=== PATIENT | male | born 1945 | race Caucasian/White ===

== ENCOUNTER → 2019-09-10 11:30 | Outpatient (BNVA) | payer MEDICARE, MEDICAID, SELFPAY | PROVIDERS: Family Provider Nurse Practitioner; PCP Nurse Practitioner; Visit Provider Nurse Practitioner | DX: I10 Essential (primary) hypertension (principal); E11.65 Type 2 diabetes mellitus with hyperglycemia; Z79.4 Long term (current) use of insulin; Z86.73 Personal history of transient ischemic attack (TIA), and cerebral infarction without residual deficits; K21.9 Gastro-esophageal reflux disease without esophagitis; J30.1 Allergic rhinitis due to pollen; Z85.038 Personal history of other malignant neoplasm of large intestine | CPT/HCPCS: 80053; 80061; 83036 ==

== ENCOUNTER 2019-09-18 12:25 | Outpatient (CLI) | payer MEDICARE, MEDICAID, SELFPAY ==
--- NOTE | 2019-09-18 12:48 | CT_ITS ---
WS: [id number] CT ABDOMEN AND PELVIS NONCONTRAST HISTORY: history colon cancer TECHNIQUE: Imaging performed through the abdomen and pelvis. Coronal and sagittal reformats are submi tted. All CT scans at [facility] use at least one of these dose optimization techniques: automated exposure control; mA and/or kV adjustment per patient size (includes targeted exams where d ose is matched to clinical indication); or iterative reconstruction. DLP: 1037.85 mGycm COMPARISON: 10/10/2016, 02/02/2016 Lower thorax: Chronic interstitial thickening at the lung bases. Stable 4 mm noncalcified nodules at the LEFT lung base. Small hiatal hernia. Liver: Normal, no mass or intrahepatic dilatation. Gallbladder: Prior cholecystectomy. Pancreas: Atrophic pancreas with no adjacent inflammation. Spleen: Normal. Adrenal glands: Normal. Right kidney: Normal size with no stones, masses or atrophy. Left kidney: Normal size with no stones, mass or atrophy. Mild atherosclerosis with no aneurysm. No free fluid, intraperitoneal air or significant lymphadenopathy. GI tract: Area of fat necrosis again noted centered in the RIGHT abdomen close to the ileocolic anast omosis has been present on prior studies and is stable. No recurrent mass or soft tissue thickening a t the ileocolic anastomosis. There are a few small sigmoid diverticula. No focal mass or obstructing process. Abdominal wall: Intact. Pelvis: Well-distended urinary bladder. No free fluid or adenopathy. Inguinal canals are patent bilat erally containing fat only. Osseous structures: No destructive bone lesions. CT/CT abdomen pelvis wo con [id number] IMPRESSION: 1. Stable ileocolic anastomosis with no recurrent mass or adenopathy. 2. Prior cholecystectomy. 3. Small hiatal hernia.
[2019-09-18] MEDS: iohexol 300 mg/mL 50 mL Btl PO (14:26)
== END 2019-09-18 12:26 | disposition home or self-care (01) ==
LOC: RADWPI 12:31
PROVIDERS: Family Provider Nurse Practitioner; PCP Nurse Practitioner; Visit Provider Nurse Practitioner
DX: Z85.038 Personal history of other malignant neoplasm of large intestine (principal); K44.9 Diaphragmatic hernia without obstruction or gangrene; Z90.49 Acquired absence of other specified parts of digestive tract
CPT/HCPCS: 74176

== ENCOUNTER 2019-11-12 21:22 | Observation (INO) | payer MEDICARE, MEDICAID, SELFPAY ==
--- NOTE | 2019-11-12 21:22 | XR_ITS ---
WS: [id number] XR chest 1V portable [id number] REASON FOR EXAM: cp FINDINGS: Cardiomegaly. The lung copeland are clear there is no pneumothorax seen. No pneumonia, pleural effusion, or mass effect. The rib cage shows no definite fractures. XR/XR chest 1V portable [id number] IMPRESSION: Cardiomegaly.
[2019-11-12 21:23] VITALS: BP 110/68; PULSE 67; RESP 18; TEMP 37; O2SAT 98; BMI 28.7
--- NOTE | 2019-11-12 21:23 | ECG_ITS ---
Measurements Intervals [place] Rate: 66 P: 68 AR: 173 QRS: 45 QRSD: 76 T: 38 QT: 368 QTc: 387 SINUS RHYTHM Compared to ECG 07/10/2018 20:24:38 Sinus bradycardia no longer present Electronically Signed On 11-13-2019 15:20:07 CDT by Isamar Pierce M.D. [id number] f
--- NOTE | 2019-11-12 21:26 | ED_ITS ---
Documented by User: Shital Pelletier MD 11/12/19 22:44 HPI - Chest Pain General: Chief Complaint: Chest Pain Stated Complaint: Chest Pain Time Seen by Provider: 11/12/19 21:24 Source: patient and EMS Mode of arrival: EMS Limitations: no limitations History of Present Illness: HPI narrative: 74-year-old male whose had chest pain throughout the day. He states been constant nature and sharp. He states it radiates down his left arm and is worse with movement of his left arm. Patient states he is point tender on that side of his chest as well reproduces his pain. Nitro did not help his pain. He states his pain is currently a 2 out of 10. Denies any shortness of breath or diaphoresis. He has had no nausea. MD complaint: chest pain Onset (ago): hour(s) Timing of current episode: constant Prior episodes: No Pain location: substernal Pain radiation: left arm Severity: mild Quality: sharp Relieving factors: nothing Exacerbating factors: nothing Associated symptoms: Deny abdominal pain, dyspnea, fever(s), nausea or vomiting Review of Systems Const: Denies: fever, chills, body aches or change in appetite Eyes: Denies: blurry vision or eye discomfort ENMT: Denies: throat pain or dental pain Card: Reports: chest pain Resp: Denies: shortness of breath GI: Denies: abdominal pain, nausea, vomiting or diarrhea : Denies: painful urination Musc: Denies: neck pain or back pain Skin/Breast: Denies: rash Neuro: Denies: headache Psych: Denies: depression Aubrey/Lymph: Denies: easy bruising All/Imm: Denies: hives PFSH ED PFSH: Medical History Acid reflux Aortic regurgitation Chronic migraine Controlled type 2 diabetes mellitus with hyperglycemia, with long-term current use of insulin DDD (degenerative disc disease) Dependent on walker for ambulation Enrolled in chronic care management History of stroke Hypertension Tricuspid regurgitation Vitamin D deficiency Surgical History History of cataract surgery History of cervical spinal surgery 3 times History of cholecystectomy History of colon cancer 2015 History of knee surgery Right Family History Other Cancer Denies family history of Bleeding disorder Social History Smoking and tobacco status: former smoker Second hand smoke exposure: No Smoking risk assessment/counseling performed?: No Alcohol intake: never Desire information about alcohol rehabilitation?: No Counseling given: No Desire information about substance/drug rehabilitation?: No Counseling given: No Caregiver/support person: No Lives independently: Yes Household members: spouse Marital status: Current occupational status: retired History of recent travel: No Current gender identity: Male Physical Exam Const: COMMON NORMALS: no apparent distress, oriented x3 and healthy appearing HENMT: COMMON NORMALS: normocephalic and head/scalp atraumatic HEAD & SCALP: normocephalic and atraumatic Eye: COMMON NORMALS: PERRL and EOMs intact bilaterally PUPIL: Yes PERRL Neck/C-Spine: COMMON NORMALS: full ROM and supple Chest: COMMONS NORMALS: inspection of chest normal OTHER: Point tender to left side of chest that reproduces pain Resp: COMMON NORMALS: normal respiratory effort, no retractions, no use of ac cessory muscles and clear to auscultation bilaterally AUSCULTATION: clear to auscultation bilaterally Cardio: COMMON NORMALS: regular rate, regular rhythm and no murmurs RATE: regular rate RHYTHM: regular rhythm GI: COMMON NORMALS: normal to inspection, nondistended, normoactive bowel sounds, soft to palpation, non-tender and no masses PALPATION: Yes soft Extremity: COMMON NORMALS: normal to inspection and full ROM Neuro: COMMON NORMALS: oriented x3, moves all extremities and no focal motor deficits Psych: COMMON NORMALS: mental status grossly normal, thought process normal and cooperative THOUGHT PROCESS: normal thought process Skin: COMMON NORMALS: no rashes or lesions noted and no wounds GENERAL SKIN EXAM: no rashes or lesions noted Course Vital Signs: Vital signs: Vital Signs Temperature 98.2 F 11/13/19 02:18 Pulse Rate 54 L 11/13/19 02:18 Respiratory Rate 17 11/13/19 02:18 Blood Pressure 112/67 11/13/19 02:18 Pulse Oximetry 97 11/13/19 02:18 MDM - Chest Pain MDM Narrative: Medical decision making narrative: Patient presents with chest pain is likely musculoskeletal in nature. Patient is point tender in the center of his chest and it reproduces his pain. Initial troponin here is negative. Patient's EKG and x-ray are normal. Will check 2-hour troponin and if negative patient is likely stable for discharge. Patient's care turned over to Dr. Chamberlain to follow 2-hour troponin. Lab Data: Labs: Lab Results 11/12/19 11/12/19 11/12/19 Range/Units 01:13 21:45 21:45 WBC 8.2 (4.0-10.0) 10^3/ uL RBC 5.02 (4.1-5.3) 10^6/u L Hgb 13.8 (11.7-16.6) g/dL Hct 43.6 (42.0-52.0) % MCV 86.9 (80-94) fL MCH 27.5 L (28.0-34.0) pg MCHC 31.7 (30.0-36.0) g/dL RDW 13.1 (12.1-15.1) % Plt Count 280 (130-400) 10^3/c mm MPV 9.8 (7.4-10.4) fL Neut % (Auto) 65.9 % Lymph % (Auto) 24.0 % [place] % (Auto) 7.8 % Eos % (Auto) 1.3 % Baso % (Auto) 0.5 % Neut # (Auto) 5.4 (1.8-7.7) 10^3/u L Lymph # (Auto) 2.0 (0.8-4.8) 10^3/u L [place] # (Auto) 0.6 (0.2-0.9) 10^3/u L Eos # (Auto) 0.1 (0.0-0.8) 10^3/u L Baso # (Auto) 0.0 (0.0-0.1) 10^3/u L Nucleated RBC % (a uto) 0 % Nucleated RBCs # 0.0 /100WBC PT 12.40 (10.5-13.3) SECO NDS INR 0.90 (0.8-1.2) D-Dimer (0-0.59) ug/mIFE U Sodium (136-145) mmol/L Potassium (3.5-5.1) mmol/L Chloride (98-107) mmol/L Carbon Dioxide (22-29) mmol/L Anion Gap (5-19) BUN (8-23) mg/dL Creatinine (0.7-1.2) mg/dL Glucose (65-115) mg/dL Calculated Osmolal ity (285-295) mOsm/k g Calcium (8.5-10.5) mg/dL Total Bilirubin (0.15-1.2) mg/dL AST (0-40) U/L ALT (0-41) U/L Alkaline Phosphata se (40-130) IU/L Troponin T Baselin e (0-15) ng/mL Troponin T 120 Min knik 9.82 (0-15) ng/mL Delta Troponin T -5.18 L (0-10) ABS# Total Protein (6.6-8.7) g/dL Albumin (3.5-5.2) g/dL Globulin (1.3-4.6) g/dL TSH (0.27-4.20) uIU/ mL 11/12/19 11/12/19 11/13/19 Range/Units 21:45 21:45 00:00 WBC (4.0-10.0) 10^3/ uL RBC (4.1-5.3) 10^6/u L Hgb (11.7-16.6) g/dL Hct (42.0-52.0) % MCV (80-94) fL MCH (28.0-34.0) pg MCHC (30.0-36.0) g/dL RDW (12.1-15.1) % Plt Count (130-400) 10^3/c mm MPV (7.4-10.4) fL Neut % (Auto) % Lymph % (Auto) % [place] % (Auto) % Eos % (Auto) % Baso % (Auto) % Neut # (Auto) (1.8-7.7) 10^3/u L Lymph # (Auto) (0.8-4.8) 10^3/u L [place] # (Auto) (0.2-0.9) 10^3/u L Eos # (Auto) (0.0-0.8) 10^3/u L Baso # (Auto) (0.0-0.1) 10^3/u L Nucleated RBC % (a uto) % Nucleated RBCs # /100WBC PT (10.5-13.3) SECO NDS INR (0.8-1.2) D-Dimer 0.62 H (0-0.59) ug/mIFE U Sodium 133 L (136-145) mmol/L Potassium 4.8 (3.5-5.1) mmol/L Chloride 97 L (98-107) mmol/L Carbon Dioxide 24 (22-29) mmol/L Anion Gap 16.8 (5-19) BUN 12 (8-23) mg/dL Creatinine 1.0 (0.7-1.2) mg/dL Glucose 298 H (65-115) mg/dL Calculated Osmolal ity 283 L (285-295) mOsm/k g Calcium 9.8 (8.5-10.5) mg/dL Total Bilirubin 0.3 (0.15-1.2) mg/dL AST 15 (0-40) U/L ALT 12 (0-41) U/L Alkaline Phosphata se 74 (40-130) IU/L Troponin T Baselin e 15 (0-15) ng/mL Troponin T 120 Min knik (0-15) ng/mL Delta Troponin T (0-10) ABS# Total Protein 7.5 (6.6-8.7) g/dL Albumin 3.9 (3.5-5.2) g/dL Globulin 3.6 (1.3-4.6) g/dL TSH (0.27-4.20) uIU/ mL 11/13/19 Range/Units 01:13 WBC (4.0-10.0) 10^3/ uL RBC (4.1-5.3) 10^6/u L Hgb (11.7-16.6) g/dL Hct (42.0-52.0) % MCV (80-94) fL MCH (28.0-34.0) pg MCHC (30.0-36.0) g/dL RDW (12.1-15.1) % Plt Count (130-400) 10^3/c mm MPV (7.4-10.4) fL Neut % (Auto) % Lymph % (Auto) % [place] % (Auto) % Eos % (Auto) % Baso % (Auto) % Neut # (Auto) (1.8-7.7) 10^3/u L Lymph # (Auto) (0.8-4.8) 10^3/u L [place] # (Auto) (0.2-0.9) 10^3/u L Eos # (Auto) (0.0-0.8) 10^3/u L Baso # (Auto) (0.0-0.1) 10^3/u L Nucleated RBC % (a uto) % Nucleated RBCs # /100WBC PT (10.5-13.3) SECO NDS INR (0.8-1.2) D-Dimer (0-0.59) ug/mIFE U Sodium (136-145) mmol/L Potassium (3.5-5.1) mmol/L Chloride (98-107) mmol/L Carbon Dioxide (22-29) mmol/L Anion Gap (5-19) BUN (8-23) mg/dL Creatinine (0.7-1.2) mg/dL Glucose (65-115) mg/dL Calculated Osmolal ity (285-295) mOsm/k g Calcium (8.5-10.5) mg/dL Total Bilirubin (0.15-1.2) mg/dL AST (0-40) U/L ALT (0-41) U/L Alkaline Phosphata se (40-130) IU/L Troponin T Baselin e (0-15) ng/mL Troponin T 120 Min knik (0-15) ng/mL Delta Troponin T (0-10) ABS# Total Protein (6.6-8.7) g/dL Albumin (3.5-5.2) g/dL Globulin (1.3-4.6) g/dL TSH 4.06 (0.27-4.20) uIU/ mL Imaging Data^: CXR: My impression: no acute abnormality EKG Data^: EKG 1: Attestation: I personally reviewed and interpreted this EKG as follows: EKG interpretation date: 11/12/19 EKG interpretation time: 21:35 Interpretation: nsr hr [address] or t wave abnormalities Discharge Plan Discharge Patient Disposition: Placed in Observation Admit Provider: Richard Benjamin Clinical Impression: Chest pain Qualifiers: Chest pain type: unspecified Qualified Code(s): R07.9 - Chest pain, unspecified Condition: Stable Referrals: Aline Pacheco FNP-C [Primary Care Provider] - 1-3 days Discharge Diet: Advance as tolerated Discharge Activity: Resume usual activity Patient Instructions: Chest Pain (ED) Discharge Date/Time: 11/13/19 02:30 Sign Out Sign Out Data: Patient Sign Out occurred on 11/12/19 at 23:08. Patient's care was discussed, and care was transferred from to Liss Fleming. Coding Level of Care Code ED Tooling Engineering Tech for Chg Fwd Exam Comprehensive Documented by User: Liss Fleming 11/13/19 03:03 HPI - Chest Pain General: Chief Complaint: Chest Pain Stated Complaint: Chest Pain Time Seen by Provider: 11/12/19 21:24 PFSH ED PFSH: Medical History Acid reflux Aortic regurgitation Chronic migraine Controlled type 2 diabetes mellitus with hyperglycemia, with long-term current use of insulin DDD (degenerative disc disease) Dependent on walker for ambulation Enrolled in chronic care management History of stroke Hypertension Tricuspid regurgitation Vitamin D deficiency Surgical History History of cataract surgery History of cervical spinal surgery 3 times History of cholecystectomy History of colon cancer 2015 History of knee surgery Right Family History Other Cancer Denies family history of Bleeding disorder Social History Smoking and tobacco status: former smoker Second hand smoke exposure: No Smoking risk assessment/counseling performed?: No Alcohol intake: never Desire information about alcohol rehabilitation?: No Counseling given: No Desire information about substance/drug rehabilitation?: No Counseling given: No Caregiver/support person: No Lives independently: Yes Household members: spouse Marital status: Current occupational status: retired History of recent travel: No Current gender identity: Male Course Vital Signs: Vital signs: Vital Signs Temperature 98.2 F 11/13/19 02:18 Pulse Rate 54 L 11/13/19 02:18 Respiratory Rate 17 11/13/19 02:18 Blood Pressure 112/67 11/13/19 02:18 Pulse Oximetry 97 11/13/19 02:18 MDM - Chest Pain MDM Narrative: Medical decision making narrative: Upon my going to talk to the patient he has seem to have changed his story. He states that he had squeezing type chest pain that radiated down his left arm with associated shortness of breath and diaphoresis. The family is insistent that he stay for cardiac stress testing. He has had 2 normal EKGs and his d-dimer is normal for age adjustment but after talking with Dr. Benjamin he would like to go ahead and order a CTA. He understands the second troponin is pending but he will come down to evaluate the patient. The patient's heart score is 5. Lab Data: Labs: Lab Results 11/12/19 11/12/19 11/12/19 Range/Units 01:13 21:45 21:45 WBC 8.2 (4.0-10.0) 10^3/ uL RBC 5.02 (4.1-5.3) 10^6/u L Hgb 13.8 (11.7-16.6) g/dL Hct 43.6 (42.0-52.0) % MCV 86.9 (80-94) fL MCH 27.5 L (28.0-34.0) pg MCHC 31.7 (30.0-36.0) g/dL RDW 13.1 (12.1-15.1) % Plt Count 280 (130-400) 10^3/c mm MPV 9.8 (7.4-10.4) fL Neut % (Auto) 65.9 % Lymph % (Auto) 24.0 % [place] % (Auto) 7.8 % Eos % (Auto) 1.3 % Baso % (Auto) 0.5 % Neut # (Auto) 5.4 (1.8-7.7) 10^3/u L Lymph # (Auto) 2.0 (0.8-4.8) 10^3/u L [place] # (Auto) 0.6 (0.2-0.9) 10^3/u L Eos # (Auto) 0.1 (0.0-0.8) 10^3/u L Baso # (Auto) 0.0 (0.0-0.1) 10^3/u L Nucleated RBC % (a uto) 0 % Nucleated RBCs # 0.0 /100WBC PT 12.40 (10.5-13.3) SECO NDS INR 0.90 (0.8-1.2) D-Dimer (0-0.59) ug/mIFE U Sodium (136-145) mmol/L Potassium (3.5-5.1) mmol/L Chloride (98-107) mmol/L Carbon Dioxide (22-29) mmol/L Anion Gap (5-19) BUN (8-23) mg/dL Creatinine (0.7-1.2) mg/dL Glucose (65-115) mg/dL Calculated Osmolal ity (285-295) mOsm/k g Calcium (8.5-10.5) mg/dL Total Bilirubin (0.15-1.2) mg/dL AST (0-40) U/L ALT (0-41) U/L Alkaline Phosphata se (40-130) IU/L Troponin T Baselin e (0-15) ng/mL Troponin T 120 Min knik 9.82 (0-15) ng/mL Delta Troponin T -5.18 L (0-10) ABS# Total Protein (6.6-8.7) g/dL Albumin (3.5-5.2) g/dL Globulin (1.3-4.6) g/dL TSH (0.27-4.20) uIU/ mL 11/12/19 11/12/19 11/13/19 Range/Units 21:45 21:45 00:00 WBC (4.0-10.0) 10^3/ uL RBC (4.1-5.3) 10^6/u L Hgb (11.7-16.6) g/dL Hct (42.0-52.0) % MCV (80-94) fL MCH (28.0-34.0) pg MCHC (30.0-36.0) g/dL RDW (12.1-15.1) % Plt Count (130-400) 10^3/c mm MPV (7.4-10.4) fL Neut % (Auto) % Lymph % (Auto) % [place] % (Auto) % Eos % (Auto) % Baso % (Auto) % Neut # (Auto) (1.8-7.7) 10^3/u L Lymph # (Auto) (0.8-4.8) 10^3/u L [place] # (Auto) (0.2-0.9) 10^3/u L Eos # (Auto) (0.0-0.8) 10^3/u L Baso # (Auto) (0.0-0.1) 10^3/u L Nucleated RBC % (a uto) % Nucleated RBCs # /100WBC PT (10.5-13.3) SECO NDS INR (0.8-1.2) D-Dimer 0.62 H (0-0.59) ug/mIFE U Sodium 133 L (136-145) mmol/L Potassium 4.8 (3.5-5.1) mmol/L Chloride 97 L (98-107) mmol/L Carbon Dioxide 24 (22-29) mmol/L Anion Gap 16.8 (5-19) BUN 12 (8-23) mg/dL Creatinine 1.0 (0.7-1.2) mg/dL Glucose 298 H (65-115) mg/dL Calculated Osmolal ity 283 L (285-295) mOsm/k g Calcium 9.8 (8.5-10.5) mg/dL Total Bilirubin 0.3 (0.15-1.2) mg/dL AST 15 (0-40) U/L ALT 12 (0-41) U/L Alkaline Phosphata se 74 (40-130) IU/L Troponin T Baselin e 15 (0-15) ng/mL Troponin T 120 Min knik (0-15) ng/mL Delta Troponin T (0-10) ABS# Total Protein 7.5 (6.6-8.7) g/dL Albumin 3.9 (3.5-5.2) g/dL Globulin 3.6 (1.3-4.6) g/dL TSH (0.27-4.20) uIU/ mL 11/13/19 Range/Units 01:13 WBC (4.0-10.0) 10^3/ uL RBC (4.1-5.3) 10^6/u L Hgb (11.7-16.6) g/dL Hct (42.0-52.0) % MCV (80-94) fL MCH (28.0-34.0) pg MCHC (30.0-36.0) g/dL RDW (12.1-15.1) % Plt Count (130-400) 10^3/c mm MPV (7.4-10.4) fL Neut % (Auto) % Lymph % (Auto) % [place] % (Auto) % Eos % (Auto) % Baso % (Auto) % Neut # (Auto) (1.8-7.7) 10^3/u L Lymph # (Auto) (0.8-4.8) 10^3/u L [place] # (Auto) (0.2-0.9) 10^3/u L Eos # (Auto) (0.0-0.8) 10^3/u L Baso # (Auto) (0.0-0.1) 10^3/u L Nucleated RBC % (a uto) % Nucleated RBCs # /100WBC PT (10.5-13.3) SECO NDS INR (0.8-1.2) D-Dimer (0-0.59) ug/mIFE U Sodium (136-145) mmol/L Potassium (3.5-5.1) mmol/L Chloride (98-107) mmol/L Carbon Dioxide (22-29) mmol/L Anion Gap (5-19) BUN (8-23) mg/dL Creatinine (0.7-1.2) mg/dL Glucose (65-115) mg/dL Calculated Osmolal ity (285-295) mOsm/k g Calcium (8.5-10.5) mg/dL Total Bilirubin (0.15-1.2) mg/dL AST (0-40) U/L ALT (0-41) U/L Alkaline Phosphata se (40-130) IU/L Troponin T Baselin e (0-15) ng/mL Troponin T 120 Min knik (0-15) ng/mL Delta Troponin T (0-10) ABS# Total Protein (6.6-8.7) g/dL Albumin (3.5-5.2) g/dL Globulin (1.3-4.6) g/dL TSH 4.06 (0.27-4.20) uIU/ mL EKG Data^: EKG 2: Attestation: I personally reviewed and interpreted this EKG as follows: EKG interpretation date: 11/13/19 EKG interpretation time: 01:11 Interpretation: Normal sinus rhythm at 58 beats a minute, no acute ST or T wave changes. Discharge Plan Discharge Patient Disposition: Placed in Observation Admit Provider: Richard Benjamin Clinical Impression: Chest pain Qualifiers: Chest pain type: unspecified Qualified Code(s): R07.9 - Chest pain, unspecified Condition: Stable Referrals: Aline Pacheco, TECHNICAL ACCOUNT MANAGER-C [Primary Care Provider] - 1-3 days Discharge Diet: Advance as tolerated Discharge Activity: Resume usual activity Patient Instructions: Chest Pain (ED) Discharge Date/Time: 11/13/19 02:30 Sign Out Sign Out Data: Patient Sign Out occurred on 11/12/19 at 23:08. Patient's care was discussed, and care was transferred from to Liss Fleming. Coding Level of Care Code ED Tooling Engineering Tech for Jose Luis Fwalejandro Exam Comprehensive
[2019-11-12 21:53] LABS: Basophils % 0.5 %; Eosinophils # 0.1 10^3/uL (0.0-0.8); Eosinophils % 1.3 %; Hematocrit 43.6 % (42.0-52.0); Hemoglobin 13.8 g/dL (11.7-16.6); Mean Corpuscular HGB Conc 31.7 g/dL (30.0-36.0); Mean Corpuscular Hemoglobin 27.5 pg (28.0-34.0); Mean Corpuscular Volume 86.9 fL (80-94); Mean Platelet Volume 9.8 fL (7.4-10.4); Monocytes # 0.6 10^3/uL (0.2-0.9); Monocytes % 7.8 %; Neutrophils # 5.4 10^3/uL (1.8-7.7); Neutrophils % 65.9 %; Nucleated Red Blood Cells % 0 %; Platelet Count 280 10^3/cmm (130-400); Red Blood Count 5.02 10^6/uL (4.1-5.3); Red Cell Distribution Width 13.1 % (12.1-15.1); White Blood Count 8.2 10^3/uL (4.0-10.0)
[2019-11-12 21:59] VITALS: BP 121/70; PULSE 62; RESP 20; O2SAT 97
[2019-11-12] MEDS: morphine 4 mg/mL SDV 1 mL IVP (22:04)
[2019-11-12 22:10] VITALS: BP 101/68; PULSE 63; RESP 20; O2SAT 97
[2019-11-12 22:14] LABS: Alanine Aminotransferase 12 U/L (0-41); Albumin Level 3.9 g/dL (3.5-5.2); Alkaline Phosphatase 74 IU/L (40-130); Anion Gap 16.8 (5-19); Blood Urea Nitrogen 12 mg/dL (8-23); Calcium 9.8 mg/dL (8.5-10.5); Carbon Dioxide 24 mmol/L (22-29); Chloride 97 mmol/L (98-107); Globulin 3.6 g/dL (1.3-4.6); Glucose 298 mg/dL (65-115); Osmolality Calculated 283 mOsm/kg (285-295); Potassium 4.8 mmol/L (3.5-5.1); Sodium 133 mmol/L (136-145); Total Bilirubin 0.3 mg/dL (0.15-1.2); Total Protein 7.5 g/dL (6.6-8.7)
[2019-11-12 22:16] LABS: Troponin(5th) Baseline 15 ng/mL (0-15)
[2019-11-12 22:32] LABS: Aspartate Amino Transferase 15 U/L (0-40)
--- NOTE | 2019-11-12 23:23 | ECG_ITS ---
Measurements Intervals [place] Rate: 61 P: 43 CT: 156 QRS: 17 QRSD: 90 T: 41 QT: 399 QTc: 405 SINUS RHYTHM Compared to ECG 07/10/2018 20:24:38 Sinus bradycardia no longer present Electronically Signed On 11-13-2019 15:26:52 CDT by Isamar Pierce M.D. [id number] f
[2019-11-13] VITALS (8 sets, daily range): BP systolic 103–116; BP diastolic 63–76; PULSE 54–74; RESP 14–18; TEMP 36.4–36.8; O2SAT 94–97
[2019-11-13 01:10] LABS: D Dimer 0.62 ug/mIFEU (0-0.59)
--- NOTE | 2019-11-13 01:24 | CTR_ITS ---
PROCEDURE INFORMATION: Exam: CT Angiography Chest With Contrast Exam date and time: 11/13/2019 1:27 AM Age: 74 years old Clinical indication: Chest pain; Patient HX: Positive d-dimer; Additional info: Cp/positive d-dimer TECHNIQUE: Imaging protocol: Computed tomographic angiography of the chest with intravenous contrast. 3D rendering: MIP and/or 3D reconstructed images were created by the technologist. Radiation optimization: All CT scans at this facility use at least one of these dose optimization techniques: automated exposure control; mA and/or kV adjustment per patient size (includes targeted exams where dose is matched to clinical indication); or iterative reconstruction. Contrast material: OMNI 350; Contrast volume: 75 ml; Contrast route: 20G; COMPARISON: CT chest w con* [id number] 2016-02-24 09:47 RADIATION DOSE METRICS: Total DLP: 646.21 mGy-cm FINDINGS: Pulmonary arteries: No filling defects in the pulmonary arteries to suggest pulmonary emboli. Aorta: Unremarkable. No aortic aneurysm. No aortic dissection. Lungs: Pleural based 5 mm right lower lobe pulmonary nodule is unchanged. Bronchiectasis and bronchial wall thickening and interstitial thickening. Pleural space: Unremarkable. No pneumothorax. No pleural effusion. Heart: Unremarkable. No cardiomegaly. No pericardial effusion. Mediastinum: Mild gastro-esophageal thickening. Question distal esophagitis. Small gastroesophageal sliding type hiatal hernia. Lymph nodes: Mild nonspecific mediastinal and hilar adenopathy. Bones/joints: Unremarkable. No acute fracture. Soft tissues: Unremarkable. CT/CT angio chest PE protcl [id number] IMPRESSION: 1. No filling defects in the pulmonary arteries to suggest pulmonary emboli. 2. Mild nonspecific mediastinal and hilar adenopathy. 3. Pleural based 5 mm right lower lobe pulmonary nodule is unchanged. 4. Bronchiectasis and bronchial wall thickening and interstitial thickening. 5. Mild gastro-esophageal thickening. Question distal esophagitis. 6. Small gastroesophageal sliding type hiatal hernia. COMMENTS: As per Fleischner Society guidelines for follow-up and management of pulmonary nodules: For patients at low risk (minimal or absent history of smoking and of other known risk factors), recommend follow-up chest CT at 12 months; if unchanged, no further follow-up. For patient at high risk (history of smoking or of other known risk factors), recommend initial follow-up chest CT at 6-12 months, then at 18-24 months if no interval change. Radiation Dose CTDIVOL = (mGy): DLP = 646.21 (mGy-cm)
--- NOTE | 2019-11-13 01:26 | PM.HP ---
Providers/Chief Complaint Primary Care Provider: OMI BondsC Chief Complaint: Chest Pain History of Present Illness Barb Joe is a 74 year old male does not carry any significant coronary disease, CHF or RI history coming in with chief complaint of chest pain. Patient is stating that around 6 PM he was sitting in front of his computer when he started experiencing diaphoresis, substernal chest pain which was diffuse, he is describing about a heaviness radiating towards his jaw and left arm. He did not experience any emesis, chest pain stayed consistent until he got 3 doses of nitroglycerin in the ambulance. After getting 1 dose of morphine in the ER chest pain completely subsided. He is stating that he lives a sedentary lifestyle, does not smoke actively, no alcohol use. Consistent with his medications. He has not noticed any leg pain, viral prodromal symptoms, fever, shortness of breath, orthopnea, PND or sick contacts or recent traveling. Diagnostic in the ER revealed normal hemodynamics, baseline troponin not significantly high, considering heart score of 5 he will be admitted, Currently he is chest pain-free with normal hemodynamics EKG did not reveal ischemic or infarctive changes, because of high d-dimer CTA was obtained Review of Systems Const: Denies: fever, chills, body aches or fatigue Eyes: Denies: change in vision or blurry vision ENMT: Denies: throat pain Card: Reports: chest pain; Denies: palpitations, irregular heart rhythm, edema, syncope, shortness of breath on exertion or shortness of breath when lying down Resp: Denies: shortness of breath GI: Denies: abdominal pain, nausea or vomiting : Denies: flank pain or difficulty urinating Musc: Denies: neck pain Skin/Breast: Denies: rash Neuro: Denies: headache Psych: Denies: anxiety Endo: Denies: excessive urination Aubrey/Lymph: Denies: easy bruising All/Imm: Denies: hives Medications/Allergies Home Medications Medication Instructions Recorded Confirmed Last Taken Type aspirin 81 mg tablet,delayed 81 mg PO DAILY 09/09/19 11/05/19 Unknown History release clopidogrel 75 mg tablet 75 mg PO DAILY #30 tab 09/10/19 11/05/19 Unknown Rx duloxetine 20 mg capsule,delayed 20 mg PO BID #60 cap 09/10/19 11/05/19 Unknown Rx release famotidine 40 mg tablet 40 mg PO .every other day #15 tab 09/10/19 11/05/19 Unknown Rx gabapentin 100 mg capsule 100 mg PO BID #60 cap 09/10/19 11/05/19 Unknown Rx levocetirizine 5 mg tablet 5 mg PO DAILY #30 tab 09/10/19 11/05/19 Unknown Rx linagliptin 5 mg tablet 5 mg PO DAILY #30 tab 09/10/19 11/05/19 Unknown Rx lisinopril 5 mg tablet 5 mg PO DAILY #30 tab 09/10/19 11/05/19 Unknown Rx metformin 500 mg tablet,extended 1,000 mg PO DAILY #30 tab 09/10/19 11/05/19 Unknown Rx release 24hr metoprolol succinate 25 mg 25 mg PO DAILY #30 tab 09/10/19 11/05/19 Unknown Rx tablet,extended release 24 hr pantoprazole 40 mg tablet,delayed 40 mg PO DAILY #30 tab 09/10/19 11/05/19 Unknown Rx release simvastatin 40 mg tablet 40 mg PO .hs #30 tab 09/10/19 11/05/19 Unknown Rx insulin detemir U-100 100 unit/mL 65 unit SUBCUT DAILY #15 ml 10/31/19 11/05/19 Unknown Rx (3 mL) subcutaneous pen Allergies Allergy/AdvReac Type Severity Reaction Status Date / Time Erythromycins Allergy Unknown Unknown Uncoded 09/09/19 16:28 Sulfa Drugs Allergy Unknown Unknown Uncoded 09/09/19 16:28 PFSH Acute PFSH: Medical History Acid reflux Aortic regurgitation Chronic migraine Controlled type 2 diabetes mellitus with hyperglycemia, with long-term current use of insulin DDD (degenerative disc disease) Dependent on walker for ambulation Enrolled in chronic care management History of stroke Hypertension Tricuspid regurgitation Vitamin D deficiency Surgical History History of cataract surgery History of cervical spinal surgery 3 times History of cholecystectomy History of colon cancer 2015 History of knee surgery Right Family History Other Cancer Denies family history of Bleeding disorder Social History Smoking and tobacco status: former smoker Second hand smoke exposure: No Smoking risk assessment/counseling performed?: No Alcohol intake: never Desire information about alcohol rehabilitation?: No Counseling given: No Desire information about substance/drug rehabilitation?: No Counseling given: No Caregiver/support person: No Lives independently: Yes Household members: spouse Marital status: Current occupational status: retired History of recent travel: No Current gender identity: Male Vitals/I&O/Wt Last Vital Signs Temp 98.6 F 11/12/19 21:23 Pulse 60 11/13/19 01:04 Resp 16 11/13/19 01:04 BP 114/74 11/13/19 01:04 Pulse Ox 94 11/13/19 01:04 Weight last 48 hrs Weight 85.729 kg Physical Exam Narrative: EXAM NARRATIVE: Head to toe examination Pleasant male sitting comfortably in his bed S1, S2, systolic murmur grade 2/6, no active heart failure signs No radial radial delay Abdomen soft, nontender, nondistended Lungs are clear to auscultation Neurologically nonfocal exam Mild cognitive impairment Appropriate mood and affect EOMI, PERRLA No signs of dehydration Pertinent negatives No sign of ischemia gangrene ulcer of lower extremities No signs of heart failure No active chest pain No active respiratory distress Data : 11/12/19 21:45 11/12/19 21:45 A&P Assessment and plan (1) Unstable angina: Status: Acute (2) History of stroke: Status: Chronic (3) History of colon cancer: Status: Chronic (4) Hypertension: Status: Acute (5) Acid reflux: Status: Chronic Additional A&P Information Unstable angina Multiple risk factors for coronary disease such as dyslipidemia, previous history of stroke, typical chest pain substernal relieved with nitro persisted more than 30 minutes, Currently chest pain-free, troponin not significant high, EKG does not show ischemic or infarctive changes Lexiscan stress test because of moderate risk factors Hold beta-adan Rule out PE with CTA, d-dimer slightly high, he also carries history of colon cancer status post resection Hemodynamically stable Previous echo reveals mild AR and TR, will repeat echo in the morning previous ejection fraction was 70% without diastolic dysfunction Previous history of stroke: He has been taking dual antiplatelet therapy for a long time, denying any bleeding, kindly reevaluate if he could be discharged only on 1 antiplatelet therapy Mild cognitive impairment Currently patient is alert oriented x3 able to give me all above-mentioned details, no active delirium Goals of care: Patient is stating that he wants to stay DNR/DNI, because of mild cognitive impairment his goals of care should be readdressed in the morning with the family as well N.p.o. DVT prophylaxis: Lovenox Attestations Medical Necessity Statement*: Anticipating discharge in less than 48 hours if Lexiscan stress test comes back negative Time Spent in Patient Care: 45 Coding Level of Care Code Acute Operations Intern for g Fwd Diagnoses Unstable angina I20.0 History of stroke Z86.73 History of colon cancer Z85.038 Hypertension I10 Acid reflux K21.9
[2019-11-13 01:33] LABS: Troponin 5 2HR 9.82 ng/mL (0-15)
[2019-11-13 01:47] LABS: Troponin 5 2HR Delta -5.18 ABS# (0-10)
[2019-11-13] MEDS: iohexol 350 mg/mL 100 mL Btl IV (02:05)
--- NOTE | 2019-11-13 02:08 | NMCV_ITS ---
NM maddison perf SPECT r/s* [id number] Barb Joe Age: 74 Gender: M : 1945 Exam Date: 11/13/2019 07:09 Ordering Phys: Richard Benjamin MD Technologist: GERARDO Crisostomo Exam Location: [facility] [place] Indications: CHEST PAIN STRESS TEST Please see separate stress test report in [facility] for full findings IMAGE PROTOCOL Rest/Stress 1 Lexiscan Day Radiopharmaceutical Dose (mCi) Administration Site Administered by Rest: Tc-99m 10.9 IV GERARDO Zuñiga Sestamibi Stress:Tc-99m 32.4 IV GERARDO Crisostomo Sestamibi Rest: 13-Nov-2019 60 Discovery 630 Stress: 13-Nov-2019 30 Discovery 630 0.4mg Lexiscan. Supine position only as patient was unable to lay prone. SPECT RESULTS Technical Quality: Excellent Raw Data Analysis: Normal Image Corrections: No attenuation or motion correction applied Summed Stress Score: 1 Summed Rest Score: 0 Summed Difference Score: 1 PERFUSION FINDINGS Very small size perfusion abnormality of mild severity of apical lateral wall on rest images with mild reversibility on supine stress images. FUNCTIONAL RESULTS (calculated via Gated SPECT) Stress Image LV EF (%): 72 Stress EDV (mL):79 TID: 0.98 Stress ESV (mL):22 FUNCTIONAL FINDINGS: The left ventricle is normal in size. Transient Ischemia Dilatation of 0.98. There is normal left ventricular systolic function. The left ventricular ejection fraction is normal with a value of 72%. There is normal left ventricular wall thickening. Normal end-diastolic and end-systolic volumes IMPRESSIONS 1. Very small size perfusion abnormality of mild severity of apical lateral wall with mild reversibility on supine stress images. 2. This may represent very small area of ischemia in left anterior descending /circumflex artery territory however in absence of prone imaging attenuation artifact cannot be completely ruled out. 3. The left ventricular ejection fraction is normal with a value of 72%. 4. There is normal left ventricular wall thickening. 5. No prior similar studies to compare. Isamar Pierce MD (Electronically Signed) Final Date: 13 Nov 2019 14:02 S
--- NOTE | 2019-11-13 02:23 | USCV_ITS ---
Barb Joe Age: 74 Gender: M : 1945 Exam Date: 11/13/2019 09:00 Ordering Phys: Richard Benjamin MD Technologist: Slime Solomon Exam Location: [facility] [place] Indication: UNSTABLE ANGINA. SYSTOLIC MURMUR. BP: 103 / 63 HR: 65 Rhythm: Sinus Technical Quality: Adequate MEASUREMENTS (Male / Female) Normal Values 2D ECHO LV Diastolic Diameter PLAX 4.3 cm 4.2 - 5.9 / 3.9 - 5.3 cm LV Systolic Diameter PLAX 3.0 cm LV Chamber Size 3.1 cm IVS Diastolic Thickness 1.3 cm 0.6 - 1.0 / 0.6 - 0.9 cm IVS Systolic Thickness 1.5 cm LVPW Diastolic Thickness 1.3 cm 0.6 - 1.0 / 0.6 - 0.9 cm LVPW Systolic Thickness 1.4 cm RV Chamber Size 2.4 cm LVOT Diameter 2.1 cm LV Ejection Fraction 2D Teich 57.7 % LV Ejection Fraction MOD 2C 60.1 % LV Ejection Fraction 2C AL 61.7 % LA Diameter 3.2 cm LA Width 3.3 cm LA Height 3.9 cm RA Width 2.8 cm RA Height 3.0 cm Aorta at Sinotubular Diameter 3.4 cm M-MODE LV Diastolic Diameter MM 5.3 cm 4.2 - 5.9 / 3.9 - 5.3 cm LV Systolic Diameter MM 3.8 cm LV Ejection Fraction MM Teich 53.4 % IVS Diastolic Thickness MM 1.3 cm 0.6 - 1.0 / 0.6 - 0.9 cm IVS Systolic Thickness MM 1.1 cm LVPW Diastolic Thickness MM 0.9 cm 0.6 - 1.0 / 0.6 - 0.9 cm LVPW Systolic Thickness MM 1.4 cm RV Diastolic Diameter MM 1.1 cm Aortic Annulus Diameter 3.8 cm LA Ao Ratio MM 0.8 MV E Point Septal Separation 0.8 cm DOPPLER AV Peak Velocity 138.0 cm/s LVOT Peak Velocity 99.0 cm/s AV Area Cont Eq vti 2.7 cm squared AV Area Cont Eq pk 2.5 cm squared MV Area PHT 2.3 cm squared Mitral E to A Ratio 0.7 MV E' Velocity 6.0 cm/s Mitral E to MV E' Ratio 9.4 Mitral E to LV E' Lateral Ratio 11.4 Mitral E to LV E' Septal Ratio 8.0 TR Peak Velocity 205.1 cm/s TR Peak Gradient 16.8 mmHg TR Mean Velocity 147.4 cm/s TR Mean Gradient 9.8 mmHg TR Velocity Time Integral 50.4 cm TV Peak E Velocity 70.0 cm/s Right Atrial Pressure 3.0 mmHg Pulmonary Artery Systolic Pressu 19.8 mmHg PV Peak Velocity 56.0 cm/s RV Acceleration Time 0.2 s RV Ejection Time 0.3 s RV AcT/ET 0.5 FINDINGS Left Ventricle Normal left ventricular size and systolic function, EF 66 %. No regional wall motion abnormalities. Grade I/IV diastolic dysfunction (abnormal relaxation filling pattern), normal to mildly elevated filling pressures. Right Ventricle The right ventricle is normal in size and function. Right Atrium The right atrium is normal in size. Left Atrium The left atrium is normal in size. Mitral Valve No gross abnormalities noted Aortic Valve Mild aortic valve regurgitation. Thickened aortic valve. Tricuspid Valve No gross abnormalities noted Trace tricuspid valve regurgitation. Pulmonic Valve Not visualized well Pericardium No pericardial effusion. Aorta Normal aortic annulus size. CONCLUSIONS Normal left ventricular size and systolic function, EF 66 %. No regional wall motion abnormalities. Grade I/IV diastolic dysfunction (abnormal relaxation filling pattern), normal to mildly elevated filling pressures. Mild aortic valve regurgitation. Thickened aortic valve. Trace tricuspid valve regurgitation. There is no pericardial effusion. There are no intracardiac masses. Compared to the study from 06/28/2017, there may not be a significant change Dr Chrissy Cruz MD FACC (Electronically Signed) Final Date: 13 Nov 2019 11:19 S
--- NOTE | 2019-11-13 02:25 | PC.NURSE ---
Patient is unsure about several of his medications that he takes a home. He states my blood thinner, my pain pill, and my blood pressure pill, but cannot tell me the name or dose of the medications. Will contact pharmacy when it opens.
--- NOTE | 2019-11-13 02:27 | PC.NURSE ---
Patient arrived to the floor after report was received via phone from ED. Patient is not complaining of any pain at this time. VSS. On room air. On tele SR. Call light within reach and oriented to his room. Last caffeine intake 11/11 at 0600. Educated about stress test and NPO diet and verbalized understanding. Will continue to monitor.
[2019-11-13] MEDS: enoxaparin 40 mg/0.4 mL Syringe SUBCUT (02:41)
[2019-11-13 03:01] LABS: Thyroid Stimulating Hormone 4.06 uIU/mL (0.27-4.20)
--- NOTE | 2019-11-13 06:00 | ECG_ITS ---
NAME OF STUDY: LEXISCAN SESTAMIBI STRESS TEST INDICATION: UNSTABLE ANGINA PROCEDURE: At the baseline, the EKG revealed normal sinus rhythm with a poor R wave progression. The baseline blood pressure was 123/72 mm Hg with a heart rate of 78 beats/min. Lexiscan was infused over a period of 20 seconds. A total of 0.4 milligrams of Lexiscan was infused. The stress phase was continued for a total of 5 minutes. Heart rate at the end of the stress phase was 80 with a blood pressure 128/80. The EKG at the peak infusion revealed no significant changes . Sestamibi was injected 20 seconds after the Lexiscan infusion. Blood pressure at the end of the recovery phase was 116/76 with a heart rate of 75 per minute. CONCLUSION: 1. No significant EKG changes with the LexiScan infusion 2. No LexiScan induced chest pain or cardiac arrhythmia 3. Normal blood pressure and heart rate response 4. Sestamibi/sestamibi perfusion scan pending; see separate report. Electronically Signed On 11-20-2019 11:11:11 CDT by Chrissy Cruz M.D. [email or web address]
[2019-11-13 06:38] LABS: Anion Gap 15.8 (5-19); Blood Urea Nitrogen 11 mg/dL (8-23); Calcium 10.5 mg/dL (8.5-10.5); Carbon Dioxide 27 mmol/L (22-29); Chloride 97 mmol/L (98-107); Glucose 149 mg/dL (65-115); Osmolality Calculated 279 mOsm/kg (285-295); Potassium 4.8 mmol/L (3.5-5.1); Sodium 135 mmol/L (136-145)
[2019-11-13 06:52] LABS: Glucose Point of Care 150 mg/dL (70-110)
[2019-11-13] MEDS: regadenoson 0.4 Mg/5 ml Syringe IVP (08:01)
[2019-11-13] MEDS: clopidogrel 75 mg Tablet PO (09:53)
[2019-11-13] MEDS: duloxetine 20 mg Capsule PO (09:53)
[2019-11-13] MEDS: lisinopril 5 mg Tablet PO (09:53)
[2019-11-13] MEDS: gabapentin 100 mg Capsule PO (09:53)
[2019-11-13] MEDS: pantoprazole DR 40 mg Tablet PO (09:53)
[2019-11-13] MEDS: aspirin 81 mg EC Tablet PO (09:54)
[2019-11-13] MEDS: famotidine 20 mg Tablet 40 MG PO (09:54)
--- NOTE | 2019-11-13 10:04 | PC.CHAP ---
Pastoral Care Encounter/Spiritual Assessment Type of Contact [] Declined workforce consultant visit [] Patient/Family/Request visit [] Outpatient visit [] Follow-up visit [] Physician referral [] Code/Alert [] Routine visit [] Staff referral [] Actively dying [] Patient sleeping [] Family support [] [x] Out of room [] Palliative care [] [] Receiving care in room [] Pre-surgical visit [] Trauma [] Long length of stay [] ICU visit [] Other: Relational/Emotional Strength [] Patient feels connected with others/family/visitors/staff [] Distress [] Loneliness/isolation [] Abandonment Spirituality of Patient [] Person of Erin [] Attends Shinto of their [place] [] Believes in Prayer [] Reads Bible or Jewish materials [] There are Spiritual issues to be addressed Quotation Clerk Interventions [] Prayer [] Active listening [] Non-anxious presence [] Spiritual/emotional support [] Crisis/trauma care [] Spiritual counseling [] Bereavement support [] Provided bereavement packet [] Provided Bible/devotional materials [] Provided toy/stuffed animal, coloring book to patient or family member [] Provided Communion [] Anointing/[place] [] Salvation [x] Completed spiritual assessment [] Other: Impact on Illness or Injury [] Angry [] Fearful [] Anxious [] Often cries [] Exhaustion [] Unable to work [] Unable to attend holiness [] Unable to walk/stand [] Unable to read [] Unable to drive [] Unable to eat/drink [] Unable to sleep [] Unable to be with family [] Patient intubated [] Other: Summary Patient out for test Time spent with patient
[2019-11-13 10:46] LABS: Glucose Point of Care 158 mg/dL (70-110)
--- NOTE | 2019-11-13 16:15 | P.DS_ITS ---
Discharge Providers Date of Admission: 11/13/19 01:46 Date of Discharge: November 13, 2019 Attending Provider at Admission: Richard Benjamin MD Attending Provider at Discharge: Maricruz Calero MD Primary Care Provider: AFSANEH Bonds Diagnoses at Discharge Discharge Diagnosis (1) Unstable angina: Status: Acute (2) History of stroke: Status: Chronic (3) History of colon cancer: Status: Chronic Problem details: 2014 (4) Hypertension: Status: Acute (5) Acid reflux: Status: Chronic Reason for Visit Reason for Visit: Reason For Visit: Chest Pain Hospital Course Discharge Summary: Barb Joe is a 74 year old male does not carry any significant coronary disease, CHF or PA history coming in with chief complaint of chest pain and diaphoresis. EKG showed no acute St-T changes, troponins were not elevated. He underwent stress test today for c/f unstable angina which showed Very small size perfusion abnormality of mild severity of apical lateral wall with mild reversibility on supine stress images. This may represent very small area of ischemia in left anterior descending/circumflex artery territory however in absence of prone imaging attenuation artifact cannot be completely ruled out. Echocardiogram showed Normal left ventricular size and systolic function, EF 66 %. No regional wall motion abnormalities. No significant supervisor policy change clerks 2017. He remained chest pain/symptom free during course of admission and is being discharged today with medical management after discussion with him and his family. Imdur was not added to his regimen as BP mostly ranged in the low 100s systolic. Recommended to return to ER in case of recurrent chest pain. Physical Exam Narrative: EXAM NARRATIVE: GEN: Awake, alert and oriented, no acute distress CVS: S1S2 N RS: CTA B/L Abd: Soft, nt/nd , bs+ STILL CLEANER: no focal neuro deficits Discharge Data Data Completed and Pending: Completed Studies During Hospitalization Category Date Time Status CT angio chest PE protcl [id number] Stat Cat Scan 11/13/19 01:24 Completed XR chest 1V hamzah ble [id number] Stat Exams 11/12/19 21:22 Completed NM maddison perf SPECT r/s* [id number] Routin e Nuc Med 11/13/19 02:08 Completed CV echo complete* [id number] Routine Ultrasound 11/13/19 02:23 Completed Pending at discharge Category Date Time Status Sestamibi Stress Test Request Routi ne Exams 11/14/19 06:00 Ordered Labs from last 24 hours 11/13/19 11/13/19 11/13/19 10:43 06:48 06:07 WBC RBC Hgb Hct MCV MCH MCHC RDW Plt Count MPV Neut % (Auto) Lymph % (Auto) Cedar % (Auto) Eos % (Auto) Baso % (Auto) Neut # (Auto) Lymph # (Auto) Cedar # (Auto) Eos # (Auto) Baso # (Auto) Nucleated RBC % (a uto) Nucleated RBCs # PT INR D-Dimer Sodium 135 L Potassium 4.8 Chloride 97 L Carbon Dioxide 27 Anion Gap 15.8 BUN 11 Creatinine 1.0 Glucose 149 H POC Glucose 158 150 Calculated Osmolal ity 279 L Calcium 10.5 Total Bilirubin AST ALT Alkaline Phosphata se Troponin T Baselin e Troponin T 120 Min [facility] Delta Troponin T Total Protein Albumin Globulin TSH 11/13/19 11/13/19 11/12/19 01:13 00:00 21:45 WBC RBC Hgb Hct MCV MCH MCHC RDW Plt Count MPV Neut % (Auto) Lymph % (Auto) Cedar % (Auto) Eos % (Auto) Baso % (Auto) Neut # (Auto) Lymph # (Auto) Cedar # (Auto) Eos # (Auto) Baso # (Auto) Nucleated RBC % (a uto) Nucleated RBCs # PT INR D-Dimer 0.62 H Sodium Potassium Chloride Carbon Dioxide Anion Gap BUN Creatinine Glucose POC Glucose Calculated Osmolal ity Calcium Total Bilirubin AST ALT Alkaline Phosphata se Troponin T Baselin e 15 Troponin T 120 Min [facility] Delta Troponin T Total Protein Albumin Globulin TSH 4.06 11/12/19 11/12/19 11/12/19 21:45 21:45 21:45 WBC 8.2 RBC 5.02 Hgb 13.8 Hct 43.6 MCV 86.9 MCH 27.5 L MCHC 31.7 RDW 13.1 Plt Count 280 MPV 9.8 Neut % (Auto) 65.9 Lymph % (Auto) 24.0 Cedar % (Auto) 7.8 Eos % (Auto) 1.3 Baso % (Auto) 0.5 Neut # (Auto) 5.4 Lymph # (Auto) 2.0 Cedar # (Auto) 0.6 Eos # (Auto) 0.1 Baso # (Auto) 0.0 Nucleated RBC % (a uto) 0 Nucleated RBCs # 0.0 PT 12.40 INR 0.90 D-Dimer Sodium 133 L Potassium 4.8 Chloride 97 L Carbon Dioxide 24 Anion Gap 16.8 BUN 12 Creatinine 1.0 Glucose 298 H POC Glucose Calculated Osmolal ity 283 L Calcium 9.8 Total Bilirubin 0.3 AST 15 ALT 12 Alkaline Phosphata se 74 Troponin T Baselin e Troponin T 120 Min [facility] Delta Troponin T Total Protein 7.5 Albumin 3.9 Globulin 3.6 TSH 11/12/19 01:13 WBC RBC Hgb Hct MCV MCH MCHC RDW Plt Count MPV Neut % (Auto) Lymph % (Auto) Cedar % (Auto) Eos % (Auto) Baso % (Auto) Neut # (Auto) Lymph # (Auto) Cedar # (Auto) Eos # (Auto) Baso # (Auto) Nucleated RBC % (a uto) Nucleated RBCs # PT INR D-Dimer Sodium Potassium Chloride Carbon Dioxide Anion Gap BUN Creatinine Glucose POC Glucose Calculated Osmolal ity Calcium Total Bilirubin AST ALT Alkaline Phosphata se Troponin T Baselin e Troponin T 120 Min [facility] 9.82 Delta Troponin T -5.18 L Total Protein Albumin Globulin TSH Vitals: Last Vital Signs Temp 98.0 F 11/13/19 15:00 Pulse 58 L 11/13/19 15:00 Resp 18 11/13/19 15:00 BP 110/66 11/13/19 15:00 Pulse Ox 96 11/13/19 15:00 Discharge Plan Discharge Patient Disposition: Home, Self-Care Condition: Stable Prescriptions: New aspirin 81 mg Tablet,Delayed Release (Dr/Ec) 81 mg PO DAILY 30 Days Qty: 30 RF: 0 Nitrostat 0.4 mg Tablet, Sublingual 0.4 mg sublingual Q5M PRN (Reason: Chest Pain) 30 Days Qty: 30 RF: 0 Continued clopidogrel [Plavix] 75 mg tablet 75 mg PO DAILY Qty: 30 RF: 2 duloxetine [Cymbalta] 20 mg capsule,delayed release(DR/EC) 20 mg PO BID Qty: 60 RF: 2 famotidine [Pepcid] 40 mg tablet 40 mg PO .every other day Qty: 15 RF: 2 gabapentin 100 mg capsule 100 mg PO BID Qty: 60 RF: 2 levocetirizine 5 mg tablet 5 mg PO DAILY Qty: 30 RF: 2 Tradjenta 5 mg tablet 5 mg PO DAILY Qty: 30 RF: 2 lisinopril 5 mg tablet 5 mg PO DAILY Qty: 30 RF: 2 metformin 500 mg tablet extended release 24hr 1,000 mg PO DAILY Qty: 30 RF: 2 metoprolol succinate 25 mg tablet extended release 24 hr 25 mg PO DAILY Qty: 30 RF: 2 pantoprazole [Protonix] 40 mg tablet,delayed release (DR/EC) 40 mg PO DAILY Qty: 30 RF: 2 simvastatin 40 mg tablet 40 mg PO .hs Qty: 30 RF: 2 Levemir FlexTouch U-100 Insuln 100 unit/mL (3 mL) insulin pen 65 unit SUBCUT DAILY Qty: 15 RF: 2 Discontinued aspirin [Aspir-Low] 81 mg tablet,delayed release (DR/EC) 81 mg PO DAILY RF: 0 Discharge Orders: Discharge Order (Routine); Ordered 11/13/19 Ordered By: Maricruz Calero Other Ambulatory Orders: DME: Walker (Order) Location: None Selected Ordered By: Maricruz Calero Referrals: [facility] [Outside] [facility] [Outside] Aline Pacheco, [employer]PART[employer] SUPERVISOR-[employer] [Primary Care Provider] - 1-3 days Isamar Pierce MD [Physician] - 1 week Discharge Diet: Cardiac, Diabetic and Low Salt Discharge Activity: Resume usual activity Patient Instructions: Chest Pain (ED) Activity Restrictions/Additional Instructions: return to ER in case of recurrent chest pain Discharge Attestations Time Spent in Discharge Care*: less than 30 min Quality Metrics Clinical Quality Measures During this hospital stay, did patient experience: None Coding Level of Care Code Acute Ceramic Designer for Jose Luis Fwd Diagnoses Unstable angina I20.0 History of stroke Z86.73 History of colon cancer Z85.038 Hypertension I10 Acid reflux K21.9
[2019-11-13 16:22] LABS: Glucose Point of Care 126 mg/dL (70-110)
--- NOTE | 2019-11-13 17:35 | PC.NURSE ---
Discharge information given per the physician's orders. Patient verbalized understanding and did not have any further questions. Patient verbalized compliance with setting up follow up appointments.
== END 2019-11-13 17:42 | disposition home or self-care (01) ==
LOC: ER 11-13 01:27 → MEDSURG 11-13 02:05
PROVIDERS: Emergency Medicine; Admitting Provider Internal Medicine; Emergency Provider Emergency Medicine; PCP Nurse Practitioner; Visit Provider Student in an Organized Health Care Education/Training Program
DX: I20.0 Unstable angina (principal); Z86.73 Personal history of transient ischemic attack (TIA), and cerebral infarction without residual deficits; Z85.038 Personal history of other malignant neoplasm of large intestine; I10 Essential (primary) hypertension; K21.9 Gastro-esophageal reflux disease without esophagitis; Z98.890 Other specified postprocedural states; Z99.89 Dependence on other enabling machines and devices; Z79.82 Long term (current) use of aspirin; E11.65 Type 2 diabetes mellitus with hyperglycemia; Z79.4 Long term (current) use of insulin
CPT/HCPCS: 12345; 36415; 36416; 71045; 71275; 78452; 80048; 80053; 82962; 84443; 84484; 85025; 85378; 85610; 93005; 93017; 93306; 96372; 96374; 99283; 99285; A9500; G0378; J1650; J1815; J2270; J2785; Q9967

== ENCOUNTER 2019-11-29 10:19 | Observation (INO) | payer MEDICARE, MEDICAID, SELFPAY ==
[2019-11-29] VITALS (11 sets, daily range): BP systolic 112–134; BP diastolic 69–82; PULSE 64–89; RESP 16–21; TEMP 36.5–36.9; O2SAT 91–98; BMI 27.3
--- NOTE | 2019-11-29 | CTR_ITS ---
PROCEDURE INFORMATION: Exam: CT Lumbar Spine Without Contrast Exam date and time: 11/29/2019 3:06 PM Age: 74 years old Clinical indication: Patient HX: C/O L sided weakness/numbness this am - underlying diabetic neuropathy - denies injury TECHNIQUE: Imaging protocol: Computed tomography images of the lumbar spine without contrast. Radiation optimization: All CT scans at this facility use at least one of these dose optimization techniques: automated exposure control; mA and/or kV adjustment per patient size (includes targeted exams where dose is matched to clinical indication); or iterative reconstruction. COMPARISON: No relevant prior studies available. RADIATION DOSE METRICS: Total DLP: 2083.71 mGy-cm FINDINGS: Vertebrae: Schmorl's nodes are seen at the T12-L1 level, with a prominent Schmorl's node at the superior L1 endplate. This is age indeterminate. A small Schmorl's node is seen at the superior L2 endplate, also age indeterminate. There are no anterior wedging deformities. No acute lucent fracture lines are visualized. There is mild anterolisthesis at L4-L5 due to facet laxity. Discs/Spinal canal/Neural foramina: Lumbar facet arthropathy is severe at L4-L5. Mild to moderate central stenosis is seen at the L3-L4 level due to a diffuse disc bulge and facet arthropathy. There is moderate central stenosis at L4-L5 due to left eccentric disc bulge, facet hypertrophy and anterolisthesis. Mild to moderate bilateral neural foraminal stenosis at L4-L5, greater on the left. At L5-S1, there is moderate right and moderate to severe left neural foraminal stenosis. CT/CT lumbar spine wo con* [id number] IMPRESSION: 1. Lower lumbar spondylosis, as above, with left eccentric neural foraminal stenosis at L4-L5 and L5-S1. 2. Central canal stenosis is moderate at L4-L5, mild to moderate at L3-L4. 3. Schmorl's nodes, as above, most prominent at the superior L1 endplate. These are age indeterminate. Radiation Dose CTDIVOL = (mGy): DLP = 2083.71 (mGy-cm)
--- NOTE | 2019-11-29 10:20 | CTR_ITS ---
PROCEDURE INFORMATION: Exam: CT Head Without Contrast Exam date and time: 11/29/2019 10:44 AM Age: 74 years old Clinical indication: Weakness, facial and other: Left; Additional info: VEGA TECHNIQUE: Imaging protocol: Computed tomography of the head without contrast. Radiation optimization: All CT scans at this facility use at least one of these dose optimization techniques: automated exposure control; mA and/or kV adjustment per patient size (includes targeted exams where dose is matched to clinical indication); or iterative reconstruction. Other technique: STROKE PROTOCOL was implemented. COMPARISON: CT head wo con* [id number] 07/10/2018 7:41 PM RADIATION DOSE METRICS: Total DLP: 860.64 mGy-cm FINDINGS: Brain: There is no acute intracranial hemorrhage or mass effect. Mild to moderate diffuse volume loss is within the range of normal for patient age. There are small vessel ischemic changes within the periventricular and subcortical white matter, but the normal mayes/white matter delineation is maintained. Chronic lacunar infarcts involve the basal ganglia, left greater than right. Ventricles: Normal. No ventriculomegaly. Bones/joints: Unremarkable. No acute fracture. Sinuses: Visualized sinuses are unremarkable. No fluid levels. Mastoid air cells: Visualized mastoid air cells are well aerated. Soft tissues: Unremarkable. CT/CT head wo con* [id number] IMPRESSION: No acute intracranial hemorrhage or edema. Chronic changes. ASSESSMENT: ASPECTS ([place] Stroke Program Early CT Score) is 10. Radiation Dose CTDIVOL = (mGy): DLP = 860.64 (mGy-cm)
--- NOTE | 2019-11-29 10:21 | XRR_ITS ---
PROCEDURE INFORMATION: Exam: XR Chest, 1 View Exam date and time: 11/29/2019 10:44 AM Age: 74 years old Clinical indication: Left-sided chest pain; Additional info: Cough TECHNIQUE: Imaging protocol: XR of the chest Views: 1 view. COMPARISON: CR XR chest 1V portable [id number] 11/12/2019 9:41 PM FINDINGS: Lungs: There is slight prominence of the interstitial markings, likely chronic changes. Pleural space: Unremarkable. No pleural effusion. No pneumothorax. Heart/Mediastinum: Unremarkable. No cardiomegaly. Bones/joints: Unremarkable. XR/XR chest 1V portable [id number] IMPRESSION: Stable chronic lung changes. No acute abnormality.
--- NOTE | 2019-11-29 10:21 | ECG_ITS ---
Measurements Intervals [place] Rate: 69 P: 64 ME: 173 QRS: 7 QRSD: 89 T: 20 QT: 377 QTc: 406 SINUS RHYTHM Compared to ECG 11/29/2019 10:40:18 No significant changes Electronically Signed On 11-30-2019 10:33:00 CDT by Rich Rooney MD [email or web address]
--- NOTE | 2019-11-29 10:27 | CTR_ITS ---
PROCEDURE INFORMATION: Exam: CT Angiography Head With Contrast Exam date and time: 11/29/2019 10:44 AM Age: 74 years old Clinical indication: Weakness and other: Left eye drooping; Additional info: CVA symptoms TECHNIQUE: Imaging protocol: Computed tomography angiography of the head with intravenous contrast. 3D rendering: MIP and/or 3D reconstructed images were created by the technologist. Radiation optimization: All CT scans at this facility use at least one of these dose optimization techniques: automated exposure control; mA and/or kV adjustment per patient size (includes targeted exams where dose is matched to clinical indication); or iterative reconstruction. Contrast material: OMNI 350; Contrast volume: 95 ml; Contrast route: LT AC; COMPARISON: CTA Head/Neck [id number] 06/27/2017 8:49 PM RADIATION DOSE METRICS: Total DLP: 2283 mGy-cm FINDINGS: Anterior cerebral arteries: No occlusion or significant stenosis. No aneurysm. Right internal carotid artery: Intracranial segment is patent with no significant stenosis or occlusion. No aneurysm. Right middle cerebral artery: No occlusion or significant stenosis. No aneurysm. Right posterior cerebral artery: No occlusion or significant stenosis. No aneurysm. Right vertebral artery: No occlusion or significant stenosis. No aneurysm. Left internal carotid artery: Intracranial segment is patent with no significant stenosis or occlusion. No aneurysm. Left middle cerebral artery: No occlusion or significant stenosis. No aneurysm. Left posterior cerebral artery: No occlusion or significant stenosis. No aneurysm. Left vertebral artery: No occlusion or significant stenosis. No aneurysm. Basilar artery: No occlusion or significant stenosis. No aneurysm. IMPRESSION: No large vessel stenosis or occlusion. PROCEDURE INFORMATION: Exam: CT Angiography Neck With Contrast Exam date and time: 11/29/2019 10:44 AM Age: 74 years old Clinical indication: Weakness and other: Left eye drooping; Additional info: CVA symptoms TECHNIQUE: Imaging protocol: Computed tomography angiography of the neck with intravenous contrast. 3D rendering: MIP and/or 3D reconstructed images were created by the technologist. Radiation optimization: All CT scans at this facility use at least one of these dose optimization techniques: automated exposure control; mA and/or kV adjustment per patient size (includes targeted exams where dose is matched to clinical indication); or iterative reconstruction. Contrast material: OMNI 350; Contrast volume: 95 ml; Contrast route: LT AC; COMPARISON: CTA Head/Neck [id number] 06/27/2017 8:49 PM RADIATION DOSE METRICS: Total DLP: 2283 mGy-cm FINDINGS: Right common carotid artery: No stenosis. No dissection or occlusion. Right internal carotid artery: No stenosis of the extracranial segment. No dissection or occlusion. Right external carotid artery: No occlusion or stenosis of the origin. Right vertebral artery: No stenosis. No dissection or occlusion. Left common carotid artery: No stenosis. No dissection or occlusion. Left internal carotid artery: No stenosis of the extracranial segment. No dissection or occlusion. Left external carotid artery: No occlusion or stenosis of the origin. Left vertebral artery: No stenosis. No dissection or occlusion. Bones/joints: No acute fracture. There is fusion of the C4, C5, C6 and C7 bodies. There is multilevel facet hypertrophy. Soft tissues: There is focal right hilar lymphadenopathy, incompletely imaged No significant soft tissue swelling. CT/CT angio headneck* [id number] IMPRESSION: No stenosis or occlusion. REFERENCES: NASCET CRITERIA. The degree of internal carotid artery stenosis is based on NASCET criteria. Normal is no stenosis. Mild is less than 50% stenosis. Moderate is 50-69% stenosis. Severe is 70% to 99% stenosis. Total occlusion is no detectable patent lumen. Radiation Dose CTDIVOL = (mGy): DLP = 2283~2283 (mGy-cm)
--- NOTE | 2019-11-29 10:30 | W.ED.NEUROSD ---
HPI - Neuro Symptoms/Deficit General: Chief Complaint: Neuro Symptoms/Deficit Stated Complaint: LEFT EYE DROOP Time Seen by Provider: 11/29/19 10:20 History of Present Illness: HPI Narrative: Mr. Joe is a nice 74-year-old male who comes in with report of difficulty opening his left eye as well as blurry vision. Patient also states he feels weak on his left side. Family reported to EMS that he is always weak on that side secondary to a previous stroke but when asked he tells me he feels weaker on that side than normal. The patient woke up with the symptoms and they have persisted since. He does complain of a mild headache. PFSH ED PFSH: Medical History Acid reflux Aortic regurgitation Chronic migraine Controlled type 2 diabetes mellitus with hyperglycemia, with long-term current use of insulin DDD (degenerative disc disease) Dependent on walker for ambulation Enrolled in chronic care management History of stroke Hypertension Tricuspid regurgitation Vitamin D deficiency Surgical History History of cataract surgery History of cervical spinal surgery 3 times History of cholecystectomy History of colon cancer 2015 History of knee surgery Right Family History Other Cancer Denies family history of Bleeding disorder Social History Smoking and tobacco status: former smoker Second hand smoke exposure: No Smoking risk assessment/counseling performed?: No Alcohol intake: never Desire information about alcohol rehabilitation?: No Counseling given: No Desire information about substance/drug rehabilitation?: No Counseling given: No Caregiver/support person: No Lives independently: Yes Household members: spouse Housing: House Marital status: Current occupational status: retired History of recent travel: No Current gender identity: Male NIH stroke score NIHSS: Level Of Consciousness - 1a: 0 Level Of Consciousness Questions - 1b: Both Correct Level Of Consciousness Commands - 1c: Both Correct Best Gaze - 2: Normal Visual Gutierrez - 3: No Visual Loss Facial Palsy - 4: Normal Motor Arm Right - 5: No Drift Motor Arm Left - 5: Drift Motor Leg Right - 6: No Drift Motor Leg Left - 6: No Drift Limb Ataxia - 7: Absent Sensory - 8: Mild To Moderate Loss Best Language - 9: No Aphasia Dysarthia - 10: Mild/Moderate Dysarthia Extinction And Inattention - 11: 0 Score: Total Score: 3 Course Vital Signs: Vital signs: Vital Signs Temperature 97.9 F 11/29/19 10:22 Pulse Rate 74 11/29/19 10:35 Respiratory Rate 18 11/29/19 10:35 Blood Pressure 128/81 11/29/19 10:35 Pulse Oximetry 98 11/29/19 10:35 MDM - Neuro Symptoms/Deficit MDM Narrative: Medical decision making narrative: The patient's CT and CTA are normal. He still complains of some blurry vision but without knowing his baseline it appears as though his symptoms today represent his old stroke. Subjectively he states his symptoms are more intense on the left side than normal. As the patient arrived outside the TPA window he is not a TPA candidate and his CTA of his head and neck do not demonstrate any type of intervene of the lesion. While here the patient had chest pain that lasted less than 5 minutes and subsided on its own. His EKG and troponin are normal. Per review of the chart though the patient has been having chest pain like this and he has been scheduled for an urgent cath. The case was reviewed with Dr. Walker and he is agreeable to admit the patient for further evaluation. Lab Data: Attestation: I reviewed the patient's lab results. Labs: Lab Results 11/29/19 11/29/19 11/29/19 Range/Units 10:25 10:40 10:40 WBC 9.2 (4.0-10.0) 10^3/ uL RBC 5.27 (4.1-5.3) 10^6/u L Hgb 14.5 (11.7-16.6) g/dL Hct 46.6 (42.0-52.0) % MCV 88.4 (80-94) fL MCH 27.5 L (28.0-34.0) pg MCHC 31.1 (30.0-36.0) g/dL RDW 12.9 (12.1-15.1) % Plt Count 314 (130-400) 10^3/c mm MPV 10.1 (7.4-10.4) fL Neut % (Auto) 58.4 % Lymph % (Auto) 28.0 % Holmes % (Auto) 9.9 % Eos % (Auto) 2.6 % Baso % (Auto) 0.7 % Neut # (Auto) 5.4 (1.8-7.7) 10^3/u L Lymph # (Auto) 2.6 (0.8-4.8) 10^3/u L Holmes # (Auto) 0.9 (0.2-0.9) 10^3/u L Eos # (Auto) 0.2 (0.0-0.8) 10^3/u L Baso # (Auto) 0.1 (0.0-0.1) 10^3/u L Nucleated RBC % (a uto) 0 % Nucleated RBCs # 0.0 /100WBC PT 12.60 (10.5-13.3) SECO NDS INR 0.92 (0.8-1.2) APTT 24.7 (23.9-36.7) SECO NDS Sodium 133 L (136-145) mmol/L Potassium 4.9 (3.5-5.1) mmol/L Chloride 96 L (98-107) mmol/L Carbon Dioxide 25 (22-29) mmol/L Anion Gap 16.9 (5-19) BUN 12 (8-23) mg/dL Creatinine 1.0 (0.7-1.2) mg/dL Glucose 114 (65-115) mg/dL Calculated Osmolal ity 273 L (285-295) mOsm/k g Calcium 9.4 (8.5-10.5) mg/dL Total Bilirubin 0.4 (0.15-1.2) mg/dL AST 18 (0-40) U/L ALT 12 (0-41) U/L Alkaline Phosphata se 69 (40-130) IU/L Troponin T Baselin e (0-15) ng/mL Total Protein 8.1 (6.6-8.7) g/dL Albumin 4.1 (3.5-5.2) g/dL Globulin 4.0 (1.3-4.6) g/dL // Range/Units 10:40 WBC (4.0-10.0) 10^3/ uL RBC (4.1-5.3) 10^6/u L Hgb (11.7-16.6) g/dL Hct (42.0-52.0) % MCV (80-94) fL MCH (28.0-34.0) pg MCHC (30.0-36.0) g/dL RDW (12.1-15.1) % Plt Count (130-400) 10^3/c mm MPV (7.4-10.4) fL Neut % (Auto) % Lymph % (Auto) % Holmes % (Auto) % Eos % (Auto) % Baso % (Auto) % Neut # (Auto) (1.8-7.7) 10^3/u L Lymph # (Auto) (0.8-4.8) 10^3/u L Holmes # (Auto) (0.2-0.9) 10^3/u L Eos # (Auto) (0.0-0.8) 10^3/u L Baso # (Auto) (0.0-0.1) 10^3/u L Nucleated RBC % (a uto) % Nucleated RBCs # /100WBC PT (10.5-13.3) SECO NDS INR (0.8-1.2) APTT (23.9-36.7) SECO NDS Sodium (136-145) mmol/L Potassium (3.5-5.1) mmol/L Chloride (98-107) mmol/L Carbon Dioxide (22-29) mmol/L Anion Gap (5-19) BUN (8-23) mg/dL Creatinine (0.7-1.2) mg/dL Glucose (65-115) mg/dL Calculated Osmolal ity (285-295) mOsm/k g Calcium (8.5-10.5) mg/dL Total Bilirubin (0.15-1.2) mg/dL AST (0-40) U/L ALT (0-41) U/L Alkaline Phosphata se (40-130) IU/L Troponin T Baselin e 8 (0-15) ng/mL Total Protein (6.6-8.7) g/dL Albumin (3.5-5.2) g/dL Globulin (1.3-4.6) g/dL Imaging Data^: CXR: My impression: No acute cardiopulmonary findings. CT Head: Radiologist's impression: [address] [address] [address] Scan Report Signed Patient: Barb Joe Unit #: [id number] : 1945 Age/Sex: 74 / M ADM Date: 11/29/19 Loc: ER Room/Bed: Attending Dr: Ordering Provider/Ordering MD: Liss Fleming DO Date of Service: 11/29/19 Procedure(s): CT head wo con* [id number] Accession Number(s): [id number] Report Number: [id number] PROCEDURE INFORMATION: Exam: CT Head Without Contrast Exam date and time: 11/29/2019 10:44 AM Age: 74 years old Clinical indication: Weakness, facial and other: Left; Additional info: VEGA TECHNIQUE: Imaging protocol: Computed tomography of the head without contrast. Radiation optimization: All CT scans at this facility use at least one of these dose optimization techniques: automated exposure control; mA and/or kV adjustment per patient size (includes targeted exams where dose is matched to clinical indication); or iterative reconstruction. Other technique: STROKE PROTOCOL was implemented. COMPARISON: CT head wo con* [id number] 07/10/2018 7:41 PM RADIATION DOSE METRICS: Total DLP: 860.64 mGy-cm FINDINGS: Brain: There is no acute intracranial hemorrhage or mass effect. Mild to moderate diffuse volume loss is within the range of normal for patient age. There are small vessel ischemic changes within the periventricular and subcortical white matter, but the normal mayes/white matter delineation is maintained. Chronic lacunar infarcts involve the basal ganglia, left greater than right. Ventricles: Normal. No ventriculomegaly. Bones/joints: Unremarkable. No acute fracture. Sinuses: Visualized sinuses are unremarkable. No fluid levels. Mastoid air cells: Visualized mastoid air cells are well aerated. Soft tissues: Unremarkable. CT/CT head wo con* [id number] IMPRESSION: No acute intracranial hemorrhage or edema. Chronic changes. ASSESSMENT: ASPECTS ([place] Stroke Program Early CT Score) is 10. Radiation Dose CTDIVOL = (mGy): DLP = 860.64 (mGy-cm) Dictated By: Debbie Elise MD Signed By: Debbie Elise MD Signed Date/Time: 11/29/19 1116 DD/ 1115 CTA Head and Neck: Radiologist's impression: [facility] [address] [place] [address] CT Scan Report Signed Patient: Barb Joe Unit #: [id number] : 1945 Age/Sex: 74 / M ADM Date: 11/29/19 Loc: ER Room/Bed: Attending Dr: Ordering Provider/Ordering MD: Liss Fleming DO Date of Service: 11/29/19 Procedure(s): CT angio headneck* [id number] Accession Number(s): [id number] Report Number: [id number] PROCEDURE INFORMATION: Exam: CT Angiography Head With Contrast Exam date and time: 11/29/2019 10:44 AM Age: 74 years old Clinical indication: Weakness and other: Left eye drooping; Additional info: CVA symptoms TECHNIQUE: Imaging protocol: Computed tomography angiography of the head with intravenous contrast. 3D rendering: MIP and/or 3D reconstructed images were created by the technologist. Radiation optimization: All CT scans at this facility use at least one of these dose optimization techniques: automated exposure control; mA and/or kV adjustment per patient size (includes targeted exams where dose is matched to clinical indication); or iterative reconstruction. Contrast material: OMNI 350; Contrast volume: 95 ml; Contrast route: LT AC; COMPARISON: CTA Head/Neck [id number] 06/27/2017 8:49 PM RADIATION DOSE METRICS: Total DLP: 2283 mGy-cm FINDINGS: Anterior cerebral arteries: No occlusion or significant stenosis. No aneurysm. Right internal carotid artery: Intracranial segment is patent with no significant stenosis or occlusion. No aneurysm. Right middle cerebral artery: No occlusion or significant stenosis. No aneurysm. Right posterior cerebral artery: No occlusion or significant stenosis. No aneurysm. Right vertebral artery: No occlusion or significant stenosis. No aneurysm. Left internal carotid artery: Intracranial segment is patent with no significant stenosis or occlusion. No aneurysm. Left middle cerebral artery: No occlusion or significant stenosis. No aneurysm. Left posterior cerebral artery: No occlusion or significant stenosis. No aneurysm. Left vertebral artery: No occlusion or significant stenosis. No aneurysm. Basilar artery: No occlusion or significant stenosis. No aneurysm. IMPRESSION: No large vessel stenosis or occlusion. PROCEDURE INFORMATION: Exam: CT Angiography Neck With Contrast Exam date and time: 11/29/2019 10:44 AM Age: 74 years old Clinical indication: Weakness and other: Left eye drooping; Additional info: CVA symptoms TECHNIQUE: Imaging protocol: Computed tomography angiography of the neck with intravenous contrast. 3D rendering: MIP and/or 3D reconstructed images were created by the technologist. Radiation optimization: All CT scans at this facility use at least one of these dose optimization techniques: automated exposure control; mA and/or kV adjustment per patient size (includes targeted exams where dose is matched to clinical indication); or iterative reconstruction. Contrast material: OMNI 350; Contrast volume: 95 ml; Contrast route: LT AC; COMPARISON: CTA Head/Neck [id number] 06/27/2017 8:49 PM RADIATION DOSE METRICS: Total DLP: 2283 mGy-cm FINDINGS: Right common carotid artery: No stenosis. No dissection or occlusion. Right internal carotid artery: No stenosis of the extracranial segment. No dissection or occlusion. Right external carotid artery: No occlusion or stenosis of the origin. Right vertebral artery: No stenosis. No dissection or occlusion. Left common carotid artery: No stenosis. No dissection or occlusion. Left internal carotid artery: No stenosis of the extracranial segment. No dissection or occlusion. Left external carotid artery: No occlusion or stenosis of the origin. Left vertebral artery: No stenosis. No dissection or occlusion. Bones/joints: No acute fracture. There is fusion of the C4, C5, C6 and C7 bodies. There is multilevel facet hypertrophy. Soft tissues: There is focal right hilar lymphadenopathy, incompletely imaged No significant soft tissue swelling. CT/CT angio headneck* [id number] IMPRESSION: No stenosis or occlusion. REFERENCES: NASCET CRITERIA. The degree of internal carotid artery stenosis is based on NASCET criteria. Normal is no stenosis. Mild is less than 50% stenosis. Moderate is 50-69% stenosis. Severe is 70% to 99% stenosis. Total occlusion is no detectable patent lumen. Radiation Dose CTDIVOL = (mGy): DLP = 2283 2283 (mGy-cm) Dictated By: Debbie Elise MD Signed By: Debbie Elise MD Signed Date/Time: 11/29/191128 DD/ 1127 EKG Data^: EKG 1: Attestation: I personally reviewed and interpreted this EKG as follows: EKG interpretation date: 11/29/19 EKG interpretation time: 10:40 Interpretation: Normal sinus rhythm at 70 beats a minute, no acute ST or T wave changes, no blocks, normal intervals, unchanged from previous. EKG 2: Attestation: I personally reviewed and interpreted this EKG as follows: EKG interpretation date: 11/29/19 EKG interpretation time: 12:22 Interpretation: Normal sinus rhythm at 69 beats a minute, no acute ST or T wave changes. Discharge Plan Discharge Patient Disposition: Placed in Observation Admit Provider: Gigi Juarez Clinical Impression: Chest pain Qualifiers: Chest pain type: unspecified Qualified Code(s): R07.9 - Chest pain, unspecified Condition: Stable Referrals: Aline Pacheco, MURAL ARTIST-C [Primary Care Provider] - Coding Level of Care Code ED Last Trimmer for Chg Paige
[2019-11-29 10:33] LABS: Basophils # 0.1 10^3/uL (0.0-0.1); Basophils % 0.7 %; Eosinophils # 0.2 10^3/uL (0.0-0.8); Eosinophils % 2.6 %; Hematocrit 46.6 % (42.0-52.0); Hemoglobin 14.5 g/dL (11.7-16.6); Lymphocytes # 2.6 10^3/uL (0.8-4.8); Mean Corpuscular HGB Conc 31.1 g/dL (30.0-36.0); Mean Corpuscular Hemoglobin 27.5 pg (28.0-34.0); Mean Corpuscular Volume 88.4 fL (80-94); Mean Platelet Volume 10.1 fL (7.4-10.4); Monocytes # 0.9 10^3/uL (0.2-0.9); Monocytes % 9.9 %; Neutrophils # 5.4 10^3/uL (1.8-7.7); Neutrophils % 58.4 %; Nucleated Red Blood Cells % 0 %; Platelet Count 314 10^3/cmm (130-400); Red Blood Count 5.27 10^6/uL (4.1-5.3); Red Cell Distribution Width 12.9 % (12.1-15.1); White Blood Count 9.2 10^3/uL (4.0-10.0)
--- NOTE | 2019-11-29 10:34 | ECG_ITS ---
Measurements Intervals [place] Rate: 70 P: 57 OR: 182 QRS: -7 QRSD: 79 T: 16 QT: 358 QTc: 386 SINUS RHYTHM Compared to ECG 11/12/2019 22:07:07 No significant changes Electronically Signed On 11-29-2019 11:04:14 CDT by Rich Rooney MD [email or web address]
[2019-11-29] MEDS: iohexol 350 mg/mL 100 mL Btl 95 ML IV (10:55)
[2019-11-29 10:57] LABS: INR 0.92 (0.8-1.2)
[2019-11-29 10:59] LABS: Partial Thromboplastin Time 24.7 SECONDS (23.9-36.7)
[2019-11-29 11:07] LABS: Alanine Aminotransferase 12 U/L (0-41); Albumin Level 4.1 g/dL (3.5-5.2); Alkaline Phosphatase 69 IU/L (40-130); Anion Gap 16.9 (5-19); Blood Urea Nitrogen 12 mg/dL (8-23); Calcium 9.4 mg/dL (8.5-10.5); Carbon Dioxide 25 mmol/L (22-29); Chloride 96 mmol/L (98-107); Glucose 114 mg/dL (65-115); Osmolality Calculated 273 mOsm/kg (285-295); Potassium 4.9 mmol/L (3.5-5.1); Sodium 133 mmol/L (136-145); Total Bilirubin 0.4 mg/dL (0.15-1.2); Total Protein 8.1 g/dL (6.6-8.7)
[2019-11-29 11:09] LABS: Troponin(5th) Baseline 8 ng/mL (0-15)
[2019-11-29 11:10] LABS: Aspartate Amino Transferase 18 U/L (0-40)
[2019-11-29 12:57] LABS: Troponin 5 2HR 7.44 ng/mL (0-15)
[2019-11-29 13:12] LABS: Troponin 5 2HR Delta -0.56 ABS# (0-10)
[2019-11-29] MEDS: ondansetron 2 mg/ML SDV 2 mL 4 MG IVP (13:48)
--- NOTE | 2019-11-29 14:23 | P.HP_ITS ---
Providers/Chief Complaint Admitting Physician: Gigi Juarez Primary Care Provider: Aline Pacheco, ANODIC TREATER-C Chief Complaint: LEFT EYE DROOP History of Present Illness Barb Joe is a 74 year old male with CAD, being evaluated for coronary angiography by cardiology due to recurrent episodes of chest pain, coronary disease, on aspirin, Plavix, statin, with history of CVA in the past, residual left-sided weakness, diabetes mellitus which appears to be well controlled with A1c of 7, however, with peripheral neuropathy, notes that upon waking up this morning noticed she was having somewhat difficult time lifting his left eyelid, and noticed also worsened weakness on the left side subjectively compared to usual. Per discussion of emergency physician with family, the left-sided weakness appears similar to usual, however, patient states that this is subjectively worse. He also states that he has somewhat diminished sensation on the left side, and also notes that he has had more issues walking recently with his legs buckling , even with a walker which he uses at home. He does report occasional vertigo, but denies otic complaints. He has quite significant pe ripheral neuropathy, and says for the most part cannot feel very much, worse on the left side, however, has had no reports of saddle anesthesia, no bowel or urine incontinence. With regards to his eye, he has not had such issues before. There is no swelling of the eyelid, no pain. His vision is mildly blurred. He denies diplopia. In ER he was assessed for possible CVA, found to have NIH score of 3, was not found a candidate for TPA. Was assessed by CTA of the head, and along with CT noncontrast on presentation both studies were unremarkable. He does have noted chronic lacunar infarcts involving basal ganglia left greater than right. Review of Systems Const: Denies: fever(s), chills, body aches or malaise Eyes: Reports: other (mild L ptosis); Denies: change in vision or eye redness ENMT: Denies: throat pain, oral sores or ear or mastoid pain Card: Denies: chest pain, edema, pre-syncope or dyspnea on exertion Resp: Denies: dyspnea, productive cough, change in phlegm color or hemoptysis GI: Denies: abdominal pain, nausea, vomiting, diarrhea, constipation, hematochezia or melena : Denies: flank pain, difficulty urinating, urinary frequency or hematuria Musc: Denies: back pain, joint swelling or joint redness Skin/Breast: Denies: rash, sores or new lesions Neuro: Reports: numbness in extremities, weakness in extremities, difficulty walking, vertigo and other (L mild ptosis); Denies: headache(s), dizziness, confusion or seizure-like activity Endo: Denies: polyuria or polydipsia Aubrey/Lymph: Denies: easy bleeding or purpura All/Imm: Denies: urticaria, throat swelling or tongue swelling Medications/Allergies Home Medications Medication Instructions Recorded Confirmed Last Taken Type clopidogrel 75 mg tablet 75 mg PO DAILY #30 tab 09/10/19 11/29/19 11/28/19 Rx duloxetine 20 mg capsule,delayed 20 mg PO BID #60 cap 09/10/19 11/29/19 11/28/19 Rx release levocetirizine 5 mg tablet 5 mg PO DAILY #30 tab 09/10/19 11/29/19 11/28/19 Rx linagliptin 5 mg tablet 5 mg PO DAILY #30 tab 09/10/19 11/29/19 11/28/19 Rx lisinopril 5 mg tablet 5 mg PO DAILY #30 tab 09/10/19 11/29/19 11/28/19 Rx metformin 500 mg tablet,extended 1,000 mg PO DAILY #30 tab 09/10/19 11/29/19 11/28/19 Rx release 24hr metoprolol succinate 25 mg 25 mg PO DAILY #30 tab 09/10/19 11/29/19 11/28/19 Rx tablet,extended release 24 hr pantoprazole 40 mg tablet,delayed 40 mg PO DAILY #30 tab 09/10/19 11/29/19 11/28/19 Rx release simvastatin 40 mg tablet 40 mg PO .hs #30 tab 09/10/19 11/29/19 11/28/19 Rx insulin detemir U-100 100 unit/mL 65 unit SUBCUT DAILY #15 ml 10/31/19 11/29/19 11/28/19 Rx (3 mL) subcutaneous pen aspirin 81 mg PO DAILY 30 Days #30 tab 11/13/19 11/29/19 11/28/19 Rx nitroglycerin [Nitrostat] 0.4 mg SUBLINGUAL Q5M PRN 30 Days 11/13/19 11/29/19 Unknown Rx #30 tab Pepcid 40 mg PO EVERY OTHER DAY 11/29/19 11/29/19 11/28/19 History gabapentin 200 mg PO BID 11/29/19 11/29/19 11/28/19 History Allergies Allergy/AdvReac Type Severity Reaction Status Date / Time Erythromycins Allergy Unknown Unknown Uncoded 11/13/19 02:27 Sulfa Drugs Allergy Unknown Unknown Uncoded 11/13/19 02:27 PFSH Acute PFSH: Medical History Acid reflux Aortic regurgitation Chronic migraine Controlled type 2 diabetes mellitus with hyperglycemia, with long-term current use of insulin DDD (degenerative disc disease) Dependent on walker for ambulation Enrolled in chronic care management History of stroke Hypertension Tricuspid regurgitation Vitamin D deficiency Surgical History History of cataract surgery History of cervical spinal surgery 3 times History of cholecystectomy History of colon cancer 2015 History of knee surgery Right Family History (Updated 11/29/19 @ 14:57 by Gigi Juarez MD) Father Cancer Denies family history of Bleeding disorder Social History Smoking and tobacco status: former smoker Second hand smoke exposure: No Smoking risk assessment/counseling performed?: No Alcohol intake: never Desire information about alcohol rehabilitation?: No Counseling given: No Desire information about substance/drug rehabilitation?: No Counseling given: No Caregiver/support person: No Lives independently: Yes Household members: spouse Housing: House Marital status: Current occupational status: retired History of recent travel: No Current gender identity: Male Vitals/I&O/Wt Last Vital Signs Temp 97.9 F 11/29/19 10:22 Pulse 72 11/29/19 13:50 Resp 18 11/29/19 13:50 BP 124/81 11/29/19 13:50 Pulse Ox 98 11/29/19 13:50 Weight last 48 hrs Weight 81.647 kg Physical Exam Const: COMMON NORMALS: no acute distress and patient oriented x3 GENERAL APPEARANCE: cooperative and disheveled ORIENTATION/CONSCIOUSNESS: Yes awake HENMT: COMMON NORMALS: oropharynx normal Neck/C-Spine: COMMON NORMALS: no JVD Resp: COMMON NORMALS: normal respiratory effort and clear to auscultation bilaterally AUSCULTATION: clear to auscultation bilaterally Cardio: COMMON NORMALS: no JVD, regular rhythm, S1 normal heart sound present, S2 normal heart sound present and No murmurs present (Cardio) RHYTHM: regular rhythm HEART SOUNDS: S1 normal heart sound present and S2 normal heart sound present GI: COMMON NORMALS: Normal to inspection, nondistended, normoactive bowel sounds present, Soft to palpation and non-tender PALPATION: Yes Soft to palpation Extremity: COMMON NORMALS: no joint enlargement and no pedal edema Neuro: COMMON NORMALS: patient oriented x3 SENSORIUM/ORIENTATION: Yes alert, Yes oriented to place and Yes oriented to time MENINGEAL SIGNS: Yes no meningeal signs SPEECH: speech normal SENSORY EXAM: Yes other (decreased sensation on the L compared to R. Severely in LE w neurpathy) MOTOR EXAM: Other motor observations present (R side upper 4/5, lower 3/5, L 4-/5, LLE 2+/5) OTHER: Mild pronator drift on the left side compared to the right Skin: COMMON NORMALS: no rashes or lesions noted GENERAL SKIN EXAM: no rashes or lesions noted Data : 11/29/19 10:25 11/29/19 10:40 A&P Assessment and plan (1) Ptosis of left eyelid: He noticed symptoms this morning after waking up. He appears to have minor ptosis of the left side, although this appears to vary during my visit, sometimes get worse, sometimes nearly resolving. His pupils appear to be symmetrical, and appear to be reactive bilaterally. It was difficult to say whether there was some mild anisocoria in that light. Etiology is not entirely clear. He has not had any trauma, and CT of the head does not show signs of trauma or mass-effect. He does have prior CVA in the basal ganglia. Given his other additional symptoms of left-sided weakness, may suspect that this may be related to ischemia possibly at the brainstem. He does report occasional vertigo, although not currently. I cannot see nystagmus. He does have left-sided weakness. 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 Possibly myelopathic in origin. Alternatively given diabetes, microvascular ischemic 3rd nerve palsy is a possibility. Given concern for CVA, he is currently already on near optimal medical regimen with aspirin, Plavix. He is currently on simvastatin, would switch to high intensity statin. At this time monitor on telemetry to rule out atrial fibrillation. This was not present on EKG. No known history. CTA of the head and neck unremarkable without vessel stenosis. His diabetes appears to be well controlled with A1c of 7. He does not smoke. After hospitalization would benefit from assessment by neurology in office. In addition due to concern for myelopathic or genitourinary syndrome will assess by CT cervical and thoracic spine. He has just gotten IV contrast with CTA, so for now this will be noncontrast study as suspicion for this is lower. Status: Acute (2) CVA (cerebral vascular accident): With noted ptosis, left side weakness, left-sided numbness. Does have mild pronator drift on the left side. Otherwise does complain of some intermittent vertigo, although not currently. Had not see any nystagmus. He tracks well. Known prior CVA with lacunar infarcts in the basal ganglia, left greater than right. At this time assess management as above. We will also assessed by PT, OT, ST. Discussed with family that he may benefit from rehabilitation at long-term after discharge prior to returning home, however, he states that he lives with a POSTDOCTORAL RESEARCH FELLOW at home, and that he would not want to go to skilled nurse facility even temporarily. Status: Acute (3) Walking difficulty due to lower leg: With left-sided weakness, which appears to be more pronounced in the lower extremity. He states that his legs have been buckling underneath him when he tries to walk even with a walker. I am not sure that this all can be explained by his possible recurrent CVA currently. Will obtain CT lumbar spine. PT, OT assessment. Status: Acute (4) Abnormal stress test: Cardiology is making outpatient arrangements for additional evaluation by coronary angiography sometime in the coming week. Continue cardiac medications. At this time is pain-free. Status: Acute Attestations Medical Necessity Statement*: Place in observation. Coding Level of Care Code Acute Tape Machine Tailer for Jose Luis Gibson Diagnoses Ptosis of left eyelid H02.402 CVA (cerebral vascular accident) I63.9 Walking difficulty due to lower leg R26.2 Abnormal stress test R94.39
--- NOTE | 2019-11-29 14:24 | MRR_ITS ---
PROCEDURE INFORMATION: Exam: MR Head Without Contrast Exam date and time: 11/29/2019 2:25 PM Age: 74 years old Clinical indication: Other: CVA, L ptosis; Additional info: Poss CVA, L ptosis TECHNIQUE: Imaging protocol: MR of the head without contrast. COMPARISON: MR head wo con* [id number] 01/16/2017 9:12 AM FINDINGS: Brain: There is no evidence of an acute ischemic event. Small old lacunar infarcts on the left. Signal changes in the periventricular white matter are nonspecific but statistically most likely reflect chronic microvascular ischemic disease. There is no evidence of intracranial hemorrhage. There is no evidence of a focal mass. No abnormal extra-axial fluid collections are identified. Ventricles: Normal. No ventriculomegaly. Sinuses: Normal as visualized. No acute sinusitis. Mastoid air cells: There is no mastoid effusion detected. Orbits: The appearance of the optic globes suggests previous bilateral cataract surgery. Sella: There is a normal empty pituitary sella configuration. Correlate with clinical information regarding pituitary function.The visualized sinuses are unremarkable. MR/MR head wo con* [id number] IMPRESSION: 1. No acute intracranial abnormality. 2. Age-related involutional changes, with findings of chronic microvascular ischemic disease. 3. Old lacunar infarcts on the left.
--- NOTE | 2019-11-29 14:52 | CTR_ITS ---
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 Radiation optimization: All CT scans at this facility use at least one of these dose optimization techniques: automated exposure control; mA and/or kV adjustment per patient size (includes targeted exams where dose is matched to clinical indication); or iterative reconstruction. COMPARISON: CT Cervical Spine wo* [id number] 03/02/2016 1:47 PM RADIATION DOSE METRICS: Total DLP: 606.38 mGy-cm FINDINGS: Vertebrae: There is no fracture. There is anterior ankylosis from C4 to T1. There is posterior ankylosis across the facets at the same levels. Extent of ankylosis has progressed compared with the previous scan. C1-C2: There are degenerative changes of the atlantoaxial joint with small cysts or erosions of the odontoid. This has moderately progressed compared with the prior scan. C2-C3: Mild disc bulge. Facet hypertrophy. No central stenosis. Moderate right and more severe left foraminal stenosis. C3-C4: Disc bulge and facet and ligament hypertrophy. There is moderate central spinal stenosis. There is moderate foraminal stenosis. C4-C5: No significant disc protrusion. No severe spinal canal stenosis. No significant neural foraminal narrowing. C5-C6: No significant disc protrusion. No severe spinal canal stenosis. No significant neural foraminal narrowing. C6-C7: Mild right foraminal stenosis. No central stenosis. C7-T1: Mild bilateral foraminal stenosis. Mild central stenosis. Soft tissues: Unremarkable. Lungs: Lung apices are normal. CT/CT cervical spin wo con* [id number] IMPRESSION: 1. No fracture. 2. 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 Ankylosis was present on the prior scan. There is been progression of ankylosis at C7-T1. 3. Degenerative findings with mild central stenosis and multilevel foraminal stenosis as detailed above. Findings are similar to prior scan. Radiation Dose CTDIVOL = (mGy): DLP = 606.38 (mGy-cm)
--- NOTE | 2019-11-29 14:54 | CTR_ITS ---
PROCEDURE INFORMATION: Exam: CT Thoracic Spine Without Contrast Exam date and time: 11/29/2019 3:08 PM Age: 74 years old Clinical indication: Patient HX: C/O L sided weakness/numbness this am - underlying diabetic neuropathy - denies injury; Additional info: L side weakness, poss aaliyah syndrome TECHNIQUE: Imaging protocol: Computed tomography images of the thoracic spine without contrast. Radiation optimization: All CT scans at this facility use at least one of these dose optimization techniques: automated exposure control; mA and/or kV adjustment per patient size (includes targeted exams where dose is matched to clinical indication); or iterative reconstruction. COMPARISON: No relevant prior studies available. RADIATION DOSE METRICS: Total DLP: 2109.2 mGy-cm FINDINGS: Vertebrae: Degenerative endplate changes are seen at the mid and lower thoracic levels. There are no anterior wedging deformities. No acute lucent fracture lines are visualized. Discs/Spinal canal/Neural foramina: No significant thoracic spinal central canal or neural foraminal stenosis is demonstrated by CT. Kidneys and ureters: Residual iodinated contrast is seen in the renal collecting systems bilaterally. CT/CT thoracic spin wo con* [id number] IMPRESSION: 1. No acute thoracic spinal injury or destructive osseous lesions identified. 2. Degenerative changes of the thoracic spine. Radiation Dose CTDIVOL = (mGy): DLP = 2109.2 (mGy-cm)
--- NOTE | 2019-11-29 16:34 | ECG_ITS ---
Measurements Intervals [place] Rate: 75 P: 71 IL: 188 QRS: 23 QRSD: 85 T: 26 QT: 358 QTc: 402 SINUS RHYTHM Compared to ECG 11/29/2019 10:40:18 No significant changes Electronically Signed On 11-30-2019 10:34:47 CDT by Rich Rooney MD [email or web address]
--- NOTE | 2019-11-29 16:39 | PC.NURSE ---
off unit to MRI with dominga carreno via stretcher.
[2019-11-29 17:03] LABS: Bilirubin Urine Neg (NEGATIVE); Blood Urine Neg (Negative); Glucose Urine UA Norm (Normal); Ketones Urine Negative (Negative); Leukocyte Esterase Urine Negative (Negative); Nitrate Urine Negative (Negative); Protein Urine Neg (Negative); Urine Appearance Clear (CLEAR); Urine Color Yellow (Yellow); Urobilinogen Urine 4 mg/dL (Negative); pH Urine 7 (5-7)
[2019-11-29 17:05] LABS: Add Urine Culture? No
[2019-11-29 17:07] LABS: Glucose Point of Care 83 mg/dL (70-110)
[2019-11-29 17:12] LABS: Troponin 5 6HR 11.26 ng/mL (0-15); Troponin 5 6HR Delta 3.26 ng/L (0-12)
[2019-11-29] MEDS: duloxetine 20 mg Capsule PO (17:29)
[2019-11-29] MEDS: heparin 5,000 unit/mL INJ 1 mL 5000 UNIT SUBCUT (17:29)
[2019-11-29] MEDS: sodium chloride 0.9% 1,000 ML 100 ML IV (17:29)
[2019-11-29] MEDS: gabapentin 100 mg Capsule 200 MG PO (17:29)
[2019-11-29] MEDS: atorvastatin 40 mg Tablet 20 MG PO (21:23)
[2019-11-29 22:37] LABS: Glucose Point of Care 94 mg/dL (70-110)
[2019-11-30] VITALS: BP 112/69; PULSE 64; RESP 21; TEMP 36.9
[2019-11-30] MEDS: heparin 5,000 unit/mL INJ 1 mL 5000 UNIT SUBCUT ×2 (00:36→09:15)
[2019-11-30] MEDS: sodium chloride 0.9% 1,000 ML 100 ML IV (03:59)
[2019-11-30 04:00] VITALS: BP 121/75; PULSE 60; RESP 16; TEMP 36.7; O2SAT 93
[2019-11-30 06:19] LABS: Basophils # 0.1 10^3/uL (0.0-0.1); Basophils % 0.7 %; Eosinophils # 0.3 10^3/uL (0.0-0.8); Eosinophils % 3.7 %; Hematocrit 43.5 % (42.0-52.0); Hemoglobin 13.6 g/dL (11.7-16.6); Lymphocytes % 26.1 %; Mean Corpuscular HGB Conc 31.3 g/dL (30.0-36.0); Mean Corpuscular Volume 89.7 fL (80-94); Mean Platelet Volume 9.9 fL (7.4-10.4); Monocytes # 0.8 10^3/uL (0.2-0.9); Monocytes % 10.8 %; Neutrophils # 4.4 10^3/uL (1.8-7.7); Neutrophils % 58.2 %; Nucleated Red Blood Cells % 0 %; Platelet Count 257 10^3/cmm (130-400); Red Blood Count 4.85 10^6/uL (4.1-5.3); Red Cell Distribution Width 13.1 % (12.1-15.1); White Blood Count 7.5 10^3/uL (4.0-10.0)
[2019-11-30 06:29] LABS: Anion Gap 15.3 (5-19); Blood Urea Nitrogen 12 mg/dL (8-23); Calcium 9.8 mg/dL (8.5-10.5); Carbon Dioxide 26 mmol/L (22-29); Chloride 99 mmol/L (98-107); Glucose 139 mg/dL (65-115); Osmolality Calculated 280 mOsm/kg (285-295); Potassium 4.3 mmol/L (3.5-5.1); Sodium 136 mmol/L (136-145)
[2019-11-30 06:55] LABS: Glucose Point of Care 132 mg/dL (70-110)
[2019-11-30 07:31] VITALS: PULSE 59; O2SAT 91
[2019-11-30 08:00] VITALS: BP 147/86; PULSE 77; RESP 21; TEMP 36; O2SAT 93
--- NOTE | 2019-11-30 09:01 | PC.CHAP ---
Pastoral Care Encounter/Spiritual Assessment Type of Contact [] Declined adviser sales visit [] Patient/Family/Request visit [] Outpatient visit [] Follow-up visit [] Physician referral [] Code/Alert [x] Routine visit [] Staff referral [] Actively dying [] Patient sleeping [] Family support [] [] Out of room [] Palliative care [] [] Receiving care in room [] Pre-surgical visit [] Trauma [] Long length of stay [] ICU visit [] Other: Relational/Emotional Strength [] Patient feels connected with others/family/visitors/staff [] Distress [] Loneliness/isolation [] Abandonment Spirituality of Patient [] Person of Erin [] Attends Mu-Ism of their [place] [] Believes in Prayer [] Reads Bible or Congregation materials [] There are Spiritual issues to be addressed Raisin Washer Interventions [] Prayer [] Active listening [] Non-anxious presence [] Spiritual/emotional support [] Crisis/trauma care [] Spiritual counseling [] Bereavement support [] Provided bereavement packet [] Provided Bible/devotional materials [] Provided toy/stuffed animal, coloring book to patient or family member [] Provided Communion [] Anointing/[place] [] Salvation [x] Completed spiritual assessment [] Other: Impact on Illness or Injury [] Angry [] Fearful [] Anxious [] Often cries [] Exhaustion [] Unable to work [] Unable to attend cheondoism [] Unable to walk/stand [] Unable to read [] Unable to drive [] Unable to eat/drink [] Unable to sleep [] Unable to be with family [] Patient intubated [] Other: Summary Time spent with patient
[2019-11-30] MEDS: pantoprazole DR 40 mg Tablet PO (09:13)
[2019-11-30] MEDS: aspirin 81 mg EC Tablet PO (09:13)
[2019-11-30] MEDS: gabapentin 100 mg Capsule 200 MG PO (09:14)
[2019-11-30] MEDS: duloxetine 20 mg Capsule PO (09:14)
[2019-11-30] MEDS: metoprolol succinate ER (24 HR) 25 mg Tablet PO (09:14)
[2019-11-30] MEDS: lisinopril 5 mg Tablet PO (09:14)
[2019-11-30] MEDS: clopidogrel 75 mg Tablet PO (09:14)
--- NOTE | 2019-11-30 10:24 | PC.NURSE ---
Refused Pt refused bath he stated he is getting to go home. I explained to him if he changed his mind to let me know.
[2019-11-30 11:38] VITALS: BP 106/71; PULSE 85; RESP 15; TEMP 36.7; O2SAT 96
[2019-11-30 11:56] LABS: Glucose Point of Care 153 mg/dL (70-110)
--- NOTE | 2019-11-30 12:23 | P.DS_ITS ---
Discharge Providers Date of Admission: 11/29/19 12:09 Date of Discharge: November 30, 2019 Attending Provider at Admission: Gigi Juarez Attending Provider at Discharge: Dominick Reeder MD Primary Care Provider: AFSANEH Bnods Diagnoses at Discharge Discharge Diagnosis (1) Ptosis of left eyelid: Status: Acute Problem details: Resolved. Etiology unclear. Concerned this may have been a CVA. Already on maximal treatment other than changing to high intensity statin. (2) CVA (cerebral vascular accident): Status: Acute Problem details: Past history of CVA. Continue statin, aspirin, Plavix (3) Walking difficulty due to lower leg: Status: Acute (4) Abnormal stress test: Status: Acute Problem details: To follow-up with cardiology for potential angiogram Reason for Visit Reason for Visit: Reason For Visit: LEFT EYE DROOP Hospital Course Hospital Course: Barb is a 74-year-old white male who presented to the hospital with left eye droopiness. He reported some blurry vision on that side as well. There was concern for CVA so head neck CTA was performed demonstrating no flow-limiting disease. Had MRI demonstrated old lacunar infarcts but nothing acute. Sinal CT's were performed of cervical, thoracic, and lumbar which demonstrated some stenosis but nothing that would definitively cause neurologic symptoms. The following day he was feeling well and wanting to go home. He had ambulated out in the hallway without difficulty. Home health will be arranged. He has been changed to a high intensity statin. Physical Exam Narrative: EXAM NARRATIVE: General exam no apparent distress Cardiovascular regular rate and rhythm without murmur Lungs clear Abdomen is soft with positive bowel sounds Extremities no cyanosis clubbing or edema Discharge Data Data Completed and Pending: Completed Studies During Hospitalization Category Date Time Status CT angio headneck * 89366/55859 Urge nt Cat Scan 11/29/19 10:[address] cervical spin wo con* 51790 Rout ine Cat Scan 11/29/19 14:[address] head wo con* 7 0450 Urgent Cat Scan 11/29/19 10:[address] lumbar spine w o con* 37374 Routi ne Cat Scan 11/29/[address] thoracic spin wo con* [id number] Rout ine Cat Scan 11/29/19 14:54 Completed XR chest 1V hamzah ble [id number] Urgent Exams 11/29/19 10:21 Completed MR head wo con* 7 0551 Routine MRI 11/29/19 14:24 Completed Labs from last 24 hours 11/30/19 11/30/19 11/30/19 11:11 06:20 05:20 WBC RBC Hgb Hct MCV MCH MCHC RDW Plt Count MPV Neut % (Auto) Lymph % (Auto) [place] % (Auto) Eos % (Auto) Baso % (Auto) Neut # (Auto) Lymph # (Auto) [place] # (Auto) Eos # (Auto) Baso # (Auto) Nucleated RBC % (a uto) Nucleated RBCs # Sodium 136 Potassium 4.3 Chloride 99 Carbon Dioxide 26 Anion Gap 15.3 BUN 12 Creatinine 1.0 Glucose 139 H POC Glucose 153 132 Calculated Osmolal ity 280 L Calcium 9.8 Troponin I 6 Hour Troponin I Hi Sens Del Troponin T 120 Min [place] Troponin T Urine Color Urine Appearance Urine pH Ur Specific Gravit y Urine Protein Urine Glucose (UA) Urine Ketones Urine Blood Urine Nitrate Urine Bilirubin Urine Urobilinogen Ur Leukocyte Joana ase Urine RBC Urine WBC Ur Squamous Epith Cells Urine Bacteria 11/30/19 11/29/19 11/29/19 05:20 21:13 17:03 WBC 7.5 RBC 4.85 Hgb 13.6 Hct 43.5 MCV 89.7 MCH 28.0 MCHC 31.3 RDW 13.1 Plt Count 257 MPV 9.9 Neut % (Auto) 58.2 Lymph % (Auto) 26.1 [place] % (Auto) 10.8 Eos % (Auto) 3.7 Baso % (Auto) 0.7 Neut # (Auto) 4.4 Lymph # (Auto) 2.0 [place] # (Auto) 0.8 Eos # (Auto) 0.3 Baso # (Auto) 0.1 Nucleated RBC % (a uto) 0 Nucleated RBCs # 0.0 Sodium Potassium Chloride Carbon Dioxide Anion Gap BUN Creatinine Glucose POC Glucose 94 83 Calculated Osmolal ity Calcium Troponin I 6 Hour Troponin I Hi Sens Del Troponin T 120 Min [place] Troponin T Urine Color Urine Appearance Urine pH Ur Specific Gravit y Urine Protein Urine Glucose (UA) Urine Ketones Urine Blood Urine Nitrate Urine Bilirubin Urine Urobilinogen Ur Leukocyte Joana ase Urine RBC Urine WBC Ur Squamous Epith Cells Urine Bacteria 11/29/19 11/29/19 11/29/19 16:49 15:02 12:38 WBC RBC Hgb Hct MCV MCH MCHC RDW Plt Count MPV Neut % (Auto) Lymph % (Auto) [place] % (Auto) Eos % (Auto) Baso % (Auto) Neut # (Auto) Lymph # (Auto) [place] # (Auto) Eos # (Auto) Baso # (Auto) Nucleated RBC % (a uto) Nucleated RBCs # Sodium Potassium Chloride Carbon Dioxide Anion Gap BUN Creatinine Glucose POC Glucose Calculated Osmolal ity Calcium Troponin I 6 Hour 11.26 Troponin I Hi Sens Del 3.26 Troponin T 120 Min [place] 7.44 Delta Troponin T -0.56 L Urine Color Yellow Urine Appearance Clear Urine pH 7 Ur Specific Gravit y 1.000 L Urine Protein Neg Urine Glucose (UA) Norm Urine Ketones Negative Urine Blood Neg Urine Nitrate Negative Urine Bilirubin Neg Urine Urobilinogen 4 H Ur Leukocyte Joana ase Negative Urine RBC None Urine WBC None Ur Squamous Epith Cells None Urine Bacteria None Vitals: Last Vital Signs Temp 98.1 F 11/30/19 11:38 Pulse 85 11/30/19 11:38 Resp 15 11/30/19 11:38 BP 106/71 11/30/19 11:38 Pulse Ox 96 11/30/19 11:38 Discharge Plan Discharge Patient Disposition: Home Health Service Condition: Stable Prescriptions: New atorvastatin 40 mg Tablet 20 mg PO BEDTIME Qty: 30 RF: 0 Continued clopidogrel [Plavix] 75 mg tablet 75 mg PO DAILY Qty: 30 RF: 2 duloxetine [Cymbalta] 20 mg capsule,delayed release(DR/EC) 20 mg PO BID Qty: 60 RF: 2 levocetirizine 5 mg tablet 5 mg PO DAILY Qty: 30 RF: 2 Tradjenta 5 mg tablet 5 mg PO DAILY Qty: 30 RF: 2 lisinopril 5 mg tablet 5 mg PO DAILY Qty: 30 RF: 2 metformin 500 mg tablet extended release 24hr 1,000 mg PO DAILY Qty: 30 RF: 2 metoprolol succinate 25 mg tablet extended release 24 hr 25 mg PO DAILY Qty: 30 RF: 2 pantoprazole [Protonix] 40 mg tablet,delayed release (DR/EC) 40 mg PO DAILY Qty: 30 RF: 2 Levemir FlexTouch U-100 Insuln 100 unit/mL (3 mL) insulin pen 65 unit SUBCUT DAILY Qty: 15 RF: 2 aspirin 81 mg Tablet,Delayed Release (Dr/Ec) 81 mg PO DAILY 30 Days Qty: 30 RF: 0 nitroglycerin [Nitrostat] 0.4 mg Tablet, Sublingual 0.4 mg sublingual Q5M PRN (Reason: Chest Pain) 30 Days Qty: 30 RF: 0 gabapentin 100 mg capsule 200 mg PO BID RF: 0 Discontinued simvastatin 40 mg tablet 40 mg PO .hs Qty: 30 RF: 2 Pepcid 40 mg tablet 40 mg PO EVERY OTHER DAY RF: 0 Discharge Orders: Discharge Order (Routine); Ordered 11/30/19 Ordered By: Dominick Reeder Referrals: Aline Pacheco, AFSANEH [Primary Care Provider] - Discharge Diet: Cardiac and Diabetic Discharge Activity: Increase activity as tolerated Activity Restrictions/Additional Instructions: Follow-up with primary care provider Return for any concerns You may restart your metformin tomorrow Discharge Attestations Time Spent in Discharge Care*: greater than 30 min Quality Metrics Clinical Quality Measures During this hospital stay, did patient experience: None Coding Level of Care Code Acute Baker Operator Automatic for Chg Fwd Diagnoses Ptosis of left eyelid H02.402 CVA (cerebral vascular accident) I63.9 Walking difficulty due to lower leg R26.2 Abnormal stress test R94.39
[2019-11-30 13:16] VITALS: BP 106/71; PULSE 85; RESP 15; TEMP 36.7; O2SAT 96
--- NOTE | 2019-11-30 14:00 | PC.NURSE ---
discharge instructions given to pt. pt verbalized an understanding and questions were answered at this time. iv removed, tip intact, pt tolerated procedure well.
== END 2019-11-30 14:45 | disposition home health service (06) ==
LOC: ER 12:12 → CSU 12:25
PROVIDERS: Emergency Medicine; Admitting Provider Internal Medicine; Emergency Provider Internal Medicine; PCP Nurse Practitioner; Visit Provider Internal Medicine
DX: H02.402 Unspecified ptosis of left eyelid (principal); I63.9 Cerebral infarction, unspecified; R26.2 Difficulty in walking, not elsewhere classified; R94.39 Abnormal result of other cardiovascular function study; Z79.82 Long term (current) use of aspirin; Z79.02 Long term (current) use of antithrombotics/antiplatelets; E11.40 Type 2 diabetes mellitus with diabetic neuropathy, unspecified; Z79.84 Long term (current) use of oral hypoglycemic drugs; I10 Essential (primary) hypertension
CPT/HCPCS: 12345; 36415; 36416; 70450; 70496; 70498; 70551; 71045; 72125; 72128; 72131; 80048; 80053; 81001; 82962; 84484; 85025; 85610; 85730; 92523; 92610; 93005; 93010; 96360; 96361; 96372; 96374; 96375; 97116; 97161; 97165; 99284; 99285; G0378; J1644; J1815; J2405; J7030; Q9967

== ENCOUNTER → 2019-12-10 11:15 | Outpatient (BNVA) | payer MEDICARE, MEDICAID, SELFPAY | PROVIDERS: PCP Nurse Practitioner; Visit Provider Nurse Practitioner | DX: E11.65 Type 2 diabetes mellitus with hyperglycemia (principal); Z79.4 Long term (current) use of insulin | CPT/HCPCS: 83036 ==

== ENCOUNTER → 2020-01-15 09:41 | Outpatient (BNVA) | payer MEDICARE, MEDICAID, SELFPAY | PROVIDERS: PCP Nurse Practitioner; Visit Provider Nurse Practitioner Family | DX: N30.00 Acute cystitis without hematuria (principal); E11.65 Type 2 diabetes mellitus with hyperglycemia; Z79.4 Long term (current) use of insulin; R11.0 Nausea; B37.49 Other urogenital candidiasis | CPT/HCPCS: 80053; 81000; 81003; 85025 ==

== ENCOUNTER 2020-02-15 16:05 | Emergency (ER) | payer MEDICARE, MEDICAID, SELFPAY ==
[2020-02-15 16:06] VITALS: BP 123/71; PULSE 78; RESP 18; TEMP 37.1; O2SAT 95; BMI 27.8
--- NOTE | 2020-02-15 16:06 | ECG_ITS ---
[facility] Test Date: 2020-02-15 Pat Name: Barb Joe Department: Room: Gender: Male Yoke Setter: : 1945 Requested By: Shital Pelletier Order Number: [id number] Rivera MD: Isamar Pierce M.D. Measurements Intervals [place] Rate: 74 P: 61 SD: 173 QRS: 18 QRSD: 85 T: 23 QT: 361 QTc: 403 Interpretive Statements SINUS RHYTHM Compared to ECG 11/29/2019 17:22:58 No significant changes Electronically Signed On 02-15-2020 16:32:49 CDT by Isamar Pierce M.D. [id number]
--- NOTE | 2020-02-15 16:06 | XRR_ITS ---
PROCEDURE INFORMATION: Exam: XR Chest, 1 View Exam date and time: 02/15/2020 4:07 PM Age: 74 years old Clinical indication: Chest pain; Type not specified; Additional info: Cp TECHNIQUE: Imaging protocol: XR of the chest Views: 1 view. COMPARISON: CR XR chest 1V portable [id number] 11/29/2019 10:55 AM FINDINGS: Lungs: Unchanged hyperinflation and probable interstitial fibrosis. No consolidation. The vascularity is within normal limits. Pleural space: Unremarkable. No pleural effusion. No pneumothorax. Heart/Mediastinum: Unchanged mild cardiomegaly. Bones/joints: No acute abnormality. XR/XR chest 1V portable [id number] IMPRESSION: No acute findings. Unchanged chronic lung findings/COPD with fibrosis.
--- NOTE | 2020-02-15 16:16 | W.ED.CHESTPA ---
HPI - Chest Pain General: Chief Complaint: Chest Pain Stated Complaint: CHEST PAIN Time Seen by Provider: 02/15/20 16:06 Source: patient and EMS Mode of arrival: EMS Limitations: no limitations History of Present Illness: HPI narrative: 74-year-old male who states he is having chest pain over the last 2 days. States pain is been episodic in nature. He states he is been having this pain for months. He had a work-up 2 months ago including a negative stress test. He states that his pain was sharp pain. Nitro did not relieve it but fentanyl did. He denies any shortness of breath. He denies any nausea or vomiting. Associated symptoms: Deny abdominal pain, dyspnea, fever(s), nausea or vomiting Review of Systems Const: Denies: fever(s), chills, body aches or change in appetite Eyes: Denies: blurry vision or eye discomfort ENMT: Denies: throat pain or dental pain Card: Reports: chest pain Resp: Denies: dyspnea GI: Denies: abdominal pain, nausea, vomiting or diarrhea : Denies: dysuria Musc: Denies: neck pain or back pain Skin/Breast: Denies: rash Neuro: Denies: headache(s) Psych: Denies: depression [place]/Lymph: Denies: easy bruising All/Imm: Denies: urticaria PFSH ED PFSH: Medical History Acid reflux Aortic regurgitation Cervical radicular pain Chronic migraine Controlled type 2 diabetes mellitus with hyperglycemia, with long-term current use of insulin DDD (degenerative disc disease) Dependent on walker for ambulation Enrolled in chronic care management History of stroke Hypertension Tricuspid regurgitation Vitamin D deficiency Surgical History History of cataract surgery History of cervical spinal surgery 3 times History of cholecystectomy History of colon cancer 2015 History of knee surgery Right Family History Father Cancer Denies family history of Bleeding disorder Social History Smoking and tobacco status: former smoker Second hand smoke exposure: No Smoking risk assessment/counseling performed?: No Alcohol intake: never Desire information about alcohol rehabilitation?: No Counseling given: No Desire information about substance/drug rehabilitation?: No Counseling given: No Caregiver/support person: No Lives independently: Yes Household members: spouse Housing: House Marital status: Current occupational status: retired History of recent travel: No Current gender identity: Male Physical Exam Const: COMMON NORMALS: no acute distress, patient oriented x3 and healthy appearing HENMT: COMMON NORMALS: normocephalic and atraumatic HEAD & SCALP: normocephalic and atraumatic Eye: COMMON NORMALS: Equal, round and reactive pupils present and EOMs intact bilaterally PUPIL: Yes Equal, round and reactive pupils present Neck/C-Spine: COMMON NORMALS: full ROM and supple Chest: COMMONS NORMALS: normal inspection of the chest and normal palpation of entire chest wall Resp: COMMON NORMALS: normal respiratory effort, No retractions, No use of accessory muscles and clear to auscultation bilaterally AUSCULTATION: clear to auscultation bilaterally Cardio: COMMON NORMALS: regular rate, regular rhythm and No murmurs present (Cardio) RATE: regular rate RHYTHM: regular rhythm GI: COMMON NORMALS: Normal to inspection, nondistended, normoactive bowel sounds present, Soft to palpation, non-tender and no masses PALPATION: Yes Soft to palpation Extremity: COMMON NORMALS: normal to inspection and full ROM Neuro: COMMON NORMALS: patient oriented x3, moves all extremities and no focal motor deficits Psych: COMMON NORMALS: mental status grossly normal, Normal thought process present and cooperative THOUGHT PROCESS: Normal thought process present Skin: COMMON NORMALS: no rashes or lesions noted and no wounds GENERAL SKIN EXAM: no rashes or lesions noted Course Vital Signs: Vital signs: Vital Signs Temperature 98.7 F 02/15/20 16:06 Pulse Rate 59 L 02/15/20 18:39 Respiratory Rate 18 02/15/20 18:39 Blood Pressure 106/67 02/15/20 18:39 Pulse Oximetry 96 02/15/20 18:39 MDM - Chest Pain MDM Narrative: Medical decision making narrative: Patient presents with chest pain is atypical. Patient had a stress test 3 months ago that was normal. Patient's initial and repeat troponins here are negative and has been chest pain-free here. Patient's x-ray is normal. He has no signs of pulmonary embolism. Patient is stable for discharge back home. Lab Data: Labs: Lab Results 02/15/20 02/15/20 02/15/20 Range/Units 16:24 16:24 16:24 WBC 9.2 (4.0-10.0) 10^3/ uL RBC 5.00 (4.1-5.3) 10^6/u L Hgb 13.6 (11.7-16.6) g/dL Hct 44.0 (42.0-52.0) % MCV 88.0 (80-94) fL MCH 27.2 L (28.0-34.0) pg MCHC 30.9 (30.0-36.0) g/dL RDW 13.2 (12.1-15.1) % Plt Count 295 (130-400) 10^3/c mm MPV 9.5 (7.4-10.4) fL Neut % (Auto) 56.5 % Lymph % (Auto) 27.3 % [place] % (Auto) 9.1 % Eos % (Auto) 6.3 % Baso % (Auto) 0.4 % Neut # (Auto) 5.16 (1.8-7.7) 10^3/u L Lymph # (Auto) 2.5 (0.8-4.8) 10^3/u L [place] # (Auto) 0.8 (0.2-0.9) 10^3/u L Eos # (Auto) 0.6 (0.0-0.8) 10^3/u L Baso # (Auto) 0.0 (0.0-0.1) 10^3/u L Nucleated RBC % (a uto) 0 % Nucleated RBCs # 0.0 /100WBC Sodium 134 L (136-145) mmol/L Potassium 4.4 (3.5-5.1) mmol/L Chloride 98 (98-107) mmol/L Carbon Dioxide 29 (22-29) mmol/L Anion Gap 11.4 (5-19) BUN 14 (8-23) mg/dL Creatinine 1.0 (0.7-1.2) mg/dL GFR Calculation Not Reportable Glucose 233 H (65-115) mg/dL Calculated Osmolal ity 282 L (285-295) mOsm/k g Calcium 9.3 (8.5-10.5) mg/dL Total Bilirubin 0.2 (0.15-1.2) mg/dL AST 17 (0-40) U/L ALT 21 (0-41) U/L Alkaline Phosphata se 80 (40-130) IU/L Troponin T Baselin e 9 (0-15) ng/L Troponin T 120 Min mcgrath (0-15) ng/L Delta Troponin T (0-10) ABS# Total Protein 7.1 (6.6-8.7) g/dL Albumin 4.2 (3.5-5.2) g/dL Globulin 2.9 (1.3-4.6) g/dL 02/15/20 Range/Units 18:08 WBC (4.0-10.0) 10^3/ uL RBC (4.1-5.3) 10^6/u L Hgb (11.7-16.6) g/dL Hct (42.0-52.0) % MCV (80-94) fL MCH (28.0-34.0) pg MCHC (30.0-36.0) g/dL RDW (12.1-15.1) % Plt Count (130-400) 10^3/c mm MPV (7.4-10.4) fL Neut % (Auto) % Lymph % (Auto) % [place] % (Auto) % Eos % (Auto) % Baso % (Auto) % Neut # (Auto) (1.8-7.7) 10^3/u L Lymph # (Auto) (0.8-4.8) 10^3/u L [place] # (Auto) (0.2-0.9) 10^3/u L Eos # (Auto) (0.0-0.8) 10^3/u L Baso # (Auto) (0.0-0.1) 10^3/u L Nucleated RBC % (a uto) % Nucleated RBCs # /100WBC Sodium (136-145) mmol/L Potassium (3.5-5.1) mmol/L Chloride (98-107) mmol/L Carbon Dioxide (22-29) mmol/L Anion Gap (5-19) BUN (8-23) mg/dL Creatinine (0.7-1.2) mg/dL GFR Calculation Glucose (65-115) mg/dL Calculated Osmolal ity (285-295) mOsm/k g Calcium (8.5-10.5) mg/dL Total Bilirubin (0.15-1.2) mg/dL AST (0-40) U/L ALT (0-41) U/L Alkaline Phosphata se (40-130) IU/L Troponin T Baselin e (0-15) ng/L Troponin T 120 Min mcgr[place] 7.42 (0-15) ng/L Delta Troponin T -1.58 L (0-10) ABS# Total Protein (6.6-8.7) g/dL Albumin (3.5-5.2) g/dL Globulin (1.3-4.6) g/dL Imaging Data^: CXR: Radiologist's impression: [address] [address] XRay Report Signed Patient: Barb Joe Unit #: [id number] : 1945 Age/Sex: 74 / M ADM Date: 02/15/20 Loc: ER Room/Bed: Attending Dr: Ordering Provider/Ordering MD: Shital Pelletier MD Date of Service: 02/15/20 Procedure(s): XR chest 1V portable [id number] Accession Number(s): [id number] Report Number: [id number] PROCEDURE INFORMATION: Exam: XR Chest, 1 View Exam date and time: 02/15/2020 4:07 PM Age: 74 years old Clinical indication: Chest pain; Type not specified; Additional info: Cp TECHNIQUE: Imaging protocol: XR of the chest Views: 1 view. COMPARISON: CR XR chest 1V portable [id number] 11/29/2019 10:55 AM FINDINGS: Lungs: Unchanged hyperinflation and probable interstitial fibrosis. No consolidation. The vascularity is within normal limits. Pleural space: Unremarkable. No pleural effusion. No pneumothorax. Heart/Mediastinum: Unchanged mild cardiomegaly. Bones/joints: No acute abnormality. XR/XR chest 1V portable [id number] IMPRESSION: No acute findings. Unchanged chronic lung findings/COPD with fibrosis. EKG Data^: EKG 1: Attestation: I personally reviewed and interpreted this EKG as follows: EKG interpretation date: 02/15/20 EKG interpretation time: 16:12 Interpretation: nsr hr [address] or twave abnormalities qrs 85 qtc 389 Discharge Plan Discharge Patient Disposition: Home Clinical Impression: Atypical chest pain Condition: Stable Prescriptions: No Action ondansetron HCl [Zofran] 8 mg tablet 8 mg PO Q8H PRN (Reason: nausea and vomiting) 3 Days Qty: 9 RF: 0 phenazopyridine [Pyridium] 200 mg tablet 200 mg PO TID Qty: 6 RF: 0 Levemir FlexTouch U-100 Insuln 100 unit/mL (3 mL) insulin pen See Rx Instructions SUBCUT DAILY Qty: 30 RF: 2 aspirin 81 mg tablet,delayed release (DR/EC) 81 mg PO DAILY 30 Days Qty: 30 RF: 2 atorvastatin 20 mg tablet 20 mg PO BEDTIME Qty: 30 RF: 2 clopidogrel [Plavix] 75 mg tablet 75 mg PO DAILY Qty: 30 RF: 2 duloxetine [Cymbalta] 20 mg capsule,delayed release(DR/EC) 20 mg PO BID Qty: 60 RF: 2 gabapentin 100 mg capsule 200 mg PO BID Qty: 120 RF: 2 levocetirizine 5 mg tablet 5 mg PO DAILY Qty: 30 RF: 2 Tradjenta 5 mg tablet 5 mg PO DAILY Qty: 30 RF: 2 lisinopril 5 mg tablet 5 mg PO DAILY Qty: 30 RF: 2 metoprolol succinate 25 mg tablet extended release 24 hr 25 mg PO DAILY Qty: 30 RF: 2 pantoprazole [Protonix] 40 mg tablet,delayed release (DR/EC) 40 mg PO DAILY Qty: 30 RF: 2 (DME) pen needle, diabetic 33 gauge x 5/32 needle See Rx Instructions .ROUTE .MEDSUPPLY Qty: 100 RF: 5 metformin 500 mg tablet extended release 24hr 1,000 mg PO BEDTIME RF: 0 Discharge Orders: Discharge Order (Routine); Ordered 02/15/20 Ordered By: Shital Pelletier Referrals: Aline Pacheco, LINE INSTALLER TROLLEY-C [Primary Care Provider] - 1-3 days Discharge Diet: Advance as tolerated Discharge Activity: Resume usual activity Patient Instructions: Chest Pain (ED) Coding Level of Care Code ED Computer Salesperson Retail for Chg Fwd Exam Comprehensive
[2020-02-15 16:31] VITALS: BP 86/54; PULSE 73; O2SAT 96
[2020-02-15 16:39] LABS: Basophils % 0.4 %; Eosinophils # 0.6 10^3/uL (0.0-0.8); Eosinophils % 6.3 %; Hemoglobin 13.6 g/dL (11.7-16.6); Lymphocytes # 2.5 10^3/uL (0.8-4.8); Lymphocytes % 27.3 %; Mean Corpuscular HGB Conc 30.9 g/dL (30.0-36.0); Mean Corpuscular Hemoglobin 27.2 pg (28.0-34.0); Mean Platelet Volume 9.5 fL (7.4-10.4); Monocytes # 0.8 10^3/uL (0.2-0.9); Monocytes % 9.1 %; Neutrophils # 5.16 10^3/uL (1.8-7.7); Neutrophils % 56.5 %; Nucleated Red Blood Cells % 0 %; Platelet Count 295 10^3/cmm (130-400); Red Cell Distribution Width 13.2 % (12.1-15.1); White Blood Count 9.2 10^3/uL (4.0-10.0)
[2020-02-15] MEDS: sodium chloride 0.9% 1,000 ML 999 ML IV (16:43)
[2020-02-15 17:02] LABS: Alanine Aminotransferase 21 U/L (0-41); Albumin Level 4.2 g/dL (3.5-5.2); Alkaline Phosphatase 80 IU/L (40-130); Anion Gap 11.4 (5-19); Aspartate Amino Transferase 17 U/L (0-40); Blood Urea Nitrogen 14 mg/dL (8-23); Calcium 9.3 mg/dL (8.5-10.5); Carbon Dioxide 29 mmol/L (22-29); Chloride 98 mmol/L (98-107); Creatinine Clr Calc Pharmacy 67.0248; Globulin 2.9 g/dL (1.3-4.6); Glucose 233 mg/dL (65-115); Osmolality Calculated 282 mOsm/kg (285-295); Potassium 4.4 mmol/L (3.5-5.1); Sodium 134 mmol/L (136-145); Total Bilirubin 0.2 mg/dL (0.15-1.2); Total Protein 7.1 g/dL (6.6-8.7)
[2020-02-15 17:04] LABS: Troponin(5th) Baseline 9 ng/L (0-15)
[2020-02-15 18:36] LABS: Troponin 5 2HR 7.42 ng/L (0-15)
[2020-02-15 18:39] VITALS: BP 106/67; PULSE 59; RESP 18; O2SAT 96
[2020-02-15 18:39] LABS: Troponin 5 2HR Delta -1.58 ABS# (0-10)
[2020-02-15 19:19] VITALS: BP 115/70; PULSE 64; RESP 18; O2SAT 97
--- NOTE | 2020-02-15 22:06 | ECG_ITS ---
[facility] Test Date: 2020-02-15 Pat Name: Barb Joe Department: Room: Gender: Male Air Hose Coupler: : 1945 Requested By: Shital Pelletier Order Number: [id number] Miguel MD: Isamar Pierce M.D. Measurements Intervals [place] Rate: 60 P: 45 [place]: 174 QRS: 9 QRSD: 74 T: 18 QT: 388 QTc: 391 Interpretive Statements SINUS RHYTHM Compared to ECG 02/15/2020 16:12:42 No significant changes Electronically Signed On 02-15-2020 21:15:11 CDT by Isamar Pierce M.D. [email or web address]
== END 2020-02-15 19:20 | disposition home or self-care (01) ==
PROVIDERS: Emergency Provider Emergency Medicine; PCP Nurse Practitioner
DX: R07.89 Other chest pain (principal); Z79.4 Long term (current) use of insulin; Z79.82 Long term (current) use of aspirin; Z79.02 Long term (current) use of antithrombotics/antiplatelets; Z87.891 Personal history of nicotine dependence; E11.9 Type 2 diabetes mellitus without complications; I10 Essential (primary) hypertension; Z85.038 Personal history of other malignant neoplasm of large intestine
CPT/HCPCS: 12345; 36415; 71045; 80053; 84484; 85025; 93005; 96360; 99283; 99284; J7030

== ENCOUNTER → 2020-02-25 10:49 | Outpatient (BNVA) | payer MEDICARE, MEDICAID, SELFPAY | PROVIDERS: PCP Nurse Practitioner; Visit Provider Nurse Practitioner Family | DX: I20.0 Unstable angina (principal); R94.39 Abnormal result of other cardiovascular function study; I10 Essential (primary) hypertension; Z87.891 Personal history of nicotine dependence | CPT/HCPCS: 80048; 85025; 87635 ==

== ENCOUNTER 2020-03-02 07:21 | Day surgery (SDC) | payer MEDICARE, MEDICAID, SELFPAY ==
[2020-03-01 13:58] VITALS: BMI 28.8
[2020-03-02] VITALS (50 sets, daily range): BP systolic 113–160; BP diastolic 71–93; PULSE 65–96; RESP 3–27; TEMP 36.9; O2SAT 90–99
[2020-03-02] MEDS: diphenhydrAMINE 50 mg Capsule PO (07:52)
--- NOTE | 2020-03-02 08:04 | XACV_ITS ---
Ht: 173 cm Wt: 86 kg BSA: 2.05 m2 Gender: Male : 1945 Any Known Allergies: Other Exam Priority: Routine Procedure(s): Procedure Description: Diagnostic procedure Procedure Description: Left Heart Catheterization Procedure Description: Miscellaneous Procedure Description: ACT Diagnostic Cath Status: Elective Diagnostic Findings LM has 0% stenosis. Mid Left Anterior Descending Coronary Artery: Severe 80% stenosis, LA: 3 flow. Mid Circumflex Coronary Artery: Severe 90% stenosis, LA: 2 flow. pRCA: Moderate 60% stenosis, LA: 3 flow. Coronary angiography shows right dominance. PCI Indication: New Onset Angina <= 2 months Interventional Findings Mid Left Anterior Descending Coronary Artery: 80% stenosis treated with MDT R CAMILLA 3.0X12 SEBASTIÁN. 0% residual stenosis, LA: 3 flow. Mid Circumflex Coronary Artery: 90% stenosis treated with MDT R CAMILLA 4.0X18 SEBASTIÁN and MDT NC EUPHORA RX [id number] BALLOON. 0% residual stenosis, LA: 3 flow. Conclusions There is severe coronary artery disease with three vessel disease. Mid Left Anterior Descending Coronary Artery was treated with Drug Eluting Stent. Mid Circumflex Coronary Artery was treated with Drug Eluting Stent and Balloon. Indication for angiogram: Chest pain shortness of breath , unstable angina, mildly abnormal stress test. Recommendations Continue current medical management and risk factor modification. Diagnostic RX Recommendation: PCI w/o planned CABG Pressures Phase:Rest AO : 108 mmHg / 65 mmHg ( 85 mmHg ) @ 4:19:00 AM 76 mmHg / 49 mmHg ( 53 mmHg ) @ 4:23:00 AM 128 mmHg / 74 mmHg ( 98 mmHg ) @ 5:00:00 AM Clinical Evaluation EBL: 5mL-10mL Procedural Details Procedure Consent Obtained. Current Diagnosis : Chest Pain. Pre-Procedure Time Out. Identified patient by full name and date of as verbalized by the patient/guarantor. Does the consent match the physician's order: Yes. Accurate & Complete Informed Consent: Yes. Inpatient/Outpatient History & Physical on Chart: Yes. If H&P is completed, is and addenduem needed: No; If yes, is the addendum complete: N/A. Visualize and Verify Site with Patient/Guarantor: N/A. Relevant Radiology Images available: Yes. Pre-op teaching completed and patient verbalized understanding. The risks, benefits, and alternatives of sedation and/or procedure were discussed by physician. The patient agrees to continue. Procedure started. [facility] Clinical Fraility Score: 3: Managing Well. 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 Chest Pain Symptom Assessment: Typical Angina Symptoms. Correct patient, site and procedure confirmed by cath team. Current diagnosis: Chest Pain. PERRLA. Strong, equal hand natural resources professor bilaterally. Lungs clear x 5 lobes. IV Site on Arrival: 20 gauge in the left anticubital. IV Fluids: 0.9% NaCl at KVO. 0 mL infused prior to manufacturing lab technician. Pre Procedural Pulses: bilateral posterior tibial was Doppled. Pre Procedural Pulses: bilateral dorsalis pedis was Doppled. Pre Procedural Pulses: right radial was 3+. Oxygen started at 2liters/min via nasal canula. right groin was prepped with chloroprep then draped in the usual sterile fashion. right radial was prepped with chloroprep then draped in the usual sterile fashion. Physician arrived. Patient's family unavailable. Baseline sample Acquired. HR: 72 BPM. Physician scrubbed in. Immediate Pre-Procedure Time Out. Correct Patient: Yes; Correct Procedure: Yes; Correct Site: Yes; Correct Patient Position: Yes; Correct Supplies: Yes; Dried Flammable Prep: Yes; Blood Products Available: N/A;. Lidocaine 1% infiltrated to the right radial. Arterial access obtained. A 5 algerian TIG catheter in over wire. wire out. glidewire inserted throught the catheter. Multiple views taken of left coronary artery. Catheter removed over the glide wire. Starting intervention. Lidocaine 1% infiltrated to the left groin. Maliha Sheridan, RT(R) was relieved by Matthieu Toussaint RN, POWDER BLENDER AND POURER as monitoring person. Arterial access obtained with micropuncture set. A TR Band was successful obtaining hemostatsis at the Right Radial artery insertion site. A 6 algerian JR4 catheter in over wire. Multiple views taken of right coronary artery. Patient's family updated. Catheter removed over the exchange wire. 6 algerian XB 3 guide catheter was inserted over the wire. Inventory is CRD 6FR XB 3 GUIDE. Guide seated in the LCS. FFR guidewire was advanced through the guide catheter to lesion in the mid LAD. Guidewire advanced across the lesion. An FFR value of 0.79 was obtained for a lesion located at Mid LAD. Adenosine d/c. Intervening on LAD over FFR wire. Inflation Number : 1 A LYNN Antunez CAMILLA 3.0X12 SEBASTIÁN -Lot Number# [id number] expiration 09-19-2021 was prepped and advanced across the Mid LAD. The stent was deployed at 12 RICK for 0:13 seconds. Angiography performed. Stent balloon out over wire. Wire out. Inventory is: [place] XT. [place] guidewire was advanced through the guide catheter to lesion in the mid Circ. Guidewire advanced across the lesion. Wire seated in the 1st OM distal. Guidewire #2 inserted and seated in the groove circumflex distal. Inflation Number : 1 A LYNN Antunez CAMILLA 4.0X18 SEBASTIÁN -Lot Number# [id number] expiration 08-31-2021 was prepped and advanced across the Mid CX. The stent was deployed at 12 RICK for 0:21 seconds. [place] guidewire #2 removed. Inflation number : 2 A MDT NC EUPHORA RX [id number] BALLOON was prepped and advanced across the Mid CX , then inflated to 8 RICK for 0:24 seconds. Inflation number: 3 The MDT NC EUPHORA RX [id number] BALLOON was reinflated across the Mid CX, to 10 RICK for 0:30 seconds. Guide catheter removed over the wire. Physician review of films. Physician scrubbed out. A Suture was successful obtaining hemostatsis at the Right Femoral artery insertion site. Sheath(s) sutured into position with 2-0 silk and sterile 4x4's and Op-site applied over the site. No oozing or signs and symptoms of hematoma noted. Arterial sheath flushed and connected to tranducer and pressure bag with heparinized saline. Post Procedure: Pulses reassessed and unchanged. PERRLA. Strong, equal hand natural resources professor bilaterally. Medication's Wasted: Adenosine = 65 mg. Medication's Wasted: Nitro = 49.8 mg. Medication's Wasted: Versed = 1 mg. Medication's Wasted: Fentanyl = 50 mcg. Total IV fluids: 115 mL. Fluoro: 20:03. Contrast type used: Omnipaque 300 mgI/mL, 500 mL bottle. [id number]. ACT drawn. Results 227 seconds. Therapeutic limits - pre-heparin administration 90-150 seconds and monitoring heparin during a vascular procedure >250 seconds. Medication's Wasted: Heparin = [address] Dodge updated patients family about procedure findings. PCI Indication: Angina. Post-op diagnosis: Multivessel coronary artery disease. Complications: none. Estimated blood loss: 5mL-10mL. Procedure completed. Patient transferred by bed to 1st floor. Vital chart was stopped. Site: Right Radial artery Sheath Size: 6 Fr Hemostasis Method: TR Band Hemostasis Success: Successful Site: Right Femoral artery Sheath Size: 6 Fr Hemostasis Method: Suture Hemostasis Success: Successful Procedure Medications Start: 9:10 AM Stop: 9:10 AM Medication: Versed Amount: 1 mg Route: I.V. Start: 9:10 AM Stop: 9:10 AM Medication: Fentanyl Amount: 50 mcg Route: I.V. Start: 9:10 AM Stop: 9:10 AM Medication: Nitrogylcerin Amount: 200 mcg Route: I.A. Start: 9:48 AM Stop: 9:48 AM Medication: Heparin Amount: 7000 units Route: I.V. Start: 9:56 AM Stop: 9:56 AM Medication: Adenosine (Adenocard) Amount: 722 Start: 10:01 AM Stop: 10:01 AM Medication: Heparin Amount: 1000 units Route: I.V. I, the attending physician, have reviewed and verified all procedure medications. Yes, all medications given per verbal order History/Risk Factors Hypertension: Yes Dyslipidemia: Yes Diabetic Therapy: Insulin Peripheral Arterial Disease (PAD): No Myocardial Infarction (PR): No Obesity: No Renal Disease: No Tobacco Use: Former Prior Interventions PCI: No CABG: No Valve Surgery: No Report Signatures Finalized by:Richard Dodge MD on 03/17/2020 2:09:17 PM
--- NOTE | 2020-03-02 08:50 | W.PM.OPSUD ---
Surgery/Procedure H&P Update DATE OF PROCEDURE: March 02, 2020 DATE H&P PERFORMED: 02/25/20 H&P UPDATE INFORMATION: I have reviewed H&P completed within last 30 days, I have examined patient prior to procedure and No changes to prior documentation PREOP DIAGNOSIS: Worsening of chest pain despite of optimal medical management, mildly abnormal stress test PLANNED PROCEDURE: Operation Date: 03/02/20 08:30 Proposed Procedures p Cardiac Catheterization(Left) - Richard Dodge MD PATIENT REASSESSED PRIOR TO SEDATION, WITH NO CHANGE NOTED: Yes PHYSICAL EXAM: alert, oriented x 3 and clear to auscultation bilaterally AIRWAY EVAL/ANESTHESIA PLAN: ASA II, Risks, benefits & alternatives of sedation and/or procedure discussed and Patient agrees to continue as planned
[2020-03-02] MEDS: clopidogrel 300 mg Tablet PO (11:48)
[2020-03-02] MEDS: aspirin 81 mg EC Tablet PO (11:48)
[2020-03-02 14:07] LABS: Partial Thromboplastin Time 59.6 SECONDS (23.9-36.7)
[2020-03-02] MEDS: duloxetine 20 mg Capsule PO (17:32)
--- NOTE | 2020-03-02 19:33 | PC.NURSE ---
PT IS RESTING IN BED AT THIS TIME. DENIES PAIN. RIGHT WRIST DRESSING IS C/D/I WITH A PALPABLE PULSE DISTAL OF PUNCTURE. DRESSING TO RIGHT GROIN IS C/D/I WITH A PALPABLE PEDAL PULSE. PT EDUCATED TO KEEP LEG STRAIGHT. WILL CONTINUE TO MONITOR.
[2020-03-02] MEDS: sodium chloride 0.9% 1,000 ML 100 ML IV (20:00)
[2020-03-02] MEDS: atorvastatin 40 mg Tablet 20 MG PO (20:01)
[2020-03-03] VITALS: BP 131/77; PULSE 76; RESP 12; O2SAT 94
[2020-03-03 00:04] VITALS: BP 141/82; PULSE 78; RESP 12; O2SAT 95
[2020-03-03 00:18] VITALS: BP 131/74; PULSE 83; RESP 13
--- NOTE | 2020-03-03 00:42 | PC.NURSE ---
Patient ambulated in [place] with nurse and walker. Patient's site to right groin and right wrist WNL before and after. VSS before and after. Will monitor.
[2020-03-03 02:49] VITALS: BP 122/75; PULSE 72; RESP 12; TEMP 36.9; O2SAT 94
--- NOTE | 2020-03-03 02:52 | PC.NURSE ---
Right groin and right wrist post-cath sites still WNL. VSS. Will monitor.
--- NOTE | 2020-03-03 04:56 | PC.NURSE ---
Patient has no complaints at this time. Will monitor.
[2020-03-03] MEDS: sodium chloride 0.9% 1,000 ML 100 ML IV (05:01)
[2020-03-03 06:55] VITALS: BP 133/76; PULSE 70; RESP 12; TEMP 37; O2SAT 92
--- NOTE | 2020-03-03 08:54 | W.PM.OPSFHP ---
Same Day Surgery H&P Indication for Procedure/HPI DATE OF PROCEDURE: March 02, 2020 CHIEF COMPLAINT/INDICATIONFOR SURGICAL PROCEDURE: Worsening of chest pain suspicious for unstable angina despite of optimal medical manage PREOP DIAGNOSIS: Worsening of chest pain despite of optimal medical management, mildly abnormal stress test PLANNED PROCEDRUE: Operation Date: 03/02/20 08:30 Proposed Procedures p Cardiac Catheterization(Left) - Richard Dodge MD Medications/Allergies* Home Medications Medication Instructions Recorded Confirmed Type metformin 1,000 mg PO BEDTIME 02/15/20 03/02/20 History gabapentin 200 mg PO BID 03/02/20 03/02/20 History Allergies/Adverse Reactions Allergy/AdvReac Type Severity Reaction Status Date / Time Erythromycins Allergy Unknown Unknown Uncoded 03/02/20 07:34 Sulfa Drugs Allergy Unknown Unknown Uncoded 03/02/20 07:34 Current Medications: Generic Name Dose Route Start Last Admin Trade Name Freq PRN Reason Stop Dose Admin Aspirin 81 mg 03/02/20 12:00 03/02/20 11:48 Aspirin Ec PO 81 mg DAILY JARETH Administration Atorvastatin Calcium 20 mg 03/02/20 21:00 03/02/20 20:01 Lipitor PO 20 mg BEDTIME JARETH Administration Duloxetine HCl 20 mg 03/02/20 18:00 03/02/20 17:32 Cymbalta PO 20 mg BID JARETH Administration Sodium Chloride 1,000 mls @ 100 mls/hr 03/02/20 11:00 03/03/20 05:01 Sodium Chloride 0.9% IV 100 mls/hr .Q10H JARETH Administration Non-Formulary Medication 5 mg 03/02/20 11:00 03/02/20 11:07 Levocetirizine PO Not Given DAILY JARETH Pertinent History/Comorbid Conditions* Medical History (Updated 02/23/20 @ 00:00 by ) Acid reflux Aortic regurgitation Cervical radicular pain Chronic migraine Controlled type 2 diabetes mellitus with hyperglycemia, with long-term current use of insulin DDD (degenerative disc disease) Dependent on walker for ambulation Enrolled in chronic care management History of stroke Hypertension Tricuspid regurgitation Vitamin D deficiency Surgical History (Updated 12/15/19 @ 19:40 by AFSANEH Bonds) History of cataract surgery History of cervical spinal surgery 3 times History of cholecystectomy History of colon cancer 2015 History of knee surgery Right Family History (Updated 12/15/19 @ 19:41 by AFSANEH Bonds) Cancer Father Denies family history of Bleeding disorder Social History Smoking and tobacco status: former smoker Second hand smoke exposure: No Smoking risk assessment/counseling performed?: No Alcohol intake: never Desire information about alcohol rehabilitation?: No Counseling given: No Desire information about substance/drug rehabilitation?: No Counseling given: No Caregiver/support person: No Lives independently: Yes Household members: spouse Housing: House Marital status: Current occupational status: retired History of recent travel: No Current gender identity: Male Pertinent Exam Findings alert, oriented x 3, clear to auscultation bilaterally and regular rate & rhythm Related Problem List Diagnoses (1) Unstable angina: (2) Controlled type 2 diabetes mellitus with hyperglycemia, with long-term current use of insulin: Recommendations Surgery/Procedure today Coding Level of Care Code Acute Glass Scullion for Jose Luis Fwd Diagnoses Unstable angina I20.0 Controlled type 2 diabetes mellitus with hyperglycemia, with long-term current use of insulin E11.65; Z79.4
--- NOTE | 2020-03-03 08:56 | P.DS_ITS ---
Discharge Providers Date of Discharge: March 03, 2020 Attending Provider at Discharge: Richard Dodge MD Primary Care Provider: AFSANEH Bonds Diagnoses at Discharge Discharge Diagnosis (1) Unstable angina: Status: Acute (2) Controlled type 2 diabetes mellitus with hyperglycemia, with long-term current use of insulin: Status: Chronic Reason for Visit Reason for Visit: cadiac cath Hospital Course Discharge Summary: 74-year-old male patient with Dr. Pierce underwent left heart cath for worsening of chest pain and shortness of breath despite of optimal medical management. Patient has mildly abnormal stress test which was initially managed with medicine optimization. Since he was not improving therefore Dr. Pierce recommended to proceed with left heart cath. He was found to have mid 70% hazy looking LAD lesion and 80 to 90% mid circumflex lesion involving obtuse marginal with bifurcation. LAD lesion was further evaluated through FFR. It turned out to be significant at 0.77. Both lesion mid LAD and mid left circumflex dominant artery were treated with 2 drug-eluting stents. Patient tolerated procedure well and recovered. He does not have any complication. Right groin looks good. He is being discharged. I have detailed discussion with the patient regarding continuing aspirin statin Plavix beta- adan. He will be following up with Dr. Garibay. Physical Exam Narrative: EXAM NARRATIVE: GENERAL: Patient is alert, awake and oriented x3. NECK: No jugular vein distension. HEENT: No cyanosis. No icterus. No pallor. HEART: Regular S1 and S2. No murmur, rub or gallop. LUNGS: Clear to auscultate bilaterally. ABDOMEN: Soft, nontender and nondistended. Positive bowel sounds. No guarding, rebound or tenderness. CENTRAL NERVOUS SYSTEM: Grossly nonfocal. EXTREMITIES: Lower extremities without edema bilaterally. Right groin no bruising no hematoma. 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 HAND request for service Routin e Exams 03/02/20 08:04 Taken Labs from last 24 hours 03/02/20 13:18 APTT 59.6 H Vitals: Last Vital Signs Temp 98.6 F 03/03/20 06:55 Pulse 70 03/03/20 06:55 Resp 12 03/03/20 06:55 BP 133/76 03/03/20 06:55 Pulse Ox 92 03/03/20 06:55 Discharge Plan Discharge Patient Disposition: Home Condition: Stable Prescriptions: Continued ondansetron HCl [Zofran] 8 mg tablet 8 mg PO Q8H PRN (Reason: nausea and vomiting) 3 Days Qty: 9 RF: 0 Levemir FlexTouch U-100 Insuln 100 unit/mL (3 mL) insulin pen See Rx Instructions SUBCUT DAILY Qty: 30 RF: 2 aspirin 81 mg tablet,delayed release (DR/EC) 81 mg PO DAILY 30 Days Qty: 30 RF: 2 atorvastatin 20 mg tablet 20 mg PO BEDTIME Qty: 30 RF: 2 duloxetine [Cymbalta] 20 mg capsule,delayed release(DR/EC) 20 mg PO BID Qty: 60 RF: 2 levocetirizine 5 mg tablet 5 mg PO DAILY Qty: 30 RF: 2 Tradjenta 5 mg tablet 5 mg PO DAILY Qty: 30 RF: 2 lisinopril 5 mg tablet 5 mg PO DAILY Qty: 30 RF: 2 metoprolol succinate 25 mg tablet extended release 24 hr 25 mg PO DAILY Qty: 30 RF: 2 pantoprazole [Protonix] 40 mg tablet,delayed release (DR/EC) 40 mg PO DAILY Qty: 30 RF: 2 (DME) pen needle, diabetic 33 gauge x 5/32 needle See Rx Instructions .ROUTE .MEDSUPPLY Qty: 100 RF: 5 gabapentin 100 mg capsule 200 mg PO BID RF: 0 Plavix 75 mg tablet 75 mg PO DAILY Qty: 90 RF: 4 metformin 500 mg tablet extended release 24hr 1,000 mg PO BEDTIME RF: 0 Discharge Orders: Discharge Order (Routine); Ordered 03/03/20 Ordered By: Richard Dodge Referrals: Aline Pacheco, [facility] [Primary Care Provider] - Discharge Diet: Diabetic Discharge Activity: Increase activity as tolerated Patient Instructions: Left Heart Catheterization (DC), Coronary Angioplasty (DC), Post Angiogram Home Care Instructions Activity Restrictions/Additional Instructions: Follow-up with Anamaria Storm in 7 days cardiology nurse practitioner. Follow-up with Dr. Pierce in 4 to 6 weeks. 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
[2020-03-03] MEDS: clopidogrel 75 mg Tablet PO (09:04)
[2020-03-03] MEDS: pantoprazole DR 40 mg Tablet PO (09:04)
[2020-03-03] MEDS: metoprolol succinate ER (24 HR) 25 mg Tablet PO (09:04)
[2020-03-03] MEDS: duloxetine 20 mg Capsule PO (09:04)
[2020-03-03] MEDS: aspirin 81 mg EC Tablet PO (09:04)
[2020-03-03] MEDS: lisinopril 5 mg Tablet PO (09:04)
[2020-03-03 09:59] VITALS: BP 133/76; PULSE 70; RESP 12; TEMP 37; O2SAT 92
[2020-03-03 10:45] LABS: Glucose Point of Care 205 mg/dL (70-110)
--- NOTE | 2020-03-03 11:26 | PC.CHAP ---
Pastoral Care Encounter/Spiritual Assessment Type of Contact [] Declined office manager visit [] Patient/Family/Request visit [] Outpatient visit [] Follow-up visit [] Physician referral [] Code/Alert [x] Routine visit [] Staff referral [] Actively dying [] Patient sleeping [] Family support [] [] Out of room [] Palliative care [] [] Receiving care in room [] Pre-surgical visit [] Trauma [] Long length of stay [] ICU visit [] Other: Relational/Emotional Strength [x] Patient feels connected with others/family/visitors/staff [] Distress [] Loneliness/isolation [] Abandonment Spirituality of Patient [x] Person of Erin [] Attends Muslim of their Erin [] Believes in Prayer [] Reads Bible or Lutheran materials [x] There are Spiritual issues to be addressed Estimator And Drafter Supervisor Interventions [x] Prayer [x] Active listening [x] Non-anxious presence []x Spiritual/emotional support [] Crisis/trauma care [] Spiritual counseling [] Bereavement support [] Provided bereavement packet [] Provided Bible/devotional materials [] Provided toy/stuffed animal, coloring book to patient or family member [] Provided Communion [] Anointing/[place] [] Salvation [] Completed spiritual assessment [] Other: Impact on Illness or Injury [] Angry [] Fearful [] Anxious [] Often cries [] Exhaustion [] Unable to work [] Unable to attend spiritism [] Unable to walk/stand [] Unable to read [] Unable to drive [] Unable to eat/drink [] Unable to sleep [] Unable to be with family [] Patient intubated [x] Other: Summary Patient lacked the ability (willfully or unwittingly) to communicate clearly. Prayer provided. Time spent with patient 5 minutes
--- NOTE | 2020-03-03 13:05 | PC.NURSE ---
PATIENT'S DAUGHTER IS HIS RIDE HOME. SHE HAS FALLEN AND BROKEN HER ARM AND IS REPORTEDLY IN [facility]. ONCE PATIENT'S DAUGHTER IS ABLE TO BE DISCHARGED FROM THE ER, PATIENT WILL GO HOME.
== END 2020-03-03 14:07 | disposition home or self-care (01) ==
LOC: CCL 09:44 → CSU 11:08
PROVIDERS: PCP Nurse Practitioner; Visit Provider Internal Medicine Cardiovascular Disease
DX: I25.110 Atherosclerotic heart disease of native coronary artery with unstable angina pectoris (principal); E11.65 Type 2 diabetes mellitus with hyperglycemia; I10 Essential (primary) hypertension; E55.9 Vitamin D deficiency, unspecified; I36.1 Nonrheumatic tricuspid (valve) insufficiency; K21.9 Gastro-esophageal reflux disease without esophagitis; Z79.4 Long term (current) use of insulin; Z86.73 Personal history of transient ischemic attack (TIA), and cerebral infarction without residual deficits; Z79.899 Other long term (current) drug therapy; Z87.891 Personal history of nicotine dependence
CPT/HCPCS: 12345; 36415; 36416; 82962; 85347; 85730; 93454; 93571; C1725; C1769; C1874; C1887; C1894; C9600; C9601; J0153; J1644; J2250; J3010; J3490; J7030; Q0163; Q9967

== ENCOUNTER → 2020-03-17 13:37 | Outpatient (BNVA) | payer MEDICARE, MEDICAID, SELFPAY | PROVIDERS: PCP Nurse Practitioner; Visit Provider Nurse Practitioner Family | DX: E11.9 Type 2 diabetes mellitus without complications (principal); I10 Essential (primary) hypertension; Z79.4 Long term (current) use of insulin | CPT/HCPCS: 80048 ==

== ENCOUNTER → 2020-03-22 10:26 | Outpatient (BNVA) | payer MEDICARE, MEDICAID, SELFPAY | PROVIDERS: PCP Nurse Practitioner; Visit Provider Nurse Practitioner | DX: E11.65 Type 2 diabetes mellitus with hyperglycemia (principal); I10 Essential (primary) hypertension; Z79.4 Long term (current) use of insulin | CPT/HCPCS: 80061; 81000; 83036 ==

== ENCOUNTER → 2020-06-21 10:33 | Outpatient (BNVA) | payer MEDICARE, MEDICAID, SELFPAY | PROVIDERS: PCP Nurse Practitioner; Visit Provider Nurse Practitioner | DX: E11.65 Type 2 diabetes mellitus with hyperglycemia (principal); I63.9 Cerebral infarction, unspecified; M54.12 Radiculopathy, cervical region; K21.9 Gastro-esophageal reflux disease without esophagitis; J30.1 Allergic rhinitis due to pollen; R32 Unspecified urinary incontinence; I10 Essential (primary) hypertension; R00.2 Palpitations; Z79.4 Long term (current) use of insulin | CPT/HCPCS: 80053; 80061; 81000; 82043; 83036 ==

== ENCOUNTER → 2020-07-19 10:19 | Outpatient (BNVA) | payer MEDICARE, MEDICAID, SELFPAY | PROVIDERS: PCP Nurse Practitioner; Visit Provider Nurse Practitioner Family | DX: K44.9 Diaphragmatic hernia without obstruction or gangrene (principal); R10.32 Left lower quadrant pain; R10.814 Left lower quadrant abdominal tenderness; R31.9 Hematuria, unspecified | CPT/HCPCS: 74018 ==

== ENCOUNTER 2020-07-19 13:31 | Outpatient (CLI) | payer MEDICARE, MEDICAID, SELFPAY ==
--- NOTE | 2020-07-19 13:30 | CT_ITS ---
WS: [id number] CT ABDOMEN AND PELVIS WITH CONTRAST HISTORY: R10.814 - Left lower quadrant abdominal tenderness TECHNIQUE: Imaging performed of the abdomen and pelvis with IV contrast. Single phase imaging of the abdomen. Coronal and sagittal reformats are submitted. All CT scans at [facility] use at least one of these dose optimization techniques: automated exposure control; mA and/or kV adjustment per patient size (includes targeted exams where dose is matched to clinical indication); or iterativ e reconstruction. IV CONTRAST: Omnipaque 300; 95 mL IV. Oral contrast: Yes. DLP: 1113.07 mGycm COMPARISON: 09/18/2019 Lower thorax: Stable peripheral nodules at the lung bases and chronic emphysema. Heart is normal size . Hiatal hernia is small. Liver/biliary system: Normal size with no intrahepatic dilatation. Gallbladder: Status post cholecystectomy. Pancreas: Normal. Spleen: Normal. Adrenal glands: Normal. Right kidney: Normal. Left kidney: Mild variable enhancement of the LEFT kidney. This is asymmetric to the RIGHT kidney and may represent a mild early pyelonephritis. Scattered hypodensities throughout the renal cortex. No o bstruction. The LEFT ureter is mildly prominent with mild periureteral stranding and enhancement. Aorta: Mild atherosclerosis with no aneurysm. Lymphadenopathy: None. Free fluid: None. GI tract: Ileocolic anastomosis in the RIGHT abdomen. Adjacent to the anastomosis is an area of fat n ecrosis which has been present on multiple prior studies. There is no obstruction or recurrent mass. Abdominal wall: Mild soft tissue thickening along the anterior abdominal wall may be from injection s ites. Pelvis: Well-distended urinary bladder. There is mild wall thickening of the bladder which may be rel ated to cystitis. No free fluid or adenopathy in the pelvis. Bones: Increase in the lumbar lordosis. CT/CT abdomen pelvis w con* [id number] IMPRESSION: 1. Heterogeneous enhancement throughout the LEFT kidney with mild LEFT periure teral stranding and enhancement. Correlate for possible urinary tract infection and pyelonephritis. These changes are new since 09/18/2019. 2. Ileocolic anastomosis is stable. 3. No ascites or metastatic disease identified. 4. Small hiatal hernia. 5. Mild bladder wall thickening. Correlate for possible cystitis.
[2020-07-19] MEDS: iohexol 300 mg/mL 50 mL Btl PO (14:48)
[2020-07-19] MEDS: iohexol 300 mg/mL 100 mL Btl IV (15:31)
== END 2020-07-19 13:32 | disposition home or self-care (01) ==
LOC: RADWPI 13:37
PROVIDERS: PCP Nurse Practitioner; Visit Provider Nurse Practitioner Family
DX: R10.814 Left lower quadrant abdominal tenderness (principal); K44.9 Diaphragmatic hernia without obstruction or gangrene; R10.32 Left lower quadrant pain; R31.9 Hematuria, unspecified
CPT/HCPCS: 74018; 74177; 80053; 81000; 85025; Q9967

== ENCOUNTER → 2020-09-19 11:52 | Outpatient (BNVA) | payer MEDICARE, MEDICAID, SELFPAY | PROVIDERS: PCP Nurse Practitioner; Visit Provider Nurse Practitioner | DX: E11.65 Type 2 diabetes mellitus with hyperglycemia (principal); I63.9 Cerebral infarction, unspecified; M54.12 Radiculopathy, cervical region; J30.1 Allergic rhinitis due to pollen; K21.9 Gastro-esophageal reflux disease without esophagitis; R32 Unspecified urinary incontinence; I10 Essential (primary) hypertension; R00.2 Palpitations; Z79.4 Long term (current) use of insulin | CPT/HCPCS: 80053; 81003; 83036; 85025 ==

== ENCOUNTER → 2020-11-23 09:35 | Outpatient (BNVA) | payer MEDICARE, MEDICAID, SELFPAY | PROVIDERS: PCP Nurse Practitioner; Visit Provider Nurse Practitioner | DX: M19.041 Primary osteoarthritis, right hand (principal); M79.641 Pain in right hand | CPT/HCPCS: 73130 ==

== ENCOUNTER → 2021-01-26 09:13 | Outpatient (BNVA) | payer MEDICARE, MEDICAID, SELFPAY | PROVIDERS: PCP Nurse Practitioner; Visit Provider Nurse Practitioner | DX: I63.9 Cerebral infarction, unspecified (principal); E11.65 Type 2 diabetes mellitus with hyperglycemia; M54.12 Radiculopathy, cervical region; J30.1 Allergic rhinitis due to pollen; R00.2 Palpitations; K21.9 Gastro-esophageal reflux disease without esophagitis; R32 Unspecified urinary incontinence; E78.2 Mixed hyperlipidemia; I10 Essential (primary) hypertension; Z79.4 Long term (current) use of insulin | CPT/HCPCS: 80048; 80053; 80061; 82043; 83036 ==

== ENCOUNTER → 2021-04-28 11:45 | Outpatient (BNVA) | payer MEDICARE, MEDICAID, SELFPAY | PROVIDERS: PCP Nurse Practitioner; Visit Provider Nurse Practitioner | DX: E11.65 Type 2 diabetes mellitus with hyperglycemia (principal); Z79.4 Long term (current) use of insulin | CPT/HCPCS: 80053; 80061; 83036; 85025 ==

== ENCOUNTER 2021-06-01 18:07 | Inpatient (IN) | payer MEDICARE, MEDICAID, SELFPAY ==
[2021-06-01] VITALS (10 sets, daily range): BP systolic 118–152; BP diastolic 53–79; PULSE 55–73; RESP 11–25; TEMP 36.7–36.8; O2SAT 92–99; BMI 29.7
--- NOTE | 2021-06-01 18:09 | XRR_ITS ---
PROCEDURE INFORMATION: Exam: XR Chest Exam date and time: 06/01/2021 6:09 PM Age: 75 years old Clinical indication: Pain; Chest pressure; Additional info: Cp TECHNIQUE: Imaging protocol: XR of the chest. Views: 1 view. Total images: 1 COMPARISON: CR XR chest 1V portable [id number] 02/15/2020 4:10 PM FINDINGS: Lungs: No visible active interstitial or alveolar airspace disease. Pleural spaces: Unremarkable. No pleural effusion. No pneumothorax. Heart/Mediastinum: Cardiac structures and configuration with cardiac size upper limits of normal. Bones/joints: Unremarkable. XR/XR chest 1V portable [id number] IMPRESSION: Nonacute. Radiation Dose CTDIVOL = (mGy): DLP = (mGy-cm)
--- NOTE | 2021-06-01 18:09 | ECG_ITS ---
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
--- NOTE | 2021-06-01 19:08 | PC.NURSE ---
Pt arrived via EMS from home, EMS reports pt began having chest pain about 1700, pt took 1 Nitro sublingual without relief of sx, pt continued to have intermittent chest pain for approximately an hour before calling EMS. EMS gave 1 Nitro sublingual and 324mg Aspirin while on scene without improvement. Pt reports a hx of DM, Stent placedment x2 in 2018, pt takes blood thinners, pt states he has been out of all medications except for his insulin for the past 4 days. EMS reports pts blood glucose 530 on scene. Pt A/O x4, vss, pt polaced on monitor.
--- NOTE | 2021-06-01 19:22 | CTR_ITS ---
PROCEDURE INFORMATION: Exam: CTA Chest With Contrast Exam date and time: 06/01/2021 7:22 PM Age: 75 years old Clinical indication: Chest wall pain; Additional info: Sharp chest pain TECHNIQUE: Imaging protocol: Computed tomographic angiography of the chest with contrast. 3D rendering (Not supervised by radiologist): MIP and/or 3D reconstructed images were created by the technologist. Total images: 889 Radiation optimization: All CT scans at this facility use at least one of these dose optimization techniques: automated exposure control; mA and/or kV adjustment per patient size (includes targeted exams where dose is matched to clinical indication); or iterative reconstruction. Contrast material: OMNI 350; Contrast volume: 30 ml; Contrast route: INTRAVENOUS (IV); COMPARISON: CT angio chest PE protcl [id number] 11/13/2019 1:50 AM RADIATION DOSE METRICS: Total DLP (mGy-cm): 591.07 FINDINGS: Pulmonary arteries: No visible evidence of pulmonary embolism/pulmonary arterial thrombus. Aorta: The thoracic aorta is nonaneurysmal. Lungs: No visible active interstitial or alveolar airspace disease. Right lower lobe tubular bronchiectasis again noted and stable. COPD/chronic bronchitis. Granulomas of antecedent disease. Mild peripheral acinar emphysema. Mild senile fibrosis. Pleural spaces: No pneumothorax. No pleural effusion. Heart: Mild cardiomegaly. No visible pericardial effusion. Coronary artery disease with coronary artery stents of the LAD and circumflex. Lymph nodes: No visible active mediastinal or hilar lymphadenopathy. No significant interval change since 11/13/2019. Diaphragm: Small hiatal hernia. Gallbladder and bile ducts: Status post cholecystectomy. Intraperitoneal space: Stable right upper quadrant mesenteric infarction with peripheral dystrophic calcifications. Bones/joints: No visible active or acute osseous pathology. Mild scoliotic curvature. Soft tissues: Unremarkable for age. Other findings: Granulomas of antecedent disease. Mild peripheral acinar emphysema. Mild senile fibrosis. CT/CT angio chest PE protcl [id number] IMPRESSION: 1. No visible evidence of pulmonary embolism/pulmonary arterial thrombus. 2. Chronic lung disease. 3. Coronary artery disease. Radiation Dose CTDIVOL = (mGy): DLP = 591.07 (mGy-cm)
--- NOTE | 2021-06-01 19:24 | ED_ITS ---
HPI - General Adult General: Chief complaint: Chest Pain Stated complaint: CHEST PAIN Time Seen by Provider: 06/01/21 18:09 History of Present Illness: HPI narrative: CC: Chest Pain HPI: This is a [75] yo patient hx of DM, HTN, CAD s/p stent x 5 presenting to the ED complaining of acute sudden onset R sided chest pain. Describes it as sharp but also dull and pressure like. Patient reports chest pain feels like when he had a heart attack last time No associated with shortness of breath, chest pain or dyspnea on exertion. Pain is not tearing in nature and does not radiate to the back. Pain not associated with vomiting or PO intake. Denies any recent sympathomimetic drug use. Patient denies any cough. Denies palpitations, dysphagia, diaphoresis, radiation of pain to bilateral arms, jaw. Denies F/N/V/D. Patient denies any recent immobility, surgery, unilateral leg swelling, or prior PE. Patient denies any orthopnea. Of note, patient was unable to take his medicine 5 days ago. Patient does not follow up with Cardiology here. Has a nuclear study test from 11/2019 showing EF of 72%. Onset: 5 pm Duration: ongoing for the last 2 hrs Location: home Severity: mild/moderate Review of Systems Narrative: Constitutional: No fever, no chills. HEENT: No vision changes, no sore throat. CV: +chest pain, no palpitations. PULM: No cough, No dyspnea. GI: No abdominal pain, no N/V/D. : No dysuria, no frequency, no hematuria. MSKEL: No arthralgias, no edema. SKIN: No new rashes, no lesions. NEURO: No headache, no focal weakness. HEME: No easy bleeding or bruising. PSYCH: No change in mood or affect. PFS ED PFSH: Medical History Acid reflux Allergic rhinitis due to pollen Aortic regurgitation Cervical radicular pain Chronic migraine Coronary artery disease CVA (cerebral vascular accident) Past history of CVA. Continue statin, aspirin, Plavix DDD (degenerative disc disease) Dependent on walker for ambulation Diabetes mellitus with hyperglycemia, with long-term current use of insulin Enrolled in chronic care management History of stroke Hypertension Tricuspid regurgitation Vitamin D deficiency Surgical History History of cataract surgery History of cervical spinal surgery 3 times History of cholecystectomy History of colon cancer 2015 History of knee surgery Right Family History Father Cancer Denies family history of Bleeding disorder Social History Second hand smoke exposure: No Smoking risk assessment/counseling performed?: No Alcohol intake: never Desire information about alcohol rehabilitation?: No Counseling given: No Desire information about substance/drug rehabilitation?: No Counseling given: No Adopted: No Caregiver/support person: No Lives independently: Yes Household members: spouse Housing: House Marital status: Current occupational status: retired History of recent travel: No Current gender identity: Male Physical Exam Narrative: EXAM NARRATIVE: Head: Atraumatic, normocephalic Eyes: PERRL, EOMI, conjunctiva without injection ENT: Throat without erythema, lesions or exudate, MMM NECK: Supple, trachea midline, no JVD LUNGS: LCTA CV: RRR, S1,S2, no murmurs, rubs, gallops. 2+ peripheral pulses in UEs ABDOMEN: Soft, nontender, nondistended, BS x4, no rigidity, no guarding, no rebound EXTREMITY: Normal ROM, no pitting edema, no calf tenderness to palpation SKIN: No rash or erythema NEURO: Awake and alert. No focal motor deficits. PSYCH: Normal mood and affect. Course Vital Signs: Vital signs: Vital Signs Temperature 98.2 F 06/01/21 19:19 Pulse Rate 72 06/01/21 19:22 Respiratory Rate 25 H 06/01/21 19:13 Blood Pressure 118/79 06/01/21 19:13 Pulse Oximetry 92 06/01/21 19:13 MDM - General Adult MDM Narrative: Medical decision making narrative: [75]yo patient w/ hx of CAD s/p stent x 2, HTN, HLD, DM presenting to the ED with evaluation of new onset sharp chest pain lasting for 2 hrs. HDS, pulse 2+ radially bilaterally, no signs of fluid overload, AAOx3, neuro exam intact. Given History and Exam today I have no suspicion for ACS, Pneumothorax, Pneumonia, Pulmonary Embolus, Tamponade, Aortic Dissection or other emergent problems as a cause for this presentation. Workup: ECG, CXR, CBC, BMP, Troponin x 2 Interventions: ASA, and reassessments, IVF Findings: ECG: No overt evidence of STEMI, hyperacute T waves, localizable STD or T wave inversions. No evidence of Brugada?s sign, delta wave, epsilon wave, significantly prolonged QTc, or malignant arrhythmia. No Q waves. Other Labs unremarkable for emergent problems. CXR: Without PTX, PNA, or widened mediastinum HEART Score: 5 [8:30pm] Given Heart score score of 4, patient will be admitted for high risk chest pain workup. S/p ASA, currently chest pain free. In addition, patient was found to have a glucose of 503. It is likely that patient has not been taking his insulin over the last 3 days. S/p IVF in the ED found to have improvement to _ Disposition: Admission for chest pain workup and management of hyperglycemia Discharge Plan Discharge Patient Disposition: Admitted As Inpatient Clinical Impression: Chest pain, Angina pectoris, unstable, Hyperglycemia Condition: Stable Coding Level of Care Code ED [employer] Functional Analyst for Jose Luis Gibson
[2021-06-01] MEDS: sodium chloride 0.9% 1,000 ML 999 ML IV (19:45)
[2021-06-01 19:48] LABS: Troponin(5th) Baseline 10 ng/L (0-15)
[2021-06-01 20:15] LABS: Basophils # 0.1 10^3/uL (0.0-0.1); Basophils % 0.7 %; Eosinophils # 0.3 10^3/uL (0.0-0.8); Eosinophils % 3.6 %; Hemoglobin 13.6 g/dL (11.7-16.6); Lymphocytes # 2.3 10^3/uL (0.8-4.8); Lymphocytes % 32.8 %; Mean Corpuscular HGB Conc 31.6 g/dL (30.0-36.0); Mean Corpuscular Hemoglobin 27.6 pg (28.0-34.0); Mean Corpuscular Volume 87.4 fl (80-94); Mean Platelet Volume 10.4 fL (7.4-10.4); Monocytes # 0.7 10^3/uL (0.2-0.9); Monocytes % 10.1 %; Neutrophils # 3.73 10^3/uL (1.8-7.7); Neutrophils % 52.4 %; Nucleated Red Blood Cells % 0 %; Platelet Count 259 10^3/cmm (130-400); Red Blood Count 4.92 10^6/uL (4.1-5.3); Red Cell Distribution Width 13.5 % (12.1-15.1); White Blood Count 7.1 10^3/uL (4.0-10.0)
[2021-06-01 20:26] LABS: Blood Urea Nitrogen 15 mg/dL (8-23); Carbon Dioxide 22 mmol/L (22-29); Chloride 98 mmol/L (98-107); Glucose 486 mg/dL (65-115); Osmolality Calculated 298 mOsm/kg (285-295); Sodium 133 mmol/L (136-145)
[2021-06-01 20:33] LABS: Anion Gap 17.3 (5-19); Potassium 4.3 mmol/L (3.5-5.1)
[2021-06-01 20:35] LABS: Troponin 5 2HR 8.84 ng/L (0-15)
[2021-06-01 20:37] LABS: Troponin 5 2HR Delta -1.16 ABS# (0-10)
[2021-06-01] MEDS: iohexol 350 mg/mL 100 mL Btl IV (20:40)
--- NOTE | 2021-06-01 21:57 | PC.NURSE ---
Call from Tootie Kimble, granddaughter, requesting information on pt. Pt gave this RN verbal consent to speak with Tootie.
--- NOTE | 2021-06-01 23:10 | PM.HP ---
Providers/Chief Complaint Admitting Physician: Vibha Uriarte Primary Care Provider: AFSANEH Bonds Chief Complaint: CHEST PAIN History of Present Illness 75-year-old male with past medical history significant for BPH, hypertension, dyslipidemia, diabetes mellitus, and coronary artery disease who presented to the ER with chest pain. Patient stated he ran out of his medication 4 days prior and due to his remote location was not able to get refills. Since then has been having this chest pain, non radiating, intermittent with mild associated dyspnea. Due to this he presented to ER for work up. Lab work up on arrival showed a WBC of 8.0, hemoglobin of 13.1, hct of 41.4 and a platelet count of 239. Sodium of 136, potassium of 3.9, chloride of 103, bicarb of 22, BUN of 12 and a creatinine of 0.8. Glucose of 245. Troponin trend negative. Review of Systems General: Reports: 10 or more systems reviewed and unremarkable except in HPI and below Medications/Allergies Home Medications Medication Instructions Recorded Confirmed Last Taken Type ondansetron HCl 8 mg tablet 8 mg PO Q8H PRN 3 Days #9 tab 01/15/20 04/28/21 Unknown Rx clopidogrel 75 mg tablet 75 mg PO DAILY #90 tab 06/21/20 04/28/21 Unknown Rx pen needle, diabetic 33 gauge x #100 each 06/21/20 04/28/21 Unknown Rx blood-glucose meter #1 ea 08/04/20 04/28/21 Unknown Rx linagliptin 5 mg tablet 5 mg PO DAILY #30 tab 09/19/20 04/28/21 Unknown Rx guaifenesin 600 mg tablet, 600 mg PO Q12H #60 tab 01/26/21 04/28/21 Unknown Rx extended release 12 hr lactobacillus combination no.8 3 See Rx Instructions PO DAILY 30 01/26/21 04/28/21 Unknown Rx billion cell capsule Days #30 cap atorvastatin 20 mg tablet 20 mg PO BEDTIME #30 tab 04/28/21 04/28/21 Unknown Rx blood sugar diagnostic #100 ea 04/28/21 04/28/21 Unknown Rx duloxetine 20 mg capsule,delayed 20 mg PO BID #60 cap 04/28/21 04/28/21 Unknown Rx release gabapentin 300 mg capsule 300 mg PO BID #60 cap 04/28/21 04/28/21 Unknown Rx insulin detemir U-100 100 unit/mL See Rx Instructions SUBCUT DAILY 04/28/21 04/28/21 Unknown Rx (3 mL) subcutaneous pen #30 ml levocetirizine 5 mg tablet 5 mg PO DAILY #30 tab 04/28/21 04/28/21 Unknown Rx lisinopril 2.5 mg tablet 2.5 mg PO DAILY #30 tab 04/28/21 04/28/21 Unknown Rx metformin 500 mg tablet,extended 1,000 mg PO DAILY #60 tab 04/28/21 04/28/21 Unknown Rx release 24hr metoprolol succinate 50 mg 50 mg PO DAILY #30 tab 04/28/21 04/28/21 Unknown Rx tablet,extended release 24 hr pantoprazole 40 mg tablet,delayed 40 mg PO DAILY #30 tab 04/28/21 04/28/21 Unknown Rx release tamsulosin 0.4 mg capsule 0.4 mg PO .at supper #30 cap 04/28/21 04/28/21 Unknown Rx aspirin 81 mg tablet,delayed 81 mg PO DAILY 30 Days #30 tab 05/31/21 Unknown Rx release semaglutide 0.5 mg SUBCUT .weekly #1.5 ml 06/02/21 Unknown Rx Allergies Allergy/AdvReac Type Severity Reaction Status Date / Time Erythromycins Allergy Unknown Unknown Uncoded 06/02/21 00:23 Sulfa Drugs Allergy Unknown Unknown Uncoded 06/02/21 00:23 PFSH Acute PFSH: Medical History Acid reflux Allergic rhinitis due to pollen Aortic regurgitation Cervical radicular pain Chronic migraine Coronary artery disease CVA (cerebral vascular accident) Past history of CVA. Continue statin, aspirin, Plavix DDD (degenerative disc disease) Dependent on walker for ambulation Diabetes mellitus with hyperglycemia, with long-term current use of insulin Enrolled in chronic care management History of stroke Hypertension Tricuspid regurgitation Vitamin D deficiency Surgical History History of cataract surgery History of cervical spinal surgery 3 times History of cholecystectomy History of colon cancer 2014 History of knee surgery Right Family History Father Cancer Denies family history of Bleeding disorder Social History Second hand smoke exposure: No Smoking risk assessment/counseling performed?: No Alcohol intake: never Desire information about alcohol rehabilitation?: No Counseling given: No Desire information about substance/drug rehabilitation?: No Counseling given: No Adopted: No Caregiver/support person: No Lives independently: Yes Household members: spouse Housing: House Marital status: Current occupational status: retired History of recent travel: No Current gender identity: Male Vitals/I&O/Wt Last Vital Signs Temp 97.9 F 06/02/21 04:57 Pulse 61 06/02/21 04:57 Resp 17 06/02/21 04:57 BP 124/71 06/02/21 04:57 Pulse Ox 98 06/02/21 04:57 06/01/21 06/01/21 06/02/21 14:59 22:59 06:59 Intake Total 1000 / 1000 Output Total 375 / 375 Balance 1000 / 1000 -375 / 625 Weight last 48 hrs Weight 88.813 kg Physical Exam Narrative: EXAM NARRATIVE: General: Alert, awake, no distress HEENT: Grossly unremarkable CVS; RRR Chest; Non-labored respiration Abd; Soft, NT,ND Ext; No edema Data : 06/02/21 01:18 06/02/21 01:18 A&P Assessment and plan (1) Chest pain: Status: Acute (2) Diabetes mellitus with hyperglycemia, with long-term current use of insulin: Status: Chronic Qualifiers: Diabetes mellitus type: type 2 Qualified Code(s): E11.65 - Type 2 diabetes mellitus with hyperglycemia; Z79.4 - retirement (current) use of insulin (3) Coronary artery disease: Status: Acute Qualifiers: Coronary Disease-Associated Artery/Lesion type: [place] artery [place] vs. transplanted heart: [place] heart Associated angina: with unspecified angina Qualified Code(s): I25.119 - Atherosclerotic heart disease of [place] coronary artery with unspecified angina pectoris (4) Hyperlipidemia: Status: Chronic Qualifiers: Hyperlipidemia type: mixed hyperlipidemia Qualified Code(s): E78.2 - Mixed hyperlipidemia (5) Hypertension: Status: Chronic Qualifiers: Hypertension type: essential hypertension Qualified Code(s): I10 - Essential (primary) hypertension Additional A&P Information Chest pain hx of CAD Troponin trend negative Lexiscan in 11/2019 - no reversible ischemia Aspirin 81 mg PO daily Plavix 75 mg PO daily NPO Nuclear stress test in am Consider cardiology consult PRN NGT Diabetes Mellitus with hyperglycemia Sliding scale insulin Check a1c NPO for stress test Additional Medical Problems Hypertension Hyperlipidemia Neuropathy BPH DVT ppx SCDs Heparin 5000 units q8hr Attestations Medical Necessity Statement*: Less than 2 midnight stay in hospital for eval and treatment Time Spent in Patient Care: Greater than 35 minutes (>than 50% of time spent in counselling and/or direct pt care on unit). Coding Level of Care Code Acute Turf Manager for g Fwd Diagnoses Chest pain R07.9 Diabetes mellitus with hyperglycemia, with long-term current use of insulin E11.65; Z79.4 Diabetes mellitus type: type 2 Coronary artery disease I25.119 Coronary Disease-Associated Artery/Lesion type: [place] artery [place] vs. transplanted heart: [place] heart Associated angina: with unspecified angina Hyperlipidemia E78.2 Hyperlipidemia type: mixed hyperlipidemia Hypertension I10 Hypertension type: essential hypertension
[2021-06-02] VITALS (8 sets, daily range): BP systolic 120–144; BP diastolic 69–81; PULSE 60–85; RESP 16–18; TEMP 36.6–36.9; O2SAT 94–98
--- NOTE | 2021-06-02 00:09 | ECG_ITS ---
[facility] Test Date: 2021-06-02 Pat Name: Barb Joe Department: Room: 272 Gender: Male Material Processor: : 1945 Requested By: Yvan Cardoza Order Number: [id number] Reading MD: SIL GARCIA Measurements Intervals [place] Rate: 71 P: 55 OR: 173 QRS: 26 QRSD: 83 T: 51 QT: 396 QTc: 431 Interpretive Statements SINUS RHYTHM Compared to ECG 06/01/2021 22:07:25 Sinus bradycardia no longer present Electronically Signed On 06-02-2021 14:31:32 CIVIL LITIGATION ATTORNEY by SIL GARCIA [id number]
[2021-06-02 00:16] LABS: Glucose Point of Care 320 mg/dL (70-110)
[2021-06-02 01:31] LABS: Basophils # 0.1 10^3/uL (0.0-0.1); Basophils % 0.8 %; Eosinophils # 0.4 10^3/uL (0.0-0.8); Eosinophils % 4.8 %; Hematocrit 41.4 % (42.0-52.0); Hemoglobin 13.1 g/dL (11.7-16.6); Lymphocytes # 2.3 10^3/uL (0.8-4.8); Lymphocytes % 29.1 %; Mean Corpuscular HGB Conc 31.6 g/dL (30.0-36.0); Mean Corpuscular Hemoglobin 27.6 pg (28.0-34.0); Mean Corpuscular Volume 87.2 fl (80-94); Mean Platelet Volume 10.1 fL (7.4-10.4); Monocytes # 0.8 10^3/uL (0.2-0.9); Monocytes % 9.9 %; Neutrophils # 4.38 10^3/uL (1.8-7.7); Neutrophils % 54.9 %; Nucleated Red Blood Cells % 0 %; Platelet Count 239 10^3/cmm (130-400); Red Blood Count 4.75 10^6/uL (4.1-5.3); Red Cell Distribution Width 13.4 % (12.1-15.1)
[2021-06-02 01:49] LABS: Troponin 5 6HR 9.85 ng/L (0-15)
[2021-06-02 01:50] LABS: Alanine Aminotransferase 11 U/L (0-41); Albumin Level 3.7 g/dL (3.5-5.2); Alkaline Phosphatase 74 IU/L (40-130); Anion Gap 14.9 (5-19); Aspartate Amino Transferase 9 U/L (0-40); Blood Urea Nitrogen 12 mg/dL (8-23); Calcium 8.4 mg/dL (8.5-10.5); Carbon Dioxide 22 mmol/L (22-29); Chloride 103 mmol/L (98-107); Glucose 245 mg/dL (65-115); Osmolality Calculated 290 mOsm/kg (285-295); Potassium 3.9 mmol/L (3.5-5.1); Sodium 136 mmol/L (136-145); Total Bilirubin 0.4 mg/dL (0.15-1.2); Total Protein 6.7 g/dL (6.6-8.7)
[2021-06-02 02:01] LABS: Troponin 5 6HR Delta -0.15 ng/L (0-12)
[2021-06-02] MEDS: sodium chloride 0.9% 1,000 ML 75 ML IV ×2 (05:11→17:56)
[2021-06-02] MEDS: heparin 5,000 unit/mL INJ 1 mL 5000 UNIT SUBCUT ×3 (05:12→20:06)
[2021-06-02 06:44] LABS: Glucose Point of Care 497 mg/dL (70-110)
[2021-06-02 06:51] LABS: Estmated Average Glucose 226; Hemoglobin A1C 9.5 % (4.0-6.0)
[2021-06-02 06:57] LABS: Chol HDL Ratio 3.32 mg/dL (1.0-5.00); Cholesterol 113 mg/dL (0-200); HDL Cholesterol 34 mg/dL (60-100); LDL Cholesterol Calculated 51 mg/dL (50-129); Triglycerides 139 mg/dL (0-150)
[2021-06-02] MEDS: pantoprazole DR 40 mg Tablet PO (07:49)
[2021-06-02] MEDS: insulin lispro 100 unit/1 mL SUBCUT ×4 (07:49→20:42)
[2021-06-02] MEDS: aspirin 81 mg Chew Tablet PO (07:50)
[2021-06-02] MEDS: clopidogrel 75 mg Tablet PO (07:50)
--- NOTE | 2021-06-02 09:31 | PC.PHAR ---
pts granddaughter verified pts medications
[2021-06-02 11:57] LABS: Glucose Point of Care 237 mg/dL (70-110)
--- NOTE | 2021-06-02 12:44 | PC.CHAP ---
Pastoral Care Encounter/Spiritual Assessment Type of Contact [] Declined life agent visit [] Patient/Family/Request visit [] Outpatient visit [] Follow-up visit [] Physician referral [] Code/Alert [] Routine visit [] Staff referral [] Actively dying [] Patient sleeping [] Family support [] [] Out of room [] Palliative care [] [] Receiving care in room [] Pre-surgical visit [] Trauma [] Long length of stay [] ICU visit [xx] Other: ISOLATION Relational/Emotional Strength [] Patient feels connected with others/family/visitors/staff [] Distress [] Loneliness/isolation [] Abandonment Spirituality of Patient [] Person of [place] [] Attends Anabaptist of their [place] [] Believes in Prayer [] Reads Bible or Caodaism materials [] There are Spiritual issues to be addressed Lime Supervisor Interventions [] Prayer [] Active listening [] Non-anxious presence [] Spiritual/emotional support [] Crisis/trauma care [] Spiritual counseling [] Bereavement support [] Provided bereavement packet [] Provided Bible/devotional materials [] Provided toy/stuffed animal, coloring book to patient or family member [] Provided Communion [] Anointing/[place] [] Salvation [] Completed spiritual assessment [] Other: Impact on Illness or Injury [] Angry [] Fearful [] Anxious [] Often cries [] Exhaustion [] Unable to work [] Unable to attend mosque [] Unable to walk/stand [] Unable to read [] Unable to drive [] Unable to eat/drink [] Unable to sleep [] Unable to be with family [] Patient intubated [] Other: Summary Time spent with patient
--- NOTE | 2021-06-02 12:47 | ECG_ITS ---
[facility] Test Date: 2021-06-02 Pat Name: Barb Joe Department: Room: 272 Gender: Male Support Representative: : 1945 Requested By: Selene Tolbert Order Number: [id number] Reading MD: SIL GARCIA Measurements Intervals [place] Rate: 75 P: 65 HI: 176 QRS: 12 QRSD: 81 T: 35 QT: 361 QTc: 405 Interpretive Statements SINUS RHYTHM Compared to ECG 06/02/2021 04:18:30 No significant changes Electronically Signed On 06-02-2021 14:28:50 LOGISTICS MANAGEMENT SPECIALIST by SIL GARCIA [id number]
--- NOTE | 2021-06-02 12:49 | USCV_ITS ---
Barb Joe Age: 75 Gender: M : 1945 Exam Date: 06/02/2021 15:14 Ordering Phys: Selene Tolbert MD Technologist: Shilpi Winchester Exam Location: [facility] [place] Indication: Chest pain BP: 131 / 81 HR: 92 Rhythm: Sinus Technical Quality: Suboptimal MEASUREMENTS (Male / Female) Normal Values 2D ECHO LV Diastolic Diameter PLAX 3.9 cm 4.2 - 5.9 / 3.9 - 5.3 cm LV Systolic Diameter PLAX 2.1 cm LV Chamber Size 4.1 cm IVS Diastolic Thickness 1.1 cm 0.6 - 1.0 / 0.6 - 0.9 cm IVS Systolic Thickness 1.7 cm LVPW Diastolic Thickness 1.0 cm 0.6 - 1.0 / 0.6 - 0.9 cm LVPW Systolic Thickness 1.6 cm RV Chamber Size 3.1 cm LVOT Diameter 2.0 cm LV Ejection Fraction 2D Teich 77.8 % LV Ejection Fraction MOD 2C 65.7 % LV Ejection Fraction 2C AL 67.5 % LA Diameter 2.7 cm LA Width 3.2 cm LA Height 4.1 cm RA Width 2.8 cm RA Height 3.4 cm Aorta at Sinotubular Diameter 2.8 cm M-MODE LV Diastolic Diameter MM 5.8 cm 4.2 - 5.9 / 3.9 - 5.3 cm LV Systolic Diameter MM 4.1 cm LV Ejection Fraction MM Teich 55.7 % IVS Diastolic Thickness MM 1.0 cm 0.6 - 1.0 / 0.6 - 0.9 cm IVS Systolic Thickness MM 1.3 cm LVPW Diastolic Thickness MM 1.1 cm 0.6 - 1.0 / 0.6 - 0.9 cm LVPW Systolic Thickness MM 1.3 cm RV Diastolic Diameter MM 1.7 cm Aortic Annulus Diameter 3.5 cm LA Ao Ratio MM 0.9 MV E Point Septal Separation 0.9 cm DOPPLER AV Peak Velocity 99.0 cm/s LVOT Peak Velocity 64.0 cm/s AV Area Cont Eq vti 2.6 cm squared AV Area Cont Eq pk 2.1 cm squared MV Area PHT 2.9 cm squared Mitral E to A Ratio 0.8 MV E' Velocity 32.5 cm/s Mitral E to MV E' Ratio 9.9 Mitral E to LV E' Lateral Ratio 12.6 Mitral E to LV E' Septal Ratio 8.3 TV Peak E Velocity 54.0 cm/s Right Atrial Pressure 3.0 mmHg PV Peak Velocity 67.0 cm/s RV Acceleration Time 0.1 s RV Ejection Time 0.3 s RV AcT/ET 0.3 FINDINGS Left Ventricle Normal left ventricular cavity size. Normal left ventricular systolic function. No regional wall motion abnormalities. Left ventricular ejection fraction is estimated at 60 %. Grade I/IV diastolic dysfunction (abnormal relaxation filling pattern), normal to mildly elevated filling pressures. Right Ventricle The right ventricle is normal in size and function. RVSP could not be calculated due to incomplete tricuspid regurgitation velocity profile. Right Atrium The right atrium is normal in size. Left Atrium The left atrium is normal in size. Mitral Valve Mildly thickened mitral valve. No mitral valve stenosis. Trace mitral valve regurgitation. Aortic Valve Moderate aortic valve calcification. No aortic valve stenosis. Trace aortic valve regurgitation. Tricuspid Valve Trace tricuspid valve regurgitation. Pulmonic Valve Structurally normal pulmonic valve without significant stenosis. There is no pulmonic regurgitation. Pericardium Normal pericardium without effusion. Aorta Normal ascending aorta dimension. CONCLUSIONS 1-Normal left ventricular cavity size. Normal left ventricular systolic function. No regional wall motion abnormalities. Left ventricular ejection fraction is estimated at 60 %. Grade I/IV diastolic dysfunction (abnormal relaxation filling pattern), normal to mildly elevated filling pressures. 2-Mildly thickened mitral valve. No mitral valve stenosis. Trace mitral valve regurgitation. 3-Moderate aortic valve calcification. No aortic valve stenosis. Trace aortic valve regurgitation. 4-There is no pericardial effusion. 5-The right ventricle is normal in size and function. RVSP could not be calculated due to incomplete tricuspid regurgitation velocity profile. 6-No significant change since the prior echocardiogram study of 11/13/2019. Richard Dodge MD (Electronically Signed) Final Date: 04 June 2021 13:01 S
[2021-06-02] MEDS: lidocaine 2% viscous 15 ML, aluminum-mag hydrox-simethicon 30 ML, sucralfate oral liq 1 GM PO (13:19)
[2021-06-02 14:07] LABS: Troponin T (5th) Once 11 ng/L (0-15)
--- NOTE | 2021-06-02 16:32 | PM.PN ---
Subjective Subjective: Interval history: Seen this morning. Patient states his chest pain is persistent and is associated when he moves his arm or takes a deep breath. Pain is also reproducible to palpation. Describes the pain as sharp and not pressure-like. There is a tender spot on the right side of his chest. The pain does not radiate anywhere. Every time he moves his right arm or tries to do a circular motion it hurts in his chest. He denies any strenuous or physical activity recently. He states it suddenly started. He also took a nitroglycerin but that did not take care of the pain. He states it is not like the pain he had when he had his heart attacks. Also he states for the last 5 days he has not had any of his home medications because he ran out of his refills. He does state he is a little anxious. Troponins negative at admission. Delta troponin negative as well. EKG did not show any ischemia. Repeat EKG and troponin today also do not show any evidence of ischemia. Patient has been admitted to do a stress test here. Vitals/I&O/Wt Last Vital Signs Temp 98.2 F 06/02/21 15:34 Pulse 70 06/02/21 15:34 Resp 16 06/02/21 15:34 BP 143/79 06/02/21 15:34 Pulse Ox 94 06/02/21 15:34 06/02/21 06/02/21 06/02/21 06:59 14:59 22:59 Output Total 375 / 375 400 / 400 Balance -375 / 625 -400 / -400 Weight last 48 hrs Weight 88.813 kg Physical Exam Narrative: EXAM NARRATIVE: General: Alert oriented x3, patient seen sitting up in bed, complaining of chest pain reproducible to palpation. HEENT: Normocephalic, atraumatic, EOMI, breathing room air. Cardio: Regular rate rhythm, normal S1-S2, no murmurs rubs gallops, JVD not elevated. Right side of chest does have a tender area which has been as you palpate. Respiratory: Clear to auscultation bilaterally, normal respiratory effort. 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 transplanted heart: [place] heart Associated angina: with unspecified angina Qualified Code(s): I25.119 - Atherosclerotic heart disease of [place] coronary artery with unspecified angina pectoris (6) Hypertension: Status: Chronic Qualifiers: Hypertension type: essential hypertension Qualified Code(s): I10 - Essential (primary) hypertension Additional A&P Information #Atypical Chest Pain History of coronary artery disease status post stents 2 years ago Stress test 11/2019?no reversible ischemia Continue aspirin, continue Plavix Plan to stress test Give GI cocktail to see response Place lidocaine patch on right side of chest Repeat EKG and troponin negative. I strongly believe patient's chest pain is not cardiac related but due to his CAD history would do a stress test prior to discharge. Pain is related to movement and reproducible to palpation. CT did not show any evidence of fracture. Patient denies falls. If pain occurs again would repeat EKG and troponin. #Diabetes mellitus with hyperglycemia ?Sliding scale insulin Check A1c #Hypertension #Hyperlipidemia #Peripheral neuropathy #BPH ?Continue home medications. At discharge patient will require refills on all his medications with meds to beds. We will fill them at [facility] and give patient his meds before he leaves. He states he had trouble getting to the pharmacy. #Full code #Cardiac diet consistent carbohydrate Attestations Medical Necessity Statement*: Greater than 24-hour stay. 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 transplanted heart: [place] heart Associated angina: with unspecified angina Hypertension I10 Hypertension type: essential hypertension
[2021-06-02 16:53] LABS: Glucose Point of Care 156 mg/dL (70-110)
[2021-06-02] MEDS: atorvastatin 40 mg Tablet PO (20:07)
[2021-06-02 20:35] LABS: Glucose Point of Care 267 mg/dL (70-110)
[2021-06-03] VITALS (8 sets, daily range): BP systolic 119–144; BP diastolic 71–76; PULSE 60–75; RESP 16–20; TEMP 36.6–37.1; O2SAT 92–96
[2021-06-03] MEDS: heparin 5,000 unit/mL INJ 1 mL 5000 UNIT SUBCUT ×3 (04:26→20:52)
[2021-06-03 06:47] LABS: Glucose Point of Care 188 mg/dL (70-110)
[2021-06-03] MEDS: insulin lispro 100 unit/1 mL SUBCUT ×4 (10:40→20:52)
[2021-06-03] MEDS: sodium chloride 0.9% 1,000 ML 75 ML IV (10:41)
[2021-06-03] MEDS: aspirin 81 mg Chew Tablet PO (10:41)
[2021-06-03] MEDS: clopidogrel 75 mg Tablet PO (10:41)
[2021-06-03] MEDS: pantoprazole DR 40 mg Tablet PO (10:41)
[2021-06-03 11:42] LABS: Glucose Point of Care 227 mg/dL (70-110)
--- NOTE | 2021-06-03 13:39 | P.PN_ITS ---
Subjective Subjective: Interval history: Feeling better today. Pain is a lot better as well. It does come back from time to time. He is able to move his arm however and no more pain happening. Area still slightly tender to palpation. He does state that the pain randomly comes on. I did discuss with him the possibility of going home and getting a stress as an outpatient but he states that that will be a challenge for him and especially the fact that he cannot get his medications if he leaves. He appeared very anxious today. He had a bowel movement last night. Offers no other complaints at this time. Vitals/I&O/Wt Last Vital Signs Temp 97.9 F 06/03/21 11:16 Pulse 64 06/03/21 11:16 Resp 16 06/03/21 11:16 BP 137/72 06/03/21 11:16 Pulse Ox 94 06/03/21 11:16 06/02/21 06/03/21 06/03/21 22:59 06:59 14:59 Intake Total 1076.25 / 1076.25 60 / 1136.25 1360 / 1360 Output Total 300 / 700 Balance 1076.25 / 676.25 -240 / 436.25 1360 / 1360 Weight last 48 hrs Weight 91.399 kg Weight 88.813 kg Physical Exam Narrative: EXAM NARRATIVE: General: Alert oriented x3, patient seen sitting up in bed, HEENT: Normocephalic, atraumatic, EOMI, breathing room air. Cardio: Regular rate rhythm, normal S1-S2, no murmurs rubs gallops, JVD not elevated. Right side of chest does have a tender area on palpation Respiratory: Clear to auscultation bilaterally, normal respiratory effort. 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 transplanted heart: [place] heart Associated angina: with unspecified angina Qualified Code(s): I25.119 - Atherosclerotic heart disease of [place] coronary artery with unspecified angina pectoris (6) Hypertension: Status: Chronic Qualifiers: Hypertension type: essential hypertension Qualified Code(s): I10 - Essential (primary) hypertension Additional A&P Information #Atypical Chest Pain History of coronary artery disease status post stents 2 years ago Stress test 11/2019?no reversible ischemia Continue aspirin, continue Plavix Plan to stress test Give GI cocktail to see response Place lidocaine patch on right side of chest Repeat EKG and troponin negative. I strongly believe patient's chest pain is not cardiac related but due to his CAD history would do a stress test prior to discharge. Pain is related to movement and reproducible to palpation. CT did not show any evidence of fracture. Patient denies falls. If pain occurs again would repeat EKG and troponin. I do believe his pain is noncardiac in origin but sometimes he does have mild pain which occurs without any exertion and is not related to movement. He has also given me some conflicting history stating that sometimes the pain comes which is not reproducible to palpation around the area. Patient was unable to do the stress test as an outpatient since he says he does not have transportation and would rather do it inpatient at this time. #Diabetes mellitus with hyperglycemia ?Sliding scale insulin Check A1c #Hypertension #Hyperlipidemia #Peripheral neuropathy #BPH ?Continue home medications. At discharge patient will require refills on all his medications with meds to beds. We will fill them at [facility] [place] [place] pharmacy and give patient his meds before he leaves. He states he had trouble getting to the pharmacy. #Full code #Cardiac diet consistent carbohydrate Attestations Medical Necessity Statement*: Greater than 24 hours. Will need stress test prior to discharge. 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 transplanted heart: [place] heart Associated angina: with unspecified angina Hypertension I10 Hypertension type: essential hypertension
[2021-06-03 16:59] LABS: Glucose Point of Care 203 mg/dL (70-110)
[2021-06-03 20:19] LABS: Glucose Point of Care 146 mg/dL (70-110)
[2021-06-03] MEDS: atorvastatin 40 mg Tablet PO (20:52)
[2021-06-04] VITALS (7 sets, daily range): BP systolic 124–137; BP diastolic 63–78; PULSE 54–64; RESP 16–20; TEMP 36.7–37.2; O2SAT 90–98
[2021-06-04] MEDS: sodium chloride 0.9% 1,000 ML 75 ML IV ×2 (00:04→14:45)
[2021-06-04] MEDS: heparin 5,000 unit/mL INJ 1 mL 5000 UNIT SUBCUT ×3 (04:56→20:00)
[2021-06-04 05:24] LABS: Basophils % 0.6 %; Eosinophils # 0.3 10^3/uL (0.0-0.8); Hematocrit 37.9 % (42.0-52.0); Hemoglobin 11.9 g/dL (11.7-16.6); Lymphocytes # 1.9 10^3/uL (0.8-4.8); Lymphocytes % 28.7 %; Mean Corpuscular HGB Conc 31.4 g/dL (30.0-36.0); Mean Corpuscular Hemoglobin 27.6 pg (28.0-34.0); Mean Corpuscular Volume 87.9 fl (80-94); Mean Platelet Volume 10.3 fL (7.4-10.4); Monocytes # 0.6 10^3/uL (0.2-0.9); Monocytes % 9.6 %; Neutrophils # 3.73 10^3/uL (1.8-7.7); Neutrophils % 55.9 %; Nucleated Red Blood Cells % 0 %; Platelet Count 230 10^3/cmm (130-400); Red Blood Count 4.31 10^6/uL (4.1-5.3); Red Cell Distribution Width 13.7 % (12.1-15.1); White Blood Count 6.7 10^3/uL (4.0-10.0)
[2021-06-04 05:46] LABS: Anion Gap 15.8 (5-19); Blood Urea Nitrogen 11 mg/dL (8-23); Calcium 7.8 mg/dL (8.5-10.5); Carbon Dioxide 20 mmol/L (22-29); Chloride 106 mmol/L (98-107); Glucose 139 mg/dL (65-115); Magnesium 1.8 mg/dL (1.7-2.3); Osmolality Calculated 288 mOsm/kg (285-295); Potassium 3.8 mmol/L (3.5-5.1); Sodium 138 mmol/L (136-145)
[2021-06-04 07:15] LABS: Glucose Point of Care 166 mg/dL (70-110)
[2021-06-04] MEDS: insulin lispro 100 unit/1 mL SUBCUT ×3 (09:58→18:42)
[2021-06-04] MEDS: clopidogrel 75 mg Tablet PO (09:59)
[2021-06-04] MEDS: pantoprazole DR 40 mg Tablet PO (09:59)
[2021-06-04] MEDS: aspirin 81 mg Chew Tablet PO (10:00)
[2021-06-04 11:00] LABS: Glucose Point of Care 165 mg/dL (70-110)
[2021-06-04 11:50] LABS: Glucose Point of Care 157 mg/dL (70-110)
--- NOTE | 2021-06-04 15:11 | P.PN_ITS ---
Subjective Subjective: Interval history: Patient does complain of shortness of breath on exertion but has not had any more chest pain. He feels better overall. He will be going for stress test in a.m. Vitals/I&O/Wt Last Vital Signs Temp 98.9 F 06/04/21 15:05 Pulse 54 L 06/04/21 15:05 Resp 17 06/04/21 15:05 BP 135/72 06/04/21 15:05 Pulse Ox 95 06/04/21 15:05 06/04/21 06/04/21 06/04/21 06:59 14:59 22:59 Intake Total 1100 / 3020 1220 / 1220 Output Total 200 / 1100 200 / 200 Balance 900 / 1920 1020 / 1020 Weight last 48 hrs Weight 91.399 kg Physical Exam Narrative: EXAM NARRATIVE: General: Alert oriented x3, patient seen laying in bed appearing comfortable, RN at bedside today. HEENT: Normocephalic, atraumatic, EOMI, breathing room air. Cardio: Regular rate rhythm, normal S1-S2, no murmurs JVD not elevated. No longer having chest pain on right side of chest. Respiratory: Clear to auscultation bilaterally, normal respiratory effort. 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 transplanted heart: [place] heart Associated angina: with unspecified angina Qualified Code(s): I25.119 - Atherosclerotic heart disease of [place] coronary artery with unspecified angina pectoris (6) Hypertension: Status: Chronic Qualifiers: Hypertension type: essential hypertension Qualified Code(s): I10 - Essential (primary) hypertension Additional A&P Information #Atypical Chest Pain History of coronary artery disease status post stents 2 years ago Stress test 11/2019?no reversible ischemia Continue aspirin, continue Plavix Plan to stress test Give GI cocktail to see response Place lidocaine patch on right side of chest Repeat EKG and troponin negative. I strongly believe patient's chest pain is not cardiac related but due to his CAD history would do a stress test prior to discharge. Pain is related to movement and reproducible to palpation. CT did not show any evidence of fracture. Patient denies falls. If pain occurs again would repeat EKG and troponin. I do believe his pain is noncardiac in origin but sometimes he does have mild pain which occurs without any exertion and is not related to movement. He has also given me some conflicting history stating that sometimes the pain comes which is not reproducible to palpation around the area. Patient was unable to do the stress test as an outpatient since he says he does not have transportation and would rather do it inpatient at this time. #Diabetes mellitus with hyperglycemia ?Sliding scale insulin Check A1c #Hypertension #Hyperlipidemia #Peripheral neuropathy #BPH ?Continue home medications. At discharge patient will require refills on all his medications with meds to beds. We will fill them at [facility] and give patient his meds before he leaves. He states he had trouble getting to the pharmacy. #Full code #Cardiac diet consistent carbohydrate Attestations Medical Necessity Statement*: Discharge after stress test tomorrow depending on results. Coding Level of Care Code Acute Director Of Capital Giving for [facility] Diagnoses Chest pain R07.9 Diabetes mellitus with hyperglycemia, with long-term current use of insulin E11.65; Z79.4 Diabetes mellitus type: type 2 Cervical radicular pain M54.12 Hyperlipidemia E78.2 Hyperlipidemia type: mixed hyperlipidemia Coronary artery disease I25.119 Coronary Disease-Associated Artery/Lesion type: [place] artery [place] vs. transplanted heart: [place] heart Associated angina: with unspecified angina Hypertension I10 Hypertension type: essential hypertension
[2021-06-04 16:44] LABS: Glucose Point of Care 144 mg/dL (70-110)
[2021-06-04] MEDS: atorvastatin 40 mg Tablet PO (20:00)
[2021-06-04 21:06] LABS: Glucose Point of Care 150 mg/dL (70-110)
[2021-06-05] VITALS (7 sets, daily range): BP systolic 127–162; BP diastolic 64–76; PULSE 60–97; RESP 16–17; TEMP 36.4–36.7; O2SAT 95–96
[2021-06-05] MEDS: sodium chloride 0.9% 1,000 ML 75 ML IV (04:02)
[2021-06-05] MEDS: heparin 5,000 unit/mL INJ 1 mL 5000 UNIT SUBCUT ×2 (04:02→12:41)
[2021-06-05 05:41] LABS: Basophils % 0.3 %; Eosinophils # 0.4 10^3/uL (0.0-0.8); Eosinophils % 4.9 %; Hematocrit 36.8 % (42.0-52.0); Hemoglobin 11.6 g/dL (11.7-16.6); Lymphocytes # 1.9 10^3/uL (0.8-4.8); Lymphocytes % 26.5 %; Mean Corpuscular HGB Conc 31.5 g/dL (30.0-36.0); Mean Corpuscular Hemoglobin 27.4 pg (28.0-34.0); Mean Platelet Volume 10.4 fL (7.4-10.4); Monocytes # 0.8 10^3/uL (0.2-0.9); Monocytes % 10.5 %; Neutrophils % 57.5 %; Nucleated Red Blood Cells % 0 %; Platelet Count 216 10^3/cmm (130-400); Red Blood Count 4.23 10^6/uL (4.1-5.3); Red Cell Distribution Width 13.6 % (12.1-15.1); White Blood Count 7.1 10^3/uL (4.0-10.0)
[2021-06-05 06:11] LABS: Anion Gap 13.8 (5-19); Blood Urea Nitrogen 8 mg/dL (8-23); Calcium 8.3 mg/dL (8.5-10.5); Carbon Dioxide 22 mmol/L (22-29); Chloride 107 mmol/L (98-107); Glucose 125 mg/dL (65-115); Magnesium 1.9 mg/dL (1.7-2.3); Osmolality Calculated 288 mOsm/kg (285-295); Potassium 3.8 mmol/L (3.5-5.1); Sodium 139 mmol/L (136-145)
--- NOTE | 2021-06-05 06:20 | NMCV_ITS ---
NM maddison perf SPECT r/s* [id number] Barb Joe Age: 75 Gender: M : 1945 Exam Date: 06/05/2021 07:34 Ordering Phys: Vibha Uriarte MD Technologist: GERARDO Crisostomo Exam Location: [facility] [address] Indications: CHEST PAIN STRESS TEST Please see separate stress test report in [facility] for full findings IMAGE PROTOCOL Rest/Stress 1 Lexiscan Day Radiopharmaceutical Dose (mCi) Administration Site Administered by Rest: Tc-99m 10.9 IV GERARDO Zuñiga Sestamibi Stress:Tc-99m 32.8 IV GERARDO Zuñiga Sestamibi Rest: 05-Jun-2021 60 Discovery 630 Stress: 05-Jun-2021 30 Discovery 630 0.4mg Lexiscan. Supine position only as patient was unable to lay prone. SPECT RESULTS Technical Quality: Excellent Raw Data Analysis: Normal Image Corrections: No attenuation or motion correction applied Summed Stress Score: 0 Summed Rest Score: 1 Summed Difference Score: 0 PERFUSION FINDINGS Small size perfusion abnormality of mild severity of mid infero-lateral wall on rest images with improved tracer uptake on stress images. FUNCTIONAL RESULTS (calculated via Gated SPECT) Stress Image LV EF (%): 75 Stress EDV (mL):73 TID: 0.82 Stress ESV (mL):18 FUNCTIONAL FINDINGS: The left ventricle is normal in size. Transient Ischemia Dilatation of 0.82. There is normal left ventricular systolic function. The left ventricular ejection fraction is normal with a value of 75%. There is normal left ventricular wall thickening with no regional wall motion abnormality. Normal end-diastolic and end-systolic volumes. IMPRESSIONS 1. Myocardial perfusion imaging is normal. Attenuation artifact noted in mid inferolateral wall. 2. Overall left ventricular systolic function is normal without regional wall motion abnormalities, LVEF=75%. 3. No EKG changes with Lexiscan infusion. Refer to separate report for details. 4. No coronary ischemia based on the study. Isamar Pierce MD (Electronically Signed) Final Date: 05 June 2021 13:35 S
--- NOTE | 2021-06-05 06:37 | ECG_ITS ---
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 Interpretive Statements NAME OF STUDY: LEXISCAN SESTAMIBI STRESS TEST INDICATION: Chest Pain PROCEDURE: At the baseline, the blood pressure was 130/78 mmHg with a heart rate of 65 bpm. The electrocardiogram showed normal sinus rhythm, normal axis. Poor anterior R wave progression. Nonspecific T wave changes. The Lexiscan was infused over a period of 20 seconds. A total of 0.4 milligrams of Lexiscan was infused. The stress phase was continued for a total of 5 minutes. Heart rate at the end of the stress phase was 100 bpm with a blood pressure of 142/72 mmHg. The EKG at the peak infusion revealed sinus rhythm with no significant ST-T wave changes. Artifact at peak infusion. Sestamibi was injected 20 seconds after the Lexiscan infusion. The study was terminated due to protocol completion. Blood pressure at the end of the recovery phase was 128/74 mmHg with a heart rate of 93 beats per minute. CONCLUSION: 1. No significant EKG changes with the LexiScan infusion. 2. No LexiScan induced chest pain or cardiac arrhythmia. 3. Normal blood pressure and heart rate response. 4. Sestamibi/sestamibi perfusion scan pending; see separate report. Electronically Signed On 06-05-2021 13:37:50 DIRECTOR OF PHOTOGRAPHY by Isamar Pierce M.D. [id number]
[2021-06-05 06:44] LABS: Glucose Point of Care 156 mg/dL (70-110)
[2021-06-05] MEDS: regadenoson 0.4 Mg/5 ml Syringe IVP (08:14)
[2021-06-05] MEDS: insulin lispro 100 unit/1 mL SUBCUT ×2 (08:39→11:41)
[2021-06-05] MEDS: pantoprazole DR 40 mg Tablet PO (10:39)
[2021-06-05] MEDS: aspirin 81 mg Chew Tablet PO (10:39)
[2021-06-05] MEDS: clopidogrel 75 mg Tablet PO (10:40)
[2021-06-05 11:59] LABS: Glucose Point of Care 205 mg/dL (70-110)
--- NOTE | 2021-06-05 14:34 | PM.DCS ---
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 transplanted heart: [place] heart Qualified Code(s): I25.119 - Atherosclerotic heart disease of [place] coronary artery with unspecified angina pectoris (6) Hypertension: Qualifiers: Hypertension type: essential hypertension Qualified Code(s): I10 - Essential (primary) hypertension Reason for Visit Reason for Visit: CHEST PAIN Hospital Course Hospital Course Patient was admitted for evaluation of chest pain. He ran out of his medications for to 5 days prior to his admission. During hospitalization he did not experience recurrence of chest pain, nausea, vomiting. His echo showed grade 1 diastolic dysfunction with EF 60% please see echo report for further details. He underwent Lexiscan stress test which was unremarkable for acute ischemia. He was discharged with appropriate refills of his home medication. Discharge planners did arrange meds to beds via [facility] pharmacy. Physical Exam Narrative: EXAM NARRATIVE: General: Alert oriented x3, patient seen laying in bed appearing comfortable, RN at bedside today. HEENT: Normocephalic, atraumatic, EOMI, breathing room air. Cardio: Regular rate rhythm, normal S1-S2, no murmurs JVD not elevated. No longer having chest pain on right side of chest. Respiratory: Clear to auscultation bilaterally, normal respiratory effort. GI: Abdomen soft, nontender, bowel sounds + Extremities:no edema, no cyano Discharge Data Data Completed and Pending: Completed Studies During Hospitalization Category Date Time Status CT angio chest PE protcl [id number] Urge nt Cat Scan 06/01/21 19:[address] MIBI [Sestamibi Stress Test Reque st Exams 06/05/21 06:37 Completed ] Routine XR chest 1V hamzah ble [id number] Stat Exams 06/01/21 18:09 Completed NM maddison perf SPECT r/s* [id number] Routin e Nuc Med 06/05/21 06:20 Completed CV. echo complete * [id number] Urgent Ultrasound 06/02/21 12:49 Completed Pending at discharge Category Date Time Status Sestamibi Stress Test Request Routi ne Exams 06/02/21 06:00 Ordered Labs from last 24 hours 06/05/21 06/05/21 06/05/21 11:33 06:33 04:32 WBC RBC Hgb Hct MCV MCH MCHC RDW Plt Count MPV Neut % (Auto) Lymph % (Auto) [place] % (Auto) Eos % (Auto) Baso % (Auto) Neut # (Auto) Lymph # (Auto) [place] # (Auto) Eos # (Auto) Baso # (Auto) Nucleated RBC % (a uto) Nucleated RBCs # Sodium 139 Potassium 3.8 Chloride 107 Carbon Dioxide 22 Anion Gap 13.8 BUN 8 Creatinine 0.7 GFR Calculation Not Reportable Glucose 125 H POC Glucose 205 H 156 H Calculated Osmolal ity 288 Calcium 8.3 L Magnesium 1.9 06/05/21 06/04/21 06/04/21 04:32 20:35 16:35 WBC 7.1 RBC 4.23 Hgb 11.6 L Hct 36.8 L MCV 87.0 MCH 27.4 L MCHC 31.5 RDW 13.6 Plt Count 216 MPV 10.4 Neut % (Auto) 57.5 Lymph % (Auto) 26.5 [place] % (Auto) 10.5 Eos % (Auto) 4.9 Baso % (Auto) 0.3 Neut # (Auto) 4.10 Lymph # (Auto) 1.9 [place] # (Auto) 0.8 Eos # (Auto) 0.4 Baso # (Auto) 0.0 Nucleated RBC % (a uto) 0 Nucleated RBCs # 0.0 Sodium Potassium Chloride Carbon Dioxide Anion Gap BUN Creatinine GFR Calculation Glucose POC Glucose 150 H 144 H Calculated Osmolal ity Calcium Magnesium Vitals: Last Vital Signs Temp 98.1 F 06/05/21 11:34 Pulse 71 06/05/21 11:34 Resp 16 06/05/21 11:34 BP 127/64 06/05/21 11:34 Pulse Ox 95 06/05/21 11:34 Discharge Plan Discharge Patient Disposition: Home Condition: Stable Prescriptions: Continued (DME) pen needle, diabetic 33 gauge x 5/32 needle See Rx Instructions .ROUTE .MEDSUPPLY Qty: 100 RF: 5 (DME) True Metrix Glucose Test Strip Strip See Rx Instructions .ROUTE .MEDSUPPLY Qty: 100 RF: 5 atorvastatin 20 mg tablet 20 mg PO BEDTIME Qty: 30 RF: 2 duloxetine [Cymbalta] 20 mg capsule,delayed release(DR/EC) 20 mg PO BID Qty: 60 RF: 2 gabapentin 300 mg capsule 300 mg PO BID Qty: 60 RF: 2 lisinopril 2.5 mg tablet 2.5 mg PO DAILY Qty: 30 RF: 2 (DME) blood-glucose meter [True Metrix Glucose Meter] Misc See Rx Instructions .ROUTE .MEDSUPPLY Qty: 1 RF: 0 Protonix 40 mg tablet,delayed release (DR/EC) 40 mg PO QAM RF: 0 levocetirizine 5 mg tablet 5 mg PO QAM RF: 0 Mucinex 600 mg tablet extended release 12hr 600 mg PO Q12H PRN (Reason: Congestion) RF: 0 Changed metoprolol succinate 50 mg tablet extended release 24 hr 50 mg PO QAM Qty: 60 RF: 2 clopidogrel [Plavix] 75 mg tablet 75 mg PO QAM Qty: 60 RF: 2 aspirin 81 mg tablet,delayed release (DR/EC) 81 mg PO QAM Qty: 60 RF: 2 tamsulosin [Flomax] 0.4 mg capsule 0.4 mg PO QPM Qty: 30 RF: 2 metformin 500 mg tablet extended release 24hr 1,000 mg PO QAM Qty: 60 RF: 2 Levemir FlexTouch U-100 Insuln 100 unit/mL (3 mL) insulin pen 65 - 75 unit SUBCUT QAM Qty: 3 RF: 2 Discharge Orders: Discharge Order (Routine); Ordered 06/05/21 Ordered By: Richard Benjamin Referrals: Aline Pacheco, [facility] [employer] [Primary Care Provider] - 4-7 days (Please call to make an appointment to be seen in 4-7 days.) Discharge Diet: Cardiac Discharge Activity: Increase activity as tolerated Patient Instructions: Chest Pain Stoplight, Opioid Safety Discharge Attestations Time Spent in Discharge Care*: less than 30 min Quality Metrics Clinical Quality Measures During this hospital stay, did patient experience: None Coding Level of Care Code Acute Chg FW DC note Diagnoses Chest pain R07.9 Diabetes mellitus with hyperglycemia, with long-term current use of insulin E11.65; Z79.4 Diabetes mellitus type: type 2 Cervical radicular pain M54.12 Hyperlipidemia E78.2 Hyperlipidemia type: mixed hyperlipidemia Coronary artery disease I25.119 Associated angina: with unspecified angina Coronary Disease-Associated Artery/Lesion type: [place] artery [place] vs. transplanted heart: [place] heart Hypertension I10 Hypertension type: essential hypertension
--- NOTE | 2021-06-05 16:53 | PC.SOCIAL ---
IMM update IMM update done over phone pt getting ready to DC. IMM dated and initialed and copy taken to patient before DC
[2021-06-05 17:29] LABS: Glucose Point of Care 156 mg/dL (70-110)
== END 2021-06-05 17:30 | disposition home or self-care (01) | DRG 313 ==
LOC: ER 19:23 → MEDSURG 21:11
PROVIDERS: Internal Medicine; Admitting Provider Hospitalist; Emergency Provider Emergency Medicine; PCP Nurse Practitioner; Visit Provider Internal Medicine
DX: R07.89 Other chest pain (principal); I10 Essential (primary) hypertension; E11.65 Type 2 diabetes mellitus with hyperglycemia; E11.40 Type 2 diabetes mellitus with diabetic neuropathy, unspecified; I25.10 Atherosclerotic heart disease of native coronary artery without angina pectoris; Z95.5 Presence of coronary angioplasty implant and graft; K21.9 Gastro-esophageal reflux disease without esophagitis; I08.2 Rheumatic disorders of both aortic and tricuspid valves; M54.12 Radiculopathy, cervical region; G43.709 Chronic migraine without aura, not intractable, without status migrainosus; Z86.73 Personal history of transient ischemic attack (TIA), and cerebral infarction without residual deficits; E55.9 Vitamin D deficiency, unspecified; Z85.038 Personal history of other malignant neoplasm of large intestine; E78.5 Hyperlipidemia, unspecified; N40.0 Benign prostatic hyperplasia without lower urinary tract symptoms; Z91.128 Patient's intentional underdosing of medication regimen for other reason; Z79.82 Long term (current) use of aspirin; Z79.4 Long term (current) use of insulin
CPT/HCPCS: 36415; 36416; 71045; 71275; 78452; 80048; 80053; 80061; 82962; 83036; 83735; 84443; 84484; 85025; 93005; 93017; 93306; 96372; 97116; 97161; 99285; A9500; G0378; J1644; J1815; J2785; J7030; Q9967

== ENCOUNTER → 2021-06-16 11:18 | Outpatient (BNVA) | payer MEDICARE, MEDICAID, SELFPAY | PROVIDERS: PCP Nurse Practitioner; Visit Provider Nurse Practitioner | DX: E11.65 Type 2 diabetes mellitus with hyperglycemia (principal); Z79.4 Long term (current) use of insulin | CPT/HCPCS: 80053; 83036 ==

== ENCOUNTER 2021-07-30 07:56 | Emergency (ER) | payer MEDICARE, MEDICAID, SELFPAY ==
--- NOTE | 2021-07-30 07:58 | W.ED.MALEGU ---
HPI - Male Genitourinary General: Chief complaint: Urogenital-Male Stated complaint: HEMATURIA Time Seen by Provider: 07/30/21 07:57 History of Present Illness: HPI Narrative: Mr. Joe is a 75-year-old gentleman with history of hypertension, hyperlipidemia, diabetes, prior stroke who is on aspirin and Plavix who presents emergency department due to hematuria. He reports being at his baseline health and no history of abdominal trauma. Around midnight he started noticing blood in urine. He has had multiple episodes of bloody urine since that time which is mostly just pink-tinged though has been getting worse. Denies associated abdominal pain. He does have mild discomfort with a full sensation in his penis while pain. No skin lesions or swelling. Denies lightheadedness, chest pain, shortness of breath. Overall the course of symptoms has persisted. Intensity is moderate. No similar episodes in the past. No other specific exacerbating relieving factors identified. MD Complaint: other Onset (ago): hour(s) Duration: constant and progressively worsening Severity: moderate Relieving factors: none Exacerbating factors: none Review of Systems General: Reports: 10 or more systems reviewed and unremarkable except in HPI and below PFSH ED PFSH: Medical History Acid reflux Allergic rhinitis due to pollen Aortic regurgitation Cervical radicular pain Chronic migraine Coronary artery disease CVA (cerebral vascular accident) Past history of CVA. Continue statin, aspirin, Plavix DDD (degenerative disc disease) Dependent on walker for ambulation Diabetes mellitus with hyperglycemia, with long-term current use of insulin Enrolled in chronic care management History of stroke Hyperglycemia Hyperlipidemia Hypertension Tricuspid regurgitation Vitamin D deficiency Surgical History History of cataract surgery History of cervical spinal surgery 3 times History of cholecystectomy History of colon cancer 2015 History of knee surgery Right Family History Father Cancer Denies family history of Bleeding disorder Social History Second hand smoke exposure: No Smoking risk assessment/counseling performed?: No Alcohol intake: never Desire information about alcohol rehabilitation?: No Counseling given: No Desire information about substance/drug rehabilitation?: No Counseling given: No Adopted: No Caregiver/support person: No Lives independently: Yes Household members: spouse Housing: House Marital status: Current occupational status: retired History of recent travel: No Current gender identity: Male Physical Exam Const: COMMON NORMALS: alert GENERAL APPEARANCE: cooperative and well developed HENMT: COMMON NORMALS: normocephalic and atraumatic HEAD & SCALP: normocephalic and atraumatic THROAT: posterior oropharynx normal Eye: COMMON NORMALS: conjunctivae normal CONJUNCTIVA: Yes conjunctivae normal SCLERA: sclerae normal Neck/C-Spine: COMMON NORMALS: supple GENERAL: Yes trachea midline Resp: COMMON NORMALS: normal respiratory effort EFFORT & INSPECTION: Yes able to speak in complete sentences Cardio: COMMON NORMALS: regular rate and regular rhythm RATE: regular rate RHYTHM: regular rhythm GI: COMMON NORMALS: Soft to palpation PALPATION: Yes Soft to palpation and No Tenderness to palpation present (GI) PERCUSSION: normal to percussion : COMMON NORMALS: Yes no CVA tenderness, Yes normal external exam, Yes Testes normal and Yes scrotum normal BLADDER/KIDNEY EXAM: Yes no CVA tenderness PENIS: not edematous, foreskin retracts, no paraphimosis, no phimosis and no swelling Back/Pelvis: COMMON NORMALS: no CVA tenderness Extremity: GENERAL: Yes normal exam except as noted and No edema Neuro: COMMON NORMALS: moves all extremities SENSORIUM/ORIENTATION: Yes alert and No Orientation impaired Psych: COMMON NORMALS: mental status grossly normal and Normal thought process present THOUGHT PROCESS: Normal thought process present Course ED course: - Patient was seen and evaluated by me at bedside - Patient placed on cardiac monitors, IV access obtained - Initial evaluation notable for exam as above. Unremarkable exam of the external genitalia. -Fluids ordered - Labs notable for leukocytosis. Metabolic panel with mild evidence of intravascular dehydration. Glucose is elevated without evidence of DKA. Urinalysis somewhat mixed. Blood is noted however only minimal white blood cells without squamous epithelial contamination. -Given urinalysis findings I will evaluate for nephrolithiasis. Imaging notable for no evidence of kidney stone. Marked edematous circumferential wall thickening of bladder suggestive of cystitis. - Upon serial reexamination after treatment the patient was improved - Based on patient history, evaluation, labs, and imaging as interpreted the most likely cause of the patient's condition is unclear. This is a somewhat mixed picture, CT findings suggestive of bladder infection though urinalysis less concerning for such. I discussed the case with Dr. Bright of the urology service. In discussion we will proceed with treatment for urinary tract infection and that the patient will be instructed to call Dr. Bright's office in the morning for follow-up and possible cystoscopy. - The results of ED evaluation were discussed with the patient including prescriptions and/or symptomatic cares (if applicable) including appropriate and responsible use, followup plan, and return precautions. The patient verbalized understanding and felt safe for discharge. - Patient discharged in satisfactory condition. Note: Click bubbles or prepopulated [place] in note writing are used for assistance with data collection and billing and are inherently more limited than narrative and other text portions of this note. Please use narrative for additional clinical history and defer to narrative/free test for any case of contradictory information. If information appears in only free text or click bubble it should be considered present or absent as reported. Please contact note information writer for clarifications of clinical information or contradictory information. MDM is a brief summary, contradictory or erroneous seeming information should be clarified and full note should be reviewed. Vital Signs: Vital signs: Vital Signs Temperature 98.2 F 07/30/21 13:19 Pulse Rate 97 07/30/21 13:19 Respiratory Rate 18 07/30/21 13:19 Blood Pressure 124/84 07/30/21 08:00 Pulse Oximetry 94 07/30/21 13:19 MDM - Male MDM Narrative Medical decision making narrative: 75-year-old gentleman on aspirin and Plavix presenting with hematuria. Initially mildly tachycardic which improved with fluids. Somewhat mixed picture regarding urinalysis and CT scan findings. Discussed with Dr. Bright. We will treat the patient for urinary tract infection and have close urology follow-up with strict return precautions. Medical Records Attestation: I reviewed the patient's medical records. Lab Data Attestation: I reviewed the patient's lab results. Result diagrams: 07/30/21 08:15 07/30/21 08:51 Labs: Lab Results 07/30/21 07/30/21 07/30/21 08:15 08:15 08:20 WBC 17.4 10^3/uL H 10^3/uL (4.0-10.0) RBC 5.30 10^6/uL 10^6/uL (4.1-5.3) Hgb 14.4 g/dL g/dL (11.7-16.6) Hct 44.9 % % (42.0-52.0) MCV 84.7 fl fl (80-94) MCH 27.2 pg L pg (28.0-34.0) MCHC 32.1 g/dL g/dL (30.0-36.0) RDW 13.8 % % (12.1-15.1) Plt Count 399 10^3/cmm 10^3/cmm (130-400) MPV 10.5 fL H fL (7.4-10.4) Neut % (Auto) 80.1 % % Lymph % (Auto) 9.7 % % [place] % (Auto) 7.9 % % Eos % (Auto) 1.3 % % Baso % (Auto) 0.5 % % Neut # (Auto) 13.92 10^3/uL H 10^3/uL (1.8-7.7) Lymph # (Auto) 1.7 10^3/uL 10^3/uL (0.8-4.8) [place] # (Auto) 1.4 10^3/uL H 10^3/uL (0.2-0.9) Eos # (Auto) 0.2 10^3/uL 10^3/uL (0.0-0.8) Baso # (Auto) 0.1 10^3/uL 10^3/uL (0.0-0.1) Nucleated RBC % (auto) 0 % % Nucleated RBCs # 0.0 /100WBC /100WBC Sodium Cancelled Potassium Cancelled Chloride Cancelled Carbon Dioxide Cancelled Anion Gap Cancelled BUN Cancelled Creatinine Cancelled GFR Calculation Cancelled Glucose Cancelled Calculated Osmolality Cancelled Calcium Cancelled Total Bilirubin Cancelled AST Cancelled ALT Cancelled Alkaline Phosphatase Cancelled Total Protein Cancelled Albumin Cancelled Globulin Cancelled Urine Color Red (Yellow) Urine Appearance Bloody A (CLEAR) Urine pH 7 (5-7) Ur Specific [place] 1.010 (1.005-1.030) Urine Protein 3+ H (Negative) Urine Glucose (UA) 4+ H (Normal) Urine Ketones Negative (Negative) Urine Blood 3+ H (Negative) Urine Nitrate Negative (Negative) Urine Bilirubin Neg (Negative) Urine Urobilinogen Norm mg/dL mg/dL (Negative) Ur Leukocyte Esterase Negative (Negative) Urine RBC Too numerous to cnt /hpf H /hpf (0-2) Urine WBC 5-10 /hpf H /hpf (0-5) Ur Squamous Epith Cells None /hpf /hpf (0-5) Amorphous Sediment Not Reportable Urine Bacteria Trace /hpf /hpf (NONE) 07/30/21 08:51 WBC RBC Hgb Hct MCV MCH MCHC RDW Plt Count MPV Neut % (Auto) Lymph % (Auto) [place] % (Auto) Eos % (Auto) Baso % (Auto) Neut # (Auto) Lymph # (Auto) [place] # (Auto) Eos # (Auto) Baso # (Auto) Nucleated RBC % (auto) Nucleated RBCs # Sodium 134 mmol/L L mmol/L (136-145) Potassium 4.6 mmol/L mmol/L (3.5-5.1) Chloride 96 mmol/L L mmol/L (98-107) Carbon Dioxide 24 mmol/L mmol/L (22-29) Anion Gap 18.6 (5-19) BUN 14 mg/dL mg/dL (8-23) Creatinine 1.0 mg/dL mg/dL (0.7-1.2) GFR Calculation Not Reportable Glucose 352 mg/dL H mg/dL (65-115) Calculated Osmolality 293 mOsm/kg mOsm/kg (285-295) Calcium 8.5 mg/dL mg/dL (8.5-10.5) Total Bilirubin 0.5 mg/dL mg/dL (0.15-1.2) AST 10 U/L U/L (0-40) ALT 11 U/L U/L (0-41) Alkaline Phosphatase 102 IU/L IU/L (40-130) Total Protein 6.9 g/dL g/dL (6.6-8.7) Albumin 3.7 g/dL g/dL (3.5-5.2) Globulin 3.2 g/dL g/dL (1.3-4.6) Urine Color Urine Appearance Urine pH Ur Specific [place] Urine Protein Urine Glucose (UA) Urine Ketones Urine Blood Urine Nitrate Urine Bilirubin Urine Urobilinogen Ur Leukocyte Esterase Urine RBC Urine WBC Ur Squamous Epith Cells Amorphous Sediment Urine Bacteria EKG Data EKG 1: Interpretation: Twelve-lead EKG shows a regular rate and rhythm at a rate of 109. FL interval 158, QRS duration 73, QTc 388. Normal axis. Interpretation: Sinus rhythm. Tachycardia. Nonspecific ST segment abnormalities. Discharge Plan Discharge Patient Disposition: Home Clinical Impression: Hematuria, Urinary tract infection, Leukocytosis Condition: Stable Prescriptions: New cephalexin 500 mg capsule 500 mg PO Q6H 10 Days Qty: 40 0RF No Action (DME) True Metrix Glucose Test Strip Strip See Rx Instructions .ROUTE .MEDSUPPLY Qty: 100 5RF Rx Instructions: 3 times day atorvastatin 20 mg tablet 20 mg PO BEDTIME Qty: 30 2RF aspirin 81 mg tablet,delayed release (DR/EC) 81 mg PO QAM Qty: 60 2RF Plavix 75 mg tablet 75 mg PO QAM Qty: 60 2RF duloxetine [Cymbalta] 20 mg capsule,delayed release(DR/EC) 20 mg PO BID Qty: 60 2RF gabapentin 300 mg capsule 300 mg PO BID Qty: 60 2RF Rx Instructions: dose change due to insurance coverage will not provide more than 90 capsule monthly lisinopril 2.5 mg tablet 2.5 mg PO DAILY Qty: 30 2RF metformin 500 mg tablet extended release 24hr 1,000 mg PO QAM Qty: 60 2RF metoprolol succinate 50 mg tablet extended release 24 hr 50 mg PO QAM Qty: 60 2RF Protonix 40 mg tablet,delayed release (DR/EC) 40 mg PO QAM Qty: 30 2RF Flomax 0.4 mg capsule 0.4 mg PO QPM Qty: 30 2RF Ozempic 0.25 mg or 0.5 mg(2 mg/1.5 mL) pen injector 0.25 mg SUBCUT .weekly Qty: 1.5 2RF Hold Instructions: Doctor's Order levocetirizine 5 mg tablet 5 mg PO QAM Qty: 30 2RF Levemir FlexTouch U-100 Insuln 100 unit/mL (3 mL) insulin pen 65 - 75 unit SUBCUT QAM Qty: 30 2RF (DME) blood-glucose meter [True Metrix Glucose Meter] [facility] [place] See Rx Instructions .ROUTE .MEDSUPPLY Qty: 1 0RF Rx Instructions: daily (DME) pen needle, diabetic 33 gauge x 5/32 needle See Rx Instructions .ROUTE .MEDSUPPLY Qty: 100 5RF Rx Instructions: 4 times day as needed Discharge Orders: Discharge ED (Routine); Ordered 07/30/21 Ordered By: Sathish Arellano Referrals: Aline Pacheco, PIN DRAFTING MACHINE TENDER[facility] [Primary Care Provider] - Discharge Diet: Usual diet Discharge Activity: Resume usual activity Patient Instructions: Urinary Tract Infection in Men (ED), Hematuria (ED) Activity Restrictions/Additional Instructions: Thank you for visiting the emergency department. You were seen and evaluated for hematuria. The exact cause of your symptoms is somewhat unclear as laboratory and imaging revealed a little bit of conflicting information. Your bladder does appear enlarged and inflamed on CT imaging. Your urinalysis does show a few white blood cells consistent with infection however overall is not as many as we normally see for traditional urinary tract infections. I discussed this case with Dr. Bright who is a urologist. We will treat you with antibiotics for urinary tract infection. Please call Dr. Bright's office in the morning. His phone number is [employer]: [phone]. Return to the emergency department for lightheadedness, dizziness, chest pain, shortness of breath, worsening symptoms, inability to urinate despite urge, fevers, chills, or anything else that you are concerned about a feel needs emergency department evaluation. Coding Level of Care Code ED Retail Pharmacy Manager for [facility] Gibson
[2021-07-30 08:00] VITALS: BP 124/84; PULSE 128; RESP 16; TEMP 36.9; O2SAT 96; BMI 28.8
[2021-07-30] MEDS: sodium chloride 0.9% 500 ML 999 ML IV (08:15)
[2021-07-30 08:32] LABS: Basophils # 0.1 10^3/uL (0.0-0.1); Basophils % 0.5 %; Eosinophils # 0.2 10^3/uL (0.0-0.8); Eosinophils % 1.3 %; Hematocrit 44.9 % (42.0-52.0); Hemoglobin 14.4 g/dL (11.7-16.6); Lymphocytes # 1.7 10^3/uL (0.8-4.8); Lymphocytes % 9.7 %; Mean Corpuscular HGB Conc 32.1 g/dL (30.0-36.0); Mean Corpuscular Hemoglobin 27.2 pg (28.0-34.0); Mean Corpuscular Volume 84.7 fl (80-94); Mean Platelet Volume 10.5 fL (7.4-10.4); Monocytes # 1.4 10^3/uL (0.2-0.9); Monocytes % 7.9 %; Neutrophils # 13.92 10^3/uL (1.8-7.7); Neutrophils % 80.1 %; Nucleated Red Blood Cells % 0 %; Platelet Count 399 10^3/cmm (130-400); Red Cell Distribution Width 13.8 % (12.1-15.1); White Blood Count 17.4 10^3/uL (4.0-10.0)
[2021-07-30 08:44] LABS: Blood Urine 3+ (Negative); Glucose Urine UA 4+ (Normal); Ketones Urine Negative (Negative); Protein Urine 3+ (Negative); Urine Appearance Bloody (CLEAR); Urine Color Red (Yellow); pH Urine 7 (5-7)
[2021-07-30 08:45] LABS: Add Urine Microscopic? YES; Bilirubin Urine Neg (Negative); Leukocyte Esterase Urine Negative (Negative); Nitrate Urine Negative (Negative); Urobilinogen Urine Norm (Negative)
[2021-07-30 08:46] LABS: Add Urine Culture? Yes; Bacteria Urine TRACE /hpf; RBC Urine TOO NUMEROUS TO CNT /hpf (0-2)
--- NOTE | 2021-07-30 09:00 | CTR_ITS ---
PROCEDURE INFORMATION: Exam: CT Abdomen And Pelvis Without Contrast Exam date and time: 07/30/2021 9:00 AM Age: 75 years old Clinical indication: Other: Hematuria TECHNIQUE: Imaging protocol: Computed tomography of the abdomen and pelvis without contrast. Radiation optimization: All CT scans at this facility use at least one of these dose optimization techniques: automated exposure control; mA and/or kV adjustment per patient size (includes targeted exams where dose is matched to clinical indication); or iterative reconstruction. COMPARISON: CT abdomen pelvis w con* [id number] 07/19/2020 3:28 PM RADIATION DOSE METRICS: Total DLP (mGy-cm): 1687.83 FINDINGS: Lungs: Multiple nodules noted in both lung bases measuring up to 5 mm in both lung bases. This has been noted on prior exams dating back to 2014 and are considered benign. Mild bronchiectasis at the posterior lung bases again noted. Punctate pulmonary micro nodules noted in the posterior left lung base. Liver: Normal. No evident mass. Gallbladder and bile ducts: Cholecystectomy clips noted. No ductal dilation. Pancreas: Normal. No ductal dilation. Spleen: Normal. No splenomegaly. Adrenal glands: Normal. No mass. Kidneys and ureters: No renal stones. No hydronephrosis. Stomach and bowel: Ileocolonic anastomosis again noted. Sigmoid diverticulosis noted. No obstruction. No mucosal thickening. Appendix: No evidence of appendicitis. Intraperitoneal space: Unremarkable. No free air. No significant fluid collection. Area of fat necrosis in the right upper abdomen is unchanged. Vasculature: Unremarkable. No abdominal aortic aneurysm. Lymph nodes: Unremarkable. No enlarged lymph nodes. Urinary bladder: Marked edematous circumferential wall thickening of the bladder. Reproductive: Unremarkable as visualized. Bones/joints: No acute fracture. Soft tissues: Moderate size fat containing left inguinal hernia noted. Focal subcutaneous fat stranding in the mid abdominal wall, likely a contusion. CT/CT kidney stone [id number] IMPRESSION: 1. Marked edematous circumferential wall thickening the bladder suggestive of cystitis. No nephrolithiasis. 2. Punctate pulmonary micro nodules in the posterior left lung base noted, suggestive of small airway infectious or inflammatory process.
[2021-07-30 09:15] LABS: Alanine Aminotransferase 11 U/L (0-41); Albumin Level 3.7 g/dL (3.5-5.2); Alkaline Phosphatase 102 IU/L (40-130); Anion Gap 18.6 (5-19); Aspartate Amino Transferase 10 U/L (0-40); Blood Urea Nitrogen 14 mg/dL (8-23); Calcium 8.5 mg/dL (8.5-10.5); Carbon Dioxide 24 mmol/L (22-29); Chloride 96 mmol/L (98-107); Globulin 3.2 g/dL (1.3-4.6); Glucose 352 mg/dL (65-115); Osmolality Calculated 293 mOsm/kg (285-295); Potassium 4.6 mmol/L (3.5-5.1); Sodium 134 mmol/L (136-145); Total Bilirubin 0.5 mg/dL (0.15-1.2); Total Protein 6.9 g/dL (6.6-8.7)
[2021-07-30 09:59] VITALS: PULSE 113; RESP 18; O2SAT 94
--- NOTE | 2021-07-30 10:13 | ECG_ITS ---
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 Measurements Intervals [place] Rate: 109 P: 36 VT: 158 QRS: 69 QRSD: 73 T: 44 QT: 324 QTc: 437 Interpretive Statements SINUS TACHYCARDIA ABNORMAL RHYTHM ECG Compared to ECG 06/02/2021 13:30:35 Sinus rhythm no longer present Electronically Signed On 07-30-2021 20:14:17 HEART DOCTOR by Chrissy Cruz M.D. [email or web address] Technologiessouth central regional medical centerGlobal Registry of Biorepositoriesohiohealth hardin memorial hospitalPro Breath MD/store/NU/[id number] f
[2021-07-30] MEDS: sodium chloride 0.9% 1,000 ML 999 ML IV (10:17)
[2021-07-30] MEDS: cefTRIAXone 1,000 MG in sodium chloride 0.9% (plus) 50 ML 100 MG IV (10:39)
[2021-07-30 11:10] VITALS: PULSE 103; RESP 18; O2SAT 93
[2021-07-30 13:19] VITALS: PULSE 97; RESP 18; TEMP 36.8; O2SAT 94
--- NOTE | 2021-07-31 08:36 | DCPLANNER ---
Patient is to follow up with Dr. Bright. human capital manager emailed patients information to Jimmie Marcelino and Anamaria in the office of Dr. Bright. Patients information will be printed and reviewed. Clinic will call patient with appointment information.
== END 2021-07-30 13:20 | disposition home or self-care (01) ==
PROVIDERS: Emergency Provider Emergency Medicine; PCP Nurse Practitioner
DX: N39.0 Urinary tract infection, site not specified (principal); R31.9 Hematuria, unspecified; D72.829 Elevated white blood cell count, unspecified; Z79.82 Long term (current) use of aspirin; Z79.4 Long term (current) use of insulin; I25.10 Atherosclerotic heart disease of native coronary artery without angina pectoris; Z86.73 Personal history of transient ischemic attack (TIA), and cerebral infarction without residual deficits; E11.9 Type 2 diabetes mellitus without complications; E78.5 Hyperlipidemia, unspecified; I10 Essential (primary) hypertension; Z85.038 Personal history of other malignant neoplasm of large intestine
CPT/HCPCS: 36415; 74176; 80053; 81001; 85025; 87086; 93005; 96361; 96365; 99284; J0696; J7030; J7040

== ENCOUNTER → 2021-10-24 09:20 | Outpatient (BNVA) | payer MEDICARE, MEDICAID, SELFPAY | PROVIDERS: PCP Nurse Practitioner; Visit Provider Nurse Practitioner | DX: I63.9 Cerebral infarction, unspecified (principal); E11.65 Type 2 diabetes mellitus with hyperglycemia; Z79.4 Long term (current) use of insulin; M54.12 Radiculopathy, cervical region; J30.1 Allergic rhinitis due to pollen; I10 Essential (primary) hypertension; K21.9 Gastro-esophageal reflux disease without esophagitis; R32 Unspecified urinary incontinence; E55.9 Vitamin D deficiency, unspecified | CPT/HCPCS: 80053; 80061; 82306; 83036; 84443; 85025 ==

== ENCOUNTER 2021-11-08 13:31 | Emergency (ER) | payer MEDICARE, MEDICAID, SELFPAY ==
[2021-11-08 13:33] VITALS: BP 102/67; PULSE 92; RESP 14; O2SAT 96; BMI 25.9
--- NOTE | 2021-11-08 13:37 | XRR_ITS ---
PROCEDURE INFORMATION: Exam: XR Chest Exam date and time: 11/08/2021 1:56 PM Age: 76 years old Clinical indication: Chest pain. Angina pectoris. TECHNIQUE: Imaging protocol: XR of the chest. Views: 1 view. COMPARISON: CR XR chest 1V portable [id number] 06/01/2021 6:26 PM FINDINGS: Lungs: There is diffuse interstitial prominence that likely reflects interstitial lung disease. Recommend CT chest to better compare to prior and assess for progression. No pulmonary consolidation. Pleural spaces: No pleural effusion. No pneumothorax. Heart/Mediastinum: The cardiac silhouette is unchanged. No gross evidence of pneumomediastinum. Bones/joints: No gross fracture. XR/XR chest 1V portable [id number] IMPRESSION: Diffuse interstitial prominence that likely reflects interstitial lung disease. Recommend CT chest to better compare to prior and assess for progression.
--- NOTE | 2021-11-08 13:37 | ECG_ITS ---
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 Measurements Intervals [place] Rate: 90 P: 35 HI: 147 QRS: 45 QRSD: 89 T: 35 QT: 341 QTc: 419 Interpretive Statements SINUS RHYTHM Compared to ECG 07/30/2021 10:21:02 Sinus tachycardia no longer present Electronically Signed On 11-08-2021 19:51:38 CDT by Isamar Pierce M.D. [email or web address]Empathy Marketingsutter [email or web address] medical [id number]
--- NOTE | 2021-11-08 13:38 | CTR_ITS ---
PROCEDURE INFORMATION: Exam: CT Abdomen And Pelvis With Contrast Exam date and time: 11/08/2021 3:53 PM Age: 76 years old Clinical indication: Abdominal pain; Generalized; Prior surgery; Patient HX: HX of colon cancer; Additional info: Abd pain TECHNIQUE: Imaging protocol: Computed tomography of the abdomen and pelvis with contrast. Radiation optimization: All CT scans at this facility use at least one of these dose optimization techniques: automated exposure control; mA and/or kV adjustment per patient size (includes targeted exams where dose is matched to clinical indication); or iterative reconstruction. Contrast material: OMNI 350; Contrast volume: 95 ml; Contrast route: INTRAVENOUS (IV); COMPARISON: CT abdomen pelvis w con* [id number] 07/19/2020 3:28 PM RADIATION DOSE METRICS: Total DLP (mGy-cm): 1574.89 FINDINGS: Lungs: Minimal central bronchial thickening and bronchiectasis with subpleural reticular opacities in both lung bases suggesting early fibrosis, slightly worsened since prior exam. Several tiny nodular densities are also noted in the lung bases, measuring up to 5 mm in the posterolateral right lung base which may have also slightly increased in size. Findings are nonspecific but may represent metastatic disease. Liver: Normal. No mass. Gallbladder and bile ducts: Cholecystectomy clips. No abnormal bile duct dilatation. Evidence of prior proximal colonic resection with ileocolic anastomosis in the right mid abdomen. A somewhat discrete area is noted with fat density and partial rim calcification appears stable anterior to the inferior right hepatic lobe margin and is unchanged which may represent postop changes/area of fat necrosis. No omental/peritoneal solid nodular thickening or haziness is identified to suggest imaging signs of peritoneal carcinomatosis. Pancreas: Normal. No ductal dilation. Spleen: Normal. No splenomegaly. Adrenal glands: Normal. No mass. Kidneys and ureters: See Urinary bladder finding. Stomach and bowel: Moderate colorectal stool burden with no bowel obstruction, pneumatosis or suspicious bowel wall thickening. Appendix: No evidence of appendicitis. Intraperitoneal space: See Gallbladder and bile ducts finding. Vasculature: No abdominal aortic aneurysm. Lymph nodes: No enlarged lymph nodes. Urinary bladder: Urinary bladder is somewhat distended with diffuse wall thickening and increased enhancement and minimal perivesical stranding. There is mild diffuse left hydroureter and mild left hydronephrosis with increased urothelial enhancement. Findings suggest UTI/severe cystitis with probable reflux. No obvious obstructing mass or calculus is noted in the UVJ/distal left ureteral region however areas of stricture/small obstructive lesions would be difficult to exclude. A possible focal area of mid left ureteral narrowing is present. There is delayed left nephrogram suggesting an element of obstructive uropathy. No discrete renal masses are identified. Continued imaging follow-up should be obtained to exclude small mass lesion. Reproductive: Unremarkable as visualized. Bones/joints: Multilevel vertebral disc degeneration and endplate osteophytes. No acute osseous findings otherwise. Soft tissues: Small bilateral fat-containing inguinal hernias. CT/CT abdomen pelvis w con* [id number] IMPRESSION: 1. Comparison CT 07/19/2020. 2. Several tiny pulmonary nodules in the lung bases which may have increased in size, nonspecific but may represent metastatic disease. Infectious/inflammatory bronchiolitis may also be considered. There are also interval progression of central bronchiectasis/peribronchial thickening and fibrotic changes. 3. Postsurgical changes in with ileocolic anastomosis with no acute bowel findings. Moderate stool burden. 4. Abnormal urinary bladder with slight interval worsening of left hydroureter and hydronephrosis and delayed nephrogram and urothelial enhancement. See discussion above. Follow up assessment should be considered. 5. Otherwise no evidence of abdominopelvic visceral metastasis.0
--- NOTE | 2021-11-08 13:38 | W.ED.CHESTPA ---
Documented by User: Fabian Dao DO 11/09/21 07:55 HPI - Chest Pain General: Chief Complaint: Chest Pain Stated Complaint: CHEST PAIN Time Seen by Provider: 11/08/21 13:34 Source: patient Mode of arrival: ambulatory Limitations: no limitations History of Present Illness: 76-year-old male who presents emergency room complaining left-sided chest pain that began around 9:00 this morning (4-1/2 hours ago.). He has a known history of coronary disease previously to have stenting done. He was at rest when this began. He has not noticed anything that makes this better or worse. He also has a little bit of left lower quadrant abdominal pain. MD complaint: chest pain Pertinent past history: coronary artery disease Onset (ago): minute(s) Timing of current episode: episodic Prior episodes: Yes Onset: during rest Pain location: substernal Pain radiation: none Severity: mild Quality: tightness, aching and heaviness Relieving factors: nothing Exacerbating factors: nothing Associated symptoms: Deny abdominal pain, diaphoresis, dyspnea, fever(s), leg edema, nausea, palpitations, sense of impending doom, syncope or vomiting Treatment prior to arrival: none Review of Systems Const: Denies: fever(s) or diaphoresis ENMT: Denies: throat pain, ear or mastoid pain, nasal discharge or nasal congestion Card: Denies: palpitations or syncope Resp: Denies: dyspnea GI: Denies: abdominal pain, nausea or vomiting : Denies: flank pain, dysuria, urinary frequency or urinary urgency Skin/Breast: Denies: rash or pruritus PFSH ED PFSH: Medical History Acid reflux Allergic rhinitis due to pollen Aortic regurgitation Cervical radicular pain Chronic migraine Coronary artery disease CVA (cerebral vascular accident) Past history of CVA. Continue statin, aspirin, Plavix DDD (degenerative disc disease) Dependent on walker for ambulation Diabetes mellitus with hyperglycemia, with long-term current use of insulin Enrolled in chronic care management History of stroke Hyperglycemia Hyperlipidemia Hypertension Tricuspid regurgitation Vitamin D deficiency Surgical History History of cataract surgery History of cervical spinal surgery 3 times History of cholecystectomy History of colon cancer 2015 History of knee surgery Right Family History Father Cancer Denies family history of Bleeding disorder Social History Smoking and tobacco status: former smoker Second hand smoke exposure: No Smoking risk assessment/counseling performed?: No Alcohol intake: never Desire information about alcohol rehabilitation?: No Counseling given: No Desire information about substance/drug rehabilitation?: No Counseling given: No Adopted: No Caregiver/support person: No Lives independently: Yes Household members: spouse Housing: House Marital status: Current occupational status: retired History of recent travel: No Current gender identity: Male Physical Exam Const: GENERAL APPEARANCE: cooperative and comfortable ORIENTATION/CONSCIOUSNESS: Yes awake, Yes oriented to person, Yes oriented to place and Yes oriented to time HENMT: COMMON NORMALS: normocephalic, atraumatic and hearing grossly normal bilaterally HEAD & SCALP: normocephalic and atraumatic Neck/C-Spine: COMMON NORMALS: no JVD Resp: COMMON NORMALS: normal respiratory effort, No retractions, No use of accessory muscles and clear to auscultation bilaterally AUSCULTATION: clear to auscultation bilaterally Cardio: COMMON NORMALS: no JVD, regular rate, regular rhythm and No murmurs present (Cardio) RATE: regular rate RHYTHM: regular rhythm GI: COMMON NORMALS: Soft to palpation and No hepatosplenomegaly present AUSCULTATION: Yes normoactive bowel sounds PALPATION: Yes Soft to palpation, No Tenderness to palpation present (GI), No Guarding due to palpation present (GI) and Yes No hepatosplenomegaly present Extremity: COMMON NORMALS: normal to inspection, capillary refill normal, no clubbing, cyanosis or edema, no calf tenderness and no pedal edema Neuro: SENSORIUM/ORIENTATION: Yes oriented to person, Yes oriented to place and Yes oriented to time Skin: COMMON NORMALS: no rashes or lesions noted GENERAL SKIN EXAM: no rashes or lesions noted Course Vital Signs: Vital signs: Vital Signs Pulse Rate 103 H 11/08/21 19:00 Respiratory Rate 16 11/08/21 14:56 Blood Pressure 120/85 11/08/21 19:00 Pulse Oximetry 98 11/08/21 19:00 MDM - Chest Pain Medical Decision Making Care signed out to Dr. Pelletier at change of shift. See final notes for diagnosis and disposition. Patient presents for chest pain that is since resolved he is well-appearing here initial and repeat troponins here are negative he is stable for discharge is to follow-up with PCP and return if worsening he understands agrees to plan. Lab Data : 11/08/21 15:01 11/08/21 16:00 Radiology Impressions Chest X-Ray 11/08/21 13:37 IMPRESSION: Diffuse interstitial prominence that likely reflects interstitial lung disease. Recommend CT chest to better compare to prior and assess for progression. Abdomen/Pelvis CT 11/08/21 13:38 IMPRESSION: 1. Comparison CT 07/19/2020. 2. Several tiny pulmonary nodules in the lung bases which may have increased in size, nonspecific but may represent metastatic disease. Infectious/inflammatory bronchiolitis may also be considered. There are also interval progression of central bronchiectasis/peribronchial thickening and fibrotic changes. 3. Postsurgical changes in with ileocolic anastomosis with no acute bowel findings. Moderate stool burden. 4. Abnormal urinary bladder with slight interval worsening of left hydroureter and hydronephrosis and delayed nephrogram and urothelial enhancement. See discussion above. Follow up assessment should be considered. 5. Otherwise no evidence of abdominopelvic visceral metastasis.0 Laboratory Results WBC 10.7 10^3/uL (4.0-10.0) H 11/08/21 15:01 RBC 4.24 10^6/uL (4.1-5.3) 11/08/21 15:01 Hgb 10.9 g/dL (11.7-16.6) L 11/08/21 15:01 Hct 35.2 % (42.0-52.0) L 11/08/21 15:01 MCV 83.0 fl (80-94) 11/08/21 15:01 MCH 25.7 pg (28.0-34.0) L 11/08/21 15:01 MCHC 31.0 g/dL (30.0-36.0) 11/08/21 15:01 RDW 14.8 % (12.1-15.1) 11/08/21 15:01 Plt Count 439 10^3/cmm (130-400) H 11/08/21 15:01 MPV 8.5 fL (7.4-10.4) 11/08/21 15:01 Neut % (Auto) 66.3 % 11/08/21 15:01 Lymph % (Auto) 19.7 % 11/08/21 15:01 Lucas % (Auto) 9.0 % 11/08/21 15:01 Eos % (Auto) 3.5 % 11/08/21 15:01 Baso % (Auto) 0.5 % 11/08/21 15:01 Neut # (Auto) 7.06 10^3/uL (1.8-7.7) 11/08/21 15:01 Lymph # (Auto) 2.1 10^3/uL (0.8-4.8) 11/08/21 15:01 Lucas # (Auto) 1.0 10^3/uL (0.2-0.9) H 11/08/21 15:01 Eos # (Auto) 0.4 10^3/uL (0.0-0.8) 11/08/21 15:01 Baso # (Auto) 0.1 10^3/uL (0.0-0.1) 11/08/21 15:01 Nucleated RBC % (auto) 0 % 11/08/21 15:01 Nucleated RBCs # 0.0 /100WBC 11/08/21 15:01 Sodium 128 mmol/L (136-145) L 11/08/21 16:00 Potassium 3.9 mmol/L (3.5-5.1) 11/08/21 16:00 Chloride 92 mmol/L (98-107) L 11/08/21 16:00 Carbon Dioxide 25 mmol/L (22-29) 11/08/21 16:00 Anion Gap 14.9 (5-19) 11/08/21 16:00 BUN 15 mg/dL (8-23) 11/08/21 16:00 Creatinine 1.1 mg/dL (0.7-1.2) 11/08/21 16:00 GFR Calculation Not Reportable 11/08/21 16:00 Glucose 130 mg/dL (65-115) H 11/08/21 16:00 Calculated Osmolality 269 mOsm/kg (285-295) L 11/08/21 16:00 Calcium 8.9 mg/dL (8.5-10.5) 11/08/21 16:00 Total Bilirubin 0.2 mg/dL (0.15-1.2) 11/08/21 15:01 AST 9 U/L (0-40) 11/08/21 15:01 ALT 9 U/L (0-41) 11/08/21 15:01 Alkaline Phosphatase 80 IU/L (40-130) 11/08/21 15:01 Troponin T Baseline 10 ng/L (0-15) 11/08/21 15:01 Troponin T 120 Minute 13.73 ng/L (0-15) 11/08/21 16:56 Delta Troponin T 3.73 ABS# (0-10) 11/08/21 16:56 Total Protein 4.2 g/dL (6.6-8.7) L 11/08/21 15:01 Albumin 1.7 g/dL (3.5-5.2) L 11/08/21 15:01 Globulin 2.5 g/dL (1.3-4.6) 11/08/21 15:01 Urine Color Yellow (Yellow) 11/08/21 15:14 Urine Appearance Turbid (CLEAR) 11/08/21 15:14 Urine pH 5 (5-7) 11/08/21 15:14 Ur Specific [place] 1.010 (1.005-1.030) 11/08/21 15:14 Urine Protein 1+ (Negative) H 11/08/21 15:14 Urine Glucose (UA) 1+ (Normal) H 11/08/21 15:14 Urine Ketones Negative (Negative) 11/08/21 15:14 Urine Blood 2+ (Negative) H 11/08/21 15:14 Urine Nitrate Negative (Negative) 11/08/21 15:14 Urine Bilirubin Neg (Negative) 11/08/21 15:14 Urine Urobilinogen Norm mg/dL (Negative) 11/08/21 15:14 Ur Leukocyte Esterase 2+ (Negative) H 11/08/21 15:14 Urine RBC 5-10 /hpf (0-2) H 11/08/21 15:14 Urine WBC Too numerous to cnt /hpf (0-5) H 11/08/21 15:14 Ur Squamous Epith Cells 0-4 /hpf (0-5) H 11/08/21 15:14 Amorphous Sediment Not Reportable 11/08/21 15:14 Urine Bacteria 1+ /hpf (NONE) H 11/08/21 15:14 Discharge Plan Discharge Patient Disposition: Home Clinical Impression: Chest pain Qualifiers: Chest pain type: unspecified Qualified Code(s): R07.9 - Chest pain, unspecified Condition: Stable Prescriptions: No Action Ozempic 0.25 mg or 0.5 mg(2 mg/1.5 mL) pen injector 0.25 mg SUBCUT .weekly Qty: 1.5 2RF Hold Instructions: NO desire to eat aspirin 81 mg tablet,delayed release (DR/EC) 81 mg PO QAM Qty: 60 2RF atorvastatin 20 mg tablet 20 mg PO BEDTIME Qty: 30 2RF (DME) True Metrix Glucose Test Strip Strip See Rx Instructions .ROUTE .MEDSUPPLY Qty: 100 5RF Rx Instructions: 3 times day Plavix 75 mg tablet 75 mg PO QAM Qty: 60 2RF duloxetine [Cymbalta] 20 mg capsule,delayed release(DR/EC) 20 mg PO BID Qty: 60 2RF gabapentin 300 mg capsule 300 mg PO BID Qty: 60 2RF Rx Instructions: dose change due to insurance coverage will not provide more than 90 capsule monthly Levemir FlexTouch U-100 Insuln 100 unit/mL (3 mL) insulin pen 65 - 75 unit SUBCUT QAM Qty: 30 2RF levocetirizine 5 mg tablet 5 mg PO QAM Qty: 30 2RF metformin 500 mg tablet extended release 24hr 1,000 mg PO QAM Qty: 60 2RF metoprolol succinate 50 mg tablet extended release 24 hr 50 mg PO QAM Qty: 60 2RF Protonix 40 mg tablet,delayed release (DR/EC) 40 mg PO QAM Qty: 30 2RF (DME) pen needle, diabetic 33 gauge x 5/32 needle See Rx Instructions .ROUTE .MEDSUPPLY Qty: 100 5RF Rx Instructions: 4 times day as needed Flomax 0.4 mg capsule 0.4 mg PO QPM Qty: 30 2RF (DME) blood-glucose meter [place]True Metrix Gl[place] Meter[place] [facility] [place] Instructions .ROUTE .MEDSUPPLY Qty: 1 0RF Rx Instructions: daily cholecalciferol (vitamin D3) 125 mcg (5,000 unit) capsule 125 mcg PO DAILY Qty: 30 2RF lisinopril 2.5 mg tablet 2.5 mg PO QAM 0RF Discharge Orders: Discharge ED (Routine); Ordered 11/08/21 Ordered By: Shital Pelletier Referrals: Aline Pacheco FNP-C [Primary Care Provider] - Discharge Diet: Advance as tolerated Discharge Activity: Resume usual activity Patient Instructions: Chest Pain (ED) Coding Level of Care Code ED Electric Motor Rebuilder for Chg Fwd Exam Comprehensive Documented by User: Shital Pelletier MD 11/08/21 18:53 HPI - Chest Pain General: Chief Complaint: Chest Pain Stated Complaint: CHEST PAIN Time Seen by Provider: 11/08/21 13:34 PFSH ED PFSH: Medical History Acid reflux Allergic rhinitis due to pollen Aortic regurgitation Cervical radicular pain Chronic migraine Coronary artery disease CVA (cerebral vascular accident) Past history of CVA. Continue statin, aspirin, Plavix DDD (degenerative disc disease) Dependent on walker for ambulation Diabetes mellitus with hyperglycemia, with long-term current use of insulin Enrolled in chronic care management History of stroke Hyperglycemia Hyperlipidemia Hypertension Tricuspid regurgitation Vitamin D deficiency Surgical History History of cataract surgery History of cervical spinal surgery 3 times History of cholecystectomy History of colon cancer 2015 History of knee surgery Right Family History Father Cancer Denies family history of Bleeding disorder Social History Smoking and tobacco status: former smoker Second hand smoke exposure: No Smoking risk assessment/counseling performed?: No Alcohol intake: never Desire information about alcohol rehabilitation?: No Counseling given: No Desire information about substance/drug rehabilitation?: No Counseling given: No Adopted: No Caregiver/support person: No Lives independently: Yes Household members: spouse Housing: House Marital status: Current occupational status: retired History of recent travel: No Current gender identity: Male Course Vital Signs: Vital signs: Vital Signs Pulse Rate 103 H 11/08/21 19:00 Respiratory Rate 16 11/08/21 14:56 Blood Pressure 120/85 11/08/21 19:00 Pulse Oximetry 98 11/08/21 19:00 MDM - Chest Pain Medical Decision Making Patient presents for chest pain that is since resolved he is well-appearing here initial and repeat troponins here are negative he is stable for discharge is to follow-up with PCP and return if worsening he understands agrees to plan. Lab Data : 11/08/21 15:01 11/08/21 16:00 Radiology Impressions Chest X-Ray 11/08/21 13:37 IMPRESSION: Diffuse interstitial prominence that likely reflects interstitial lung disease. Recommend CT chest to better compare to prior and assess for progression. Abdomen/Pelvis CT 11/08/21 13:38 IMPRESSION: 1. Comparison CT 07/19/2020. 2. Several tiny pulmonary nodules in the lung bases which may have increased in size, nonspecific but may represent metastatic disease. Infectious/inflammatory bronchiolitis may also be considered. There are also interval progression of central bronchiectasis/peribronchial thickening and fibrotic changes. 3. Postsurgical changes in with ileocolic anastomosis with no acute bowel findings. Moderate stool burden. 4. Abnormal urinary bladder with slight interval worsening of left hydroureter and hydronephrosis and delayed nephrogram and urothelial enhancement. See discussion above. Follow up assessment should be considered. 5. Otherwise no evidence of abdominopelvic visceral metastasis.0 Laboratory Results WBC 10.7 10^3/uL (4.0-10.0) H 11/08/21 15:01 RBC 4.24 10^6/uL (4.1-5.3) 11/08/21 15:01 Hgb 10.9 g/dL (11.7-16.6) L 11/08/21 15:01 Hct 35.2 % (42.0-52.0) L 11/08/21 15:01 MCV 83.0 fl (80-94) 11/08/21 15:01 MCH 25.7 pg (28.0-34.0) L 11/08/21 15:01 MCHC 31.0 g/dL (30.0-36.0) 11/08/21 15:01 RDW 14.8 % (12.1-15.1) 11/08/21 15:01 Plt Count 439 10^3/cmm (130-400) H 11/08/21 15:01 MPV 8.5 fL (7.4-10.4) 11/08/21 15:01 Neut % (Auto) 66.3 % 11/08/21 15:01 Lymph % (Auto) 19.7 % 11/08/21 15:01 Lucas % (Auto) 9.0 % 11/08/21 15:01 Eos % (Auto) 3.5 % 11/08/21 15:01 Baso % (Auto) 0.5 % 11/08/21 15:01 Neut # (Auto) 7.06 10^3/uL (1.8-7.7) 11/08/21 15:01 Lymph # (Auto) 2.1 10^3/uL (0.8-4.8) 11/08/21 15:01 Lucas # (Auto) 1.0 10^3/uL (0.2-0.9) H 11/08/21 15:01 Eos # (Auto) 0.4 10^3/uL (0.0-0.8) 11/08/21 15:01 Baso # (Auto) 0.1 10^3/uL (0.0-0.1) 11/08/21 15:01 Nucleated RBC % (auto) 0 % 11/08/21 15:01 Nucleated RBCs # 0.0 /100WBC 11/08/21 15:01 Sodium 128 mmol/L (136-145) L 11/08/21 16:00 Potassium 3.9 mmol/L (3.5-5.1) 11/08/21 16:00 Chloride 92 mmol/L (98-107) L 11/08/21 16:00 Carbon Dioxide 25 mmol/L (22-29) 11/08/21 16:00 Anion Gap 14.9 (5-19) 11/08/21 16:00 BUN 15 mg/dL (8-23) 11/08/21 16:00 Creatinine 1.1 mg/dL (0.7-1.2) 11/08/21 16:00 GFR Calculation Not Reportable 11/08/21 16:00 Glucose 130 mg/dL (65-115) H 11/08/21 16:00 Calculated Osmolality 269 mOsm/kg (285-295) L 11/08/21 16:00 Calcium 8.9 mg/dL (8.5-10.5) 11/08/21 16:00 Total Bilirubin 0.2 mg/dL (0.15-1.2) 11/08/21 15:01 AST 9 U/L (0-40) 11/08/21 15:01 ALT 9 U/L (0-41) 11/08/21 15:01 Alkaline Phosphatase 80 IU/L (40-130) 11/08/21 15:01 Troponin T Baseline 10 ng/L (0-15) 11/08/21 15:01 Troponin T 120 Minute 13.73 ng/L (0-15) 11/08/21 16:56 Delta Troponin T 3.73 ABS# (0-10) 11/08/21 16:56 Total Protein 4.2 g/dL (6.6-8.7) L 11/08/21 15:01 Albumin 1.7 g/dL (3.5-5.2) L 11/08/21 15:01 Globulin 2.5 g/dL (1.3-4.6) 11/08/21 15:01 Urine Color Yellow (Yellow) 11/08/21 15:14 Urine Appearance Turbid (CLEAR) 11/08/21 15:14 Urine pH 5 (5-7) 11/08/21 15:14 Ur Specific [place] 1.010 (1.005-1.030) 11/08/21 15:14 Urine Protein 1+ (Negative) H 11/08/21 15:14 Urine Glucose (UA) 1+ (Normal) H 11/08/21 15:14 Urine Ketones Negative (Negative) 11/08/21 15:14 Urine Blood 2+ (Negative) H 11/08/21 15:14 Urine Nitrate Negative (Negative) 11/08/21 15:14 Urine Bilirubin Neg (Negative) 11/08/21 15:14 Urine Urobilinogen Norm mg/dL (Negative) 11/08/21 15:14 Ur Leukocyte Esterase 2+ (Negative) H 11/08/21 15:14 Urine RBC 5-10 /hpf (0-2) H 11/08/21 15:14 Urine WBC Too numerous to cnt /hpf (0-5) H 11/08/21 15:14 Ur Squamous Epith Cells 0-4 /hpf (0-5) H 11/08/21 15:14 Amorphous Sediment Not Reportable 11/08/21 15:14 Urine Bacteria 1+ /hpf (NONE) H 11/08/21 15:14 Discharge Plan Discharge Patient Disposition: Home Clinical Impression: Chest pain Qualifiers: Chest pain type: unspecified Qualified Code(s): R07.9 - Chest pain, unspecified Condition: Stable Prescriptions: No Action Ozempic 0.25 mg or 0.5 mg(2 mg/1.5 mL) pen injector 0.25 mg SUBCUT .weekly Qty: 1.5 2RF Hold Instructions: NO desire to eat aspirin 81 mg tablet,delayed release (DR/EC) 81 mg PO QAM Qty: 60 2RF atorvastatin 20 mg tablet 20 mg PO BEDTIME Qty: 30 2RF (DME) True Metrix Glucose Test Strip Strip See Rx Instructions .ROUTE .MEDSUPPLY Qty: 100 5RF Rx Instructions: 3 times day Plavix 75 mg tablet 75 mg PO QAM Qty: 60 2RF duloxetine [Cymbalta] 20 mg capsule,delayed release(DR/EC) 20 mg PO BID Qty: 60 2RF gabapentin 300 mg capsule 300 mg PO BID Qty: 60 2RF Rx Instructions: dose change due to insurance coverage will not provide more than 90 capsule monthly Levemir FlexTouch U-100 Insuln 100 unit/mL (3 mL) insulin pen 65 - 75 unit SUBCUT QAM Qty: 30 2RF levocetirizine 5 mg tablet 5 mg PO QAM Qty: 30 2RF metformin 500 mg tablet extended release 24hr 1,000 mg PO QAM Qty: 60 2RF metoprolol succinate 50 mg tablet extended release 24 hr 50 mg PO QAM Qty: 60 2RF Protonix 40 mg tablet,delayed release (DR/EC) 40 mg PO QAM Qty: 30 2RF (DME) pen needle, diabetic 33 gauge x 5/32 needle See Rx Instructions .ROUTE .MEDSUPPLY Qty: 100 5RF Rx Instructions: 4 times day as needed Flomax 0.4 mg capsule 0.4 mg PO QPM Qty: 30 2RF (DME) blood-glucose meter [True Metrix Glucose Meter] Misc See Rx Instructions .ROUTE .MEDSUPPLY Qty: 1 0RF Rx Instructions: daily cholecalciferol (vitamin D3) 125 mcg (5,000 unit) capsule 125 mcg PO DAILY Qty: 30 2RF lisinopril 2.5 mg tablet 2.5 mg PO QAM 0RF Discharge Orders: Discharge ED (Routine); Ordered 11/08/21 Ordered By: Shital Pelletier Referrals: Aline Pacheco, FILTER TENDER JELLY-C [Primary Care Provider] - Discharge Diet: Advance as tolerated Discharge Activity: Resume usual activity Patient Instructions: Chest Pain (ED) Coding Level of Care Code ED Electric Motor Rebuilder for Jose Luis Fwalejandro Exam Comprehensive
[2021-11-08 14:56] VITALS: BP 111/82; PULSE 83; RESP 16; O2SAT 99
--- NOTE | 2021-11-08 14:59 | PC.PHAR ---
PT STATES HE TAKES CARE OF HIS OWN MEDICATIONS-PT STATES [facility] PUTS HIS PILL IN A PACK AND HE TAKES THEM-PT STATES HIS OZEMPIC WAS PUT ON HOLD-[facility] STATES THE VIT D 125MCG DAILY HASNT BEEN FILLED YET STATES THEY HAVE ON HOLD-PT STATES HE HAS BEEN OUT OF HIS MEDICATION SINCE Sat11/01/21 [facility] STATES THE PT LAST PICKED UP MEDS ON 10/17/21 30D/S
[2021-11-08 15:09] LABS: Basophils # 0.1 10^3/uL (0.0-0.1); Basophils % 0.5 %; Eosinophils # 0.4 10^3/uL (0.0-0.8); Eosinophils % 3.5 %; Hematocrit 35.2 % (42.0-52.0); Hemoglobin 10.9 g/dL (11.7-16.6); Lymphocytes # 2.1 10^3/uL (0.8-4.8); Lymphocytes % 19.7 %; Mean Corpuscular Hemoglobin 25.7 pg (28.0-34.0); Mean Platelet Volume 8.5 fL (7.4-10.4); Neutrophils # 7.06 10^3/uL (1.8-7.7); Neutrophils % 66.3 %; Nucleated Red Blood Cells % 0 %; Platelet Count 439 10^3/cmm (130-400); Red Blood Count 4.24 10^6/uL (4.1-5.3); Red Cell Distribution Width 14.8 % (12.1-15.1); White Blood Count 10.7 10^3/uL (4.0-10.0)
[2021-11-08 15:30] LABS: Troponin(5th) Baseline 10 ng/L (0-15)
[2021-11-08 15:32] LABS: Alanine Aminotransferase 9 U/L (0-41); Albumin Level 1.7 g/dL (3.5-5.2); Alkaline Phosphatase 80 IU/L (40-130); Anion Gap 10.1 (5-19); Aspartate Amino Transferase 9 U/L (0-40); Blood Urea Nitrogen 9 mg/dL (8-23); Carbon Dioxide 17 mmol/L (22-29); Chloride 117 mmol/L (98-107); Globulin 2.5 g/dL (1.3-4.6); Glucose 98 mg/dL (65-115); Osmolality Calculated 293 mOsm/kg (285-295); Sodium 142 mmol/L (136-145); Total Bilirubin 0.2 mg/dL (0.15-1.2); Total Protein 4.2 g/dL (6.6-8.7)
[2021-11-08 15:34] LABS: Calcium 4.9 mg/dL (8.5-10.5); Potassium 2.1 mmol/L (3.5-5.1)
--- NOTE | 2021-11-08 15:37 | ECG_ITS ---
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 Measurements Intervals [place] Rate: 80 P: 60 [place]: 172 QRS: 19 QRSD: 85 T: 41 QT: 364 QTc: 421 Interpretive Statements SINUS RHYTHM Compared to ECG 11/08/2021 13:46:05 No significant changes Electronically Signed On 11-08-2021 20:10:19 CDT by Isamar Pierce M.D. [id number]
[2021-11-08 15:45] LABS: Urine Appearance Turbid (CLEAR); Urine Color Yellow (Yellow); pH Urine 5 (5-7)
[2021-11-08 15:46] LABS: Add Urine Microscopic? YES; Bilirubin Urine Neg (Negative); Blood Urine 2+ (Negative); Glucose Urine UA 1+ (Normal); Ketones Urine Negative (Negative); Leukocyte Esterase Urine 2+ (Negative); Nitrate Urine Negative (Negative); Protein Urine 1+ (Negative); Squamous Epithelial Cell Urine 0-4 /hpf (0-5); Urobilinogen Urine Norm (Negative); WBC Urine TOO NUMEROUS TO CNT /hpf (0-5)
[2021-11-08 15:47] LABS: Add Urine Culture? Yes; Bacteria Urine 1+ /hpf
[2021-11-08] MEDS: iohexol 350 mg/mL 100 mL Btl IV (15:55)
[2021-11-08 16:24] LABS: Anion Gap 14.9 (5-19); Blood Urea Nitrogen 15 mg/dL (8-23); Calcium 8.9 mg/dL (8.5-10.5); Carbon Dioxide 25 mmol/L (22-29); Chloride 92 mmol/L (98-107); Glucose 130 mg/dL (65-115); Osmolality Calculated 269 mOsm/kg (285-295); Potassium 3.9 mmol/L (3.5-5.1); Sodium 128 mmol/L (136-145)
[2021-11-08] MEDS: cefTRIAXone 1,000 MG in sodium chloride 0.9% (plus) 50 ML 100 MG IV (17:05)
[2021-11-08] MEDS: aspirin 81 mg Chew Tablet 324 MG PO (17:47)
[2021-11-08 18:34] LABS: Troponin 5 2HR 13.73 ng/L (0-15)
[2021-11-08 19:00] VITALS: BP 120/85; PULSE 103; O2SAT 98
[2021-11-08 19:18] LABS: Troponin 5 2HR Delta 3.73 ABS# (0-10)
== END 2021-11-08 19:02 | disposition home or self-care (01) ==
PROVIDERS: Family Medicine; Emergency Provider Emergency Medicine; PCP Nurse Practitioner
DX: R07.9 Chest pain, unspecified (principal); I10 Essential (primary) hypertension; E11.9 Type 2 diabetes mellitus without complications; E78.5 Hyperlipidemia, unspecified; E55.9 Vitamin D deficiency, unspecified; Z86.73 Personal history of transient ischemic attack (TIA), and cerebral infarction without residual deficits
CPT/HCPCS: 36415; 71045; 74177; 80048; 80053; 81001; 84484; 85025; 87040; 87086; 93005; 96365; 99285; J0696; Q9967

== ENCOUNTER 2021-12-20 09:52 | Emergency (ER) | payer MEDICARE, MEDICAID, SELFPAY ==
--- NOTE | 2021-12-20 09:54 | XRR_ITS ---
PROCEDURE INFORMATION: Exam: XR Chest Exam date and time: 12/20/2021 10:10 AM Age: 76 years old Clinical indication: Pain; Angina pectoris; Additional info: Chest pain TECHNIQUE: Imaging protocol: Radiologic exam of the chest. Views: 1 view. COMPARISON: CR XR chest 1V portable [id number] 11/08/2021 1:56 PM FINDINGS: Lungs: No focal airspace disease. Pleural spaces: Unremarkable. No pleural effusion. No pneumothorax. Heart/Mediastinum: Cardiomediastinal silhouette is within normal limits. Bones/joints: Unremarkable. XR/XR chest 1V portable [id number] IMPRESSION: No acute cardiopulmonary abnormality.
--- NOTE | 2021-12-20 09:54 | ECG_ITS ---
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 Measurements Intervals [place] Rate: 58 P: 57 [place]: 175 QRS: 14 QRSD: 80 T: 24 QT: 407 QTc: 400 Interpretive Statements SINUS BRADYCARDIA Compared to ECG 11/08/2021 16:05:30 Sinus rhythm no longer present Electronically Signed On 12-20-2021 22:16:46 CDT by Isamar Pierce M.D. [id number]
[2021-12-20 10:01] VITALS: BP 107/58; PULSE 62; RESP 19; TEMP 36.6; O2SAT 96; BMI 25.9
--- NOTE | 2021-12-20 10:20 | W.ED.CHESTPA ---
HPI - Chest Pain General: Chief Complaint: Chest Pain Stated Complaint: CP Time Seen by Provider: 12/20/21 10:10 Source: patient Mode of arrival: ambulatory Limitations: no limitations History of Present Illness: 76-year-old male presents emergency room with complaints of chest pain began last night at 1 AM he took a nitroglycerin not much effect from the he was given fentanyl which did seem to help also nitro. He was also given aspirin called by EMS. Rates pain at its worst at 5 of 10 now its at a 2 of 10 the pain is reproducible palpation across anterior chest wall no recent heavy lifting pain is not reproducible with deep inspiration. He has not had any pain prior to last night. Pain did radiate into the left arm he is not had any vomiting or diarrhea. He has a history of coronary disease and had stents placed about 5 to 6 years ago. MD complaint: chest pain Pertinent past history: coronary artery disease Onset (ago): hour(s) Timing of current episode: episodic Prior episodes: No Onset: during rest Pain location: left chest Pain radiation: left arm Severity: mild Quality: tightness Relieving factors: nothing Exacerbating factors: nothing Associated symptoms: Deny abdominal pain, dyspnea, fever(s), nausea, palpitations or vomiting Review of Systems Const: Denies: fever(s), chills, body aches, change in appetite, fatigue or malaise ENMT: Denies: throat pain, ear or mastoid pain, nasal discharge or nasal congestion Card: Reports: chest pain; Denies: palpitations, irregular heart rhythm, edema, dyspnea on exertion or orthopnea Resp: Denies: dyspnea, productive cough or non-productive cough GI: Denies: abdominal pain, nausea, vomiting, hematemesis, coffee ground emesis, diarrhea, constipation, bloating, hematochezia or melena : Denies: flank pain, difficulty urinating, dysuria, urinary frequency or urinary urgency Skin/Breast: Denies: rash or pruritus PFSH ED PFSH: Medical History Acid reflux Allergic rhinitis due to pollen Aortic regurgitation Cervical radicular pain Chronic migraine Coronary artery disease CVA (cerebral vascular accident) Past history of CVA. Continue statin, aspirin, Plavix DDD (degenerative disc disease) Dependent on walker for ambulation Diabetes mellitus with hyperglycemia, with long-term current use of insulin Enrolled in chronic care management History of stroke Hyperglycemia Hyperlipidemia Hypertension Tricuspid regurgitation Vitamin D deficiency Surgical History History of cataract surgery History of cervical spinal surgery 3 times History of cholecystectomy History of colon cancer 2015 History of knee surgery Right Family History Father Cancer Denies family history of Bleeding disorder Social History Smoking and tobacco status: former smoker Second hand smoke exposure: No Smoking risk assessment/counseling performed?: No Alcohol intake: never Desire information about alcohol rehabilitation?: No Counseling given: No Desire information about substance/drug rehabilitation?: No Counseling given: No Adopted: No Caregiver/support person: No Lives independently: Yes Household members: spouse Housing: House Marital status: Current occupational status: retired History of recent travel: No Current gender identity: Male Physical Exam Const: COMMON NORMALS: no acute distress GENERAL APPEARANCE: cooperative and comfortable ORIENTATION/CONSCIOUSNESS: Yes awake, Yes oriented to person, Yes oriented to place and Yes oriented to time HENMT: COMMON NORMALS: normocephalic, atraumatic and hearing grossly normal bilaterally HEAD & SCALP: normocephalic and atraumatic Neck/C-Spine: COMMON NORMALS: no JVD Chest: CHEST: Yes tenderness Resp: COMMON NORMALS: normal respiratory effort, No retractions, No use of accessory muscles and clear to auscultation bilaterally AUSCULTATION: clear to auscultation bilaterally Cardio: COMMON NORMALS: no JVD, regular rate, regular rhythm and No murmurs present (Cardio) RATE: regular rate RHYTHM: regular rhythm GI: COMMON NORMALS: Soft to palpation and No hepatosplenomegaly present AUSCULTATION: Yes normoactive bowel sounds PALPATION: Yes Soft to palpation, No Tenderness to palpation present (GI), No Guarding due to palpation present (GI) and Yes No hepatosplenomegaly present Extremity: COMMON NORMALS: normal to inspection, capillary refill normal, no clubbing, cyanosis or edema, no calf tenderness and no pedal edema Neuro: SENSORIUM/ORIENTATION: Yes oriented to person, Yes oriented to place and Yes oriented to time Skin: COMMON NORMALS: no rashes or lesions noted GENERAL SKIN EXAM: no rashes or lesions noted Course Vital Signs: Vital signs: Vital Signs Temperature 97.9 F 12/20/21 10:27 Pulse Rate 96 12/20/21 13:46 Respiratory Rate 16 12/20/21 13:46 Blood Pressure 112/49 12/20/21 13:46 Pulse Oximetry 95 12/20/21 13:46 MDM - Chest Pain Medical Decision Making Chest pain reproducible palpation troponins negative. Patient had a Lexiscan sestamibi stress test in May of last year which was negative. Since pain is reproducible we will go and discharge him home follow-up with his primary care doctor or manager field services in the next week no change in medications and return if has further problems. Medical Records I reviewed the patient's medical records. Lab Data I reviewed the patient's lab results. : 12/20/21 10:17 12/20/21 10:17 Radiology Impressions Chest X-Ray 12/20/21 09:54 IMPRESSION: No acute cardiopulmonary abnormality. Laboratory Results WBC 10.6 10^3/uL (4.0-10.0) H 12/20/21 10:17 RBC 4.60 10^6/uL (4.1-5.3) 12/20/21 10:17 Hgb 12.1 g/dL (11.7-16.6) 12/20/21 10:17 Hct 38.1 % (42.0-52.0) L 12/20/21 10:17 MCV 82.8 fl (80-94) 12/20/21 10:17 MCH 26.3 pg (28.0-34.0) L 12/20/21 10:17 MCHC 31.8 g/dL (30.0-36.0) 12/20/21 10:17 RDW 16.4 % (12.1-15.1) H 12/20/21 10:17 Plt Count 303 10^3/cmm (130-400) 12/20/21 10:17 MPV 10.0 fL (7.4-10.4) 12/20/21 10:17 Neut % (Auto) 48.8 % 12/20/21 10:17 Lymph % (Auto) 37.3 % 12/20/21 10:17 [place] % (Auto) 7.5 % 12/20/21 10:17 Eos % (Auto) 5.2 % 12/20/21 10:17 Baso % (Auto) 0.6 % 12/20/21 10:17 Neut # (Auto) 5.20 10^3/uL (1.8-7.7) 12/20/21 10:17 Lymph # (Auto) 4.0 10^3/uL (0.8-4.8) 12/20/21 10:17 [place] # (Auto) 0.8 10^3/uL (0.2-0.9) 12/20/21 10:17 Eos # (Auto) 0.6 10^3/uL (0.0-0.8) 12/20/21 10:17 Baso # (Auto) 0.1 10^3/uL (0.0-0.1) 12/20/21 10:17 Nucleated RBC % (auto) 0 % 12/20/21 10:17 Nucleated RBCs # 0.0 /100WBC 12/20/21 10:17 Sodium 139 mmol/L (136-145) 12/20/21 10:17 Potassium 4.3 mmol/L (3.5-5.1) 12/20/21 10:17 Chloride 102 mmol/L (98-107) 12/20/21 10:17 Carbon Dioxide 27 mmol/L (22-29) 12/20/21 10:17 Anion Gap 14.3 (5-19) 12/20/21 10:17 BUN 16 mg/dL (8-23) 12/20/21 10:17 Creatinine 1.0 mg/dL (0.7-1.2) 12/20/21 10:17 GFR Calculation Not Reportable 12/20/21 10:17 Glucose 87 mg/dL (65-115) 12/20/21 10:17 Calculated Osmolality 289 mOsm/kg (285-295) 12/20/21 10:17 Calcium 9.4 mg/dL (8.5-10.5) 12/20/21 10:17 Total Bilirubin 0.3 mg/dL (0.15-1.2) 12/20/21 10:17 AST 14 U/L (0-40) 12/20/21 10:17 ALT 10 U/L (0-41) 12/20/21 10:17 Alkaline Phosphatase 89 IU/L (40-130) 12/20/21 10:17 Troponin T Baseline 12 ng/L (0-15) 12/20/21 10:17 Troponin T 120 Minute 10.63 ng/L (0-15) 12/20/21 12:31 Delta Troponin T 1.37 ABS# (0-10) 12/20/21 12:31 Total Protein 7.9 g/dL (6.6-8.7) 12/20/21 10:17 Albumin 3.8 g/dL (3.5-5.2) 12/20/21 10:17 Globulin 4.1 g/dL (1.3-4.6) 12/20/21 10:17 Discharge Plan Discharge Patient Disposition: Home Clinical Impression: Acute chest wall pain Condition: Stable Prescriptions: No Action Ozempic 0.25 mg or 0.5 mg(2 mg/1.5 mL) pen injector 0.25 mg SUBCUT .weekly Qty: 1.5 2RF Hold Instructions: NO desire to eat aspirin 81 mg tablet,delayed release (DR/EC) 81 mg PO QAM Qty: 60 2RF atorvastatin 20 mg tablet 20 mg PO BEDTIME Qty: 30 2RF (DME) True Metrix Glucose Test Strip Strip See Rx Instructions .ROUTE .MEDSUPPLY Qty: 100 5RF Rx Instructions: 3 times day Plavix 75 mg tablet 75 mg PO QAM Qty: 60 2RF duloxetine [Cymbalta] 20 mg capsule,delayed release(DR/EC) 20 mg PO BID Qty: 60 2RF gabapentin 300 mg capsule 300 mg PO BID Qty: 60 2RF Levemir FlexTouch U-100 Insuln 100 unit/mL (3 mL) insulin pen 65 - 75 unit SUBCUT QAM Qty: 30 2RF levocetirizine 5 mg tablet 5 mg PO QAM Qty: 30 2RF metformin 500 mg tablet extended release 24hr 1,000 mg PO QAM Qty: 60 2RF metoprolol succinate 50 mg tablet extended release 24 hr 50 mg PO QAM Qty: 60 2RF Protonix 40 mg tablet,delayed release (DR/EC) 40 mg PO QAM Qty: 30 2RF (DME) pen needle, diabetic 33 gauge x 5/32 needle See Rx Instructions .ROUTE .MEDSUPPLY Qty: 100 5RF Rx Instructions: 4 times day as needed Flomax 0.4 mg capsule 0.4 mg PO QPM Qty: 30 2RF (DME) blood-glucose meter [True Metrix Glucose Meter] Misc See Rx Instructions .ROUTE .MEDSUPPLY Qty: 1 0RF Rx Instructions: daily lisinopril 2.5 mg tablet 2.5 mg PO QAM 0RF cholecalciferol (vitamin D3) 125 mcg (5,000 unit) capsule 125 mcg PO QAM 0RF Discharge Orders: Discharge ED (Routine); Ordered 12/20/21 Ordered By: Fabian Dao Referrals: Aline Pacheco, BUILDING ATTENDANT-C [Primary Care Provider] - Discharge Diet: Usual diet Discharge Activity: Limit activity as instructed Patient Instructions: Opioid Safety Activity Restrictions/Additional Instructions: Follow-up with your primary care doctor or your manager field services in the next 1 to 2 weeks return to emergency room for further problems. Coding Level of Care Code ED [employer] Director for Jose Luis Gibson
[2021-12-20 10:27] VITALS: BP 107/58; PULSE 62; RESP 19; TEMP 36.6; O2SAT 96
[2021-12-20 10:42] LABS: Basophils # 0.1 10^3/uL (0.0-0.1); Basophils % 0.6 %; Eosinophils # 0.6 10^3/uL (0.0-0.8); Eosinophils % 5.2 %; Hematocrit 38.1 % (42.0-52.0); Hemoglobin 12.1 g/dL (11.7-16.6); Lymphocytes % 37.3 %; Mean Corpuscular HGB Conc 31.8 g/dL (30.0-36.0); Mean Corpuscular Hemoglobin 26.3 pg (28.0-34.0); Mean Corpuscular Volume 82.8 fl (80-94); Monocytes # 0.8 10^3/uL (0.2-0.9); Monocytes % 7.5 %; Neutrophils % 48.8 %; Nucleated Red Blood Cells % 0 %; Platelet Count 303 10^3/cmm (130-400); Red Cell Distribution Width 16.4 % (12.1-15.1); White Blood Count 10.6 10^3/uL (4.0-10.0)
[2021-12-20 11:22] LABS: Troponin(5th) Baseline 12 ng/L (0-15)
[2021-12-20 11:26] LABS: Alanine Aminotransferase 10 U/L (0-41); Albumin Level 3.8 g/dL (3.5-5.2); Alkaline Phosphatase 89 IU/L (40-130); Blood Urea Nitrogen 16 mg/dL (8-23); Calcium 9.4 mg/dL (8.5-10.5); Carbon Dioxide 27 mmol/L (22-29); Chloride 102 mmol/L (98-107); Globulin 4.1 g/dL (1.3-4.6); Glucose 87 mg/dL (65-115); Osmolality Calculated 289 mOsm/kg (285-295); Sodium 139 mmol/L (136-145); Total Bilirubin 0.3 mg/dL (0.15-1.2); Total Protein 7.9 g/dL (6.6-8.7)
--- NOTE | 2021-12-20 11:54 | ECG_ITS ---
[facility] Test Date: 2021-12-20 Pat Name: Barb Joe Department: Room: Gender: Male Manager Graphic: : 1945 Requested By: Vandana Marquez Order Number: [id number] Miguel MD: Isamar Pierce M.D. Measurements Intervals [place] Rate: 51 P: 62 MT: 190 QRS: 2 QRSD: 66 T: 16 QT: 416 QTc: 387 Interpretive Statements SINUS BRADYCARDIA MINIMAL ST DEPRESSION [0.025+ mV ST DEPRESSION] Compared to ECG 12/20/2021 10:04:40 ST (T wave) deviation now present Electronically Signed On 12-20-2021 22:23:44 CDT by Isamar Pierce M.D. [id number]
[2021-12-20 12:43] LABS: Anion Gap 14.3 (5-19); Aspartate Amino Transferase 14 U/L (0-40); Potassium 4.3 mmol/L (3.5-5.1)
[2021-12-20 12:47] VITALS: BP 112/49; PULSE 96; RESP 16; O2SAT 95
[2021-12-20 13:22] LABS: Troponin 5 2HR 10.63 ng/L (0-15)
[2021-12-20 13:46] VITALS: BP 112/49; PULSE 96; RESP 16; O2SAT 95
[2021-12-20 14:57] LABS: Troponin 5 2HR Delta 1.37 ABS# (0-10)
== END 2021-12-20 13:48 | disposition home or self-care (01) ==
PROVIDERS: Physician Assistant; Emergency Provider Family Medicine; PCP Nurse Practitioner
DX: R07.89 Other chest pain (principal); I25.10 Atherosclerotic heart disease of native coronary artery without angina pectoris; I10 Essential (primary) hypertension; Z95.5 Presence of coronary angioplasty implant and graft; Z87.891 Personal history of nicotine dependence; Z79.82 Long term (current) use of aspirin; Z79.02 Long term (current) use of antithrombotics/antiplatelets
CPT/HCPCS: 71045; 80053; 84484; 85025; 93005; 99284

== ENCOUNTER → 2022-02-02 12:04 | Outpatient (BNVA) | payer MEDICARE, MEDICAID, SELFPAY | PROVIDERS: PCP Nurse Practitioner; Visit Provider Nurse Practitioner | DX: E11.65 Type 2 diabetes mellitus with hyperglycemia (principal); Z79.4 Long term (current) use of insulin; E55.9 Vitamin D deficiency, unspecified; I63.9 Cerebral infarction, unspecified; M54.12 Radiculopathy, cervical region; J30.1 Allergic rhinitis due to pollen; I10 Essential (primary) hypertension; K21.9 Gastro-esophageal reflux disease without esophagitis; R32 Unspecified urinary incontinence | CPT/HCPCS: 80061; 82306; 83036; 84443; 85025 ==

== ENCOUNTER 2022-02-19 13:27 | Emergency (ER) | payer MEDICARE, MEDICAID, SELFPAY ==
--- NOTE | 2022-02-19 13:34 | XRR_ITS ---
PROCEDURE INFORMATION: Exam: XR Chest Exam date and time: 02/19/2022 1:56 PM Age: 76 years old Clinical indication: Pain; Angina pectoris; Additional info: Chest pain TECHNIQUE: Imaging protocol: Radiologic exam of the chest. Views: 1 view. COMPARISON: CR XR chest 1V portable [id number] 12/20/2021 10:10 AM FINDINGS: Lungs: Unremarkable. No consolidation. Pleural spaces: Unremarkable. No pleural effusion. No pneumothorax. Heart/Mediastinum: Unremarkable. No cardiomegaly. Bones/joints: Unremarkable. XR/XR chest 1V portable [id number] IMPRESSION: No acute findings.
--- NOTE | 2022-02-19 13:41 | ECG_ITS ---
[facility] Test Date: 2022-02-19 Pat Name: Barb Joe Department: Room: Gender: Male Senior Project Accountant: : 1945 Requested By: Yvan Cardoza Order Number: [id number] Miguel MD: Jerzy Castro M.D. Measurements Intervals [place] Rate: 68 P: 59 [place]: 165 QRS: -3 QRSD: 83 T: 17 QT: 381 QTc: 407 Interpretive Statements SINUS RHYTHM Compared to ECG 12/20/2021 11:55:35 Sinus bradycardia no longer present ST (T wave) deviation no longer present Electronically Signed On 02-19-2022 17:36:08 CDT by Jerzy Castro M.D. [email or web address] [email or web address] EARTH SYSTEMSselect medical [facility].Body & Soul/store/OM/[id number]
--- NOTE | 2022-02-19 13:44 | ED_ITS ---
HPI - General Adult General: Chief complaint: Chest Pain Stated complaint: CHEST PAIN Time Seen by Provider: 02/19/22 13:34 History of Present Illness: CC: Chest Pain HPI: This is a 76yo patient hx of CAD with stents x 2 presenting to the ED complaining of acute sudden onset intermittent sharp chest pain worse with inspiration WITHOUT radiation to the back or shoulders . No associated with shortness of breath, chest pain or dyspnea on exertion. Pain is not tearing in nature and does not radiate to the back. Pain not associated with vomiting or PO intake. Denies any recent sympathomimetic drug use. Patient denies any cough. Denies palpitations, dysphagia, diaphoresis, radiation of pain to bilateral arms, jaw. Denies F/N/V/D. Patient denies any recent immobility, surgery, uni lateral leg swelling, or prior PE. Patient denies any orthopnea. Onset:11am Duration: ongoing since today Location: home Severity: mild/moderate Associated symptoms: Reports chest pain; Deny dyspnea, nausea, rash, palpitations or vomiting Review of Systems Const: Denies: fever(s) or chills Eyes: Denies: change in vision ENMT: Denies: mouth pain Card: Reports: chest pain; Denies: palpitations Resp: Denies: dyspnea or non-productive cough GI: Denies: abdominal pain, nausea, vomiting or diarrhea : Denies: dysuria Musc: Denies: extremity pain Skin/Breast: Denies: rash or new lesions Neuro: Denies: weakness in extremities Psych: Reports: other (Normal mood) Aubrey/Lymph: Denies: easy bruising PFSH ED 2 PFSH: Medical History Acid reflux Allergic rhinitis due to pollen Aortic regurgitation Cervical radicular pain Chronic migraine Coronary artery disease CVA (cerebral vascular accident) Past history of CVA. Continue statin, aspirin, Plavix DDD (degenerative disc disease) Dependent on walker for ambulation Diabetes mellitus with hyperglycemia, with long-term current use of insulin Enrolled in chronic care management History of stroke Hyperglycemia Hyperlipidemia Hypertension Tricuspid regurgitation Vitamin D deficiency Surgical History History of cataract surgery History of cervical spinal surgery 3 times History of cholecystectomy History of colon cancer 2015 History of knee surgery Right Family History Father Cancer Denies family history of Bleeding disorder Social History Smoking and tobacco status: former smoker Second hand smoke exposure: No Smoking risk assessment/counseling performed?: No Alcohol intake: never Desire information about alcohol rehabilitation?: No Counseling given: No Desire information about substance/drug rehabilitation?: No Counseling given: No Adopted: No Caregiver/support person: No Lives independently: Yes Household members: spouse Housing: House Marital status: Current occupational status: retired History of recent travel: No Current gender identity: Male Physical Exam Const: COMMON NORMALS: alert HENMT: COMMON NORMALS: atraumatic HEAD & SCALP: atraumatic MOUTH: moist mucous membranes not abnormal Eye: COMMON NORMALS: EOMs intact bilaterally and conjunctivae normal CONJUNCTIVA: Yes conjunctivae normal Neck/C-Spine: COMMON NORMALS: full ROM and supple Resp: COMMON NORMALS: normal respiratory effort and clear to auscultation bilaterally AUSCULTATION: clear to auscultation bilaterally Cardio: COMMON NORMALS: regular rate RATE: regular rate OTHER: 2+ radial pulses b/l GI: COMMON NORMALS: Soft to palpation and non-tender PALPATION: Yes Soft to palpation OTHER: No focal TTP. NO guarding rebound, guarding, rigidity. No CVA tenderness to percussion. Neg Leung/Neg McBurney's point tenderness, no suprabupic tenderness to palpation. Extremity: COMMON NORMALS: full ROM Neuro: SENSORIUM/ORIENTATION: Yes alert MOTOR EXAM: No Abnormal motor strength present and Other motor observations present (no focal motor deficits) Psych: COMMON NORMALS: speech normal SPEECH: Yes normal speech MOOD & AFFECT: Yes euthymic mood Course Vital Signs: Vital signs: Vital Signs Temperature 97.8 F 02/19/22 13:56 Pulse Rate 68 02/19/22 17:41 Respiratory Rate 14 02/19/22 17:41 Blood Pressure 114/68 02/19/22 17:41 Pulse Oximetry 98 02/19/22 17:41 Oxygen Delivery Me thod 02/19/22 15:03 MDM - General Adult Medical Decision Making [76]yo patient w/ hx of CAD w/ stents x 2 presenting to the ED with evaluation of new onset sharp chest pain since 11am. HDS, pulse 2+ radially bilaterally, no signs of fluid overload, AAOx3, neuro exam intact. Workup: ECG x 2, CXR, CBC, BMP, Troponin x 2 Interventions: Tylenol 500mg PRN pain Findings: ECG: No overt evidence of STEMI, hyperacute T waves, localizable STD or T wave inversions. No evidence of Brugada?s sign, delta wave, epsilon wave, significantly prolonged QTc, or malignant arrhythmia. No Q waves. Other Labs unremarkable for emergent problems. CXR: Without PTX, PNA, or widened mediastinum DIMER: wnl On reassessment, the patient is HDS, no complaints of persistent chest pain in the ED after evaluation. ECG is non-ischemic. Workup today is unremarkable. Doub t ACS/PE or other emergent causes of chest pain. Troponins x2 with delta less than 5. EKG is nonischemic. Given patient's history of stents and no recent cardiac workup, I recommended admisison. However, at 5:20pm, patient electing to leave AMA. Patient counseled regarding risks of leaving including severe morbidity, brain , hypoxia, arrythmia, , chest pain, or any other unwanted consequences of leaving against medical advice today. Patient verbalizes understanding of the risks and still wishes to leave AMA. Signed AMA paperwork. Patient advised that patient is welcome to return at any time. Was instructed that patient may come back if symptoms continue to persist and that emergent adverse conditions have not fully been ruled out. Patient is A&Ox3 and has capacity and is of sound mind to make decisions. I have given patient follow up with our case checker to be seen by our outpatient Cardiology for evaluation of chest pain. Patient aware of a call from our case checker to schedule for appointment(s) and verbalizes understanding of the importance of following up. Disposition: AMA Lab Data : 02/19/22 13:50 02/19/22 13:50 Radiology Impressions Chest X-Ray 02/19/22 13:34 IMPRESSION: No acute findings. Laboratory Results WBC 9.1 10^3/uL (4.0-10.0) 02/19/22 13:50 RBC 4.75 10^6/uL (4.1-5.3) 02/19/22 13:50 Hgb 12.9 g/dL (11.7-16.6) 02/19/22 13:50 Hct 41.0 % (42.0-52.0) L 02/19/22 13:50 MCV 86.3 fl (80-94) 02/19/22 13:50 MCH 27.2 pg (28.0-34.0) L 02/19/22 13:50 MCHC 31.5 g/dL (30.0-36.0) 02/19/22 13:50 RDW 14.4 % (12.1-15.1) 02/19/22 13:50 Plt Count 323 10^3/cmm (130-400) 02/19/22 13:50 MPV 9.8 fL (7.4-10.4) 02/19/22 13:50 Neut % (Auto) 51.1 % 02/19/22 13:50 Lymph % (Auto) 35.1 % 02/19/22 13:50 [place] % (Auto) 7.8 % 02/19/22 13:50 Eos % (Auto) 5.5 % 02/19/22 13:50 Baso % (Auto) 0.3 % 02/19/22 13:50 Neut # (Auto) 4.63 10^3/uL (1.8-7.7) 02/19/22 13:50 Lymph # (Auto) 3.2 10^3/uL (0.8-4.8) 02/19/22 13:50 [place] # (Auto) 0.7 10^3/uL (0.2-0.9) 02/19/22 13:50 Eos # (Auto) 0.5 10^3/uL (0.0-0.8) 02/19/22 13:50 Baso # (Auto) 0.0 10^3/uL (0.0-0.1) 02/19/22 13:50 Nucleated RBC % (auto) 0 % 02/19/22 13:50 Nucleated RBCs # 0.0 /100WBC 02/19/22 13:50 D-Dimer 0.47 ug/mIFEU (0-0.59) 02/19/22 13:50 Sodium 138 mmol/L (136-145) 02/19/22 13:50 Potassium 4.1 mmol/L (3.5-5.1) 02/19/22 13:50 Chloride 98 mmol/L (98-107) 02/19/22 13:50 Carbon Dioxide 29 mmol/L (22-29) 02/19/22 13:50 Anion Gap 15.1 (5-19) 02/19/22 13:50 BUN 12 mg/dL (8-23) 02/19/22 13:50 Creatinine 1.3 mg/dL (0.7-1.2) H 02/19/22 13:50 GFR Calculation Not Reportable 02/19/22 13:50 Glucose 146 mg/dL (65-115) H 02/19/22 13:50 Calculated Osmolality 288 mOsm/kg (285-295) 02/19/22 13:50 Calcium 9.1 mg/dL (8.5-10.5) 02/19/22 13:50 Troponin T Baseline 11 ng/L (0-15) 02/19/22 13:50 Troponin T 120 Minute 12.62 ng/L (0-15) 02/19/22 15:55 Delta Troponin T 1.62 ABS# (0-10) 02/19/22 15:55 Imaging Data Other Imaging: Radiologist's impression: [employer] [place] [address] XRay Report Signed Patient: Hari Trejo Unit #: [id number] : 01/21/1997 Age/Sex: 25 / F ADM Date: 02/19/22 Loc: ER Room/Bed: Attending Dr: Ordering Provider/Ordering MD: Yvan Cardoza MD Date of Service: 02/19/22 Procedure(s): XR chest 1V portable [id number] Accession Number(s): [id number] Report Number: [id number] PROCEDURE INFORMATION: Exam: XR Chest Exam date and time: 02/19/2022 11:50 AM Age: 25 years old Clinical indication: Cough; Prior surgery; Surgery type: Port; Additional info: Cough, infected port TECHNIQUE: Imaging protocol: Radiologic exam of the chest. Views: 1 view. COMPARISON: No relevant prior studies available. FINDINGS: Tubes, catheters and devices: Left IJ approach MediPort is in satisfactory position, with distal tip at the level of the SVC/RA junction. Lungs: Unremarkable. No consolidation. Pleural spaces: Unremarkable. No pleural effusion. No pneumothorax. Heart/Mediastinum: Unremarkable. No cardiomegaly. Bones/joints: Unremarkable. XR/XR chest 1V portable [id number] IMPRESSION: No evidence of active cardiopulmonary disease. ? Dictated By: Roderick Rangel Signed By: Roderick Rangel Signed Date/Time: 02/19/22 1159 DD/ 1150 Discharge Plan Discharge Patient Disposition: Left Against Medical Advice Clinical Impression: Chest pain Condition: Stable Prescriptions: No Action Ozempic 0.25 mg or 0.5 mg(2 mg/1.5 mL) pen injector 0.25 mg SUBCUT .weekly Qty: 1.5 2RF Hold Instructions: NO desire to eat (DME) True Metrix Glucose Test Strip Strip See Rx Instructions .ROUTE .MEDSUPPLY Qty: 100 5RF Rx Instructions: 3 times day aspirin 81 mg tablet,delayed release (DR/EC) 81 mg PO QAM Qty: 60 2RF atorvastatin 20 mg tablet 20 mg PO BEDTIME Qty: 30 2RF Plavix 75 mg tablet 75 mg PO QAM Qty: 60 2RF duloxetine [Cymbalta] 20 mg capsule,delayed release(DR/EC) 20 mg PO BID Qty: 60 2RF gabapentin 300 mg capsule 300 mg PO BID Qty: 60 2RF Levemir FlexTouch U-100 Insuln 100 unit/mL (3 mL) insulin pen 65 - 75 unit SUBCUT QAM Qty: 30 2RF levocetirizine 5 mg tablet 5 mg PO QAM Qty: 30 2RF lisinopril 2.5 mg tablet 2.5 mg PO QAM Qty: 30 2RF metformin 500 mg tablet extended release 24hr 1,000 mg PO QAM Qty: 60 2RF metoprolol succinate 50 mg tablet extended release 24 hr 50 mg PO QAM Qty: 60 2RF Protonix 40 mg tablet,delayed release (DR/EC) 40 mg PO QAM Qty: 30 2RF (DME) pen needle, diabetic 33 gauge x 5/32 needle See Rx Instructions .ROUTE .MEDSUPPLY Qty: 100 5RF Rx Instructions: 4 times day as needed Flomax 0.4 mg capsule 0.4 mg PO QPM Qty: 30 2RF (DME) blood-glucose meter [True Metrix Glucose Meter] Misc See Rx Instructions .ROUTE .MEDSUPPLY Qty: 1 0RF Rx Instructions: daily Farxiga 5 mg tablet 5 mg PO QAM Qty: 30 2RF Rx Instructions: for blood sugar cholecalciferol (vitamin D3) 125 mcg (5,000 unit) capsule 125 mcg PO QAM Qty: 30 2RF Referrals: Aline Pacheco, RAILROAD POLICE OFFICER-C [Primary Care Provider] - Discharge Diet: Advance as tolerated Discharge Activity: Increase activity as tolerated Coding Level of Care Code ED Skiver Hand for Chg Fwd Exam Comprehensive
[2022-02-19 13:50] VITALS: RESP 14
[2022-02-19] MEDS: morphine 4 mg/mL SDV 1 mL 2 MG IVP (13:50)
[2022-02-19 13:56] VITALS: BP 103/70; PULSE 77; RESP 29; TEMP 36.6; O2SAT 97
[2022-02-19 14:02] LABS: Basophils % 0.3 %; Eosinophils # 0.5 10^3/uL (0.0-0.8); Eosinophils % 5.5 %; Hemoglobin 12.9 g/dL (11.7-16.6); Lymphocytes # 3.2 10^3/uL (0.8-4.8); Lymphocytes % 35.1 %; Mean Corpuscular HGB Conc 31.5 g/dL (30.0-36.0); Mean Corpuscular Hemoglobin 27.2 pg (28.0-34.0); Mean Corpuscular Volume 86.3 fl (80-94); Mean Platelet Volume 9.8 fL (7.4-10.4); Monocytes # 0.7 10^3/uL (0.2-0.9); Monocytes % 7.8 %; Neutrophils # 4.63 10^3/uL (1.8-7.7); Neutrophils % 51.1 %; Nucleated Red Blood Cells % 0 %; Platelet Count 323 10^3/cmm (130-400); Red Blood Count 4.75 10^6/uL (4.1-5.3); Red Cell Distribution Width 14.4 % (12.1-15.1); White Blood Count 9.1 10^3/uL (4.0-10.0)
[2022-02-19 14:32] LABS: D Dimer 0.47 ug/mIFEU (0-0.59)
[2022-02-19 14:38] LABS: Blood Urea Nitrogen 12 mg/dL (8-23); Calcium 9.1 mg/dL (8.5-10.5); Carbon Dioxide 29 mmol/L (22-29); Chloride 98 mmol/L (98-107); Glucose 146 mg/dL (65-115); Osmolality Calculated 288 mOsm/kg (285-295); Sodium 138 mmol/L (136-145)
[2022-02-19 14:39] LABS: Troponin(5th) Baseline 11 ng/L (0-15)
[2022-02-19 14:40] LABS: Anion Gap 15.1 (5-19); Potassium 4.1 mmol/L (3.5-5.1)
[2022-02-19 15:03] VITALS: BP 103/72; PULSE 66; RESP 21; O2SAT 96
--- NOTE | 2022-02-19 15:34 | ECG_ITS ---
[facility] Test Date: 2022-02-19 Pat Name: Barb Joe Department: Room: Gender: Male Api Developer: : 1945 Requested By: Yvan Cardoza Order Number: [id number] Miguel MD: Jerzy Castro M.D. Measurements Intervals [place] Rate: 65 P: 50 [place]: 171 QRS: 2 QRSD: 84 T: 29 QT: 398 QTc: 414 Interpretive Statements SINUS RHYTHM Compared to ECG 12/20/2021 11:55:35 Sinus bradycardia no longer present ST (T wave) deviation no longer present Electronically Signed On 02-19-2022 17:42:54 CDT by Jerzy Castro M.D. [email or web address] Energy Finance Fund IImer[facility].Vault Dragon/store/OM/[id number]
[2022-02-19 16:35] LABS: Troponin 5 2HR 12.62 ng/L (0-15)
[2022-02-19 16:50] VITALS: BP 111/65; PULSE 68; RESP 21; O2SAT 96
[2022-02-19 17:02] LABS: Troponin 5 2HR Delta 1.62 ABS# (0-10)
[2022-02-19 17:41] VITALS: BP 114/68; PULSE 68; RESP 14; O2SAT 98
--- NOTE | 2022-02-20 13:41 | DCPLANNER ---
Addendum entered by Megan Westfall 03/30/22 08:54: Patient had a follow up appointment at [facility] - patient did not attend appointment Addendum entered by Megan Westfall 03/09/22 08:18: Patient has a follow up appointment scheduled for , March 22, 2022 at 2:[address] Pierce at [facility]. Clinic will call patient with appointment information. Original Note: pension fund manager had message to schedule a follow up appointment for patient with cardiology. pension fund manager sent patients information to the front office staff at [facility]. Patients information will be printed and reviewed. Clinic will call patient with appointment information.
== END 2022-02-19 17:44 | disposition left against medical advice (07) ==
PROVIDERS: Emergency Provider Emergency Medicine; PCP Nurse Practitioner
DX: R07.9 Chest pain, unspecified (principal); Z53.21 Procedure and treatment not carried out due to patient leaving prior to being seen by health care provider; Z79.84 Long term (current) use of oral hypoglycemic drugs; Z79.02 Long term (current) use of antithrombotics/antiplatelets; Z79.82 Long term (current) use of aspirin; Z79.4 Long term (current) use of insulin; Z87.891 Personal history of nicotine dependence; I25.10 Atherosclerotic heart disease of native coronary artery without angina pectoris; Z86.73 Personal history of transient ischemic attack (TIA), and cerebral infarction without residual deficits; E11.9 Type 2 diabetes mellitus without complications; E78.5 Hyperlipidemia, unspecified; I10 Essential (primary) hypertension; Z85.038 Personal history of other malignant neoplasm of large intestine
CPT/HCPCS: 71045; 80048; 84484; 85025; 85378; 93005; 96374; 99285; J2270

== ENCOUNTER 2022-03-10 17:25 | Emergency (ER) | payer MEDICARE, MEDICAID, SELFPAY ==
[2022-03-10 17:32] VITALS: BP 100/61; PULSE 72; RESP 16; TEMP 36.6; O2SAT 94
--- NOTE | 2022-03-10 17:35 | ED_ITS ---
HPI - General Adult General: Chief complaint: General Medical Stated complaint: HEADACHE; LEFT EYE PAIN; CHEST PAIN Time Seen by Provider: 03/10/22 17:35 History of Present Illness: Mr. Joe is a 76-year-old gentleman with complex past medical history presenting with headache and chest pain. Onset of symptoms was a number of hours ago and subacute. Chest pain is middle the chest without significant radiation. He also has headache which is frontal and throbbing 4 out of 10. Denies other focal neurologic symptoms. No history of similar headaches. Has been severe. No other specific changes in health, exacerbating, or alleviating factors identified. Location: head Severity: moderate Quality: stabbing and aching Review of Systems General: Reports: 10 or more systems reviewed and unremarkable except in HPI and below PFSH ED PFSH: Medical History Acid reflux Allergic rhinitis due to pollen Aortic regurgitation Cervical radicular pain Chronic migraine Coronary artery disease CVA (cerebral vascular accident) Past history of CVA. Continue statin, aspirin, Plavix DDD (degenerative disc disease) Dependent on walker for ambulation Diabetes mellitus with hyperglycemia, with long-term current use of insulin Enrolled in chronic care management History of stroke Hyperglycemia Hyperlipidemia Hypertension Tricuspid regurgitation Vitamin D deficiency Surgical History History of cataract surgery History of cervical spinal surgery 3 times History of cholecystectomy History of colon cancer 2015 History of knee surgery Right Family History Father Cancer Denies family history of Bleeding disorder Social History Smoking and tobacco status: former smoker Second hand smoke exposure: No Smoking risk assessment/counseling performed?: No Alcohol intake: never Desire information about alcohol rehabilitation?: No Counseling given: No Desire information about substance/drug rehabilitation?: No Counseling given: No Adopted: No Caregiver/support person: No Lives independently: Yes Household members: spouse Housing: House Marital status: Current occupational status: retired History of recent travel: No Current gender identity: Male Physical Exam Const: COMMON NORMALS: patient oriented x3 and alert GENERAL APPEARANCE: cooperative and well developed HENMT: COMMON NORMALS: normocephalic and atraumatic HEAD & SCALP: normocephalic and atraumatic Eye: COMMON NORMALS: conjunctivae normal CONJUNCTIVA: Yes conjunctivae normal SCLERA: sclerae normal Neck/C-Spine: COMMON NORMALS: supple GENERAL: Yes trachea midline Resp: COMMON NORMALS: clear to auscultation bilaterally EFFORT & INSPECTION: Yes able to speak in complete sentences AUSCULTATION: clear to auscultation bilaterally Cardio: COMMON NORMALS: regular rate and regular rhythm RATE: regular rate RHYTHM: regular rhythm GI: COMMON NORMALS: Soft to palpation PALPATION: Yes Soft to palpation and No Tenderness to palpation present (GI) Extremity: GENERAL: Yes normal exam except as noted and No edema Neuro: COMMON NORMALS: patient oriented x3, CN's II-XII intact bilaterally, moves all extremities, no focal motor deficits and no sensory deficits noted SENSORIUM/ORIENTATION: Yes alert and No Orientation impaired Psych: COMMON NORMALS: mental status grossly normal and Normal thought process present THOUGHT PROCESS: Normal thought process present Course ED course: - Patient was seen and evaluated by me at bedside - Patient placed on cardiac monitors, IV access obtained - Initial evaluation notable for exam as above. - Labs and xrays personally interpreted by me. EKG notable for sinus rhythm with nonspecific ST abnormalities. No STEMI. -Headache treatment ordered - Labs notable for no leukocytosis, normal hemoglobin. Metabolic panel without acute electrolyte derangement requiring intervention. Procalcitonin negative. Delta troponin negative. - Imaging notable for no lobar consolidation or pneumothorax. No evidence of stroke on head CT. - Upon serial reexamination after treatment the patient was improved - Based on patient history, evaluation, and testing as interpreted the most likely cause of the patient's condition is chest pain and generalized headache. Based on ED findings and previous evaluation patient does not require hospitalization at this time. - The results of ED evaluation were discussed with the patient including prescriptions and/or symptomatic cares (if applicable) including appropriate and responsible use, followup plan, and return precautions. The patient verbalized understanding and felt safe for discharge. - Patient discharged in satisfactory condition. Note: Click bubbles or prepopulated [place] in note writing are used for assistance with data collection and billing and are inherently more limited than narrative and other text portions of this note. Please use narrative for additional clinical history and defer to narrative/free test for any case of contradictory information. If information appears in only free text or click bubble it should be considered present or absent as reported. Please contact note typewriter operator automatic for clarifications of clinical information or contradictory information. MDM is a brief summary, contradictory or erroneous seeming information should be clarified and full note should be reviewed. Vital Signs: Vital signs: Vital Signs Temperature 97.9 F 03/10/22 17:32 Pulse Rate 72 03/10/22 18:27 Respiratory Rate 17 03/10/22 18:27 Blood Pressure 100/61 03/10/22 17:32 Pulse Oximetry 96 03/10/22 18:27 Oxygen Delivery Me thod 03/10/22 18:27 MDM - General Adult Medical Decision Making 76-year-old gentleman presenting with headache and chest pain. No focal neurologic findings EKG nonischemic and delta troponin. Improved with medardo tment. Satisfactory for outpatient management. Medical Records I reviewed the patient's medical records. Lab Data I reviewed the patient's lab results. : 03/10/22 17:55 03/10/22 17:55 Radiology Impressions Chest X-Ray 03/10/22 17:39 IMPRESSION: No acute findings. Head CT 03/10/22 17:39 IMPRESSION: No acute findings. Laboratory Results WBC 9.2 10^3/uL (4.0-10.0) 03/10/22 17:55 RBC 4.75 10^6/uL (4.1-5.3) 03/10/22 17:55 Hgb 12.8 g/dL (11.7-16.6) 03/10/22 17:55 Hct 41.5 % (42.0-52.0) L 03/10/22 17:55 MCV 87.4 fl (80-94) 03/10/22 17:55 MCH 26.9 pg (28.0-34.0) L 03/10/22 17:55 MCHC 30.8 g/dL (30.0-36.0) 03/10/22 17:55 RDW 13.4 % (12.1-15.1) 03/10/22 17:55 Plt Count 274 10^3/cmm (130-400) 03/10/22 17:55 MPV 9.4 fL (7.4-10.4) 03/10/22 17:55 Neut % (Auto) 59.5 % 03/10/22 17:55 Lymph % (Auto) 24.4 % 03/10/22 17:55 [place] % (Auto) 12.5 % 03/10/22 17:55 Eos % (Auto) 2.6 % 03/10/22 17:55 Baso % (Auto) 0.5 % 03/10/22 17:55 Neut # (Auto) 5.45 10^3/uL (1.8-7.7) 03/10/22 17:55 Lymph # (Auto) 2.2 10^3/uL (0.8-4.8) 03/10/22 17:55 [place] # (Auto) 1.2 10^3/uL (0.2-0.9) H 03/10/22 17:55 Eos # (Auto) 0.2 10^3/uL (0.0-0.8) 03/10/22 17:55 Baso # (Auto) 0.1 10^3/uL (0.0-0.1) 03/10/22 17:55 Nucleated RBC % (auto) 0 % 03/10/22 17:55 Nucleated RBCs # 0.0 /100WBC 03/10/22 17:55 Sodium 134 mmol/L (136-145) L 03/10/22 17:55 Potassium 4.3 mmol/L (3.5-5.1) 03/10/22 17:55 Chloride 99 mmol/L (98-107) 03/10/22 17:55 Carbon Dioxide 25 mmol/L (22-29) 03/10/22 17:55 Anion Gap 14.3 (5-19) 03/10/22 17:55 BUN 20 mg/dL (8-23) 03/10/22 17:55 Creatinine 1.1 mg/dL (0.7-1.2) 03/10/22 17:55 GFR Calculation Not Reportable 03/10/22 17:55 Glucose 77 mg/dL (65-115) 03/10/22 17:55 POC Glucose 74 mg/dL (70-110) 03/10/22 18:01 Calculated Osmolality 279 mOsm/kg (285-295) L 03/10/22 17:55 Calcium 9.1 mg/dL (8.5-10.5) 03/10/22 17:55 Total Bilirubin 0.2 mg/dL (0.15-1.2) 03/10/22 17:55 AST 10 U/L (0-40) 03/10/22 17:55 ALT 7 U/L (0-41) 03/10/22 17:55 Alkaline Phosphatase 86 U/L (40-130) 03/10/22 17:55 Troponin T Baseline 11 ng/L (0-15) 03/10/22 17:55 Troponin T 120 Minute 11.34 ng/L (0-15) 03/10/22 19:46 Delta Troponin T 0.34 ABS# (0-10) 03/10/22 19:46 NT-Pro-B Natriuret Pep 62 pg/mL (0-450) 03/10/22 17:55 Total Protein 7.5 g/dL (6.6-8.7) 03/10/22 17:55 Albumin 3.9 g/dL (3.5-5.2) 03/10/22 17:55 Globulin 3.6 g/dL (1.3-4.6) 03/10/22 17:55 Procalcitonin 0.08 ng/mL (0-0.5) 03/10/22 17:55 TSH 1.69 uIU/mL (0.27-4.20) 03/10/22 17:55 Discharge Plan Discharge Patient Disposition: Home Clinical Impression: Chest pain, Headache Condition: Stable Prescriptions: No Action Ozempic 0.25 mg or 0.5 mg(2 mg/1.5 mL) pen injector 0.25 mg SUBCUT .weekly Qty: 1.5 2RF Hold Instructions: NO desire to eat (DME) True Metrix Glucose Test Strip Strip See Rx Instructions .ROUTE .MEDSUPPLY Qty: 100 5RF Rx Instructions: 3 times day aspirin 81 mg tablet,delayed release (DR/EC) 81 mg PO QAM Qty: 60 2RF atorvastatin 20 mg tablet 20 mg PO BEDTIME Qty: 30 2RF Plavix 75 mg tablet 75 mg PO QAM Qty: 60 2RF duloxetine [Cymbalta] 20 mg capsule,delayed release(DR/EC) 20 mg PO BID Qty: 60 2RF gabapentin 300 mg capsule 300 mg PO BID Qty: 60 2RF Levemir FlexTouch U-100 Insuln 100 unit/mL (3 mL) insulin pen 65 - 75 unit SUBCUT QAM Qty: 30 2RF levocetirizine 5 mg tablet 5 mg PO QAM Qty: 30 2RF lisinopril 2.5 mg tablet 2.5 mg PO QAM Qty: 30 2RF metformin 500 mg tablet extended release 24hr 1,000 mg PO QAM Qty: 60 2RF metoprolol succinate 50 mg tablet extended release 24 hr 50 mg PO QAM Qty: 60 2RF Protonix 40 mg tablet,delayed release (DR/EC) 40 mg PO QAM Qty: 30 2RF (DME) pen needle, diabetic 33 gauge x 5/32 needle See Rx Instructions .ROUTE .MEDSUPPLY Qty: 100 5RF Rx Instructions: 4 times day as needed Flomax 0.4 mg capsule 0.4 mg PO QPM Qty: 30 2RF (DME) blood-glucose meter [True Metrix Glucose Meter] Misc See Rx Instructions .ROUTE .MEDSUPPLY Qty: 1 0RF Rx Instructions: daily Farxiga 5 mg tablet 5 mg PO QAM Qty: 30 2RF Rx Instructions: for blood sugar cholecalciferol (vitamin D3) 125 mcg (5,000 unit) capsule 125 mcg PO QAM Qty: 30 2RF Discharge Orders: Discharge ED (Routine); Ordered 03/10/22 Ordered By: Sathish Arellano Referrals: Aline Pacheco, CAREER TECHNOLOGY TEACHER-C [Primary Care Provider] - Discharge Diet: Usual diet Discharge Activity: Increase activity as tolerated Patient Instructions: Chest Pain (ED), Acute Headache (ED) Activity Restrictions/Additional Instructions: Thank you for visiting the emergency department. You were seen and evaluated for chest pain. The exact cause of your symptoms is unclear though given previous evaluation and ED evaluation does not appear to need hospitalization at this time. Similarly headache is most likely just a general headache as I do not see evidence of stroke. I will message case management for follow-up with cardiology. Please also follow-up with your primary care provider. Please return to the emergency department for worsening symptoms or anything else that you are concerned about and feel needs emergency department evaluation. Coding Level of Care Code ED Helper Coordinator for Jose Luis Gibson
--- NOTE | 2022-03-10 17:39 | ECG_ITS ---
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 Measurements Intervals [place] Rate: 72 P: 60 AL: 180 QRS: -2 QRSD: 76 T: 20 QT: 353 QTc: 388 Interpretive Statements SINUS RHYTHM Compared to ECG 02/19/2022 15:41:54 No significant changes Electronically Signed On 03-11-2022 13:05:42 CDT by Isamar Pierce M.D. [id number]
--- NOTE | 2022-03-10 17:39 | XRR_ITS ---
PROCEDURE INFORMATION: Exam: XR Chest Exam date and time: 03/10/2022 5:58 PM Age: 76 years old Clinical indication: Pain; Other: Cough; Additional info: Cough, cp TECHNIQUE: Imaging protocol: Radiologic exam of the chest. Views: 1 view. COMPARISON: CR XR chest 1V portable [id number] 02/19/2022 1:56 PM FINDINGS: Lungs: Unremarkable. No consolidation. Pleural spaces: Unremarkable. No pleural effusion. No pneumothorax. Heart/Mediastinum: Unremarkable. No cardiomegaly. Bones/joints: Unremarkable. XR/XR chest 1V portable [id number] IMPRESSION: No acute findings.
--- NOTE | 2022-03-10 17:39 | CTR_ITS ---
PROCEDURE INFORMATION: Exam: CT Head Without Contrast Exam date and time: 03/10/2022 6:02 PM Age: 76 years old Clinical indication: Pain; Headache not specified; Additional info: L eye vision changes, headache TECHNIQUE: Imaging protocol: Computed tomography of the head without contrast. Radiation optimization: All CT scans at this facility use at least one of these dose optimization techniques: automated exposure control; mA and/or kV adjustment per patient size (includes targeted exams where dose is matched to clinical indication); or iterative reconstruction. COMPARISON: MR head wo con* [id number] 11/29/2019 4:14 PM RADIATION DOSE METRICS: Total DLP (mGy-cm): 1099.54 FINDINGS: Brain: Stable one or more chronic left lacunar basal ganglia infarcts. Mild to moderate cerebral atrophy and ischemic leukoencephalopathy. Cerebral ventricles: No ventriculomegaly. Paranasal sinuses: Visualized sinuses are unremarkable. No fluid levels. Mastoid air cells: Visualized mastoid air cells are well aerated. Dental: The patient is edentulous. Bones/joints: Unremarkable. No acute fracture. Soft tissues: Unremarkable. CT/CT head wo con* [id number] IMPRESSION: No acute findings.
[2022-03-10 18:06] LABS: Basophils # 0.1 10^3/uL (0.0-0.1); Basophils % 0.5 %; Eosinophils # 0.2 10^3/uL (0.0-0.8); Eosinophils % 2.6 %; Hematocrit 41.5 % (42.0-52.0); Hemoglobin 12.8 g/dL (11.7-16.6); Lymphocytes # 2.2 10^3/uL (0.8-4.8); Lymphocytes % 24.4 %; Mean Corpuscular HGB Conc 30.8 g/dL (30.0-36.0); Mean Corpuscular Hemoglobin 26.9 pg (28.0-34.0); Mean Corpuscular Volume 87.4 fl (80-94); Mean Platelet Volume 9.4 fL (7.4-10.4); Monocytes # 1.2 10^3/uL (0.2-0.9); Monocytes % 12.5 %; Neutrophils # 5.45 10^3/uL (1.8-7.7); Neutrophils % 59.5 %; Nucleated Red Blood Cells % 0 %; Platelet Count 274 10^3/cmm (130-400); Red Blood Count 4.75 10^6/uL (4.1-5.3); Red Cell Distribution Width 13.4 % (12.1-15.1); White Blood Count 9.2 10^3/uL (4.0-10.0)
[2022-03-10 18:14] LABS: Glucose Point of Care 74 mg/dL (70-110)
[2022-03-10] MEDS: diphenhydrAMINE 50 mg/mL SDV 1mL 12.5 MG IVP (18:21)
[2022-03-10] MEDS: metoclopramide 5 mg/mL SDV 2 mL 10 MG IVP (18:21)
[2022-03-10 18:27] VITALS: PULSE 72; RESP 17; O2SAT 96
[2022-03-10 18:32] LABS: Troponin(5th) Baseline 11 ng/L (0-15)
[2022-03-10 18:39] LABS: NT Pro B Type Natriuretic Pept 62 pg/mL (0-450); Procalcitonin 0.08 ng/mL (0-0.5); Thyroid Stimulating Hormone 1.69 uIU/mL (0.27-4.20)
[2022-03-10 18:50] LABS: Alanine Aminotransferase 7 U/L (0-41); Albumin Level 3.9 g/dL (3.5-5.2); Alkaline Phosphatase 86 U/L (40-130); Anion Gap 14.3 (5-19); Aspartate Amino Transferase 10 U/L (0-40); Blood Urea Nitrogen 20 mg/dL (8-23); Calcium 9.1 mg/dL (8.5-10.5); Carbon Dioxide 25 mmol/L (22-29); Chloride 99 mmol/L (98-107); Creatinine Clr Calc Pharmacy 64.3968; Globulin 3.6 g/dL (1.3-4.6); Glucose 77 mg/dL (65-115); Osmolality Calculated 279 mOsm/kg (285-295); Potassium 4.3 mmol/L (3.5-5.1); Sodium 134 mmol/L (136-145); Total Bilirubin 0.2 mg/dL (0.15-1.2); Total Protein 7.5 g/dL (6.6-8.7)
--- NOTE | 2022-03-10 19:10 | PC.NURSE ---
Report to GARY Sorto
[2022-03-10 20:12] LABS: Troponin 5 2HR 11.34 ng/L (0-15)
[2022-03-10 20:21] LABS: Troponin 5 2HR Delta 0.34 ABS# (0-10)
--- NOTE | 2022-03-13 14:37 | DCPLANNER ---
Addendum entered by Megan Westfall 03/30/22 08:47: Patient had a follow up appointment scheduled with heart care - patient did not attend appointment. Addendum entered by Megan Westfall 03/15/22 08:59: Patient has a follow up appointment scheduled for March at 2:[address] Pierce at [facility]. Clinic will call patient with appointment information. Original Note: manager banking had message to schedule a follow up appointment for patient with cardiology. manager banking sent patients information to the front office staff at [facility]. Patients information will be printed and reviewed. Clinic will call patient with appointment information.
== END 2022-03-10 21:02 | disposition home or self-care (01) ==
PROVIDERS: Emergency Provider Emergency Medicine; PCP Nurse Practitioner
DX: R51.9 Headache, unspecified (principal); R07.9 Chest pain, unspecified; Z79.84 Long term (current) use of oral hypoglycemic drugs; Z79.02 Long term (current) use of antithrombotics/antiplatelets; Z79.82 Long term (current) use of aspirin; Z79.4 Long term (current) use of insulin; Z87.891 Personal history of nicotine dependence; I25.10 Atherosclerotic heart disease of native coronary artery without angina pectoris; Z86.73 Personal history of transient ischemic attack (TIA), and cerebral infarction without residual deficits; E11.9 Type 2 diabetes mellitus without complications; E78.5 Hyperlipidemia, unspecified; I10 Essential (primary) hypertension; Z85.038 Personal history of other malignant neoplasm of large intestine
CPT/HCPCS: 36416; 70450; 71045; 80053; 82962; 83880; 84145; 84443; 84484; 85025; 93005; 96374; 96375; 99285; J1200; J2765

== ENCOUNTER → 2022-05-08 11:22 | Outpatient (BNVA) | payer MEDICARE, MEDICAID, SELFPAY | PROVIDERS: PCP Nurse Practitioner; Visit Provider Nurse Practitioner | DX: E11.65 Type 2 diabetes mellitus with hyperglycemia (principal); E55.9 Vitamin D deficiency, unspecified; Z79.4 Long term (current) use of insulin; E78.2 Mixed hyperlipidemia; I63.9 Cerebral infarction, unspecified; Z23 Encounter for immunization; M54.12 Radiculopathy, cervical region; J30.1 Allergic rhinitis due to pollen; I10 Essential (primary) hypertension; K21.9 Gastro-esophageal reflux disease without esophagitis; R32 Unspecified urinary incontinence | CPT/HCPCS: 80053; 80061; 82306; 83036; 84443; 85025 ==

== ENCOUNTER → 2022-07-31 10:02 | Outpatient (BNVA) | payer MEDICARE, MEDICAID, SELFPAY | PROVIDERS: PCP Nurse Practitioner; Visit Provider Nurse Practitioner | DX: E11.65 Type 2 diabetes mellitus with hyperglycemia (principal); Z79.4 Long term (current) use of insulin; E55.9 Vitamin D deficiency, unspecified; I63.9 Cerebral infarction, unspecified; M54.12 Radiculopathy, cervical region; J30.1 Allergic rhinitis due to pollen; I10 Essential (primary) hypertension; K21.9 Gastro-esophageal reflux disease without esophagitis; R32 Unspecified urinary incontinence; R23.8 Other skin changes | CPT/HCPCS: 80053; 83036 ==

== ENCOUNTER 2022-09-15 02:49 | Emergency (ER) | payer MEDICARE, MEDICAID, SELFPAY ==
[2022-09-15 02:52] VITALS: BP 104/58; PULSE 49; RESP 18; TEMP 36.6; O2SAT 95; BMI 27.3
--- NOTE | 2022-09-15 02:54 | ECG_ITS ---
[facility] Test Date: 2022-09-15 Pat Name: Barb Joe Department: Room: Gender: Male Sales Porter: : 1945 Requested By: Shital Pelletier Order Number: [id number] Miguel MD: Chrissy Cruz M.D. Measurements Intervals [place] Rate: 49 P: 57 NV: 165 QRS: -5 QRSD: 90 T: 29 QT: 419 QTc: 379 Interpretive Statements SINUS BRADYCARDIA Compared to ECG 03/10/2022 17:46:26 Sinus rhythm no longer present Electronically Signed On 09-16-2022 19:36:20 CDT by Chrissy Cruz M.D. [id number]
--- NOTE | 2022-09-15 02:54 | XRR_ITS ---
PROCEDURE INFORMATION: Exam: XR Chest Exam date and time: 09/15/2022 3:02 AM Age: 77 years old Clinical indication: Pain; Chest pressure; Prior surgery; Surgery date: 6+ months; Surgery type: 2 stents; Additional info: Cp TECHNIQUE: Imaging protocol: Radiologic exam of the chest. Views: 1 view. COMPARISON: CR XR chest 1V portable [id number] 03/10/2022 5:58 PM FINDINGS: Lungs: Mildly decreased lung volumes with mild accentuation of the perihilar pulmonary vascularity. Age-related interstitial prominence is seen in the lungs. No airspace opacities in the lungs. Pleural spaces: No pleural effusion. No pneumothorax. Heart/Mediastinum: Unchanged mild cardiomegaly. There is a mildly tortuous thoracic aorta. The trachea is midline. Bones/joints: No acute osseous abnormalities seen. Soft tissues: Multiple external densities are seen overlying the chest, limiting assessment. XR/XR chest 1V portable [id number] IMPRESSION: 1. Mildly decreased lung volumes with mild accentuation of the perihilar pulmonary vascularity. No airspace opacities in the lungs. 2. Unchanged mild cardiomegaly.
--- NOTE | 2022-09-15 03:01 | W.ED.CHESTPA ---
HPI - Chest Pain General: Chief Complaint: Chest Pain Stated Complaint: ABD PAIN Time Seen by Provider: 09/15/22 02:49 Source: EMS Mode of arrival: EMS Limitations: no limitations History of Present Illness: 77-year-old male states has been having right-sided chest pain throughout the day states that sharp pain worse with movement palpation states pain is currently 7 out of 10 he is given nitro and aspirin in route with no improvement denies any dyspnea denies any fever denies any vomiting or diaphoresis Associated symptoms: Deny abdominal pain, dyspnea, fever(s), nausea or vomiting Review of Systems Const: Denies: fever(s), chills, body aches or change in appetite Eyes: Denies: blurry vision or eye discomfort ENMT: Denies: throat pain or dental pain Card: Reports: chest pain Resp: Denies: dyspnea GI: Denies: abdominal pain, nausea, vomiting or diarrhea : Denies: dysuria Musc: Denies: neck pain or back pain Skin/Breast: Denies: rash Neuro: Denies: headache(s) Psych: Denies: depression Aubrey/Lymph: Denies: easy bruising All/Imm: Denies: urticaria PFSH ED PFSH: Medical History Acid reflux Allergic rhinitis due to pollen Aortic regurgitation Cervical radicular pain Chronic migraine Coronary artery disease CVA (cerebral vascular accident) Past history of CVA. Continue statin, aspirin, Plavix DDD (degenerative disc disease) Dependent on walker for ambulation Diabetes mellitus with hyperglycemia, with long-term current use of insulin Enrolled in chronic care management History of stroke Hyperglycemia Hyperlipidemia Hypertension Tricuspid regurgitation Vitamin D deficiency Surgical History History of cataract surgery History of cervical spinal surgery 3 times History of cholecystectomy History of colon cancer 2015 History of knee surgery Right Family History Father Cancer Denies family history of Bleeding disorder Social History Smoking and tobacco status: former smoker Second hand smoke exposure: No Smoking risk assessment/counseling performed?: No Alcohol intake: never Desire information about alcohol rehabilitation?: No Counseling given: No Desire information about substance/drug rehabilitation?: No Counseling given: No Adopted: No Caregiver/support person: No Lives independently: Yes Household members: spouse Housing: House Marital status: Current occupational status: retired Current gender identity: Male Physical Exam Const: COMMON NORMALS: no acute distress, patient oriented x3 and healthy appearing HENMT: COMMON NORMALS: normocephalic and atraumatic HEAD & SCALP: normocephalic and atraumatic Eye: COMMON NORMALS: Equal, round and reactive pupils present and EOMs intact bilaterally PUPIL: Yes Equal, round and reactive pupils present Neck/C-Spine: COMMON NORMALS: full ROM and supple Chest: COMMONS NORMALS: normal inspection of the chest OTHER: point tender over right chest reproduces pain Resp: COMMON NORMALS: normal respiratory effort, No retractions, No use of accessory muscles and clear to auscultation bilaterally AUSCULTATION: clear to auscultation bilaterally Cardio: COMMON NORMALS: regular rhythm and No murmurs present (Cardio) RATE: bradycardic RHYTHM: regular rhythm GI: COMMON NORMALS: Normal to inspection, nondistended, normoactive bowel sounds present, Soft to palpation, non-tender and no masses PALPATION: Yes Soft to palpation Extremity: COMMON NORMALS: normal to inspection and full ROM Neuro: COMMON NORMALS: patient oriented x3, moves all extremities and no focal motor deficits Psych: COMMON NORMALS: mental status grossly normal, Normal thought process present and cooperative THOUGHT PROCESS: Normal thought process present Skin: COMMON NORMALS: no rashes or lesions noted and no wounds GENERAL SKIN EXAM: no rashes or lesions noted Course Vital Signs: Vital signs: Vital Signs Temperature 97.8 F 09/15/22 02:52 Pulse Rate 55 L 09/15/22 04:50 Respiratory Rate 17 09/15/22 04:50 Blood Pressure 104/56 09/15/22 04:50 Pulse Oximetry 97 09/15/22 04:50 MDM - Chest Pain Medical Decision Making Patient presents for chest pain is likely chest wall pain he is point tender over his right chest and with movement his right arm and reproduces his pain his troponin and EKG here are normal no signs of acute coronary syndrome patient is stable for discharge she is to follow-up PCP and return if worsening. Lab Data 09/15/22 03:33 09/15/22 03:33 Laboratory Results WBC 9.2 10^3/uL (4.0-10.0) 09/15/22 03:33 RBC 4.27 10^6/uL (4.1-5.3) 09/15/22 03:33 Hgb 11.0 g/dL (11.7-16.6) L 09/15/22 03:33 Hct 37.8 % (42.0-52.0) L 09/15/22 03:33 MCV 88.5 fl (80-94) 09/15/22 03:33 MCH 25.8 pg (28.0-34.0) L 09/15/22 03:33 MCHC 29.1 g/dL (30.0-36.0) L 09/15/22 03:33 RDW 15.8 % (12.1-15.1) H 09/15/22 03:33 Plt Count 293 10^3/cmm (130-400) 09/15/22 03:33 MPV 9.6 fL (7.4-10.4) 09/15/22 03:33 Neut % (Auto) 49.2 % 09/15/22 03:33 Lymph % (Auto) 35.8 % 09/15/22 03:33 [place] % (Auto) 9.5 % 09/15/22 03:33 Eos % (Auto) 4.6 % 09/15/22 03:33 Baso % (Auto) 0.4 % 09/15/22 03:33 Neut # (Auto) 4.51 10^3/uL (1.8-7.7) 09/15/22 03:33 Lymph # (Auto) 3.3 10^3/uL (0.8-4.8) 09/15/22 03:33 [place] # (Auto) 0.9 10^3/uL (0.2-0.9) 09/15/22 03:33 Eos # (Auto) 0.4 10^3/uL (0.0-0.8) 09/15/22 03:33 Baso # (Auto) 0.0 10^3/uL (0.0-0.1) 09/15/22 03:33 Nucleated RBC % (auto) 0 % 09/15/22 03:33 Nucleated RBCs # 0.0 /100WBC 09/15/22 03:33 PT 12.70 SECONDS (12.1-14.9) 09/15/22 03:33 INR 0.93 (0.8-1.2) 09/15/22 03:33 Sodium 137 mmol/L (136-145) 09/15/22 03:33 Potassium 4.4 mmol/L (3.5-5.1) 09/15/22 03:33 Chloride 102 mmol/L (98-107) 09/15/22 03:33 Carbon Dioxide 23 mmol/L (22-29) 09/15/22 03:33 Anion Gap 16.4 (5-19) 09/15/22 03:33 BUN 20 mg/dL (8-23) 09/15/22 03:33 Creatinine 1.4 mg/dL (0.7-1.2) H 09/15/22 03:33 GFR Calculation Not Reportable 09/15/22 03:33 Glucose 111 mg/dL (65-115) 09/15/22 03:33 POC Glucose 111 mg/dL (70-110) H 09/15/22 03:48 Calculated Osmolality 287 mOsm/kg (285-295) 09/15/22 03:33 Calcium 8.5 mg/dL (8.5-10.5) 09/15/22 03:33 Total Bilirubin 0.3 mg/dL (0.15-1.2) 09/15/22 03:33 AST 12 U/L (0-40) 09/15/22 03:33 ALT 10 U/L (0-41) 09/15/22 03:33 Alkaline Phosphatase 93 U/L (40-130) 09/15/22 03:33 Troponin T Baseline 11 ng/L (0-15) 09/15/22 03:33 Total Protein 6.8 g/dL (6.6-8.7) 09/15/22 03:33 Albumin 3.4 g/dL (3.5-5.2) L 09/15/22 03:33 Globulin 3.4 g/dL (1.3-4.6) 09/15/22 03:33 Lipase 42 U/L (13-60) 09/15/22 03:33 EKG Data EKG 1: I personally reviewed and interpreted this EKG as follows: EKG interpretation date: 09/15/22 EKG interpretation time: 02:58 Interpretation: sinus heber hr [address] or t wa e abnormalities qrs 90 qtc 388 Discharge Plan Discharge Patient Disposition: Home Clinical Impression: Chest pain Condition: Stable Prescriptions: New Naprosyn 500 mg tablet 500 mg PO BID PRN (Reason: pain) Qty: 20 0RF No Action (DME) pen needle, diabetic 33 gauge x 5/32 needle See Rx Instructions .ROUTE .MEDSUPPLY Qty: 100 5RF Rx Instructions: 4 times day as needed (DME) True Metrix Glucose Test Strip Strip See Rx Instructions .ROUTE .MEDSUPPLY Qty: 100 5RF Rx Instructions: 3 times day aspirin 81 mg tablet,delayed release (DR/EC) 81 mg PO QAM Qty: 60 2RF atorvastatin 20 mg tablet 20 mg PO BEDTIME Qty: 30 2RF cholecalciferol (vitamin D3) 125 mcg (5,000 unit) capsule 125 mcg PO QAM Qty: 30 2RF Plavix 75 mg tablet 75 mg PO QAM Qty: 60 2RF Farxiga 10 mg tablet 10 mg PO QAM Qty: 30 2RF duloxetine [Cymbalta] 20 mg capsule,delayed release(DR/EC) 20 mg PO BID Qty: 60 2RF gabapentin 300 mg capsule 300 mg PO BID Qty: 60 2RF Levemir FlexTouch U-100 Insuln 100 unit/mL (3 mL) insulin pen 65 - 75 unit SUBCUT QAM Qty: 30 0RF levocetirizine 5 mg tablet 5 mg PO QAM Qty: 30 2RF lisinopril 2.5 mg tablet 2.5 mg PO QAM Qty: 30 2RF metformin 500 mg tablet extended release 24hr 1,000 mg PO QAM Qty: 60 2RF metoprolol succinate 50 mg tablet extended release 24 hr 50 mg PO QAM Qty: 60 2RF Protonix 40 mg tablet,delayed release (DR/EC) 40 mg PO QAM Qty: 30 2RF Flomax 0.4 mg capsule 0.4 mg PO QPM Qty: 30 2RF mupirocin 2 % ointment 1 applic topical BID Qty: 22 0RF (DME) blood-glucose meter [True Metrix Glucose Meter] Misc See Rx Instructions .ROUTE .MEDSUPPLY Qty: 1 0RF Rx Instructions: daily glipizide 10 mg tablet extended release 24hr 10 mg PO DAILY Qty: 30 2RF Rx Instructions: dose increase Discharge Orders: Discharge ED (Routine); Ordered 09/15/22 Ordered By: Shital Pelletier Referrals: Aline Pacheco, MECHANICAL INTEGRITY ENGINEER-C [Primary Care Provider] - 1-3 days Discharge Diet: Advance as tolerated Discharge Activity: Resume usual activity Patient Instructions: Chest Wall Pain (ED) Coding Level of Care Code ED Hand Frame Surgical Elastic Knitter for Jose Luis Gibson
[2022-09-15] MEDS: ondansetron 2 mg/ML SDV 2 mL 4 MG IVP (03:12)
[2022-09-15 03:18] VITALS: BP 99/55; PULSE 47; RESP 13; O2SAT 98
[2022-09-15 03:24] VITALS: RESP 15
[2022-09-15] MEDS: morphine 4 mg/mL SDV 1 mL 2 MG IVP (03:24)
[2022-09-15 03:51] LABS: Glucose Point of Care 111 mg/dL (70-110)
[2022-09-15 04:00] LABS: Basophils % 0.4 %; Eosinophils # 0.4 10^3/uL (0.0-0.8); Eosinophils % 4.6 %; Hematocrit 37.8 % (42.0-52.0); Lymphocytes # 3.3 10^3/uL (0.8-4.8); Lymphocytes % 35.8 %; Mean Corpuscular HGB Conc 29.1 g/dL (30.0-36.0); Mean Corpuscular Hemoglobin 25.8 pg (28.0-34.0); Mean Corpuscular Volume 88.5 fl (80-94); Mean Platelet Volume 9.6 fL (7.4-10.4); Monocytes # 0.9 10^3/uL (0.2-0.9); Monocytes % 9.5 %; Neutrophils # 4.51 10^3/uL (1.8-7.7); Neutrophils % 49.2 %; Nucleated Red Blood Cells % 0 %; Platelet Count 293 10^3/cmm (130-400); Red Blood Count 4.27 10^6/uL (4.1-5.3); Red Cell Distribution Width 15.8 % (12.1-15.1); White Blood Count 9.2 10^3/uL (4.0-10.0)
[2022-09-15 04:14] LABS: INR 0.93 (0.8-1.2)
[2022-09-15 04:19] LABS: Troponin(5th) Baseline 11 ng/L (0-15)
[2022-09-15 04:20] LABS: Albumin Level 3.4 g/dL (3.5-5.2); Alkaline Phosphatase 93 U/L (40-130); Chloride 102 mmol/L (98-107); Potassium 4.4 mmol/L (3.5-5.1); Sodium 137 mmol/L (136-145)
[2022-09-15 04:33] LABS: Alanine Aminotransferase 10 U/L (0-41); Anion Gap 16.4 (5-19); Aspartate Amino Transferase 12 U/L (0-40); Blood Urea Nitrogen 20 mg/dL (8-23); Calcium 8.5 mg/dL (8.5-10.5); Carbon Dioxide 23 mmol/L (22-29); Globulin 3.4 g/dL (1.3-4.6); Glucose 111 mg/dL (65-115); Lipase 42 U/L (13-60); Osmolality Calculated 287 mOsm/kg (285-295); Total Bilirubin 0.3 mg/dL (0.15-1.2); Total Protein 6.8 g/dL (6.6-8.7)
[2022-09-15 04:50] VITALS: BP 104/56; PULSE 55; RESP 17; O2SAT 97
== END 2022-09-15 05:06 | disposition home or self-care (01) ==
PROVIDERS: Emergency Provider Emergency Medicine; PCP Nurse Practitioner
DX: R07.9 Chest pain, unspecified (principal); E11.9 Type 2 diabetes mellitus without complications; I10 Essential (primary) hypertension; E78.5 Hyperlipidemia, unspecified; I25.10 Atherosclerotic heart disease of native coronary artery without angina pectoris; Z79.84 Long term (current) use of oral hypoglycemic drugs; Z79.82 Long term (current) use of aspirin; Z87.891 Personal history of nicotine dependence; Z86.73 Personal history of transient ischemic attack (TIA), and cerebral infarction without residual deficits
CPT/HCPCS: 36416; 71045; 80053; 82962; 83690; 84484; 85025; 85610; 93005; 96374; 96375; 99285; J2270; J2405

== ENCOUNTER → 2022-10-23 09:47 | Outpatient (BNVA) | payer MEDICARE, MEDICAID, SELFPAY | PROVIDERS: PCP Nurse Practitioner; Visit Provider Nurse Practitioner | DX: E11.65 Type 2 diabetes mellitus with hyperglycemia (principal); Z79.4 Long term (current) use of insulin; E55.9 Vitamin D deficiency, unspecified; I63.9 Cerebral infarction, unspecified; M54.12 Radiculopathy, cervical region; J30.1 Allergic rhinitis due to pollen; I10 Essential (primary) hypertension; K21.9 Gastro-esophageal reflux disease without esophagitis; R32 Unspecified urinary incontinence; Z12.5 Encounter for screening for malignant neoplasm of prostate | CPT/HCPCS: 80061; 81003; 83036; 87077; 87086; 87184; G0103 ==

== ENCOUNTER → 2023-02-27 09:56 | Outpatient (BNVA) | payer MEDICARE, MEDICAID, SELFPAY | PROVIDERS: PCP Nurse Practitioner; Visit Provider Nurse Practitioner | DX: E11.65 Type 2 diabetes mellitus with hyperglycemia (principal); Z79.4 Long term (current) use of insulin; E55.9 Vitamin D deficiency, unspecified; I63.9 Cerebral infarction, unspecified; M54.12 Radiculopathy, cervical region; J30.1 Allergic rhinitis due to pollen; I10 Essential (primary) hypertension; K21.9 Gastro-esophageal reflux disease without esophagitis; R32 Unspecified urinary incontinence | CPT/HCPCS: 80053; 80061; 81000; 83036 ==

== ENCOUNTER → 2023-05-22 09:58 | Outpatient (BNVA) | payer MEDICARE, MEDICAID, SELFPAY | PROVIDERS: PCP Nurse Practitioner; Visit Provider Nurse Practitioner | DX: E55.9 Vitamin D deficiency, unspecified (principal); I63.9 Cerebral infarction, unspecified; E11.65 Type 2 diabetes mellitus with hyperglycemia; Z79.4 Long term (current) use of insulin; M54.12 Radiculopathy, cervical region; J30.1 Allergic rhinitis due to pollen; I10 Essential (primary) hypertension; K21.9 Gastro-esophageal reflux disease without esophagitis; R32 Unspecified urinary incontinence; Z23 Encounter for immunization | CPT/HCPCS: 80053; 80061; 81000; 83036 ==

== ENCOUNTER → 2023-08-14 09:23 | Outpatient (BNVA) | payer MEDICARE, MEDICAID, SELFPAY | PROVIDERS: PCP Nurse Practitioner; Visit Provider Nurse Practitioner | DX: K21.9 Gastro-esophageal reflux disease without esophagitis (principal); E55.9 Vitamin D deficiency, unspecified; I63.9 Cerebral infarction, unspecified; E11.65 Type 2 diabetes mellitus with hyperglycemia; Z79.4 Long term (current) use of insulin; M54.12 Radiculopathy, cervical region; E11.29 Type 2 diabetes mellitus with other diabetic kidney complication; J30.1 Allergic rhinitis due to pollen; I10 Essential (primary) hypertension; R32 Unspecified urinary incontinence | CPT/HCPCS: 80053; 80061; 82607; 83036 ==

== ENCOUNTER 2023-10-21 14:03 | Emergency (ER) | payer MEDICARE, MEDICAID, SELFPAY ==
[2023-10-21 14:06] VITALS: BP 113/73; PULSE 67; RESP 18; TEMP 36.8; O2SAT 91
--- NOTE | 2023-10-21 14:12 | XR_ITS ---
WS: [id number] Exam: XR chest 1V portable [id number] Date/Time of Exam: 10/21/2023 2:38 PM Reason For Exam: LUQ pain Comparison 09/15/2022. The lungs are fully expanded and clear. Chronic interstitial changes. No acute infiltrates. No pleura l effusion. Heart size top limits normal. The mediastinum is normal in contour. Bony structures are i ntact. IMPRESSION: 1. Chronic interstitial changes. No acute process.
--- NOTE | 2023-10-21 14:12 | CTR_ITS ---
PROCEDURE INFORMATION: Exam: CT Abdomen And Pelvis With Contrast Exam date and time: 10/21/2023 3:20 PM Age: 78 years old Clinical indication: Abdominal pain; Localized; Left upper quadrant (luq); Prior surgery; Surgery date: 6+ months; Surgery type: Colon, aidan; Additional info: Luq pain TECHNIQUE: Imaging protocol: Computed tomography of the abdomen and pelvis with contrast. Radiation optimization: All CT scans at this facility use at least one of these dose optimization techniques: automated exposure control; mA and/or kV adjustment per patient size (includes targeted exams where dose is matched to clinical indication); or iterative reconstruction. Contrast material: OMNI 350; Contrast volume: 100 ml; Contrast route: INTRAVENOUS (IV); COMPARISON: CT abdomen pelvis w con* [id number] 11/08/2021 3:53 PM RADIATION DOSE METRICS: Total DLP (mGy-cm): 818.53 FINDINGS: Lungs: Subsegmental bibasilar atelectasis. The visualized lung bases are otherwise grossly clear. Diaphragm: No evidence of diaphragmatic defect. Liver: No focal hepatic lesion. There is an 7.5 x 4 cm focus of fat with peripheral calcification and soft tissue density in the right upper quadrant, unchanged since November 2021, possibly sequela of fat necrosis/omental infarct. Gallbladder and bile ducts: Status post cholecystectomy. No evidence of intrahepatic or extrahepatic biliary dilatation. Pancreas: Mildly atrophic. Otherwise grossly unremarkable. Spleen: Unremarkable. Adrenal glands: Unremarkable. Kidneys and ureters: Left renal parenchymal scarring. There is mild left-sided hydronephrosis without evidence of ureteral stone, possibly secondary to soft tissue thickening of the bladder in the region of the UVJ. There has been improvement in the degree of hydronephrosis in comparison to prior. No right-sided hydronephrosis. Stomach and bowel: Postsurgical changes of the right hemicolon. No evidence of bowel obstruction or perienteric inflammatory changes. Appendix: Surgically absent. Intraperitoneal space: No evidence of free air or fluid collection. Vasculature: Mild aortobiiliac atherosclerosis without aneurysmal dilatation or dissection. The celiac trunk, SMA and ARCADIO are grossly patent. No evidence of IVC thrombus. The portal vein, SMV and splenic veins are grossly patent. Lymph nodes: No adenopathy. Urinary bladder: Moderate diffuse bladder wall thickening. Reproductive: Grossly unremarkable. Bones/joints: No evidence of acute fracture or aggressive osseous lesion. Soft tissues: No evidence of fluid collection or hematoma in the superficial soft tissues. Small fat containing left-sided inguinal hernia. CT/CT abdomen pelvis w con* [id number] IMPRESSION: 1. Mild left-sided hydronephrosis without evidence of ureteral stone, partially improved in comparison to prior study from November 2021. 2. Diffuse bladder wall thickening, possibly sequela of chronic obstruction and/or cystitis, similar to prior exam from November 2021. Consider follow-up urologic evaluation.
--- NOTE | 2023-10-21 14:13 | ED_ITS ---
HPI - Abdominal Pain 2 General: Chief Complaint: Abdominal Pain Stated Complaint: LUQ Pain Time Seen by Provider: 10/21/23 14:05 Source: patient Mode of arrival: EMS Limitations: no limitations History of Present Illness: Patient is a 78-year-old male who presents to the ED today via EMS for evaluation of left upper quadrant pain. Patient tells me pain started yesterday and has been fairly constant since onset. He denies nausea or vomiting or changes in bowel movements. He states he is urinating normally. No fevers. He states he has had this pain previously before but cannot elaborate on this any further. Looking at previous documentation he does have a history of GERD. He has not had any recent injury or trauma. Reports history of a colon cancer requiring some type of bowel resection (old CT on file states he has an ileocolic anastomosis). States he does not believe he has had much follow-up in regards to this stating I think they got it all out last time . Associated Symptoms: Denies change in bowel habits, chills, diarrhea, dysuria, fever(s), hematochezia, hematemesis, melena, nausea, syncope and vomiting Review of Systems 2 Const: Denies: fever(s), chills, body aches, fatigue or malaise Card: Denies: chest pain, palpitations, irregular heart rhythm, edema, swelling of feet/ankles, lightheadedness, syncope or pre-syncope Resp: Denies: dyspnea, productive cough, non-productive cough, wheezing, pain on inspiration, hemoptysis or chest congestion GI: Reports: abdominal pain; Denies: nausea, vomiting, hematemesis, diarrhea, change in bowel habits, hematochezia or melena : Denies: flank pain, difficulty urinating, dysuria, urinary frequency, urinary urgency or urinary hesitancy Musc: Denies: neck pain, back pain, extremity pain or joint pain Skin/Breast: Denies: rash Neuro: Denies: headache(s) or dizziness PFS ED 2 PFSH: Medical History Hyperglycemia Diabetes mellitus with hyperglycemia, with long-term current use of insulin Allergic rhinitis due to pollen Hyperlipidemia Coronary artery disease Cervical radicular pain CVA (cerebral vascular accident) Past history of CVA. Continue statin, aspirin, Plavix Tricuspid regurgitation Aortic regurgitation Acid reflux Enrolled in chronic care management Vitamin D deficiency History of stroke Chronic migraine DDD (degenerative disc disease) Hypertension Dependent on walker for ambulation Surgical History History of cervical spinal surgery 3 times History of colon cancer 2014 History of cholecystectomy History of knee surgery Right History of cataract surgery Family History Father Cancer Denies family history of Bleeding disorder Social History Smoking and tobacco/nicotine status: former use of tobacco/nicotine Second hand smoke exposure: No Alcohol intake: never Substance/Drug Use: never Adopted: No Caregiver/support person: No Lives independently: Yes Household members: spouse Housing: House Marital status: Current occupational status: retired Do you think of yourself as: Straight/Heterosexual Current gender identity: Male Physical Exam 2 Const: COMMON NORMALS: no acute distress, average body habitus, patient oriented x3, no limitations, alert and well nourished GENERAL APPEARANCE: c ooperative ORIENTATION/CONSCIOUSNESS: Yes awake, Yes oriented to person, Yes oriented to place and Yes oriented to time HENMT: COMMON NORMALS: normocephalic and atraumatic HEAD & SCALP: normal to inspection, normocephalic and atraumatic Eye: COMMON NORMALS: no scleral icterus GENERAL EYE: appearance normal, both eyes and all related structures Neck/C-Spine: COMMON NORMALS: full ROM, no lymphadenopathy, supple and no meningeal signs Chest: COMMONS NORMALS: normal inspection of the chest and normal palpation of entire chest wall Resp: COMMON NORMALS: normal respiratory effort and clear to auscultation bilaterally AUSCULTATION: clear to auscultation bilaterally Cardio: COMMON NORMALS: regular rate and regular rhythm RATE: regular rate RHYTHM: regular rhythm GI: COMMON NORMALS: Normal to inspection, nondistended, normoactive bowel sounds present, Soft to palpation, No hepatosplenomegaly present and no masses INSPECTION: Yes normal to inspection AUSCULTATION: Yes normoactive bowel sounds PALPATION: Yes Soft to palpation, Yes Tenderness to palpation present (GI) Details: LUQ, No Guarding due to palpation present (GI), No Rigid due to palpation and Yes No hepatosplenomegaly present : COMMON NORMALS: Yes no CVA tenderness BLADDER/KIDNEY EXAM: Yes no CVA tenderness Back/Pelvis: COMMON NORMALS: no CVA tenderness and thoracic and lumbar spine normal to inspection Extremity: COMMON NORMALS: normal to inspection GENERAL: Yes normal exam except as noted Neuro: KATINA COMA SCALE: document GCS findings Katina coma scale eye opening: Spontaneous Katina coma scale verbal response: Orientated [place] coma scale motor response: Obey commands Katina coma scale total score: 15 COMMON NORMALS: patient oriented x3, moves all extremities, no focal motor deficits and no sensory deficits noted SENSORIUM/ORIENTATION: Yes alert, Yes oriented to person, Yes oriented to place and Yes oriented to time MENINGEAL SIGNS: Yes no meningeal signs Skin: COMMON NORMALS: no rashes or lesions noted GENERAL SKIN EXAM: no rashes or lesions noted Course 2 Vital Signs: Vital signs: Vital Signs Temperature 98.3 F 10/21/23 14:06 Pulse Rate 67 10/21/23 14:06 Respiratory Rate 18 10/21/23 16:02 Blood Pressure 106/62 10/21/23 16:02 Pulse Oximetry 96 10/21/23 16:02 Oxygen Delivery Me thod Room Air 10/21/23 16:02 MDM - Abdominal Pain Medical Decision Making Patient here for left upper quadrant abdominal pain starting yesterday. He appears in no acute distress. He reportedly has had this pain before. Vital signs are stable. His blood work overall is unremarkable. Cardiac workup initiated due to age and upper abdominal pain. Baseline troponin and EKG are unremarkable. His CXR is showing no acute changes. CT scan showing mild left- sided hydronephrosis improved since November 2021. He has chronic diffuse bladder wall thickening possibly a sequela of chronic obstruction and/or cystitis- recommend urologic evaluation. On patient's UA he does have 2+ leukocyte esterase with 80-100 WBCs. Previous urine micro results reviewed and he will be placed on Levaquin. Recommend follow-up with his primary care later this week. Return to ED precautions given. Medical Records I reviewed the patient's medical records. Lab Data I reviewed the patient's lab results. 10/21/23 14:35 10/21/23 14:35 Labs/Radiology: Radiology Impressions Abdomen/Pelvis CT 10/21/23 14:12 IMPRESSION: 1. Mild left-sided hydronephrosis without evidence of ureteral stone, partially improved in comparison to prior study from November 2021. 2. Diffuse bladder wall thickening, possibly sequela of chronic obstruction and/or cystitis, similar to prior exam from November 2021. Consider follow-up urologic evaluation. Laboratory Results WBC 9.17 10^3/uL (3.29-11.43) 10/21/23 14:35 RBC 4.86 10^6/uL (3.85-5.65) 10/21/23 14:35 Hgb 12.30 g/dL (11.27-16.99) 10/21/23 14:35 Hct 41.0 % (37-53) 10/21/23 14:35 MCV 84.4 fl (82-101) 10/21/23 14:35 MCH 25.3 pg (27-33) L 10/21/23 14:35 MCHC 30.0 g/dL (30-55) 10/21/23 14:35 RDW 16.4 % (12.1-15.1) H 10/21/23 14:35 Plt Count 328 10^3/cmm (157-399) 10/21/23 14:35 MPV 9.2 fL (7.4-10.4) 10/21/23 14:35 Neut % (Auto) 51.9 % 10/21/23 14:35 Lymph % (Auto) 33.5 % 10/21/23 14:35 [place] % (Auto) 8.2 % 10/21/23 14:35 Eos % (Auto) 5.2 % 10/21/23 14:35 Baso % (Auto) 0.7 % 10/21/23 14:35 Neut # (Auto) 4.76 10^3/uL (1.8-7.7) 10/21/23 14:35 Lymph # (Auto) 3.1 10^3/uL (0.8-4.8) 10/21/23 14:35 [place] # (Auto) 0.8 10^3/uL (0.2-0.9) 10/21/23 14:35 Eos # (Auto) 0.5 10^3/uL (0.0-0.8) 10/21/23 14:35 Baso # (Auto) 0.1 10^3/uL (0.0-0.1) 10/21/23 14:35 Nucleated RBC % (auto) 0 % 10/21/23 14:35 Nucleated RBCs # 0.0 /100WBC 10/21/23 14:35 Sodium 134 mmol/L (136-145) L 10/21/23 14:35 Potassium 4.5 mmol/L (3.5-5.1) 10/21/23 14:35 Chloride 101 mmol/L (98-107) 10/21/23 14:35 Carbon Dioxide 22 mmol/L (22-29) 10/21/23 14:35 Anion Gap 15.5 (5-19) 10/21/23 14:35 BUN 13 mg/dL (8-23) 10/21/23 14:35 Creatinine 1.2 mg/dL (0.7-1.2) 10/21/23 14:35 GFR Calculation Not Reportable 10/21/23 14:35 Glucose 151 mg/dL (65-115) H 10/21/23 14:35 Calculated Osmolality 281 mOsm/kg (285-295) L 10/21/23 14:35 Calcium 8.5 mg/dL (8.5-10.5) 10/21/23 14:35 Total Bilirubin 0.3 mg/dL (0.15-1.2) 10/21/23 14:35 AST 14 U/L (0-40) 10/21/23 14:35 ALT 10 U/L (0-41) 10/21/23 14:35 Alkaline Phosphatase 106 U/L (40-130) 10/21/23 14:35 Troponin T Baseline 8 ng/L (0-15) 10/21/23 14:35 Total Protein 7.5 g/dL (6.6-8.7) 10/21/23 14:35 Albumin 3.7 g/dL (3.5-5.2) 10/21/23 14:35 Globulin 3.8 g/dL (1.3-4.6) 10/21/23 14:35 Lipase 27 U/L (13-60) 10/21/23 14:35 Urine Color Yellow (Yellow) 10/21/23 15:35 Urine Appearance Hazy (CLEAR) A 10/21/23 15:35 Urine pH 6 (5-7) 10/21/23 15:35 Ur Specific [place] 1.010 (1.005-1.030) 10/21/23 15:35 Urine Protein Neg (Negative) 10/21/23 15:35 Urine Glucose (UA) 4+ (Normal) H 10/21/23 15:35 Urine Ketones Negative (Negative) 10/21/23 15:35 Urine Blood Neg (Negative) 10/21/23 15:35 Urine Nitrate Negative (Negative) 10/21/23 15:35 Urine Bilirubin Neg (Negative) 10/21/23 15:35 Urine Urobilinogen Neg mg/dL (Negative) 10/21/23 15:35 Ur Leukocyte Esterase 2+ (Negative) H 10/21/23 15:35 Urine RBC None /hpf (0-2) 10/21/23 15:35 Urine WBC 80-100 /hpf (0-5) H 10/21/23 15:35 Ur Squamous Epith Cells 0-4 /hpf (0-5) H 10/21/23 15:35 Amorphous Sediment Not Reportable 10/21/23 15:35 Urine Bacteria Trace /hpf (NONE) 10/21/23 15:35 All radiology interpretation(s) finalized by discharge Discharge Plan Discharge Patient Disposition: Home Clinical Impression: Acute LUQ pain Acute cystitis Qualifiers: Hematuria presence: without hematuria Qualified Code(s): N30.00 - Acute cystitis without hematuria Condition: Stable Prescriptions: New levofloxacin 500 mg tablet 500 mg PO DAILY 7 Days Qty: 7 0RF No Action sucralfate [Carafate] 100 mg/mL suspension 10 ml PO BID Qty: 600 2RF aspirin 81 mg tablet,delayed release (DR/EC) 81 mg PO QAM Qty: 60 2RF atorvastatin 20 mg tablet 20 mg PO BEDTIME Qty: 30 2RF (DME) True Metrix Glucose Test Strip Strip See Rx Instructions .ROUTE .MEDSUPPLY Qty: 100 5RF Rx Instructions: 3 times day Plavix 75 mg tablet 75 mg PO QAM Qty: 60 2RF Farxiga 10 mg tablet 10 mg PO QAM Qty: 30 2RF Trulicity 0.75 mg/0.5 mL pen injector 0.75 mg SUBCUT .weekly Qty: 2 2RF duloxetine [Cymbalta] 20 mg capsule,delayed release(DR/EC) 20 mg PO BID Qty: 60 2RF gabapentin 300 mg capsule 300 mg PO BID Qty: 60 2RF glipizide 10 mg tablet extended release 24hr 10 mg PO DAILY Qty: 30 2RF insulin degludec [Tresiba FlexTouch U-200] 200 unit/mL (3 mL) insulin pen See Rx Instructions SUBCUT DAILY Qty: 18 2RF Rx Instructions: 65-75U subcutaneously daily; levocetirizine 5 mg tablet 5 mg PO QAM Qty: 30 2RF lisinopril 2.5 mg tablet 2.5 mg PO QAM Qty: 30 2RF metoprolol succinate 50 mg tablet extended release 24 hr 50 mg PO QAM Qty: 60 2RF pantoprazole [Protonix] 40 mg tablet,delayed release (DR/EC) 40 mg PO QAM Qty: 30 2RF Flomax 0.4 mg capsule 0.4 mg PO QPM Qty: 30 2RF (DME) pen needle, diabetic 33 gauge x 5/32 needle See Rx Instructions .ROUTE .MEDSUPPLY Qty: 100 5RF Rx Instructions: 1 time day as needed Discharge Orders: Discharge ED (Routine); Ordered 10/21/23 Ordered By: Vandana Marquez Referrals: Aline Pacheco, CERTIFIED NURSING ASSISTANT INSTRUCTOR-C [Primary Care Provider] - Patient Instructions: Abdominal Pain (ED) Activity Restrictions/Additional Instructions: As we discussed fill your antibiotics and take them as directed. You may follow-up with your primary care provider later this week for reevaluation. I will place a case management referral to get you set up with a urologist as suggested from the findings on your CT report. Coding Level of Care Code ED Slumber Room Attendant for Jose Luis Gibson
--- NOTE | 2023-10-21 14:13 | ECG_ITS ---
[facility] Test Date: 2023-10-21 Pat Name: Barb Joe Department: Room: Gender: Male [employer] Representative: : 1945 Requested By: Vandana Marquez Order Number: [id number] Miguel MD: Chrissy Cruz M.D. Measurements Intervals [place] Rate: 66 P: 53 MN: 171 QRS: 34 QRSD: 89 T: 31 QT: 385 QTc: 405 Interpretive Statements SINUS RHYTHM Compared to ECG 09/15/2022 02:58:32 Sinus bradycardia no longer present Electronically Signed On 10-21-2023 19:28:18 CDT by Chrissy Cruz M.D. [id number]
[2023-10-21 14:48] LABS: Basophils # 0.1 10^3/uL (0.0-0.1); Basophils % 0.7 %; Eosinophils # 0.5 10^3/uL (0.0-0.8); Eosinophils % 5.2 %; Lymphocytes # 3.1 10^3/uL (0.8-4.8); Lymphocytes % 33.5 %; Mean Corpuscular Hemoglobin 25.3 pg (27-33); Mean Corpuscular Volume 84.4 fl (82-101); Mean Platelet Volume 9.2 fL (7.4-10.4); Monocytes # 0.8 10^3/uL (0.2-0.9); Monocytes % 8.2 %; Neutrophils # 4.76 10^3/uL (1.8-7.7); Neutrophils % 51.9 %; Nucleated Red Blood Cells % 0 %; Platelet Count 328 10^3/cmm (157-399); Red Blood Count 4.86 10^6/uL (3.85-5.65); Red Cell Distribution Width 16.4 % (12.1-15.1); White Blood Count 9.17 10^3/uL (3.29-11.43)
[2023-10-21 15:06] LABS: Alanine Aminotransferase 10 U/L (0-41); Albumin Level 3.7 g/dL (3.5-5.2); Alkaline Phosphatase 106 U/L (40-130); Blood Urea Nitrogen 13 mg/dL (8-23); Calcium 8.5 mg/dL (8.5-10.5); Carbon Dioxide 22 mmol/L (22-29); Chloride 101 mmol/L (98-107); Globulin 3.8 g/dL (1.3-4.6); Glucose 151 mg/dL (65-115); Lipase 27 U/L (13-60); Osmolality Calculated 281 mOsm/kg (285-295); Sodium 134 mmol/L (136-145); Total Bilirubin 0.3 mg/dL (0.15-1.2); Total Protein 7.5 g/dL (6.6-8.7)
[2023-10-21 15:09] LABS: Anion Gap 15.5 (5-19); Aspartate Amino Transferase 14 U/L (0-40); Potassium 4.5 mmol/L (3.5-5.1)
[2023-10-21 15:10] LABS: Troponin(5th) Baseline 8 ng/L (0-15)
[2023-10-21] MEDS: iohexol 350 mg/mL 500 mL Btl (per mL) IV (15:22)
[2023-10-21 16:02] VITALS: BP 106/62; RESP 18; O2SAT 96
[2023-10-21 16:21] LABS: Add Urine Microscopic? YES; Bilirubin Urine Neg (Negative); Blood Urine Neg (Negative); Glucose Urine UA 4+ (Normal); Ketones Urine Negative (Negative); Leukocyte Esterase Urine 2+ (Negative); Nitrate Urine Negative (Negative); Protein Urine Neg (Negative); Squamous Epithelial Cell Urine 0-4 /hpf (0-5); Urine Appearance Hazy (CLEAR); Urine Color Yellow (Yellow); Urobilinogen Urine Neg (Negative); WBC Urine 80-100 /hpf (0-5); pH Urine 6 (5-7)
[2023-10-21 16:22] LABS: Add Urine Culture? Yes; Bacteria Urine TRACE /hpf
--- NOTE | 2023-10-22 09:08 | DCPLANNER ---
Referral sent to [facility] in [place]-
== END 2023-10-21 18:03 | disposition home or self-care (01) ==
PROVIDERS: Emergency Provider Physician Assistant; PCP Nurse Practitioner
DX: N30.00 Acute cystitis without hematuria (principal); R10.12 Left upper quadrant pain; Z79.02 Long term (current) use of antithrombotics/antiplatelets; Z79.82 Long term (current) use of aspirin; Z79.85 Long-term (current) use of injectable non-insulin antidiabetic drugs; Z79.84 Long term (current) use of oral hypoglycemic drugs; Z79.4 Long term (current) use of insulin; Z87.891 Personal history of nicotine dependence; Z85.038 Personal history of other malignant neoplasm of large intestine; E11.9 Type 2 diabetes mellitus without complications; E78.5 Hyperlipidemia, unspecified; I25.10 Atherosclerotic heart disease of native coronary artery without angina pectoris; Z86.73 Personal history of transient ischemic attack (TIA), and cerebral infarction without residual deficits; I10 Essential (primary) hypertension
CPT/HCPCS: 71045; 74177; 80053; 81001; 83690; 84484; 85025; 87077; 87086; 87186; 93005; 99285; Q9967

== ENCOUNTER → 2024-01-28 15:26 | Outpatient (BNVA) | payer MEDICARE, MEDICAID, SELFPAY | PROVIDERS: PCP Nurse Practitioner; Visit Provider Nurse Practitioner | DX: E11.9 Type 2 diabetes mellitus without complications (principal) | CPT/HCPCS: 80053; 80061; 82306; 82607; 83036 ==

== ENCOUNTER → 2024-04-14 15:12 | Outpatient (BNVA) | payer MEDICARE, MEDICAID, SELFPAY | PROVIDERS: PCP Nurse Practitioner; Visit Provider Nurse Practitioner | DX: E11.9 Type 2 diabetes mellitus without complications (principal) | CPT/HCPCS: 80053; 80061; 82607; 83036 ==

== ENCOUNTER 2024-04-17 01:32 | Observation (INO) | payer MEDICARE, MEDICAID, SELFPAY ==
[2024-04-17] VITALS (22 sets, daily range): BP systolic 98–128; BP diastolic 54–86; PULSE 62–108; RESP 14–18; TEMP 36.6–37.2; O2SAT 88–96; BMI 30.4; BMI 29.6
--- NOTE | 2024-04-17 01:57 | CTR_ITS ---
PROCEDURE INFORMATION: Exam: CT Abdomen And Pelvis With Contrast Exam date and time: 04/17/2024 2:42 AM Age: 78 years old Clinical indication: Other: Gi bleed; Prior surgery; Surgery date: 6+ months; Surgery type: Choley, ascending colon removed; Additional info: Lower gi bleed TECHNIQUE: Imaging protocol: Computed tomography of the abdomen and pelvis with contrast. Radiation optimization: All CT scans at this facility use at least one of these dose optimization techniques: automated exposure control; mA and/or kV adjustment per patient size (includes targeted exams where dose is matched to clinical indication); or iterative reconstruction. Contrast material: OMNI 350; Contrast volume: 100 ml; Contrast route: INTRAVENOUS (IV); COMPARISON: CT abdomen pelvis w con* [id number] 10/21/2023 3:20 PM RADIATION DOSE METRICS: Total DLP (mGy-cm): 985.06 FINDINGS: Lungs: Basilar bronchiectasis. Basilar scarring/atelectasis. Left lower lobe sub 6 mm nodule (series 3, image 16). Nodule stable from 11/08/2021. Additional right lower lobe nodules stable from 11/08/2021. Pleural spaces: Small pleural calcification is noted of the right costophrenic angle which again is stable from 11/08/2021. Heart: Base of heart is unremarkable as visualized. Coronary arteries: Heavy coronary calcified atherosclerotic disease. Liver: Normal. No mass. Gallbladder and biliary ducts: Status post cholecystectomy. Pancreas: Mild atrophy of the pancreas. Spleen: Normal. No splenomegaly. Adrenal glands: Normal. No mass. Kidneys and ureters: Hjyb-shkppim-miod-right renal cortical atrophy. Interval decrease in prominence of the left urinary collecting system from 10/21/2023. Stomach and bowel: Mild colonic stool burden. Proximal colectomy changes. Appendix: No evidence of appendicitis. Intraperitoneal space: Stable nidus of omental infarction anterior to the right hepatic lobe. Vasculature: Minimal to mild calcified and noncalcified atherosclerotic disease of the abdominal aorta extending into the iliac branches. Lymph nodes: Stable foci of central mesenteric fat stranding and lymph node prominence from prior comparisons. Urinary bladder: Bladder is trabeculated and demonstrates circumferential wall thickening. Reproductive: Nodular appearance of the prostate gland, although does not appear to be grossly enlarged. Bones/joints: Diffuse degenerative change of the visualized osseous structures. Lumbar disc posterior protrusions at multiple levels. Soft tissues: Bilateral, exdz-edbjpiw-yoly-right fat hernias. CT/CT abdomen pelvis w con* [id number] IMPRESSION: 1. No acute findings. 2. No findings to suggest nidus of lower GI hemorrhage. 3. Bladder appearance likely secondary to chronic outlet obstruction versus chronic inflammation. Correlate clinically. No evidence for obstruction on today's examination. Less likely on today's exam, however cannot entirely rule out cystitis.
--- NOTE | 2024-04-17 02:07 | ED_ITS ---
Documented by User: Jaden Haney DO 04/17/24 02:39 HPI - GI Bleed 2 General: Chief complaint: GI Bleed Stated complaint: Rectal Bleeding, LUQ Pain, Time Seen by Provider: 04/17/24 01:57 History of Present Illness: Patient presents to the ER with complaints of bright red blood per rectum. Patient states he had 1 episode of bright red blood per rectum. Patient denies any rectal pain but does say he has some left lower quadrant abdominal pain. Patient is on Plavix secondary to cardiac stents. Related Data Previous Rx's Medication Instructions Recorded aspirin 81 mg tablet,delayed 81 mg PO QAM #60 tabs 04/14/24 release atorvastatin 20 mg tablet 20 mg PO BEDTIME #30 tabs 04/14/24 blood sugar diagnostic (True #100 ea 04/14/24 Metrix Glucose Test Strip) clopidogrel 75 mg tablet (Plavix) 75 mg PO QAM #60 tabs 04/14/24 dapagliflozin propanediol 10 mg 10 mg PO QAM #30 tabs 04/14/24 tablet (Farxiga) dulaglutide 0.75 mg/0.5 mL 0.75 mg (0.5 mL) SUBCUT .weekly #2 04/14/24 subcutaneous pen injector mL (Trulicity) duloxetine 20 mg capsule,delayed 20 mg PO BID #60 caps 04/14/24 release (Cymbalta) gabapentin 300 mg capsule 300 mg PO BID #60 caps 04/14/24 glipizide 10 mg tablet, extended 10 mg PO DAILY #30 tabs 04/14/24 release 24 hr insulin degludec 200 unit/mL (3 See Rx Instructions SUBCUT DAILY 04/14/24 mL) subcutaneous pen (Tresiba #18 mL FlexTouch U-200 insulin) levocetirizine 5 mg tablet 5 mg PO QAM #30 tabs 04/14/24 lisinopril 2.5 mg tablet 2.5 mg PO QAM #30 tabs 04/14/24 metoprolol succinate 50 mg 50 mg PO QAM #60 tabs 04/14/24 tablet,extended release 24 hr pantoprazole 40 mg tablet,delayed 40 mg PO QAM #30 tabs 04/14/24 release (Protonix) pen needle, diabetic 33 gauge x #100 ea 04/14/24 sucralfate 100 mg/mL oral 5 ml PO QID #414 mL 04/14/24 suspension (Carafate) tamsulosin 0.4 mg capsule (Flomax) 0.4 mg PO QPM #30 caps 04/14/24 Allergies Allergy/AdvReac Type Severity Reaction Status Date / Time Erythromycins Allergy Severe ALGY-Rash Uncoded 04/14/24 14:10 Sulfa Drugs Allergy Severe ALGY-Rash Uncoded 04/14/24 14:10 Review of Systems 2 General: Reports: 10 or more systems reviewed and unremarkable except in HPI and below PFSH ED 2 PFSH: Medical History Hyperglycemia Diabetes mellitus with hyperglycemia, with long-term current use of insulin Allergic rhinitis due to pollen Hyperlipidemia Coronary artery disease Cervical radicular pain CVA (cerebral vascular accident) Past history of CVA. Continue statin, aspirin, Plavix Tricuspid regurgitation Aortic regurgitation Acid reflux Enrolled in chronic care management Vitamin D deficiency History of stroke Chronic migraine DDD (degenerative disc disease) Hypertension Dependent on walker for ambulation Surgical History History of cervical spinal surgery 3 times History of colon cancer 2015 History of cholecystectomy History of knee surgery Right History of cataract surgery Family History Father Cancer Denies family history of Bleeding disorder Social History Smoking and tobacco/nicotine status: former use of tobacco/nicotine Second hand smoke exposure: No Alcohol intake: never Substance/Drug Use: never Adopted: No Caregiver/support person: No Lives independently: Yes Household members: spouse Housing: House Marital status: Current occupational status: retired Do you think of yourself as: Straight/Heterosexual Current gender identity: Male Physical Exam 2 Const: COMMON NORMALS: no acute distress, average body habitus, patient oriented x3, no limitations, healthy appearing, alert and well nourished HENMT: COMMON NORMALS: normocephalic, atraumatic, hearing grossly normal bilaterally, external ears normal, Normal external nose present and moist oral mucous membranes HEAD & SCALP: normocephalic and atraumatic NOSE: Normal external nose present EXTERNAL EAR: Yes external ears normal Neck/C-Spine: COMMON NORMALS: full ROM, no lymphadenopathy, supple, no meningeal signs, no JVD and Thyroid normal THYROID: Thyroid normal Chest: COMMONS NORMALS: normal inspection of the chest and normal palpation of entire chest wall Resp: COMMON NORMALS: normal respiratory effort, No retractions, No use of accessory muscles and clear to auscultation bilaterally AUSCULTATION: clear to auscultation bilaterally Cardio: COMMON NORMALS: no JVD, regular rate, regular rhythm, S1 normal heart sound present, S2 normal heart sound present, No gallops present (Cardio), No clicks present (Cardio), No murmurs present (Cardio) and No rub (Cardio) R ATE: regular rate RHYTHM: regular rhythm HEART SOUNDS: S1 normal heart sound present and S2 normal heart sound present GI: COMMON NORMALS: Normal to inspection, nondistended, normoactive bowel sounds present, Soft to palpation, No hepatosplenomegaly present and no masses; negative for non-tender (Mild tender to palpation left lower quadrant) P ALPATION: Yes Soft to palpation and Yes No hepatosplenomegaly present Neuro: COMMON NORMALS: patient oriented x3 SENSORIUM/ORIENTATION: Yes alert MENINGEAL SIGNS: Yes no meningeal signs Course 2 Vital Signs: Vital signs: Vital Signs Temperature 98 F 04/17/24 01:34 Pulse Rate 80 04/17/24 06:00 Respiratory Rate 14 04/17/24 04:43 Blood Pressure 115/82 04/17/24 06:00 Pulse Oximetry 95 04/17/24 06:00 Oxygen Delivery Me thod Room Air 04/17/24 06:00 MDM - GI Bleed Medical Records I reviewed the patient's medical records. Lab Data I reviewed the patient's lab results. 04/17/24 02:05 04/17/24 02:05 Radiology Impressions Abdomen/Pelvis CT 04/17/24 01:57 IMPRESSION: 1. No acute findings. 2. No findings to suggest nidus of lower GI hemorrhage. 3. Bladder appearance likely secondary to chronic outlet obstruction versus chronic inflammation. Correlate clinically. No evidence for obstruction on today's examination. Less likely on today's exam, however cannot entirely rule out cystitis. Laboratory Results WBC 15.71 10^3/uL (3.29-11.43) H 04/17/24 02:05 RBC 5.60 10^6/uL (3.85-5.65) 04/17/24 02:05 Hgb 13.90 g/dL (11.27-16.99) 04/17/24 02:05 Hct 45.6 % (37-53) 04/17/24 02:05 MCV 81.4 fl (82-101) L 04/17/24 02:05 MCH 24.8 pg (27-33) L 04/17/24 02:05 MCHC 30.5 g/dL (30-55) 04/17/24 02:05 RDW 15.9 % (12.1-15.1) H 04/17/24 02:05 Plt Count 330 10^3/cmm (157-399) 04/17/24 02:05 MPV 9.3 fL (7.4-10.4) 04/17/24 02:05 Neut % (Auto) 84.9 % 04/17/24 02:05 Lymph % (Auto) 7.0 % 04/17/24 02:05 [place] % (Auto) 5.1 % 04/17/24 02:05 Eos % (Auto) 2.2 % 04/17/24 02:05 Baso % (Auto) 0.3 % 04/17/24 02:05 Neut # (Auto) 13.34 10^3/uL (1.8-7.7) H 04/17/24 02:05 Lymph # (Auto) 1.1 10^3/uL (0.8-4.8) 04/17/24 02:05 [place] # (Auto) 0.8 10^3/uL (0.2-0.9) 04/17/24 02:05 Eos # (Auto) 0.4 10^3/uL (0.0-0.8) 04/17/24 02:05 Baso # (Auto) 0.0 10^3/uL (0.0-0.1) 04/17/24 02:05 Nucleated RBC % (auto) 0 % 04/17/24 02:05 Nucleated RBCs # 0.0 /100WBC 04/17/24 02:05 PT 12.30 SECONDS (12.1-14.9) 04/17/24 02:05 INR 0.89 (0.8-1.2) 04/17/24 02:05 Sodium 134 mmol/L (136-145) L 04/17/24 02:05 Potassium 5.2 mmol/L (3.5-5.1) H 04/17/24 02:05 Chloride 99 mmol/L (98-107) 04/17/24 02:05 Carbon Dioxide 26 mmol/L (22-29) 04/17/24 02:05 Anion Gap 14.2 (5-19) 04/17/24 02:05 BUN 21 mg/dL (8-23) 04/17/24 02:05 Creatinine 1.3 mg/dL (0.7-1.2) H 04/17/24 02:05 GFR Calculation Not Reportable 04/17/24 02:05 Glucose 194 mg/dL (65-115) H 04/17/24 02:05 Calculated Osmolality 286 mOsm/kg (285-295) 04/17/24 02:05 Calcium 9.2 mg/dL (8.5-10.5) 04/17/24 02:05 Total Bilirubin 0.5 mg/dL (0.15-1.2) 04/17/24 02:05 AST 14 U/L (0-40) 04/17/24 02:05 ALT 15 U/L (0-41) 04/17/24 02:05 Alkaline Phosphatase 117 U/L (40-130) 04/17/24 02:05 Total Protein 8.7 g/dL (6.6-8.7) 04/17/24 02:05 Albumin 4.2 g/dL (3.5-5.2) 04/17/24 02:05 Globulin 4.5 g/dL (1.3-4.6) 04/17/24 02:05 All radiology interpretation(s) finalized by discharge Discharge Plan Discharge Patient Disposition: Placed in Observation Clinical Impression: Lower gastrointestinal hemorrhage, Hematochezia, History of cardioembolic cerebrovascular accident (CVA) Condition: Stable Prescriptions: No Action aspirin 81 mg tablet,delayed release (DR/EC) 81 mg PO QAM Qty: 60 2RF atorvastatin 20 mg tablet 20 mg PO BEDTIME Qty: 30 2RF (DME) True Metrix Glucose Test Strip Strip See Rx Instructions .ROUTE .MEDSUPPLY Qty: 100 5RF Rx Instructions: 3 times day Plavix 75 mg tablet 75 mg PO QAM Qty: 60 2RF Farxiga 10 mg tablet 10 mg PO QAM Qty: 30 2RF Trulicity 0.75 mg/0.5 mL pen injector 0.75 mg SUBCUT .weekly Qty: 2 2RF duloxetine [Cymbalta] 20 mg capsule,delayed release(DR/EC) 20 mg PO BID Qty: 60 2RF gabapentin 300 mg capsule 300 mg PO BID Qty: 60 2RF glipizide 10 mg tablet extended release 24hr 10 mg PO DAILY Qty: 30 2RF insulin degludec [Tresiba FlexTouch U-200] 200 unit/mL (3 mL) insulin pen See Rx Instructions SUBCUT DAILY Qty: 18 2RF Rx Instructions: 65-75U subcutaneously daily; levocetirizine 5 mg tablet 5 mg PO QAM Qty: 30 2RF lisinopril 2.5 mg tablet 2.5 mg PO QAM Qty: 30 2RF metoprolol succinate 50 mg tablet extended release 24 hr 50 mg PO QAM Qty: 60 2RF pantoprazole [Protonix] 40 mg tablet,delayed release (DR/EC) 40 mg PO QAM Qty: 30 2RF (DME) pen needle, diabetic 33 gauge x 5/32 needle See Rx Instructions .ROUTE .MEDSUPPLY Qty: 100 5RF Rx Instructions: 1 time day as needed sucralfate [Carafate] 100 mg/mL suspension 5 ml PO QID Qty: 414 0RF Rx Instructions: swish in mouth and swallow; use after food/drink Flomax 0.4 mg capsule 0.4 mg PO QPM Qty: 30 2RF Referrals: Aline Pacheco, MILL ATTENDANT-C [Primary Care Provider] - Patient Instructions: Opioid Safety, Pain Management Sign Out Sign Out Data: Patient Sign Out occurred on 04/17/24 at 05:32. Patient's care was discussed, and care was transferred from Jaden Haney DO to Fabian Dao DO. Coding Level of Care Code ED Buffet Attendant for Chg Fwd Documented by User: Fabian Dao DO 04/17/24 06:24 HPI - GI Bleed 2 General: Chief complaint: GI Bleed Stated complaint: Rectal Bleeding, LUQ Pain, Time Seen by Provider: 04/17/24 01:57 Related Data Previous Rx's Medication Instructions Recorded aspirin 81 mg tablet,delayed 81 mg PO QAM #60 tabs 04/14/24 release atorvastatin 20 mg tablet 20 mg PO BEDTIME #30 tabs 04/14/24 blood sugar diagnostic (True #100 ea 04/14/24 Metrix Glucose Test Strip) clopidogrel 75 mg tablet (Plavix) 75 mg PO QAM #60 tabs 04/14/24 dapagliflozin propanediol 10 mg 10 mg PO QAM #30 tabs 04/14/24 tablet (Farxiga) dulaglutide 0.75 mg/0.5 mL 0.75 mg (0.5 mL) SUBCUT .weekly #2 04/14/24 subcutaneous pen injector mL (Trulicity) duloxetine 20 mg capsule,delayed 20 mg PO BID #60 caps 04/14/24 release (Cymbalta) gabapentin 300 mg capsule 300 mg PO BID #60 caps 04/14/24 glipizide 10 mg tablet, extended 10 mg PO DAILY #30 tabs 04/14/24 release 24 hr insulin degludec 200 unit/mL (3 See Rx Instructions SUBCUT DAILY 04/14/24 mL) subcutaneous pen (Tresiba #18 mL FlexTouch U-200 insulin) levocetirizine 5 mg tablet 5 mg PO QAM #30 tabs 04/14/24 lisinopril 2.5 mg tablet 2.5 mg PO QAM #30 tabs 04/14/24 metoprolol succinate 50 mg 50 mg PO QAM #60 tabs 04/14/24 tablet,extended release 24 hr pantoprazole 40 mg tablet,delayed 40 mg PO QAM #30 tabs 04/14/24 release (Protonix) pen needle, diabetic 33 gauge x #100 ea 04/14/24 5/32 sucralfate 100 mg/mL oral 5 ml PO QID #414 mL 04/14/24 suspension (Carafate) tamsulosin 0.4 mg capsule (Flomax) 0.4 mg PO QPM #30 caps 04/14/24 Allergies Allergy/AdvReac Type Severity Reaction Status Date / Time Erythromycins Allergy Severe ALGY-Rash Uncoded 04/14/24 14:10 Sulfa Drugs Allergy Severe ALGY-Rash Uncoded 04/14/24 14:10 PFS ED 2 PFSH: Medical History Hyperglycemia Diabetes mellitus with hyperglycemia, with long-term current use of insulin Allergic rhinitis due to pollen Hyperlipidemia Coronary artery disease Cervical radicular pain CVA (cerebral vascular accident) Past history of CVA. Continue statin, aspirin, Plavix Tricuspid regurgitation Aortic regurgitation Acid reflux Enrolled in chronic care management Vitamin D deficiency History of stroke Chronic migraine DDD (degenerative disc disease) Hypertension Dependent on walker for ambulation Surgical History History of cervical spinal surgery 3 times History of colon cancer 2014 History of cholecystectomy History of knee surgery Right History of cataract surgery Family History Father Cancer Denies family history of Bleeding disorder Social History Smoking and tobacco/nicotine status: former use of tobacco/nicotine Second hand smoke exposure: No Alcohol intake: never Substance/Drug Use: never Adopted: No Caregiver/support person: No Lives independently: Yes Household members: spouse Housing: House Marital status: Current occupational status: retired Do you think of yourself as: Straight/Heterosexual Current gender identity: Male Course 2 Vital Signs: Vital signs: Vital Signs Temperature 98 F 04/17/24 01:34 Pulse Rate 80 04/17/24 06:00 Respiratory Rate 14 04/17/24 04:43 Blood Pressure 115/82 04/17/24 06:00 Pulse Oximetry 95 04/17/24 06:00 Oxygen Delivery Me thod Room Air 04/17/24 06:00 MDM - GI Bleed Medical Decision Making Care assumed at change of shift. Patient has not had any further bloody bowel movements he has been moderately tachycardic throughout his ER stay. He is on metoprolol he is due to take it this morning. He is on dual antiplatelet therapy he has significantly significant left lower quadrant pain. CT does not show any acute diverticulitis or signs of chronic bladder outlet obstruction. He denies any urinary tract symptoms a UA was ordered. He does have some leukocytosis with a left shift. He was given IV fluids on arrival he had some mild hyperkalemia. His renal function was at his baseline. Will place patient on observation discussed with hospitalist consult surgery. Concerned about the bright red blood per rectum of the tachycardia may not yet equilibrated. Prophylactically cover for diverticulitis with Cipro and Flagyl. Talk to Dr. Little he will see the patient as well. Lab Data 04/17/24 02:05 04/17/24 02:05 Radiology Impressions Abdomen/Pelvis CT 04/17/24 01:57 IMPRESSION: 1. No acute findings. 2. No findings to suggest nidus of lower GI hemorrhage. 3. Bladder appearance likely secondary to chronic outlet obstruction versus chronic inflammation. Correlate clinically. No evidence for obstruction on today's examination. Less likely on today's exam, however cannot entirely rule out cystitis. Laboratory Results WBC 15.71 10^3/uL (3.29-11.43) H 04/17/24 02:05 RBC 5.60 10^6/uL (3.85-5.65) 04/17/24 02:05 Hgb 13.90 g/dL (11.27-16.99) 04/17/24 02:05 Hct 45.6 % (37-53) 04/17/24 02:05 MCV 81.4 fl (82-101) L 04/17/24 02:05 MCH 24.8 pg (27-33) L 04/17/24 02:05 MCHC 30.5 g/dL (30-55) 04/17/24 02:05 RDW 15.9 % (12.1-15.1) H 04/17/24 02:05 Plt Count 330 10^3/cmm (157-399) 04/17/24 02:05 MPV 9.3 fL (7.4-10.4) 04/17/24 02:05 Neut % (Auto) 84.9 % 04/17/24 02:05 Lymph % (Auto) 7.0 % 04/17/24 02:05 [place] % (Auto) 5.1 % 04/17/24 02:05 Eos % (Auto) 2.2 % 04/17/24 02:05 Baso % (Auto) 0.3 % 04/17/24 02:05 Neut # (Auto) 13.34 10^3/uL (1.8-7.7) H 04/17/24 02:05 Lymph # (Auto) 1.1 10^3/uL (0.8-4.8) 04/17/24 02:05 [place] # (Auto) 0.8 10^3/uL (0.2-0.9) 04/17/24 02:05 Eos # (Auto) 0.4 10^3/uL (0.0-0.8) 04/17/24 02:05 Baso # (Auto) 0.0 10^3/uL (0.0-0.1) 04/17/24 02:05 Nucleated RBC % (auto) 0 % 04/17/24 02:05 Nucleated RBCs # 0.0 /100WBC 04/17/24 02:05 PT 12.30 SECONDS (12.1-14.9) 04/17/24 02:05 INR 0.89 (0.8-1.2) 04/17/24 02:05 Sodium 134 mmol/L (136-145) L 04/17/24 02:05 Potassium 5.2 mmol/L (3.5-5.1) H 04/17/24 02:05 Chloride 99 mmol/L (98-107) 04/17/24 02:05 Carbon Dioxide 26 mmol/L (22-29) 04/17/24 02:05 Anion Gap 14.2 (5-19) 04/17/24 02:05 BUN 21 mg/dL (8-23) 04/17/24 02:05 Creatinine 1.3 mg/dL (0.7-1.2) H 04/17/24 02:05 GFR Calculation Not Reportable 04/17/24 02:05 Glucose 194 mg/dL (65-115) H 04/17/24 02:05 Calculated Osmolality 286 mOsm/kg (285-295) 04/17/24 02:05 Calcium 9.2 mg/dL (8.5-10.5) 04/17/24 02:05 Total Bilirubin 0.5 mg/dL (0.15-1.2) 04/17/24 02:05 AST 14 U/L (0-40) 04/17/24 02:05 ALT 15 U/L (0-41) 04/17/24 02:05 Alkaline Phosphatase 117 U/L (40-130) 04/17/24 02:05 Total Protein 8.7 g/dL (6.6-8.7) 04/17/24 02:05 Albumin 4.2 g/dL (3.5-5.2) 04/17/24 02:05 Globulin 4.5 g/dL (1.3-4.6) 04/17/24 02:05 Discharge Plan Discharge Patient Disposition: Placed in Observation Clinical Impression: Lower gastrointestinal hemorrhage, Hematochezia, History of cardioembolic cerebrovascular accident (CVA) Condition: Stable Prescriptions: No Action aspirin 81 mg tablet,delayed release (DR/EC) 81 mg PO QAM Qty: 60 2RF atorvastatin 20 mg tablet 20 mg PO BEDTIME Qty: 30 2RF (DME) True Metrix Glucose Test Strip Strip See Rx Instructions .ROUTE .MEDSUPPLY Qty: 100 5RF Rx Instructions: 3 times day Plavix 75 mg tablet 75 mg PO QAM Qty: 60 2RF Farxiga 10 mg tablet 10 mg PO QAM Qty: 30 2RF Trulicity 0.75 mg/0.5 mL pen injector 0.75 mg SUBCUT .weekly Qty: 2 2RF duloxetine [Cymbalta] 20 mg capsule,delayed release(DR/EC) 20 mg PO BID Qty: 60 2RF gabapentin 300 mg capsule 300 mg PO BID Qty: 60 2RF glipizide 10 mg tablet extended release 24hr 10 mg PO DAILY Qty: 30 2RF insulin degludec [Tresiba FlexTouch U-200] 200 unit/mL (3 mL) insulin pen See Rx Instructions SUBCUT DAILY Qty: 18 2RF Rx Instructions: 65-75U subcutaneously daily; levocetirizine 5 mg tablet 5 mg PO QAM Qty: 30 2RF lisinopril 2.5 mg tablet 2.5 mg PO QAM Qty: 30 2RF metoprolol succinate 50 mg tablet extended release 24 hr 50 mg PO QAM Qty: 60 2RF pantoprazole [Protonix] 40 mg tablet,delayed release (DR/EC) 40 mg PO QAM Qty: 30 2RF (DME) pen needle, diabetic 33 gauge x 5/32 needle See Rx Instructions .ROUTE .MEDSUPPLY Qty: 100 5RF Rx Instructions: 1 time day as needed sucralfate [Carafate] 100 mg/mL suspension 5 ml PO QID Qty: 414 0RF Rx Instructions: swish in mouth and swallow; use after food/drink Flomax 0.4 mg capsule 0.4 mg PO QPM Qty: 30 2RF Referrals: Aline Pacheco, M[facility] ATTENDANT-C [Primary Care Provider] - Patient Instructions: Opioid Safety, Pain Management Sign Out Sign Out Data: Patient Sign Out occurred on 04/17/24 at 05:32. Patient's care was discussed, and care was transferred from Jaden Haney DO to Fabian Dao DO. Coding Level of Care Code ED Buffet Attendant for Jose Luis Gibson
[2024-04-17 02:12] LABS: Basophils % 0.3 %; Eosinophils # 0.4 10^3/uL (0.0-0.8); Eosinophils % 2.2 %; Hematocrit 45.6 % (37-53); Lymphocytes # 1.1 10^3/uL (0.8-4.8); Mean Corpuscular HGB Conc 30.5 g/dL (30-55); Mean Corpuscular Hemoglobin 24.8 pg (27-33); Mean Corpuscular Volume 81.4 fl (82-101); Mean Platelet Volume 9.3 fL (7.4-10.4); Monocytes # 0.8 10^3/uL (0.2-0.9); Monocytes % 5.1 %; Neutrophils # 13.34 10^3/uL (1.8-7.7); Neutrophils % 84.9 %; Nucleated Red Blood Cells % 0 %; Platelet Count 330 10^3/cmm (157-399); Red Cell Distribution Width 15.9 % (12.1-15.1); White Blood Count 15.71 10^3/uL (3.29-11.43)
[2024-04-17 02:24] LABS: INR 0.89 (0.8-1.2)
[2024-04-17 02:31] LABS: Alanine Aminotransferase 15 U/L (0-41); Albumin Level 4.2 g/dL (3.5-5.2); Alkaline Phosphatase 117 U/L (40-130); Blood Urea Nitrogen 21 mg/dL (8-23); Calcium 9.2 mg/dL (8.5-10.5); Carbon Dioxide 26 mmol/L (22-29); Chloride 99 mmol/L (98-107); Creatinine Clr Calc Pharmacy 50.3949; Globulin 4.5 g/dL (1.3-4.6); Glucose 194 mg/dL (65-115); Osmolality Calculated 286 mOsm/kg (285-295); Sodium 134 mmol/L (136-145); Total Bilirubin 0.5 mg/dL (0.15-1.2); Total Protein 8.7 g/dL (6.6-8.7)
[2024-04-17 02:32] LABS: Anion Gap 14.2 (5-19); Aspartate Amino Transferase 14 U/L (0-40); Potassium 5.2 mmol/L (3.5-5.1)
[2024-04-17] MEDS: iohexol 350 mg/mL 500 mL Btl (per mL) IV (02:47)
[2024-04-17] MEDS: sodium chloride 0.9% 1,000 ML 999 ML IV (02:56)
[2024-04-17 06:24] LABS: Lactic Sepsis W/Reflex 1.1 mmol/L (0.5-2.2)
[2024-04-17] MEDS: ciprofloxacin 400 MG/200 ML PREMIX 200 MG IV (06:50)
[2024-04-17] MEDS: metroNIDAZOLE IV 500 MG/100 ML PREMIX 100 MG IV (06:50)
--- NOTE | 2024-04-17 06:51 | P.HP_ITS ---
Providers/Chief Complaint 2 Primary Care Provider: Aline Pacheco, FAMILY SERVICES MANAGER-C Chief Complaint: Rectal Bleeding, LUQ Pain, History of Present Illness Very pleasant 78 gentleman with history of CVA, CAD, stenting, on aspirin and Plavix, history of colon cancer and proximal colon resection in 2015, has not had a colonoscopy since then, reports intermittent constipation, presents due to large bloody bowel movement at home. In ER with tachycardia 105, blood pressure 111/71, hemoglobin 13.9, INR 0.89, sodium 134, potassium 5.2, creatinine 1.3, glucose 194, CT abdomen pelvis with bladder appearance likely secondary to chronic outlet obstruction, versus chronic inflammation. Otherwise without findings to suggest nidus of lower GI hemorrhage. Review of Systems 2 Const: Denies: fever(s), chills, body aches or malaise Card: Denies: chest pain, edema, pre-syncope or dyspnea on exertion Resp: Denies: dyspnea, productive cough, change in phlegm color or hemoptysis GI: Reports: constipation and hematochezia; Denies: abdominal pain, nausea, vomiting, diarrhea or melena : Denies: flank pain, difficulty urinating, urinary frequency or hematuria Musc: Denies: back pain, joint swelling or joint redness Skin/Breast: Denies: rash or new lesions Medications/Allergies Home Medications Medication Instructions Recorded Confirmed Last Taken Type aspirin 81 mg tablet,delayed 81 mg PO QAM #60 tabs 04/14/24 04/14/24 Unknown Rx release atorvastatin 20 mg tablet 20 mg PO BEDTIME #30 tabs 04/14/24 04/14/24 Unknown Rx blood sugar diagnostic (True #100 ea 04/14/24 04/14/24 Unknown Rx Metrix Glucose Test Strip) clopidogrel 75 mg tablet (Plavix) 75 mg PO QAM #60 tabs 04/14/24 04/14/24 Unknown Rx dapagliflozin propanediol 10 mg 10 mg PO QAM #30 tabs 04/14/24 04/14/24 Unknown Rx tablet (Farxiga) dulaglutide 0.75 mg/0.5 mL 0.75 mg (0.5 mL) SUBCUT .weekly #2 04/14/24 04/14/24 Unknown Rx subcutaneous [facility] duloxetine 20 mg capsule,delayed 20 mg PO BID #60 caps 04/14/24 04/14/24 Unknown Rx release (Cymbalta) gabapentin 300 mg capsule 300 mg PO BID #60 caps 04/14/24 04/14/24 Unknown Rx glipizide 10 mg tablet, extended 10 mg PO DAILY #30 tabs 04/14/24 04/14/24 Unknown Rx release 24 hr insulin degludec 200 unit/mL (3 See Rx Instructions SUBCUT DAILY 04/14/24 04/14/24 Unknown Rx mL) subcutaneous pen (Tresiba #18 mL FlexTouch U-200 insulin) levocetirizine 5 mg tablet 5 mg PO QAM #30 tabs 04/14/24 04/14/24 Unknown Rx lisinopril 2.5 mg tablet 2.5 mg PO QAM #30 tabs 04/14/24 04/14/24 Unknown Rx metoprolol succinate 50 mg 50 mg PO QAM #60 tabs 04/14/24 04/14/24 Unknown Rx tablet,extended release 24 hr pantoprazole 40 mg tablet,delayed 40 mg PO QAM #30 tabs 04/14/24 04/14/24 Unknown Rx release (Protonix) pen needle, diabetic 33 gauge x #100 ea 04/14/24 04/14/24 Unknown Rx 5/32 sucralfate 100 mg/mL oral 5 ml PO QID #414 mL 04/14/24 04/14/24 Unknown Rx suspension (Carafate) tamsulosin 0.4 mg capsule (Flomax) 0.4 mg PO QPM #30 caps 04/14/24 04/14/24 Unknown Rx Allergies Allergy/AdvReac Type Severity Reaction Status Date / Time Erythromycins Allergy Severe ALGY-Rash Uncoded 04/14/24 14:10 Sulfa Drugs Allergy Severe ALGY-Rash Uncoded 04/14/24 14:10 PFSH Acute 2 PFSH: Medical History Hyperglycemia Diabetes mellitus with hyperglycemia, with long-term current use of insulin Allergic rhinitis due to pollen Hyperlipidemia Coronary artery disease Cervical radicular pain CVA (cerebral vascular accident) Past history of CVA. Continue statin, aspirin, Plavix Tricuspid regurgitation Aortic regurgitation Acid reflux Enrolled in chronic care management Vitamin D deficiency History of stroke Chronic migraine DDD (degenerative disc disease) Hypertension Dependent on walker for ambulation Surgical History History of cervical spinal surgery 3 times History of colon cancer 2015 History of cholecystectomy History of knee surgery Right History of cataract surgery Family History Father Cancer Denies family history of Bleeding disorder Social History Smoking and tobacco/nicotine status: former use of tobacco/nicotine Second hand smoke exposure: No Alcohol intake: never Substance/Drug Use: never Adopted: No Caregiver/support person: No Lives independently: Yes Household members: spouse Housing: House Marital status: Current occupational status: retired Do you think of yourself as: Straight/Heterosexual Current gender identity: Male Vitals/I&O/Wt Last Vital Signs Temp 98 F 04/17/24 01:34 Pulse 80 04/17/24 06:00 Resp 14 04/17/24 04:43 BP 115/82 04/17/24 06:00 Pulse Ox 95 04/17/24 06:00 O2 Del Method Room Air 04/17/24 06:00 04/16/24 04/16/24 04/17/24 14:59 22:59 06:59 Intake Total 1000 / 1000 Balance 1000 / 1000 Weight last 48 hrs Weight 90.718 kg Physical Exam 2 Const: COMMON NORMALS: patient oriented x3 and alert GENERAL APPEARANCE: c ooperative ORIENTATION/CONSCIOUSNESS: Yes awake HENMT: COMMON NORMALS: oropharynx normal Neck/C-Spine: COMMON NORMALS: no JVD Resp: COMMON NORMALS: normal respiratory effort and clear to auscultation bilaterally AUSCULTATION: clear to auscultation bilaterally Cardio: COMMON NORMALS: no JVD, regular rhythm, S1 normal heart sound present, S2 normal heart sound present and No murmurs present (Cardio) RHYTHM: regular rhythm HEART SOUNDS: S1 normal heart sound present and S2 normal heart sound present GI: COMMON NORMALS: Normal to inspection, nondistended, normoactive bowel sounds present, Soft to palpation and non-tender PALPATION: Yes Soft to palpation Extremity: COMMON NORMALS: no joint enlargement and no pedal edema Neuro: COMMON NORMALS: patient oriented x3 and moves all extremities S ENSORIUM/ORIENTATION: Yes alert Skin: COMMON NORMALS: no rashes or lesions noted GENERAL SKIN EXAM: no rashes or lesions noted Data 04/17/24 02:05 04/17/24 02:05 Micro: Microbiology 04/17/24 06:29 Blood Culture - Preliminary Blood SPECIMEN COLLECTED 04/17/24 06:25 Blood Culture - Preliminary Blood SPECIMEN COLLECTED A&P Assessment and plan (1) Lower gastrointestinal hemorrhage: Reported large bloody bowel movement at home. Acute GI bleeding on at risk of life-threatening bleeding, at risk of hemorrhagic shock, on DAPT with history of CVA, also reports history of CAD, stenting. Reviewed vitals, CBC, INR, CMP, CT abdomen pelvis, ER documentation, discussed with ER provider. Suspected lower GI bleed. He has had little bit of tenderness in left lower quadrant, CT without suggestion of abnormality there or other finding that may suggest a source of the bleeding. He does have history of proximal colectomy with history of colon cancer back in 2015. Has not had a colonoscopy since then. Hold off aspirin, Plavix for now, resume at least 1 antiplatelet when safe. Surgery is on consult. Keep NPO. Follow-up hemoglobin. Hold duloxetine for now. Noted tachycardia on presentation 105. Gentle IV hydration, NS 75 mL/h. Monitor for risk of fluid overload with IV fluids. (2) LUISA (acute kidney injury): Creatinine 1.3, baseline around 1.1. Cause is not entirely clear. Hold lisinopril. He reports he has been thirsty. Possible prerenal/dehydration, hypovolemia with GI blood loss possible. Gentle IV hydration. Reassess chemistry. With hyperkalemia, hold lisinopril. Reassess potassium. (3) Hyperkalemia: Hold lisinopril. Recheck potassium. (4) Leukocytosis: UA is requested, some signs of chronic bladder obstruction, possibly inflammation/UTI. Follow-up UA. Continue Flomax. Monitor for signs of retention. He is otherwise afebrile. CT abdomen pelvis unremarkable. No respiratory symptoms. Repeat blood counts. May be stress related secondary to acute GI bleeding. Received an empiric dose of ciprofloxacin, Flagyl in ER. (5) Bladder outlet obstruction: UA is requested. Continue Flomax. Monitor for signs of retention. Plan Goals of care discussion: In case of cardiopulmonary arrest she would not want CPR resuscitation. DM2: Monitor glucose, insulin sliding scale. CAD, status post tenting, reports 4-5 years ago. Hold aspirin and Plavix for now given lower GI bleed. Resume possibly 1 antiplatelet as soon as able to. Continue statin. HTN, monitor blood pressures, blood pressure soft, hold off antihypertensive for now. HLD: Continue statin History of CVA on aspirin and Plavix. Hold for now given GI bleed, resume when possible. Valvular heart disease GERD: Continue PPI DDD BPH: Continue Flomax Other medical problems Attestations 2 Medical Necessity Statement*: Place in observation for additional assessment management of lower GI bleeding, and a gentleman on dual antiplatelet therapy with underlying CAD with prior stenting, history of CVA, as well as LUISA, hyperkalemia, additional comorbidities as above. Diagnoses Lower gastrointestinal hemorrhage K92.2 LUISA (acute kidney injury) N17.9 Hyperkalemia E87.5 Leukocytosis D72.829 Bladder outlet obstruction N32.0
--- NOTE | 2024-04-17 06:55 | PC.NURSE ---
spoke with patients , she requested update. informed her that pt is stable and is being admitted. no bed number available at this time.
[2024-04-17 08:55] LABS: Bilirubin Urine Negative (Negative); Blood Urine Negative (Negative); Glucose Urine UA 1+ (Normal); Ketones Urine Negative (Negative); Leukocyte Esterase Urine Trace (Negative); Nitrate Urine Negative (Negative); Protein Urine Negative (Negative); Urine Appearance Clear (CLEAR); Urine Color Yellow (Yellow)
[2024-04-17 08:58] LABS: Add Urine Microscopic? YES; Hyaline Casts Urine 1.21 /lpf; RBC Urine 0-2 /hpf (0-2); Squamous Epithelial Cell Urine 0-5 /hpf (0-5); WBC Urine 51-100 /hpf (0-5)
[2024-04-17 08:59] LABS: Specific Gravity, Urine 1.051 (1.005-1.030)
[2024-04-17 09:09] LABS: Add Urine Culture? Yes; Amorphous Sediment Urine 1+ /hpf; Bacteria Urine 1+ /hpf; UA Slide Review UA Slide Review Perf
--- NOTE | 2024-04-17 09:28 | P.CONIM_ITS ---
Providers/Reason For Consult 2 Consulting Physician/Specialty*: General Surgery Reason for Consult*: Evaluation for lower GI bleed Attending Physician: Richard Benjamin MD Primary Care Provider: AFSANEH Bonds History of Present Illness History of Present Illness Barb Joe is a 78 year old male who presents to the hospital complaining of bright red blood per rectum in the setting of chronic anticoagulation due to a stent placement. Patient states that he has had this In the past is usually when he gets constipated that he has a large bowel movement causing bleeding, he was having a little bit of left lower quadrant pain but has subsided since the patient presented to the ED. He is CAT scan showed no evidence of intra- abdominal pathology. Review of Systems 2 General: Reports: 10 or more systems reviewed and unremarkable except in HPI and below Medications/Allergies Home Medications Medication Instructions Recorded Confirmed Last Taken Type aspirin 81 mg tablet,delayed 81 mg PO QAM #60 tabs 04/14/24 04/17/24 04/16/24 Rx release atorvastatin 20 mg tablet 20 mg PO BEDTIME #30 tabs 04/14/24 04/17/24 04/16/24 Rx blood sugar diagnostic (True #100 ea 04/14/24 04/17/24 Unknown Rx Metrix Glucose Test Strip) clopidogrel 75 mg tablet (Plavix) 75 mg PO QAM #60 tabs 04/14/24 04/17/24 04/16/24 Rx dapagliflozin propanediol 10 mg 10 mg PO QAM #30 tabs 04/14/24 04/17/24 04/16/24 Rx tablet (Farxiga) dulaglutide 0.75 mg/0.5 mL 0.75 mg (0.5 mL) SUBCUT .weekly #2 04/14/24 04/17/24 Unknown Rx subcutaneous pen injector mL (Trulicity) duloxetine 20 mg capsule,delayed 20 mg PO BID #60 caps 04/14/24 04/17/24 04/16/24 Rx release (Cymbalta) gabapentin 300 mg capsule 300 mg PO BID #60 caps 04/14/24 04/17/24 04/16/24 Rx glipizide 10 mg tablet, extended 10 mg PO DAILY #30 tabs 04/14/24 04/17/24 04/16/24 Rx release 24 hr insulin degludec 200 unit/mL (3 See Rx Instructions SUBCUT DAILY 04/14/24 04/17/24 04/16/24 Rx mL) subcutaneous pen (Tresiba #18 mL FlexTouch U-200 insulin) levocetirizine 5 mg tablet 5 mg PO QAM #30 tabs 04/14/24 04/17/24 04/16/24 Rx lisinopril 2.5 mg tablet 2.5 mg PO QAM #30 tabs 04/14/24 04/17/24 04/16/24 Rx metoprolol succinate 50 mg 50 mg PO QAM #60 tabs 04/14/24 04/17/24 04/16/24 Rx tablet,extended release 24 hr pantoprazole 40 mg tablet,delayed 40 mg PO QAM #30 tabs 04/14/24 04/17/24 04/16/24 Rx release (Protonix) pen needle, diabetic 33 gauge x #100 ea 04/14/24 04/17/24 Unknown Rx tamsulosin 0.4 mg capsule (Flomax) 0.4 mg PO QPM #30 caps 04/14/24 04/17/24 04/16/24 Rx Allergies Allergy/AdvReac Type Severity Reaction Status Date / Time Erythromycins Allergy Severe ALGY-Rash Uncoded 04/14/24 14:10 Sulfa Drugs Allergy Severe ALGY-Rash Uncoded 04/14/24 14:10 PFSH Acute 2 PFSH: Medical History Hyperglycemia Diabetes mellitus with hyperglycemia, with long-term current use of insulin Allergic rhinitis due to pollen Hyperlipidemia Coronary artery disease Cervical radicular pain CVA (cerebral vascular accident) Past history of CVA. Continue statin, aspirin, Plavix Tricuspid regurgitation Aortic regurgitation Acid reflux Enrolled in chronic care management Vitamin D deficiency History of stroke Chronic migraine DDD (degenerative disc disease) Hypertension Dependent on walker for ambulation Surgical History History of cervical spinal surgery 3 times History of colon cancer 2014 History of cholecystectomy History of knee surgery Right History of cataract surgery Family History Father Cancer Denies family history of Bleeding disorder Social History Smoking and tobacco/nicotine status: former use of tobacco/nicotine Second hand smoke exposure: No Alcohol intake: never Substance/Drug Use: never Adopted: No Caregiver/support person: No Lives independently: Yes Household members: spouse Housing: House Marital status: Current occupational status: retired Do you think of yourself as: Straight/Heterosexual Current gender identity: Male Vitals/I&O/Wt Last Vital Signs Temp 98 F 04/17/24 01:34 Pulse 89 04/17/24 09:00 Resp 14 04/17/24 04:43 BP 105/58 04/17/24 09:00 Pulse Ox 95 04/17/24 09:00 O2 Del Method Room Air 04/17/24 08:00 04/16/24 04/17/24 04/17/24 22:59 06:59 14:59 Intake Total 1000 / 1000 Balance 1000 / 1000 Weight last 48 hrs Weight 200 lb Physical Exam 2 GI: OTHER: Abdominal exam is benign, abdomen is soft nontender nondistended. Digital rectal examination was done, I did not see any blood residue in the glove there is empty rectal vault with only residual amount of stool, no evidence of active bleeding. Data 04/17/24 07:18 04/17/24 02:05 Micro: Microbiology 04/17/24 06:29 Blood Culture - Preliminary Blood SPECIMEN COLLECTED 04/17/24 06:25 Blood Culture - Preliminary Blood SPECIMEN COLLECTED A&P Assessment and plan (1) Lower gastrointestinal hemorrhage: Plan After complete history, physical examination and review of all available clinical data the following is my assessment. This is a 78-year-old male who presents with possible lower GI bleed, according to the patient he was constipated so some bright red blood per rectum. He denies any other significant symptoms was having a little bit of abdominal pain that has resolved, CT scan is unremarkable for intra-abdominal pathology, no evidence of masses in the colon. There is evidence of a previous right colectomy that the patient had done for colon cancer many years ago, his last colonoscopy was about 5 years ago. Wide mouth slightly elevated hemoglobin is 13. Patient was mildly tachycardic when he presented but has seen resolved with hydration. At this point the main differential is rectal bleeding due to constipation either due to hemorrhoid or small tear in the rectal margin versus diverticular bleeding, in both cases the main treatment is conservative with hydration and monitoring and stool softeners once the patient is able to have p.o. diet. He is okay to have clears from my standpoint, if the hemoglobin continues to trend down or he has a recurrent episode of bleeding next step will be to offer colonoscopy after bowel prep. -Conservative management for now is appropriate -Clear liquid diet is okay with me -If hemoglobin stable is okay to resume anticoagulation. -Will consider colonoscopy if there is recurrent bleeding or continues downtrend of the hemoglobin. Coding Level of Care Code 91081 Diagnoses Lower gastrointestinal hemorrhage K92.2
--- NOTE | 2024-04-17 10:53 | W.PM.EVENTAC ---
Event Note Event Note: Patient is awake and alert Complaining of mild abdominal tenderness left lower quadrant GCS 15 Nonfocal neuroexam Dehydrated GCS 15 hemodynamic stable H&H stable Start liquid diet Appreciate general surgery recommendations Continue levofloxacin for UTI
[2024-04-17] MEDS: pantoprazole 40 mg SDV IVP (12:32)
[2024-04-17] MEDS: sodium chloride 0.9% 1,000 ML 100 ML IV (12:32)
[2024-04-17 13:20] LABS: Glucose Point of Care 112 mg/dL (70-110)
--- NOTE | 2024-04-17 16:33 | PC.NURSE ---
Patient's spouse, Flora, called requesting an update on patient's status. I reviewed information available, including current Hemoglobin, advancing patient to clear liquids to trial his tolerance, and current plan for patient at this time as documented by Dr. Little. I obtained a brief report from Adwoa Ruiz RN and she states patient has been resting and comfortable for most of the day. I relayed this information to Flora. She verbalizes understanding and is appreciative of the information. She denies further questions/concerns at this time and states she will call back later and speak with patient.
[2024-04-17] MEDS: tamsulosin 0.4 mg Capsule PO (17:20)
[2024-04-17 17:50] LABS: Glucose Point of Care 138 mg/dL (70-110)
[2024-04-17] MEDS: atorvastatin 40 mg Tablet PO (20:23)
[2024-04-17 21:08] LABS: Glucose Point of Care 68 mg/dL (70-110)
[2024-04-18 04:00] VITALS: BP 121/64; PULSE 65; RESP 18; TEMP 36.9; O2SAT 94
[2024-04-18 04:10] LABS: Basophils % 0.3 %; Eosinophils # 0.2 10^3/uL (0.0-0.8); Eosinophils % 3.4 %; Hematocrit 37.7 % (37-53); Lymphocytes # 1.7 10^3/uL (0.8-4.8); Lymphocytes % 25.3 %; Mean Corpuscular HGB Conc 29.4 g/dL (30-55); Mean Corpuscular Hemoglobin 24.6 pg (27-33); Mean Corpuscular Volume 83.6 fl (82-101); Mean Platelet Volume 9.9 fL (7.4-10.4); Monocytes # 0.7 10^3/uL (0.2-0.9); Monocytes % 10.1 %; Neutrophils # 4.11 10^3/uL (1.8-7.7); Neutrophils % 60.5 %; Nucleated Red Blood Cells % 0 %; Platelet Count 226 10^3/cmm (157-399); Red Blood Count 4.51 10^6/uL (3.85-5.65); Red Cell Distribution Width 16.3 % (12.1-15.1)
[2024-04-18 04:36] LABS: Blood Urea Nitrogen 15 mg/dL (8-23); Calcium 8.2 mg/dL (8.5-10.5); Carbon Dioxide 24 mmol/L (22-29); Chloride 105 mmol/L (98-107); Creatinine Clr Calc Pharmacy 53.9412; Glucose 84 mg/dL (65-115); Osmolality Calculated 286 mOsm/kg (285-295); Sodium 138 mmol/L (136-145)
[2024-04-18 05:09] VITALS: PULSE 63
[2024-04-18] MEDS: aspirin 81 mg EC Tablet PO (05:17)
[2024-04-18] MEDS: levoFLOXacin 750 mg Tablet PO (05:17)
[2024-04-18 06:43] LABS: Glucose Point of Care 96 mg/dL (70-110)
[2024-04-18 08:00] VITALS: BP 115/72; PULSE 76; RESP 17; TEMP 36.7; O2SAT 94
--- NOTE | 2024-04-18 08:45 | P.DS_ITS ---
Discharge Providers Date of Admission: 04/17/24 10:00 Date of Discharge: April 18, 2024 Attending Provider at Admission: Richard Benjamin MD Attending Provider at Discharge: Richard Benjamin MD Primary Care Provider: AFSANEH Bonds Diagnoses at Discharge Discharge Diagnosis (1) Lower gastrointestinal hemorrhage: Status: Acute Reason for Visit Reason for Visit: Rectal Bleeding, LUQ Pain, Hospital Course Hospital Course 78-year-old male who was admitted for management evaluation of bright bleed per rectum hematochezia, CT abdomen pelvis was unremarkable, patient remained hemodynamically stable, no such recurrence of hematochezia in the hospital, hemoglobin remained stable around 11, decision was made to discharge patient and have him follow-up with his PCP. At this point he may stop taking his dual antiplatelet therapy for next 2 days and resume if there is no recurrence of hematochezia. He is being discharged with stable hemodynamics and labs. Patient is stating that he carries history of colon cancer status post colon resection 2015 suffered from constipation. This presentation likely is related to diverticular bleed at this point we will give him laxatives and senna for his chronic constipation. Physical Exam Narrative: Awake and alert GCS 15 Pleasant cooperative Euvolemic Nonfocal neuroexam Discharge Data Studies Completed and Pending Completed Studies During Hospitalization Category Date Time Status CT abdomen pelvis w con* [id number] Stat Cat Scan 04/17/24 01:57 Completed Pending at discharge Category Date Time Status Basic Metabolic Panel AM LABS Lab 04/19/24 04:00 Ordered Basic Metabolic Panel AM LABS Lab 04/20/24 04:00 Ordered Blood Culture Stat Lab 04/17/24 06:29 Results Complete Blood Count w/Auto AM LABS Lab 04/19/24 04:00 Ordered Complete Blood Count w/Auto AM LABS Lab 04/20/24 04:00 Ordered Urine Culture Stat Lab 04/17/24 06:34 Received Radiology Impressions Abdomen/Pelvis CT 04/17/24 01:57 IMPRESSION: 1. No acute findings. 2. No findings to suggest nidus of lower GI hemorrhage. 3. Bladder appearance likely secondary to chronic outlet obstruction versus chronic inflammation. Correlate clinically. No evidence for obstruction on today's examination. Less likely on today's exam, however cannot entirely rule out cystitis. Laboratory Results WBC 6.80 10^3/uL (3.29-11.43) 04/18/24 03:30 RBC 4.51 10^6/uL (3.85-5.65) 04/18/24 03:30 Hgb 11.10 g/dL (11.27-16.99) L 04/18/24 03:30 Hct 37.7 % (37-53) 04/18/24 03:30 MCV 83.6 fl (82-101) 04/18/24 03:30 MCH 24.6 pg (27-33) L 04/18/24 03:30 MCHC 29.4 g/dL (30-55) L 04/18/24 03:30 RDW 16.3 % (12.1-15.1) H 04/18/24 03:30 Plt Count 226 10^3/cmm (157-399) D 04/18/24 03:30 MPV 9.9 fL (7.4-10.4) 04/18/24 03:30 Neut % (Auto) 60.5 % 04/18/24 03:30 Lymph % (Auto) 25.3 % 04/18/24 03:30 [place] % (Auto) 10.1 % 04/18/24 03:30 Eos % (Auto) 3.4 % 04/18/24 03:30 Baso % (Auto) 0.3 % 04/18/24 03:30 Neut # (Auto) 4.11 10^3/uL (1.8-7.7) 04/18/24 03:30 Lymph # (Auto) 1.7 10^3/uL (0.8-4.8) 04/18/24 03:30 [place] # (Auto) 0.7 10^3/uL (0.2-0.9) 04/18/24 03:30 Eos # (Auto) 0.2 10^3/uL (0.0-0.8) 04/18/24 03:30 Baso # (Auto) 0.0 10^3/uL (0.0-0.1) 04/18/24 03:30 Nucleated RBC % (auto) 0 % 04/18/24 03:30 Nucleated RBCs # 0.0 /100WBC 04/18/24 03:30 PT 12.30 SECONDS (12.1-14.9) 04/17/24 02:05 INR 0.89 (0.8-1.2) 04/17/24 02:05 Sodium 138 mmol/L (136-145) 04/18/24 03:30 Potassium 4.0 mmol/L (3.5-5.1) 04/18/24 03:30 Chloride 105 mmol/L (98-107) 04/18/24 03:30 Carbon Dioxide 24 mmol/L (22-29) 04/18/24 03:30 Anion Gap 13.0 (5-19) 04/18/24 03:30 BUN 15 mg/dL (8-23) 04/18/24 03:30 Creatinine 1.2 mg/dL (0.7-1.2) 04/18/24 03:30 GFR Calculation Not Reportable 04/18/24 03:30 Glucose 84 mg/dL (65-115) 04/18/24 03:30 POC Glucose 96 mg/dL (70-110) 04/18/24 06:26 Calculated Osmolality 286 mOsm/kg (285-295) 04/18/24 03:30 Lactic Acid 1.1 mmol/L (0.5-2.2) 04/17/24 02:05 Calcium 8.2 mg/dL (8.5-10.5) L 04/18/24 03:30 Total Bilirubin 0.5 mg/dL (0.15-1.2) 04/17/24 02:05 AST 14 U/L (0-40) 04/17/24 02:05 ALT 15 U/L (0-41) 04/17/24 02:05 Alkaline Phosphatase 117 U/L (40-130) 04/17/24 02:05 Total Protein 8.7 g/dL (6.6-8.7) 04/17/24 02:05 Albumin 4.2 g/dL (3.5-5.2) 04/17/24 02:05 Globulin 4.5 g/dL (1.3-4.6) 04/17/24 02:05 Urine Color Yellow (Yellow) 04/17/24 06:34 Urine Appearance Clear (CLEAR) 04/17/24 06:34 Urine pH 5.0 (5-7) 04/17/24 06:34 Ur Specific [place] 1.051 (1.005-1.030) H 04/17/24 06:34 Urine Protein Negative (Negative) 04/17/24 06:34 Urine Glucose (UA) 1+ (Normal) H 04/17/24 06:34 Urine Ketones Negative (Negative) 04/17/24 06:34 Urine Blood Negative (Negative) 04/17/24 06:34 Urine Nitrate Negative (Negative) 04/17/24 06:34 Urine Bilirubin Negative (Negative) 04/17/24 06:34 Urine Urobilinogen 1.0 mg/dL (Negative) 04/17/24 06:34 Ur Leukocyte Esterase Trace (Negative) A 04/17/24 06:34 Urine RBC 0-2 /hpf (0-2) 04/17/24 06:34 Urine WBC 51-100 /hpf (0-5) H 04/17/24 06:34 Ur Squamous Epith Cells 0-5 /hpf (0-5) 04/17/24 06:34 Amorphous Sediment 1+ /hpf 04/17/24 06:34 Urine Bacteria 1+ /hpf (NONE) H 04/17/24 06:34 Hyaline Casts 1.21 /lpf 04/17/24 06:34 Vitals Last Vital Signs Temp 98.1 F 04/18/24 08:00 Pulse 76 04/18/24 08:00 Resp 17 04/18/24 08:00 BP 115/72 04/18/24 08:00 Pulse Ox 94 04/18/24 08:00 O2 Del Method Room Air 04/18/24 08:00 Discharge Plan Discharge Patient Disposition: Home Condition: Stable Prescriptions: New sennosides-docusate sodium [Senna-S] 8.6-50 mg tablet 1 tab-cap PO DAILY Qty: 10 0RF Continued aspirin 81 mg tablet,delayed release (DR/EC) 81 mg PO QAM Qty: 60 2RF atorvastatin 20 mg tablet 20 mg PO BEDTIME Qty: 30 2RF (DME) True Metrix Glucose Test Strip Strip See Rx Instructions .ROUTE .MEDSUPPLY Qty: 100 5RF Rx Instructions: 3 times day Farxiga 10 mg tablet 10 mg PO QAM Qty: 30 2RF Trulicity 0.75 mg/0.5 mL pen injector 0.75 mg SUBCUT .weekly Qty: 2 2RF duloxetine [Cymbalta] 20 mg capsule,delayed release(DR/EC) 20 mg PO BID Qty: 60 2RF gabapentin 300 mg capsule 300 mg PO BID Qty: 60 2RF glipizide 10 mg tablet extended release 24hr 10 mg PO DAILY Qty: 30 2RF insulin degludec [Tresiba FlexTouch U-200] 200 unit/mL (3 mL) insulin pen See Rx Instructions SUBCUT DAILY Qty: 18 2RF Rx Instructions: 65-75U subcutaneously daily; levocetirizine 5 mg tablet 5 mg PO QAM Qty: 30 2RF lisinopril 2.5 mg tablet 2.5 mg PO QAM Qty: 30 2RF metoprolol succinate 50 mg tablet extended release 24 hr 50 mg PO QAM Qty: 60 2RF pantoprazole [Protonix] 40 mg tablet,delayed release (DR/EC) 40 mg PO QAM Qty: 30 2RF (DME) pen needle, diabetic 33 gauge x 5/32 needle See Rx Instructions .ROUTE .MEDSUPPLY Qty: 100 5RF Rx Instructions: 1 time day as needed Flomax 0.4 mg capsule 0.4 mg PO QPM Qty: 30 2RF Held Plavix 75 mg tablet 75 mg PO QAM Qty: 60 2RF Hold Instructions: Resume on 04/19/24. Discharge Orders: Discharge Order (Routine); Ordered 04/18/24 Ordered By: Richard Benjamin Referrals: Aline Pacheco, SOFTWARE PACKAGING ENGINEER-C [Primary Care Provider] - Discharge Diet: Cardiac Patient Instructions: Opioid Safety, Pain Management Discharge Attestations Time Spent in Discharge Care*: greater than 30 min Quality Metrics Clinical Quality Measures [ No reported AMI, CVA or VTE this stay] Coding Level of Care Code Acute Code for Chg Fwd Diagnoses Lower gastrointestinal hemorrhage K92.2
[2024-04-18] MEDS: pantoprazole 40 mg SDV IVP (11:39)
[2024-04-18 12:36] LABS: Glucose Point of Care 80 mg/dL (70-110)
== END 2024-04-18 12:58 | disposition home or self-care (01) ==
LOC: ER 08:33 → ER IP 10:01 → MEDSURG 10:53
PROVIDERS: Emergency Medicine; Internal Medicine; Admitting Provider Internal Medicine; Emergency Provider Family Medicine; PCP Nurse Practitioner; Visit Provider Internal Medicine
DX: K92.2 Gastrointestinal hemorrhage, unspecified (principal); Z85.038 Personal history of other malignant neoplasm of large intestine; Z90.49 Acquired absence of other specified parts of digestive tract; E86.0 Dehydration; Z79.82 Long term (current) use of aspirin; E78.5 Hyperlipidemia, unspecified; I25.10 Atherosclerotic heart disease of native coronary artery without angina pectoris; Z86.73 Personal history of transient ischemic attack (TIA), and cerebral infarction without residual deficits; K21.9 Gastro-esophageal reflux disease without esophagitis; Z79.02 Long term (current) use of antithrombotics/antiplatelets; I10 Essential (primary) hypertension; Z87.891 Personal history of nicotine dependence; Z95.5 Presence of coronary angioplasty implant and graft
CPT/HCPCS: 36415; 36416; 51702; 51798; 74177; 80048; 80053; 81001; 82962; 83605; 85018; 85025; 85610; 87040; 87086; 96365; 96367; 96375; 99285; G0378; J0744; J2470; J3490; J7030

== ENCOUNTER → 2024-06-29 15:15 | Outpatient (BNVA) | payer MEDICARE, MEDICAID, SELFPAY | PROVIDERS: PCP Nurse Practitioner; Visit Provider Nurse Practitioner | DX: E11.9 Type 2 diabetes mellitus without complications; Z79.899 Other long term (current) drug therapy | CPT/HCPCS: 80053; 81000; 83036; 87086 ==

== ENCOUNTER → 2024-09-14 15:02 | Outpatient (BNVA) | payer MEDICARE, MEDICAID, SELFPAY | PROVIDERS: PCP Nurse Practitioner; Visit Provider Nurse Practitioner | DX: E11.65 Type 2 diabetes mellitus with hyperglycemia (principal); Z79.4 Long term (current) use of insulin; E11.9 Type 2 diabetes mellitus without complications; E55.9 Vitamin D deficiency, unspecified | CPT/HCPCS: 80053; 80061; 81000; 82306; 83036 ==

== ENCOUNTER 2024-09-17 11:37 | Emergency (ER) | payer MEDICARE, MEDICAID, SELFPAY ==
[2024-09-17] VITALS (13 sets, daily range): BP systolic 109–123; BP diastolic 68–74; PULSE 56–94; RESP 16–22; TEMP 36.9; O2SAT 94–99; BMI 28.8
--- NOTE | 2024-09-17 11:47 | ECG_ITS ---
[employer] / [facility] Test Date: 2024-09-17 Pat Name: Barb Joe Department: Room: Gender: Male Child Attendant: : 1945 Requested By: Jaden Haney Order Number: [id number] Rivera MD: Jerzy Castro M.D. Measurements Intervals [place] Rate: 74 P: 82 AR: 180 QRS: -4 QRSD: 83 T: 22 QT: 369 QTc: 411 Interpretive Statements SINUS RHYTHM Compared to ECG 10/21/2023 14:20:23 No significant changes Electronically Signed On 09-18-2024 19:06:34 CDT by Jerzy Castro M.D. [id number]
--- NOTE | 2024-09-17 11:47 | XR_ITS ---
WS: [id number] Portable AP upright chest, 09/17/2024 Clinical Data: Chest pain Comparison: Portable chest, 10/21/2023 Findings: There are chronic interstitial markings throughout both lungs. No nodules, masses or effusions are seen. The heart is enlarged. The pulmonary vascularity is not increased. No pneumonia or pneumothorax is seen. The aortic arch and descending thoracic aorta show mild tortuosity. There are monitor leads on the chest wall. XR/XR chest 1V portable [id number] Impression: 1. Chronic interstitial markings consistent with chronic lung disease. 2. Atherosclerosis and cardiomegaly.
--- NOTE | 2024-09-17 12:33 | ED_ITS ---
HPI - Chest Pain 2 General: Chief Complaint: Chest Pain Stated Complaint: chest pain, cough, left arm pain Time Seen by Provider: 09/17/24 11:58 History of Present Illness: Patient presents to the ER by EMS with complaints of chest pain left-sided, left lower quadrant abdominal pain. Is been going on since he woke up at 6 AM this morning. Patient did take 1 nitro 30 minutes before arrival to the ED. Patient reports the pain 6 out of 10. Patient has had pain like this off and on before. Patient is on Plavix, Lipitor, metoprolol, is an insulin-dependent diabetic, Related Data Home Medications ?Medication ?Instructions ?Recorded ?Confirmed dulaglutide 0.75 mg/0.5 mL 0.75 mg SUBCUT Q7D 09/17/24 09/17/24 subcutaneous pen injector (Trulicity) pantoprazole 40 mg tablet,delayed 40 mg PO QAM 5 09/17/24 release Previous Rx's ?Medication ?Instructions ?Recorded aspirin 81 mg tablet,delayed 81 mg PO QAM #60 tabs release atorvastatin 20 mg tablet 20 mg PO BEDTIME #30 tabs clopidogrel 75 mg tablet (Plavix) 75 mg PO QAM #60 tab s 06/29/24 dapagliflozin propanediol 10 mg 10 mg PO QAM #30 tabs 06/29/24 tablet (Farxiga) duloxetine 20 mg capsule,delayed 20 mg PO BID #60 caps 06/29/24 release (Cymbalta) gabapentin 300 mg capsule 300 mg PO BID #60 caps 06/29 glipizide 10 mg tablet, extended 10 mg PO DAILY #30 ta bs 06/29/24 release 24 hr insulin degludec 200 unit/mL (3 See Rx Instructions JACKSON BCUT DAILY 06/29/24 mL) subcutaneous pen (Tresiba #18 mL FlexTouch U-200 insulin) levocetirizine 5 mg tablet 5 mg PO QAM #30 tabs lisinopril 2.5 mg tablet 2.5 mg PO QAM #30 tabs 06/29 metoprolol succinate 50 mg 50 mg PO QAM #60 tabs 06/29 tablet,extended release 24 hr tamsulosin 0.4 mg capsule (Flomax) 0.4 mg PO QPM #30 c aps 06/29/24 Allergies Allergy/AdvReac Type Severity Reaction Status Date / Time erythromycin base Allergy Severe ALGY-Rash Verified 09/17/24 11:57 Sulfa Drugs Allergy Severe ALGY-Rash Uncoded 09/17/24 11:57 Review of Systems 2 General: Reports: 10 or more systems reviewed and unremarkable except in HPI and below PFSH ED 2 PFSH: Medical History Bladder outlet obstruction Hyperkalemia LUISA (acute kidney injury) History of cardioembolic cerebrovascular accident (CVA) Hematochezia Lower gastrointestinal hemorrhage Hyperglycemia Diabetes mellitus with hyperglycemia, with long-term current use of insulin Allergic rhinitis due to pollen Hyperlipidemia Coronary artery disease Cervical radicular pain CVA (cerebral vascular accident) Past history of CVA. Continue statin, aspirin, Plavix Tricuspid regurgitation Aortic regurgitation Acid reflux Enrolled in chronic care management Decline 04/14/24 Vitamin D deficiency History of stroke Chronic migraine DDD (degenerative disc disease) Hypertension Dependent on walker for ambulation Surgical History History of cervical spinal surgery 3 times History of colon cancer 2015 History of cholecystectomy History of knee surgery Right History of cataract surgery Family History Father Cancer Denies family history of Bleeding disorder Social History Smoking and tobacco/nicotine status: former use of tobacco/nicotine Second hand smoke exposure: No Alcohol intake: never Substance/Drug Use: never Adopted: No Caregiver/support person: No Lives independently: Yes Household members: spouse Housing: House Marital status: Current occupational status: retired Do you think of yourself as: Straight/Heterosexual Current gender identity: Male Physical Exam 2 Const: COMMON NORMALS: no acute distress, average body habitus, patient oriented x3, no limitations, alert and well nourished HENMT: COMMON NORMALS: normocephalic, atraumatic, hearing grossly normal bilaterally, external ears normal, Normal external nose present, moist oral mucous membranes and oropharynx normal HEAD & SCALP: normocephalic and atraumatic NOSE: Normal external nose present EXTERNAL EAR: Yes external ears normal Neck/C-Spine: COMMON NORMALS: no JVD Chest: COMMONS NORMALS: normal inspection of the chest and normal palpation of entire chest wall Resp: COMMON NORMALS: normal respiratory effort, No retractions, No use of accessory muscles and clear to auscultation bilaterally AUSCULTATION: clear to auscultation bilaterally Cardio: COMMON NORMALS: no JVD, regular rate, regular rhythm, S1 normal heart sound present, S2 normal heart sound present, No gallops present (Cardio), No clicks present (Cardio), No murmurs present (Cardio) and No rub (Cardio) R ATE: regular rate RHYTHM: regular rhythm HEART SOUNDS: S1 normal heart sound present and S2 normal heart sound present GI: COMMON NORMALS: Normal to inspection, nondistended, normoactive bowel sounds present, Soft to palpation, No hepatosplenomegaly present and no masses; negative for non-tender (Mild tenderness to palpation left lower quadrant) P ALPATION: Yes Soft to palpation and Yes No hepatosplenomegaly present Neuro: COMMON NORMALS: patient oriented x3 SENSORIUM/ORIENTATION: Yes alert Course 2 Vital Signs: Vital signs: Vital Signs Temperature 98.4 F 09/17/24 11:46 Pulse Rate 62 09/17/24 18:07 Respiratory Rate 16 09/17/24 18:07 Blood Pressure 111/70 09/17/24 15:02 Pulse Oximetry 99 09/17/24 18:07 Oxygen Delivery Me thod Room Air 09/17/24 11:46 MDM - Chest Pain Medical Decision Making Patient is worked up in standard chest pain fashion with serial EKGs, lab work serial troponins, chest x-ray, all which was essentially unremarkable. Patient remained chest pain-free his entire time here. Patient be discharged home. Medical Records I reviewed the patient's medical records. Lab Data I reviewed the patient's lab results. 09/17/24 13:25 09/17/24 13:25 Radiology Impressions Chest X-Ray 09/17/24 11:47 Impression: 1. Chronic interstitial markings consistent with chronic lung disease. 2. Atherosclerosis and cardiomegaly. Laboratory Results WBC 9.64 10^3/uL (3.29-11.43) 09/17/24 13:25 RBC 5.14 10^6/uL (3.85-5.65) 09/17/24 13:25 Hgb 12.10 g/dL (11.27-16.99) 09/17/24: Hct 41.1 % (37-53) 09/17/24: MCV 80.0 fl (82-101) L 09/17/24: MCH 23.5 pg (27-33) L 09/17/24: MCHC 29.4 g/dL (30-55) L 09/17/24: RDW 16.3 % (12.1-15.1) H 09/17/24: Plt Count 325 10^3/cmm (157-399) 09/17/24 MPV 9.9 fL (7.4-10.4) 09/17/24: Neut % (Auto) 59.8 % 09/17/24: Lymph % (Auto) 28.1 % 09/17/24: [place] % (Auto) 6.6 % 09/17/24: Eos % (Auto) 4.7 % 09/17/24: Baso % (Auto) 0.5 % 09/17/24: Neut # (Auto) 5.76 10^3/uL (1.8-7.7) 09/17/24: Lymph # (Auto) 2.7 10^3/uL (0.8-4.8) 09/17/24: [place] # (Auto) 0.6 10^3/uL (0.2-0.9) 09/17/24: Eos # (Auto) 0.5 10^3/uL (0.0-0.8) 09/17/24: Baso # (Auto) 0.1 10^3/uL (0.0-0.1) 09/17/24: Nucleated RBC % (auto) 0 % 09/17/24 Nucleated RBCs # 0.0 /100WBC 09/17/24: Sodium 136 mmol/L (136-145) 09/17/24: Potassium 4.5 mmol/L (3.5-5.1) 09/17/24: Chloride 100 mmol/L (98-107) 03/13/25 13:25 Carbon Dioxide 27 mmol/L (22-29) 09/17/24 13:25 Anion Gap 13.5 (5-19) 09/17/24 13: BUN 15 mg/dL (8-23) 09/17/24 13:25 Creatinine 1.1 mg/dL (0.7-1.2) 09/17/24 13:25 GFR Calculation Not Reportable 09/17/24 13: Glucose 109 mg/dL (65-115) 09/17/24 13:25 Calculated Osmolality 283 mOsm/kg (285-295) L 09/17/24 13:25 Calcium 9.1 mg/dL (8.5-10.5) 09/17/24: Total Bilirubin 0.3 mg/dL (0.15-1.2) 09/17/24: AST 13 U/L (0-40) 09/17/24: ALT 13 U/L (0-41) 09/17/24: Alkaline Phosphatase 114 U/L (40-130) 09/17/24 13:25 Troponin T Baseline 11 ng/L (0-15) 09/17/24 13: Troponin T 120 Minute 13.08 ng/L (0-15) 09/17/24 16:19 Delta Troponin T 2.08 ABS# (0-10) 09/17/24 16:19 NT-Pro-B Natriuret Pep < 36 pg/mL (0-450) 09/17/24 13:25 Total Protein 7.5 g/dL (6.6-8.7) 09/17/24:25 Albumin 3.7 g/dL (3.5-5.2) 09/17/24 13:25 Globulin 3.8 g/dL (1.3-4.6) 09/17/24 13:25 All radiology interpretation(s) finalized by discharge Discharge Plan Discharge Patient Disposition: Home Clinical Impression: Atypical chest pain, Abdominal pain, acute, left lower quadrant Condition: Stable Prescriptions: No Action aspirin 81 mg tablet,delayed release (DR/EC) 81 mg PO QAM Qty: 60 2RF atorvastatin 20 mg tablet 20 mg PO BEDTIME Qty: 30 2RF Farxiga 10 mg tablet 10 mg PO QAM Qty: 30 2RF duloxetine [Cymbalta] 20 mg capsule,delayed release(DR/EC) 20 mg PO BID Qty: 60 2RF gabapentin 300 mg capsule 300 mg PO BID Qty: 60 2RF glipizide 10 mg tablet extended release 24hr 10 mg PO DAILY Qty: 30 2RF insulin degludec [Tresiba FlexTouch U-200] 200 unit/mL (3 mL) insulin pen See Rx Instructions SUBCUT DAILY Qty: 18 2RF Rx Instructions: 65-75U subcutaneously daily; levocetirizine 5 mg tablet 5 mg PO QAM Qty: 30 2RF lisinopril 2.5 mg tablet 2.5 mg PO QAM Qty: 30 2RF metoprolol succinate 50 mg tablet extended release 24 hr 50 mg PO QAM Qty: 60 2RF Flomax 0.4 mg capsule 0.4 mg PO QPM Qty: 30 2RF Plavix 75 mg tablet 75 mg PO QAM Qty: 60 2RF pantoprazole 40 mg tablet,delayed release (DR/EC) 40 mg PO QAM Trulicity 0.75 mg/0.5 mL pen injector 0.75 mg SUBCUT Q7D Discharge Orders: Discharge ED (Routine); Ordered 09/17/24 Ordered By: Jaden Haney Referrals: Aline Pacheco, GEOTHERMAL INSTALLER-C [Primary Care Provider] - 1 week Patient Instructions: Abdominal Pain (ED), Chest Pain (ED) Activity Restrictions/Additional Instructions: Your evaluation ER did not show any acute cause of your symptomatology. Your chest pain is felt to be noncardiac in nature. Please follow-up with your family practice physician within the next 7 days for further evaluation and testing as needed. Print Language: Croatian Coding Level of Care Code ED Refrigeration System Installer for Jose Luis Gibson
--- NOTE | 2024-09-17 13:47 | ECG_ITS ---
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 Measurements Intervals [place] Rate: 62 P: -9 MD: 187 QRS: 68 QRSD: 79 T: 40 QT: 397 QTc: 405 Interpretive Statements SINUS RHYTHM LOW QRS VOLTAGE IN PRECORDIAL LEADS [QRS DEFLECTION < 1.0 mV IN CHEST LEADS] PATTERN CONSISTENT WITH PULMONARY DISEASE Compared to ECG 09/17/2024 11:40:00 Low QRS voltage now present Electronically Signed On 09-18-2024 19:23:08 CDT by Jerzy Castro M.D. [id number] [id number]
[2024-09-17 13:55] LABS: Basophils # 0.1 10^3/uL (0.0-0.1); Basophils % 0.5 %; Eosinophils # 0.5 10^3/uL (0.0-0.8); Eosinophils % 4.7 %; Hematocrit 41.1 % (37-53); Lymphocytes # 2.7 10^3/uL (0.8-4.8); Lymphocytes % 28.1 %; Mean Corpuscular HGB Conc 29.4 g/dL (30-55); Mean Corpuscular Hemoglobin 23.5 pg (27-33); Mean Platelet Volume 9.9 fL (7.4-10.4); Monocytes # 0.6 10^3/uL (0.2-0.9); Monocytes % 6.6 %; Neutrophils # 5.76 10^3/uL (1.8-7.7); Neutrophils % 59.8 %; Nucleated Red Blood Cells % 0 %; Platelet Count 325 10^3/cmm (157-399); Red Blood Count 5.14 10^6/uL (3.85-5.65); Red Cell Distribution Width 16.3 % (12.1-15.1); White Blood Count 9.64 10^3/uL (3.29-11.43)
[2024-09-17 14:18] LABS: Troponin(5th) Baseline 11 ng/L (0-15)
[2024-09-17 14:29] LABS: Alanine Aminotransferase 13 U/L (0-41); Albumin Level 3.7 g/dL (3.5-5.2); Alkaline Phosphatase 114 U/L (40-130); Anion Gap 13.5 (5-19); Aspartate Amino Transferase 13 U/L (0-40); Blood Urea Nitrogen 15 mg/dL (8-23); Calcium 9.1 mg/dL (8.5-10.5); Carbon Dioxide 27 mmol/L (22-29); Chloride 100 mmol/L (98-107); Globulin 3.8 g/dL (1.3-4.6); Glucose 109 mg/dL (65-115); NT Pro B Type Natriuretic Pept < 36 pg/mL (0-450); Osmolality Calculated 283 mOsm/kg (285-295); Potassium 4.5 mmol/L (3.5-5.1); Sodium 136 mmol/L (136-145); Total Bilirubin 0.3 mg/dL (0.15-1.2); Total Protein 7.5 g/dL (6.6-8.7)
[2024-09-17 17:20] LABS: Troponin 5 2HR 13.08 ng/L (0-15); Troponin 5 2HR Delta 2.08 ABS# (0-10)
--- NOTE | 2024-09-17 17:47 | ECG_ITS ---
[facility] Date: 2024-09-17 Pat Name: Barb Joe Department: Room: Gender: Male Ambulance Driver: : 1945 Requested By: Jaden Haney Order Number: [id number] Rivera MD: Jerzy Castro M.D. Measurements Intervals [place] Rate: 56 P: -12 VT: 180 QRS: 26 QRSD: 78 T: 26 QT: 429 QTc: 417 Interpretive Statements SINUS BRADYCARDIA Compared to ECG 09/17/2024 13:26:08 Sinus rhythm no longer present Electronically Signed On 09-18-2024 19:21:32 CDT by Jerzy Castro M.D. [email or web address] [id number]
== END 2024-09-17 19:04 | disposition home or self-care (01) ==
PROVIDERS: Emergency Provider Emergency Medicine; PCP Nurse Practitioner
DX: R07.89 Other chest pain (principal); R10.32 Left lower quadrant pain; Z79.4 Long term (current) use of insulin; Z87.891 Personal history of nicotine dependence; Z86.73 Personal history of transient ischemic attack (TIA), and cerebral infarction without residual deficits; E11.9 Type 2 diabetes mellitus without complications; I10 Essential (primary) hypertension
CPT/HCPCS: 36415; 71045; 80053; 83880; 84484; 85025; 93005; 99285

== ENCOUNTER 2024-11-01 17:50 | Emergency (ER) | payer MEDICARE, MEDICAID, SELFPAY ==
[2024-11-01] VITALS (11 sets, daily range): BP systolic 103–116; BP diastolic 57–76; PULSE 65–91; RESP 8–21; TEMP 36.6; O2SAT 94–99; BMI 28.8
--- NOTE | 2024-11-01 17:53 | ECG_ITS ---
[facility] Test Date: 2024-11-01 Pat Name: Barb Joe Department: Room: Gender: Male Rubber Mixer: : 1945 Requested By: Armando Rosenberg Order Number: [id number] Reading MD: SIL GARCIA Measurements Intervals [place] Rate: 85 P: 57 CO: 179 QRS: -1 QRSD: 83 T: 32 QT: 374 QTc: 447 Interpretive Statements SINUS RHYTHM NONSPECIFIC T-WAVE ABNORMALITY Compared to ECG 09/17/2024 18:01:06 T-wave abnormality now present Sinus bradycardia no longer present Electronically Signed On 11-02-2024 20:59:04 CDT by SIL GARCIA [id number]
--- NOTE | 2024-11-01 18:05 | XRR_ITS ---
PROCEDURE INFORMATION: Exam: XR Chest Exam date and time: 11/01/2024 6:07 PM Age: 79 years old Clinical indication: Chest pressure; Patient presents with chest pain since yesterday around 0600. Patient states it continued today. Patient took 2 nitro and had no relief. Patient has pain upon palpation. ; Additional info: Cp TECHNIQUE: Imaging protocol: Radiologic exam of the chest. Views: 1 view. COMPARISON: CR XR chest 1V portable [id number] 09/17/2024 12:10 PM FINDINGS: Lungs: No consolidation. Pleural spaces: No pleural effusion. No pneumothorax. Heart/Mediastinum: Stable cardiac contour. Bones/joints: No acute findings. XR/XR chest 1V portable [id number] IMPRESSION: No acute chest findings.
[2024-11-01 18:26] LABS: Basophils # 0.1 10^3/uL (0.0-0.1); Basophils % 0.4 %; Eosinophils # 0.4 10^3/uL (0.0-0.8); Eosinophils % 3.2 %; Hematocrit 41.7 % (37-53); Lymphocytes % 26.5 %; Mean Corpuscular Hemoglobin 22.8 pg (27-33); Mean Corpuscular Volume 78.7 fl (82-101); Mean Platelet Volume 9.2 fL (7.4-10.4); Monocytes # 0.8 10^3/uL (0.2-0.9); Monocytes % 6.7 %; Neutrophils # 7.06 10^3/uL (1.8-7.7); Neutrophils % 62.8 %; Nucleated Red Blood Cells % 0 %; Platelet Count 346 10^3/cmm (157-399); Red Cell Distribution Width 17.1 % (12.1-15.1); White Blood Count 11.27 10^3/uL (3.29-11.43)
--- NOTE | 2024-11-01 18:46 | W.ED.CHESTPA ---
HPI - Chest Pain General: Chief Complaint: Chest Pain Stated Complaint: chest pain Time Seen by Provider: 11/01/24 17:58 History of Present Illness: 79-year-old male patient with a history of coronary disease. He had 2 stents placed in 2019. He presents with 2 days of chest discomfort. Chest discomfort is pleuritic and left-sided. It is worse with deep breathing. He is had a cough. No sputum production or fever. No leg swelling. Related Data Home Medications ?Medication ?Instructions ?Recorded ?Confirmed dulaglutide 0.75 mg/0.5 mL 0.75 mg SUBCUT Q7D 09/17/24 09/17/24 subcutaneous pen injector (Trulicity) pantoprazole 40 mg tablet,delayed 40 mg PO QAM 09/17/24 09/17/24 release Previous Rx's ?Medication ?Instructions ?Recorded aspirin 81 mg tablet,delayed 81 mg PO QAM #60 tabs 06/29/24 release atorvastatin 20 mg tablet 20 mg PO BEDTIME #30 tabs 06/29/24 clopidogrel 75 mg tablet (Plavix) 75 mg PO QAM #60 tabs 06/29/24 dapagliflozin propanediol 10 mg 10 mg PO QAM #30 tabs 06/29/24 tablet (Farxiga) duloxetine 20 mg capsule,delayed 20 mg PO BID #60 caps 06/29/24 release (Cymbalta) gabapentin 300 mg capsule 300 mg PO BID #60 caps 06/29/24 glipizide 10 mg tablet, extended 10 mg PO DAILY #30 tabs 06/29/24 release 24 hr insulin degludec 200 unit/mL (3 See Rx Instructions SUBCUT DAILY 06/29/24 mL) subcutaneous pen (Tresiba #18 mL FlexTouch U-200 insulin) levocetirizine 5 mg tablet 5 mg PO QAM #30 tabs 06/29/24 lisinopril 2.5 mg tablet 2.5 mg PO QAM #30 tabs 06/29/24 metoprolol succinate 50 mg 50 mg PO QAM #60 tabs 06/29/24 tablet,extended release 24 hr tamsulosin 0.4 mg capsule (Flomax) 0.4 mg PO QPM #30 caps 06/29/24 ketorolac 10 mg tablet 10 mg PO TID PRN pain #10 tabs 11/01/24 Allergies Allergy/AdvReac Type Severity Reaction Status Date / Time erythromycin base Allergy Severe ALGY-Rash Verified 09/17/24 11:57 Sulfa Drugs Allergy Severe ALGY-Rash Uncoded 09/17/24 11:57 [facility] ED PFSH: Medical History Bladder outlet obstruction Hyperkalemia LUISA (acute kidney injury) History of cardioembolic cerebrovascular accident (CVA) Hematochezia Lower gastrointestinal hemorrhage Hyperglycemia Diabetes mellitus with hyperglycemia, with long-term current use of insulin Allergic rhinitis due to pollen Hyperlipidemia Coronary artery disease Cervical radicular pain CVA (cerebral vascular accident) Past history of CVA. Continue statin, aspirin, Plavix Tricuspid regurgitation Aortic regurgitation Acid reflux Enrolled in chronic care management Decline 04/14/24 Vitamin D deficiency History of stroke Chronic migraine DDD (degenerative disc disease) Hypertension Dependent on walker for ambulation Surgical History History of cervical spinal surgery 3 times History of colon cancer 2014 History of cholecystectomy History of knee surgery Right History of cataract surgery Family History Father Cancer Denies family history of Bleeding disorder Social History Smoking and tobacco/nicotine status: former use of tobacco/nicotine Second hand smoke exposure: No Alcohol intake: never Substance/Drug Use: never Adopted: No Caregiver/support person: No Lives independently: Yes Household members: spouse Housing: House Marital status: Current occupational status: retired Do you think of yourself as: Straight/Heterosexual Current gender identity: Male Physical Exam Const: COMMON NORMALS: no acute distress GENERAL APPEARANCE: cooperative; not ill appearing and not frail appearing HENMT: COMMON NORMALS: normocephalic, atraumatic and Normal external nose present HEAD & SCALP: normocephalic and atraumatic FACE & SINUS: normal facial exam and face symmetric NOSE: Normal external nose present Eye: COMMON NORMALS: Equal, round and reactive pupils present and EOMs intact bilaterally PUPIL: Yes Equal, round and reactive pupils present Neck/C-Spine: GENERAL: Yes trachea midline Chest: CHEST: Yes Symmetrical chest wall rise and Yes tenderness Resp: COMMON NORMALS: normal respiratory effort, No retractions, No use of accessory muscles and clear to auscultation bilaterally AUSCULTATION: clear to auscultation bilaterally Cardio: COMMON NORMALS: regular rate and regular rhythm RATE: regular rate RHYTHM: regular rhythm GI: COMMON NORMALS: Normal to inspection, nondistended, normoactive bowel sounds present Extremity: COMMON NORMALS: no pedal edema Neuro: GWEN COMA SCALE: document GCS findings Badger coma scale eye opening: Spontaneous Badger coma scale verbal response: Orientated Badger coma scale motor response: Obey commands Badger coma scale total score: 15 SENSORY EXAM: Yes extremities (intact) Psych: COMMON NORMALS: speech normal SPEECH: Yes normal speech Skin: COMMON NORMALS: no rashes or lesions noted GENERAL SKIN EXAM: no rashes or lesions noted Course Vital Signs: Vital signs: Vital Signs Temperature 97.8 F 11/01/24 17:52 Pulse Rate 90 11/02/24 00:04 Respiratory Rate 16 11/01/24 20:00 Blood Pressure 120/83 11/02/24 00:04 Pulse Oximetry 93 11/02/24 00:04 Oxygen Delivery Me thod Room Air 11/01/24 17:52 MDM - Chest Pain Medical Decision Making Left-sided chest tenderness. Vitals are stable. White blood cell count is 11.3. Pain was not relieved by nitroglycerin. He is given Zofran and morphine. Pain is improved. He is given Toradol. 2-hour delta troponin is -3. No acute ST wave changes on EKG. Chest x-ray is nonacute. Pain is reproducible on palpation of left lateral chest wall. To be placed on a short course of anti-inflammatories. Outpatient follow-up. Return for worsening symptoms. Lab Data 11/01/24 18:19 11/01/24 18:19 Radiology Impressions Chest X-Ray 11/01/24 18:05 IMPRESSION: No acute chest findings. Laboratory Results WBC 11.27 10^3/uL (3.29-11.43) 11/01/24 18:19 RBC 5.30 10^6/uL (3.85-5.65) 11/01/24 18:19 Hgb 12.10 g/dL (11.27-16.99) 11/01/24 18:19 Hct 41.7 % (37-53) 11/01/24 18:19 MCV 78.7 fl (82-101) L 11/01/24 18:19 MCH 22.8 pg (27-33) L 11/01/24 18:19 MCHC 29.0 g/dL (30-55) L 11/01/24 18:19 RDW 17.1 % (12.1-15.1) H 11/01/24 18:19 Plt Count 346 10^3/cmm (157-399) 11/01/24 18:19 MPV 9.2 fL (7.4-10.4) 11/01/24 18:19 Neut % (Auto) 62.8 % 11/01/24 18:19 Lymph % (Auto) 26.5 % 11/01/24 18:19 [place] % (Auto) 6.7 % 11/01/24 18:19 Eos % (Auto) 3.2 % 11/01/24 18:19 Baso % (Auto) 0.4 % 11/01/24 18:19 Neut # (Auto) 7.06 10^3/uL (1.8-7.7) 11/01/24 18:19 Lymph # (Auto) 3.0 10^3/uL (0.8-4.8) 11/01/24 18:19 [place] # (Auto) 0.8 10^3/uL (0.2-0.9) 11/01/24 18:19 Eos # (Auto) 0.4 10^3/uL (0.0-0.8) 11/01/24 18:19 Baso # (Auto) 0.1 10^3/uL (0.0-0.1) 11/01/24 18:19 Nucleated RBC % (auto) 0 % 11/01/24 18:19 Nucleated RBCs # 0.0 /100WBC 11/01/24 18:19 Sodium 139 mmol/L (136-145) 11/01/24 18:19 Potassium 4.4 mmol/L (3.5-5.1) 11/01/24 18:19 Chloride 102 mmol/L (98-107) 11/01/24 18:19 Carbon Dioxide 25 mmol/L (22-29) 11/01/24 18:19 Anion Gap 16.4 (5-19) 11/01/24 18:19 BUN 12 mg/dL (8-23) 11/01/24 18:19 Creatinine 1.1 mg/dL (0.7-1.2) 11/01/24 18:19 GFR Calculation Not Reportable 11/01/24 18:19 Glucose 115 mg/dL (65-115) 11/01/24 18:19 Calculated Osmolality 289 mOsm/kg (285-295) 11/01/24 18:19 Calcium 8.8 mg/dL (8.5-10.5) 11/01/24 18:19 Total Bilirubin 0.2 mg/dL (0.15-1.2) 11/01/24 18:19 AST 15 U/L (0-40) 11/01/24 18:19 ALT 12 U/L (0-41) 11/01/24 18:19 Alkaline Phosphatase 113 U/L (40-130) 11/01/24 18:19 Troponin T Baseline 12 ng/L (0-15) 11/01/24 18:19 Troponin T 120 Minute 9.00 ng/L (0-15) 11/01/24 19:59 Delta Troponin T -3.00 ABS# (0-10) L 11/01/24 19:59 NT-Pro-B Natriuret Pep 130 pg/mL (0-450) 11/01/24 18:19 Total Protein 7.5 g/dL (6.6-8.7) 11/01/24 18:19 Albumin 3.9 g/dL (3.5-5.2) 11/01/24 18:19 Globulin 3.6 g/dL (1.3-4.6) 11/01/24 18:19 All radiology interpretation(s) finalized by discharge Discharge Plan Discharge Patient Disposition: Home Clinical Impression: Atypical chest pain Condition: Stable Prescriptions: New ketorolac 10 mg tablet 10 mg PO TID PRN (Reason: pain) Qty: 10 0RF No Action aspirin 81 mg tablet,delayed release (DR/EC) 81 mg PO QAM Qty: 60 2RF atorvastatin 20 mg tablet 20 mg PO BEDTIME Qty: 30 2RF Farxiga 10 mg tablet 10 mg PO QAM Qty: 30 2RF duloxetine [Cymbalta] 20 mg capsule,delayed release(DR/EC) 20 mg PO BID Qty: 60 2RF gabapentin 300 mg capsule 300 mg PO BID Qty: 60 2RF glipizide 10 mg tablet extended release 24hr 10 mg PO DAILY Qty: 30 2RF insulin degludec [Tresiba FlexTouch U-200] 200 unit/mL (3 mL) insulin pen See Rx Instructions SUBCUT DAILY Qty: 18 2RF Rx Instructions: 65-75U subcutaneously daily; levocetirizine 5 mg tablet 5 mg PO QAM Qty: 30 2RF lisinopril 2.5 mg tablet 2.5 mg PO QAM Qty: 30 2RF metoprolol succinate 50 mg tablet extended release 24 hr 50 mg PO QAM Qty: 60 2RF Flomax 0.4 mg capsule 0.4 mg PO QPM Qty: 30 2RF Plavix 75 mg tablet 75 mg PO QAM Qty: 60 2RF pantoprazole 40 mg tablet,delayed release (DR/EC) 40 mg PO QAM Trulicity 0.75 mg/0.5 mL pen injector 0.75 mg SUBCUT Q7D Discharge Orders: Discharge ED (Routine); Ordered 11/02/24 Ordered By: Armando Buckley Referrals: Aline Pacheco, OMIC [Primary Care Provider] - Patient Instructions: Chest Wall Pain (ED), Opioid Safety, Pain Management Activity Restrictions/Additional Instructions: Take prescribed medication scheduled for the next 48 hours. Then you may take it as needed following that. Return for worsening pain despite treatment, development of shortness of breath, fever, other concerning symptoms. Call your doctor tomorrow for an outpatient follow-up. Print Language: Kinyarwanda Coding Level of Care Code ED Back Up Worker for Jose Luis Gibson
[2024-11-01 18:48] LABS: Troponin(5th) Baseline 12 ng/L (0-15)
[2024-11-01 18:59] LABS: Alanine Aminotransferase 12 U/L (0-41); Albumin Level 3.9 g/dL (3.5-5.2); Alkaline Phosphatase 113 U/L (40-130); Anion Gap 16.4 (5-19); Aspartate Amino Transferase 15 U/L (0-40); Blood Urea Nitrogen 12 mg/dL (8-23); Calcium 8.8 mg/dL (8.5-10.5); Carbon Dioxide 25 mmol/L (22-29); Chloride 102 mmol/L (98-107); Globulin 3.6 g/dL (1.3-4.6); Glucose 115 mg/dL (65-115); NT Pro B Type Natriuretic Pept 130 pg/mL (0-450); Osmolality Calculated 289 mOsm/kg (285-295); Potassium 4.4 mmol/L (3.5-5.1); Sodium 139 mmol/L (136-145); Total Bilirubin 0.2 mg/dL (0.15-1.2); Total Protein 7.5 g/dL (6.6-8.7)
[2024-11-01] MEDS: ondansetron 2 mg/ML SDV 2 mL 4 MG IVP (19:03)
[2024-11-01] MEDS: morphine 4 mg/mL SDV 1 mL IVP (19:07)
--- NOTE | 2024-11-01 20:03 | ECG_ITS ---
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
[2024-11-01] MEDS: ketorolac 30 mg/mL INJ IVP (20:59)
[2024-11-02 00:04] VITALS: BP 120/83; PULSE 90; O2SAT 93
== END 2024-11-01 21:30 | disposition home or self-care (01) ==
PROVIDERS: Emergency Provider Emergency Medicine; PCP Nurse Practitioner
DX: R07.89 Other chest pain (principal); Z79.82 Long term (current) use of aspirin; Z79.4 Long term (current) use of insulin; Z87.891 Personal history of nicotine dependence; Z86.73 Personal history of transient ischemic attack (TIA), and cerebral infarction without residual deficits; E11.9 Type 2 diabetes mellitus without complications
CPT/HCPCS: 36415; 71045; 80053; 83880; 84484; 85025; 93005; 96374; 96375; 99285; J1885; J2270; J2405

== ENCOUNTER → 2024-12-07 15:54 | Outpatient (BNVA) | payer MEDICARE, MEDICAID, SELFPAY | PROVIDERS: PCP Nurse Practitioner; Visit Provider Nurse Practitioner | DX: E11.65 Type 2 diabetes mellitus with hyperglycemia (principal); Z79.4 Long term (current) use of insulin | CPT/HCPCS: 80053; 83036 ==

== ENCOUNTER 2024-12-21 09:19 | Observation (INO) | payer MEDICARE, MEDICAID, SELFPAY ==
--- NOTE | 2024-12-21 09:24 | CT_ITS ---
WS: [id number] CT HEAD TECHNIQUE: Noncontrast CT of the head obtained from the skullbase to the vertex. CLINICAL INFORMATION: STROKE ALERT COMPARISON: 2021 DLP: [address] scans at [facility] use at least one of these dose optimization techniques: automated exposure control; mA and/or kV adjustment per patient size (includes targeted exams where dose is matched to clinical indication); or iterative reconstruction. FINDINGS: No evidence of intracranial hemorrhage or mass effect. Ventricular system and basal cisterns are patent. Moderate small vessel changes with moderate parenchymal volume loss. No extra-axial fluid collections. No evidence of mass or mass effect. Vascular calcification Paranasal sinuses and mastoid air cells are well aerated. .Normal visualized soft tissues. CT/CT head thrombolytic 77524 IMPRESSION: 1. No evidence of intracranial hemorrhage or mass effect. 2. Moderate small vessel changes with moderate parenchymal volume loss. Small vessel changes progressed since 2021. 3. Chronic lacunar infarcts in the LEFT greater than RIGHT basal ganglia. 4. Vascular calcification. 5. No acute intracranial findings. Notified Fabian Dao DO at 12/21/2024 9:31 AM.
[2024-12-21 09:38] VITALS: BP 134/69; PULSE 54; RESP 16; TEMP 36.7; O2SAT 96
[2024-12-21 09:41] LABS: Glucose Point of Care 126 mg/dL (70-110)
--- NOTE | 2024-12-21 09:52 | W.ED.NEUROSD ---
HPI - Neuro Symptoms/Deficit General: Chief Complaint: Neuro Symptoms/Deficit Stated Complaint: STROKE ALERT Time Seen by Provider: 12/21/24 09:28 History of Present Illness: 79-year-old male presents to the emergency room as a stroke alert last known well was 7 AM EMS report he has a left-sided deficit initial NIH of 5 however it is conflicting with ataxia in the right leg and weakness in the right arm Associated symptoms: Deny chest pain Related Data Home Medications ?Medication ?Instructions ?Recorded ?Confirmed glipizide 10 mg tablet, extended 10 mg PO QAM 12/21/24 12/21/24 release 24 hr insulin degludec 200 unit/mL (3 65 - 75 unit SUBCUT DAILY 12/21/24 12/21/24 mL) subcutaneous pen (Tresiba FlexTouch U-200 insulin) pantoprazole 40 mg tablet,delayed 40 mg PO QAM 12/21/24 12/21/24 release Previous Rx's ?Medication ?Instructions ?Recorded tamsulosin 0.4 mg capsule (Flomax) 0.4 mg PO QPM #30 caps 06/29/24 levocetirizine 5 mg tablet 5 mg PO QAM #30 tabs 11/02/24 aspirin 81 mg tablet,delayed 81 mg PO QAM #60 tabs 12/07/24 release atorvastatin 20 mg tablet 20 mg PO BEDTIME #30 tabs 12/07/24 clopidogrel 75 mg tablet (Plavix) 75 mg PO QAM #60 tabs 12/07/24 dapagliflozin propanediol 10 mg 10 mg PO QAM #30 tabs 12/07/24 tablet (Farxiga) duloxetine 20 mg capsule,delayed 20 mg PO BID #60 caps 12/07/24 release (Cymbalta) gabapentin 300 mg capsule 300 mg PO BID #60 caps 12/07/24 lisinopril 2.5 mg tablet 2.5 mg PO QAM #30 tabs 12/07/24 metoprolol succinate 50 mg 50 mg PO QAM #60 tabs 12/07/24 tablet,extended release 24 hr mupirocin 2 % topical ointment 1 applic topical BID #22 grams 12/07/24 Allergies Allergy/AdvReac Type Severity Reaction Status Date / Time erythromycin base Allergy Severe ALGY-Rash Verified 12/07/24 14:58 Sulfa (Sulfonamide Allergy Severe ALGY-Rash Verified 12/11/24 15:38 Antibiotics) Review of Systems Const: Denies: fever(s) or chills Card: Denies: chest pain Resp: Denies: dyspnea GI: Denies: abdominal pain : Denies: dysuria, urinary frequency or urinary urgency Musc: Denies: neck pain or back pain Skin/Breast: Denies: rash PFSH ED PFSH: Medical History (Updated 12/21/24 @ 17:42 by Fabian Dao DO) Colon cancer Bladder outlet obstruction Hematochezia Lower gastrointestinal hemorrhage Diabetes mellitus with hyperglycemia, with long-term current use of insulin Allergic rhinitis due to pollen Hyperlipidemia Coronary artery disease Cervical radicular pain CVA (cerebral vascular accident) Past history of CVA/TIA Tricuspid regurgitation Aortic regurgitation Acid reflux Enrolled in chronic care management Declined 04/14/24 Vitamin D deficiency Chronic migraine DDD (degenerative disc disease) Hypertension Dependent on walker for ambulation Surgical History (Updated 12/21/24 @ 17:42 by Neida Flower MD) History of cardiac catheterization 02/2020 mid LAD and circ stents History of cervical spinal surgery 3 times History of colon cancer 2014, proximal colon resection with ileocolic anastomosis History of cholecystectomy History of knee surgery Right History of cataract surgery Family History Father Cancer Denies family history of Bleeding disorder Social History Smoking and tobacco/nicotine status: former use of tobacco/nicotine Second hand smoke exposure: No Alcohol intake: never Substance/Drug Use: never Adopted: No Caregiver/support person: No Lives independently: Yes Household members: spouse Housing: House Marital status: Current occupational status: retired Do you think of yourself as: Straight/Heterosexual Current gender identity: Male NIH stroke score NIHSS: Level Of Consciousness - 1a: 1 Level Of Consciousness Questions - 1b: Both Correct Level Of Consciousness Commands - 1c: Both Correct Best Gaze - 2: Normal Visual Gutierrez - 3: No Visual Loss Facial Palsy - 4: Normal Motor Arm Right - 5: No Drift Motor Arm Left - 5: Drift Motor Leg Right - 6: No Drift Motor Leg Left - 6: No Drift Limb Ataxia - 7: Present In One Limb (Right leg) Sensory - 8: Normal Best Language - 9: Mild/Moderate Aphasia Dysarthia - 10: Mild/Moderate Dysarthia Extinction And Inattention - 11: 0 Score: Total Score: 5 Physical Exam Const: COMMON NORMALS: no acute distress GENERAL APPEARANCE: cooperative and comfortable ORIENTATION/CONSCIOUSNESS: Yes awake HENMT: COMMON NORMALS: normocephalic, atraumatic and hearing grossly normal bilaterally HEAD & SCALP: normocephalic and atraumatic Resp: COMMON NORMALS: normal respiratory effort, No retractions, No use of accessory muscles and clear to auscultation bilaterally AUSCULTATION: clear to auscultation bilaterally Cardio: COMMON NORMALS: regular rate, regular rhythm and No murmurs present (Cardio) RATE: regular rate RHYTHM: regular rhythm GI: COMMON NORMALS: Soft to palpation and No hepatosplenomegaly present AUSCULTATION: Yes normoactive bowel sounds PALPATION: Yes Soft to palpation, No Tenderness to palpation present (GI), No Guarding due to palpation present (GI) and Yes No hepatosplenomegaly present Extremity: COMMON NORMALS: normal to inspection, capillary refill normal, no clubbing, cyanosis or edema, no calf tenderness and no pedal edema Skin: COMMON NORMALS: no rashes or lesions noted GENERAL SKIN EXAM: no rashes or lesions noted Course Vital Signs: Vital signs: Vital Signs Temperature 97.5 F L 12/21/24 14:41 Pulse Rate 52 L 12/21/24 14:41 Respiratory Rate 16 12/21/24 14:41 Blood Pressure 129/71 12/21/24 14:41 Pulse Oximetry 96 12/21/24 14:41 Oxygen Delivery Me thod Room Air 12/21/24 15:36 MDM - Neuro Symptoms/Deficit Medical Decision Making Patient has an NIH of 5 however his symptoms are conflicting they are not lateralized just to one side. Discussed with [place] on-call stroke team they concur after seeing him they would not recommend TNKase. Neurology suspects this is recrudescence of his previous strokes. Will place on observation for further evaluation discussed with hospitalist orders written Medical Records I reviewed the patient's medical records. Lab Data I reviewed the patient's lab results. 12/21/24 09:34 12/21/24 09:[address] 12/21/24 09:24 IMPRESSION: 1. No evidence of intracranial hemorrhage or mass effect. 2. Moderate small vessel changes with moderate parenchymal volume loss. Small vessel changes progressed since 2021. 3. Chronic lacunar infarcts in the LEFT greater than RIGHT basal ganglia. 4. Vascular calcification. 5. No acute intracranial findings. Notified Fabian Dao DO at 12/21/2024 9:31 AM. Laboratory Results WBC 9.94 10^3/uL (3.29-11.43) 12/21/24 09:34 RBC 5.09 10^6/uL (3.85-5.65) 12/21/24 09:34 Hgb 11.60 g/dL (11.27-16.99) 12/21/24 09:34 Hct 39.8 % (37-53) 12/21/24 09:34 MCV 78.2 fl (82-101) L 12/21/24 09:34 MCH 22.8 pg (27-33) L 12/21/24 09:34 MCHC 29.1 g/dL (30-55) L 12/21/24 09:34 RDW 17.4 % (12.1-15.1) H 12/21/24 09:34 Plt Count 334 10^3/cmm (157-399) 12/21/24 09:34 MPV 9.6 fL (7.4-10.4) 12/21/24 09:34 Neut % (Auto) 50.4 % 12/21/24 09:34 Lymph % (Auto) 32.7 % 12/21/24 09:34 [place] % (Auto) 9.1 % 12/21/24 09:34 Eos % (Auto) 6.8 % 12/21/24 09:34 Baso % (Auto) 0.5 % 12/21/24 09:34 Neut # (Auto) 5.01 10^3/uL (1.8-7.7) 12/21/24 09:34 Lymph # (Auto) 3.3 10^3/uL (0.8-4.8) 12/21/24 09:34 [place] # (Auto) 0.9 10^3/uL (0.2-0.9) 12/21/24 09:34 Eos # (Auto) 0.7 10^3/uL (0.0-0.8) 12/21/24 09:34 Baso # (Auto) 0.1 10^3/uL (0.0-0.1) 12/21/24 09:34 Nucleated RBC % (auto) 0 % 12/21/24 09:34 Nucleated RBCs # 0.0 /100WBC 12/21/24 09:34 PT 12.70 SECONDS (12.1-14.9) 12/21/24 09:34 INR 0.89 (0.8-1.2) 12/21/24 09:34 APTT 29.2 SECONDS (23.9-36.7) 12/21/24 09:34 Sodium 139 mmol/L (136-145) 12/21/24 09:34 Potassium 4.7 mmol/L (3.5-5.1) 12/21/24 09:34 Chloride 103 mmol/L (98-107) 12/21/24 09:34 Carbon Dioxide 24 mmol/L (22-29) 12/21/24 09:34 Anion Gap 16.7 (5-19) 12/21/24 09:34 BUN 18 mg/dL (8-23) 12/21/24 09:34 Creatinine 1.1 mg/dL (0.7-1.2) 12/21/24 09:34 GFR Calculation Not Reportable 12/21/24 09:34 Glucose 120 mg/dL (65-115) H 12/21/24 09:34 POC Glucose 126 mg/dL (70-110) H 12/21/24 09:29 Calculated Osmolality 291 mOsm/kg (285-295) 12/21/24 09:34 Calcium 8.8 mg/dL (8.5-10.5) 12/21/24 09:34 Total Bilirubin 0.3 mg/dL (0.15-1.2) 12/21/24 09:34 AST 15 U/L (0-40) 12/21/24 09:34 ALT 12 U/L (0-41) 12/21/24 09:34 Alkaline Phosphatase 104 U/L (40-130) 12/21/24 09:34 Total Protein 7.3 g/dL (6.6-8.7) 12/21/24 09:34 Albumin 3.8 g/dL (3.5-5.2) 12/21/24 09:34 Globulin 3.5 g/dL (1.3-4.6) 12/21/24 09:34 Urine Color Yellow (Yellow) 12/21/24 11:13 Urine Appearance Clear (CLEAR) 12/21/24 11:13 Urine pH 6.5 (5-7) 12/21/24 11:13 Ur Specific [place] 1.028 (1.005-1.030) 12/21/24 11:13 Urine Protein Negative (Negative) 12/21/24 11:13 Urine Glucose (UA) 2+ (Normal) H 12/21/24 11:13 Urine Ketones Negative (Negative) 12/21/24 11:13 Urine Blood Negative (Negative) 12/21/24 11:13 Urine Nitrate Negative (Negative) 12/21/24 11:13 Urine Bilirubin Negative (Negative) 12/21/24 11:13 Urine Urobilinogen 1.0 mg/dL (Negative) 12/21/24 11:13 Ur Leukocyte Esterase Trace (Negative) A 12/21/24 11:13 Urine RBC 0-2 /hpf (0-2) 12/21/24 11:13 Urine WBC 11-20 /hpf (0-5) H 12/21/24 11:13 Ur Squamous Epith Cells 6-10 /hpf (0-5) 12/21/24 11:13 Amorphous Sediment Not Reportable 12/21/24 11:13 Urine Bacteria None seen /hpf (NONE) 12/21/24 11:13 Hyaline Casts 0.81 /lpf 12/21/24 11:13 Urine Opiates Screen Negative ng/mL (Negative) 12/21/24 11:13 Ur Barbiturates Screen Negative ng/mL (Negative) 12/21/24 11:13 Ur Phencyclidine Scrn Negative ng/mL (Negative) 12/21/24 11:13 Ur Amphetamines Screen Negative ng/mL (Negative) 12/21/24 11:13 U Benzodiazepines Scrn Negative ng/mL (Negative) 12/21/24 11:13 Urine Cocaine Screen Negative ng/mL (Negative) 12/21/24 11:13 U Marijuana (THC) Screen Negative ng/mL (Negative) 12/21/24 11:13 All radiology interpretation(s) finalized by discharge Discharge Plan Discharge Patient Disposition: Admitted As Inpatient Admit Provider: Neida Flower Clinical Impression: CVA (cerebral vascular accident), Diabetes mellitus with hyperglycemia, with long-term current use of insulin, Hypertension Condition: Stable Coding Level of Care Code ED Chief Psychology for Jose Luis Gibson
--- NOTE | 2024-12-21 10:05 | ECG_ITS ---
[facility] 2024[facility]21 Pat Name: Barb Joe Department: Room: Gender: Male [employer] Operator: : 1945 Requested By: Fabian Farrell Order Number: [id number] Miguel MD: Chrissy Cruz M.D. Measurements Intervals Nancy Rate: 55 P: 63 VT: 189 QRS: -1 QRSD: 79 T: 17 QT: 415 QTc: 398 Interpretive Statements SINUS BRADYCARDIA Compared to ECG 11/01/2024 20:03:15 Sinus rhythm no longer present Electronically Signed On 12-21-2024 21:57:41 CDT by Chrissy Cruz M.D. [id number]
[2024-12-21 10:14] LABS: Basophils # 0.1 10^3/uL (0.0-0.1); Basophils % 0.5 %; Eosinophils # 0.7 10^3/uL (0.0-0.8); Eosinophils % 6.8 %; Hematocrit 39.8 % (37-53); Lymphocytes # 3.3 10^3/uL (0.8-4.8); Lymphocytes % 32.7 %; Mean Corpuscular HGB Conc 29.1 g/dL (30-55); Mean Corpuscular Hemoglobin 22.8 pg (27-33); Mean Corpuscular Volume 78.2 fl (82-101); Mean Platelet Volume 9.6 fL (7.4-10.4); Monocytes # 0.9 10^3/uL (0.2-0.9); Monocytes % 9.1 %; Neutrophils # 5.01 10^3/uL (1.8-7.7); Neutrophils % 50.4 %; Nucleated Red Blood Cells % 0 %; Platelet Count 334 10^3/cmm (157-399); Red Blood Count 5.09 10^6/uL (3.85-5.65); Red Cell Distribution Width 17.4 % (12.1-15.1); White Blood Count 9.94 10^3/uL (3.29-11.43)
[2024-12-21 10:27] LABS: INR 0.89 (0.8-1.2); Partial Thromboplastin Time 29.2 SECONDS (23.9-36.7)
[2024-12-21 10:30] LABS: Alanine Aminotransferase 12 U/L (0-41); Albumin Level 3.8 g/dL (3.5-5.2); Alkaline Phosphatase 104 U/L (40-130); Anion Gap 16.7 (5-19); Aspartate Amino Transferase 15 U/L (0-40); Blood Urea Nitrogen 18 mg/dL (8-23); Calcium 8.8 mg/dL (8.5-10.5); Carbon Dioxide 24 mmol/L (22-29); Chloride 103 mmol/L (98-107); Creatinine Clr Calc Pharmacy 57.8527; Globulin 3.5 g/dL (1.3-4.6); Glucose 120 mg/dL (65-115); Osmolality Calculated 291 mOsm/kg (285-295); Potassium 4.7 mmol/L (3.5-5.1); Sodium 139 mmol/L (136-145); Total Bilirubin 0.3 mg/dL (0.15-1.2); Total Protein 7.3 g/dL (6.6-8.7)
--- NOTE | 2024-12-21 10:57 | PC.PHAR ---
Melody Walker-takes care of pts' medications and has a list.
[2024-12-21 11:17] VITALS: BP 132/73; PULSE 59; O2SAT 98
[2024-12-21 11:33] LABS: Bilirubin Urine Negative (Negative); Blood Urine Negative (Negative); Glucose Urine UA 2+ (Normal); Ketones Urine Negative (Negative); Leukocyte Esterase Urine Trace (Negative); Nitrate Urine Negative (Negative); Protein Urine Negative (Negative); Specific Gravity, Urine 1.028 (1.005-1.030); Urine Appearance Clear (CLEAR); Urine Color Yellow (Yellow); pH Urine 6.5 (5-7)
[2024-12-21 11:38] LABS: Add Urine Microscopic? YES; Bacteria Urine None Seen /hpf; Hyaline Casts Urine 0.81 /lpf; RBC Urine 0-2 /hpf (0-2)
[2024-12-21 11:42] LABS: Amphetamines Screen Urine Negative (Negative); Barbiturates Screen Urine Negative (Negative); Benzodiazepines Screen Urine Negative (Negative); Cocaine Screen Urine Negative (Negative); Opiate Screen Urine Negative (Negative); PCP Screen Urine Negative (Negative); THC Screen Urine Negative (Negative)
[2024-12-21 13:42] VITALS: BP 119/67; PULSE 55; O2SAT 97
--- NOTE | 2024-12-21 13:56 | PM.HP ---
Providers/Chief Complaint Admitting Physician: Neida Flower MD Primary Care Provider: Aline Pacheco, [employer] Chief Complaint: STROKE ALERT History of Present Illness Barb Joe is a 79 year old male who presented to the emergency room via [facility] with complaint of strokelike symptoms. According to EMS report last known well was around 7 AM this morning. He was noted to have right-sided weakness according to nurse triage records. Mr Joe has a history of prior stroke associated with left-sided weakness that has persisted to a degree involving both upper and lower extremities. NIH stroke scale score was 5 upon presentation to ER with drift noted in left upper extremity and ataxia noted to right lower extremity, mild/moderate dysarthia and aphasia. He was evaluated by [facility] stroke team and not deemed to be a candidate for TNKase though recommendation was for further workup and monitoring. Review of recent records from primary care provider's office indicates that he has had some falls lately along with not using his prescribed walker at times. Therapy was recommended. History is obtained from Mr. Joe himself varies from the information ER provided as well as EMS. He states that his symptoms began last evening with pain in his left lower quadrant. The pain in the left lower quadrant is like somebody stabbing or hitting me in the stomach and has been fairly constant since last evening. He then states that this morning he began having increased numbness in his left face and increased weakness in his left upper extremity from baseline. Currently denies any right sided abnormalities but admits that he has been having increased difficulty walking with his legs giving out leading to some falls. He lives with family, his grandson and his but I am not able to reach them at available numbers currently for further clarification. Mr. Joe said he was nauseated once this morning but no vomiting. Denies any chest pain, palpitations, difficulty breathing. He has been taking his insulin and took it this morning, 60 units. Since arriving to the floor he has had some low blood sugars that have improved some with oral intake. He did pass a bedside swallow exam. At the present time he feels like his left-sided facial numbness is still beyond baseline but his left upper extremity weakness is closer to baseline. His last bowel movement was yesterday. He does have issues with constipation at times and when he is constipated will have some bright red blood per rectum that he attributes to hemorrhoids. No recent urinary complaints. His prior stroke was several years ago. Notes from [facility] reviewed. There recommendations were to consider recrudescence or recurrent CVA and workup for electrolyte disturbances or infection as indicated by symptoms. Review of Systems General: Reports: Other (ROS as per HPI or as otherwise noted here) Medications/Allergies Home Medications ?Medication ?Instructions ?Recorded ?Confirmed ?Last Taken ?Type tamsulosin 0.4 mg capsule (Flomax) 0.4 mg PO QPM #30 caps 06/29/24 12/21/24 12/20/24 Rx levocetirizine 5 mg tablet 5 mg PO QAM #30 tabs 11/02/24 12/21/24 12/21/24 Rx aspirin 81 mg tablet,delayed 81 mg PO QAM #60 tabs 12/07/24 12/21/24 12/21/24 Rx release atorvastatin 20 mg tablet 20 mg PO BEDTIME #30 tabs 12/07/24 12/21/24 12/20/24 Rx clopidogrel 75 mg tablet (Plavix) 75 mg PO QAM #60 tabs 12/07/24 12/21/24 12/21/24 Rx dapagliflozin propanediol 10 mg 10 mg PO QAM #30 tabs 12/07/24 12/21/24 12/21/24 Rx tablet (Farxiga) duloxetine 20 mg capsule,delayed 20 mg PO BID #60 caps 12/07/24 12/21/24 12/21/24 Rx release (Cymbalta) gabapentin 300 mg capsule 300 mg PO BID #60 caps 12/07/24 12/21/24 12/21/24 Rx lisinopril 2.5 mg tablet 2.5 mg PO QAM #30 tabs 12/07/24 12/21/24 12/21/24 Rx metoprolol succinate 50 mg 50 mg PO QAM #60 tabs 12/07/24 12/21/24 12/21/24 Rx tablet,extended release 24 hr mupirocin 2 % topical ointment 1 applic topical BID #22 grams 12/07/24 12/21/24 Unknown Rx glipizide 10 mg tablet, extended 10 mg PO QAM 12/21/24 12/21/24 12/21/24 History release 24 hr insulin degludec 200 unit/mL (3 65 - 75 unit SUBCUT DAILY 12/21/24 12/21/24 12/21/24 History mL) subcutaneous pen (Tresiba FlexTouch U-200 insulin) pantoprazole 40 mg tablet,delayed 40 mg PO QAM 12/21/24 12/21/24 12/21/24 History release Allergies Allergy/AdvReac Type Severity Reaction Status Date / Time erythromycin base Allergy Severe ALGY-Rash Verified 12/07/24 14:58 Sulfa (Sulfonamide Allergy Severe ALGY-Rash Verified 12/11/24 15:38 Antibiotics) PFSH Acute PFSH: Medical History (Updated 12/21/24 @ 18:48 by Neida Flower MD) Colon cancer Bladder outlet obstruction Hematochezia Lower gastrointestinal hemorrhage Diabetes mellitus with hyperglycemia, with long-term current use of insulin Allergic rhinitis due to pollen Hyperlipidemia Coronary artery disease Cervical radicular pain CVA (cerebral vascular accident) Past history of CVA/TIA Tricuspid regurgitation Aortic regurgitation Acid reflux Enrolled in chronic care management Declined 04/14/24 Vitamin D deficiency Chronic migraine DDD (degenerative disc disease) Hypertension Dependent on walker for ambulation Surgical History (Updated 12/21/24 @ 17:42 by Neida Flower MD) History of cardiac catheterization 02/2020 mid LAD and circ stents History of cervical spinal surgery 3 times History of colon cancer 2014, proximal colon resection with ileocolic anastomosis History of cholecystectomy History of knee surgery Right History of cataract surgery Family History Father Cancer Denies family history of Bleeding disorder Social History Smoking and tobacco/nicotine status: former use of tobacco/nicotine Second hand smoke exposure: No Alcohol intake: never Substance/Drug Use: never Adopted: No Caregiver/support person: No Lives independently: Yes Household members: spouse Housing: House Marital status: Current occupational status: retired Do you think of yourself as: Straight/Heterosexual Current gender identity: Male Vitals/I&O/Wt Last Vital Signs Temp 98.0 F 12/21/24 09:38 Pulse 55 L 12/21/24 13:42 Resp 16 12/21/24 09:38 BP 119/67 12/21/24 13:42 Pulse Ox 97 12/21/24 13:42 O2 Del Method Room Air 12/21/24 13:42 Weight last 48 hrs Weight 88.314 kg Physical Exam Narrative: Patient is awake and alert. Provides history though it deviates from information obtained from EMS and ED provider. Oriented to person, place and month/year. Extraocular movements are intact. Speech is clear on my evaluation though some word finding difficulties. Sensation decreased on left side of face compared to right. Mild left facial droop. Neck is supple. Cardiovascular exam reveals a regular rate and rhythm. Lungs are clear. Abdomen is soft. Left lower quadrant tenderness to palpation without any rebound or guarding. Bowel sounds are normal active. Pain in the left lower quadrant is consistent on repeat examinations. No external bruising or induration noted in this region. Extremities no pitting edema. Left upper extremity is weaker than right upper extremity along with decreased sensation in the left arm predominantly elbow to hand. Both lower extremities with proximal weakness with right lower extremity more prominent than the left. No drift noted in extremities ataxic with RLE heel-de la vega. Current NIH stroke scale score 3 by my evaluation. Skin scabs to upper extremities noted in different stages of healing. Data 12/21/24 09:34 12/21/24 09:34 Other Labs: Radiology Impressions Head CT 12/21/24 09:24 IMPRESSION: 1. No evidence of intracranial hemorrhage or mass effect. 2. Moderate small vessel changes with moderate parenchymal volume loss. Small vessel changes progressed since 2021. 3. Chronic lacunar infarcts in the LEFT greater than RIGHT basal ganglia. 4. Vascular calcification. 5. No acute intracranial findings. Notified Fabian Dao DO at 12/21/2024 9:31 AM. Laboratory Results WBC 9.94 10^3/uL (3.29-11.43) 12/21/24 09:34 RBC 5.09 10^6/uL (3.85-5.65) 12/21/24 09:34 Hgb 11.60 g/dL (11.27-16.99) 12/21/24 09:34 Hct 39.8 % (37-53) 12/21/24 09:34 MCV 78.2 fl (82-101) L 12/21/24 09:34 MCH 22.8 pg (27-33) L 12/21/24 09:34 MCHC 29.1 g/dL (30-55) L 12/21/24 09:34 RDW 17.4 % (12.1-15.1) H 12/21/24 09:34 Plt Count 334 10^3/cmm (157-399) 12/21/24 09:34 MPV 9.6 fL (7.4-10.4) 12/21/24 09:34 Neut % (Auto) 50.4 % 12/21/24 09:34 Lymph % (Auto) 32.7 % 12/21/24 09:34 Mingo % (Auto) 9.1 % 12/21/24 09:34 Eos % (Auto) 6.8 % 12/21/24 09:34 Baso % (Auto) 0.5 % 12/21/24 09:34 Neut # (Auto) 5.01 10^3/uL (1.8-7.7) 12/21/24 09:34 Lymph # (Auto) 3.3 10^3/uL (0.8-4.8) 12/21/24 09:34 Mingo # (Auto) 0.9 10^3/uL (0.2-0.9) 12/21/24 09:34 Eos # (Auto) 0.7 10^3/uL (0.0-0.8) 12/21/24 09:34 Baso # (Auto) 0.1 10^3/uL (0.0-0.1) 12/21/24 09:34 Nucleated RBC % (auto) 0 % 12/21/24 09:34 Nucleated RBCs # 0.0 /100WBC 12/21/24 09:34 PT 12.70 SECONDS (12.1-14.9) 12/21/24 09:34 INR 0.89 (0.8-1.2) 12/21/24 09:34 APTT 29.2 SECONDS (23.9-36.7) 12/21/24 09:34 Sodium 139 mmol/L (136-145) 12/21/24 09:34 Potassium 4.7 mmol/L (3.5-5.1) 12/21/24 09:34 Chloride 103 mmol/L (98-107) 12/21/24 09:34 Carbon Dioxide 24 mmol/L (22-29) 12/21/24 09:34 Anion Gap 16.7 (5-19) 12/21/24 09:34 BUN 18 mg/dL (8-23) 12/21/24 09:34 Creatinine 1.1 mg/dL (0.7-1.2) 12/21/24 09:34 GFR Calculation Not Reportable 12/21/24 09:34 Glucose 120 mg/dL (65-115) H 12/21/24 09:34 POC Glucose 126 mg/dL (70-110) H 12/21/24 09:29 Calculated Osmolality 291 mOsm/kg (285-295) 12/21/24 09:34 Calcium 8.8 mg/dL (8.5-10.5) 12/21/24 09:34 Total Bilirubin 0.3 mg/dL (0.15-1.2) 12/21/24 09:34 AST 15 U/L (0-40) 12/21/24 09:34 ALT 12 U/L (0-41) 12/21/24 09:34 Alkaline Phosphatase 104 U/L (40-130) 12/21/24 09:34 Total Protein 7.3 g/dL (6.6-8.7) 12/21/24 09:34 Albumin 3.8 g/dL (3.5-5.2) 12/21/24 09:34 Globulin 3.5 g/dL (1.3-4.6) 12/21/24 09:34 Urine Color Yellow (Yellow) 12/21/24 11:13 Urine Appearance Clear (CLEAR) 12/21/24 11:13 Urine pH 6.5 (5-7) 12/21/24 11:13 Ur Specific Baxter 1.028 (1.005-1.030) 12/21/24 11:13 Urine Protein Negative (Negative) 12/21/24 11:13 Urine Glucose (UA) 2+ (Normal) H 12/21/24 11:13 Urine Ketones Negative (Negative) 12/21/24 11:13 Urine Blood Negative (Negative) 12/21/24 11:13 Urine Nitrate Negative (Negative) 12/21/24 11:13 Urine Bilirubin Negative (Negative) 12/21/24 11:13 Urine Urobilinogen 1.0 mg/dL (Negative) 12/21/24 11:13 Ur Leukocyte Esterase Trace (Negative) A 12/21/24 11:13 Urine RBC 0-2 /hpf (0-2) 12/21/24 11:13 Urine WBC 11-20 /hpf (0-5) H 12/21/24 11:13 Ur Squamous Epith Cells 6-10 /hpf (0-5) 12/21/24 11:13 Amorphous Sediment Not Reportable 12/21/24 11:13 Urine Bacteria None seen /hpf (NONE) 12/21/24 11:13 Hyaline Casts 0.81 /lpf 12/21/24 11:13 Urine Opiates Screen Negative ng/mL (Negative) 12/21/24 11:13 Ur Barbiturates Screen Negative ng/mL (Negative) 12/21/24 11:13 Ur Phencyclidine Scrn Negative ng/mL (Negative) 12/21/24 11:13 Ur Amphetamines Screen Negative ng/mL (Negative) 12/21/24 11:13 U Benzodiazepines Scrn Negative ng/mL (Negative) 12/21/24 11:13 Urine Cocaine Screen Negative ng/mL (Negative) 12/21/24 11:13 U Marijuana (THC) Screen Negative ng/mL (Negative) 12/21/24 11:13 Other data: Laboratory Tests 12/07/24 15:54 Hemoglobin A1c 8.9 H Laboratory Tests 09/14/24 15:02 Triglycerides 146 Cholesterol 141 LDL Cholesterol, Calc 73 HDL Cholesterol 39 L LDL/HDL Ratio 1.87 Cholesterol/HDL Ratio 3.62 A&P Assessment and plan (1) Stroke-like symptoms: Left-sided facial numbness and left upper extremity weakness worse than baseline symptoms per patient along with reports of lower extremity weakness. Review of prior records indicates he has had both right and left sided upper and lower extremity symptoms in the past. He is chronically on dual antiplatelet therapy with aspirin and Plavix and also on statin therapy though not at high intensity doses. He has known hypertension and diabetes mellitus which he is also chronically on management. Mr. Joe was evaluated in the emergency room by ER physician and [facility] neurology on-call and deemed not to be a candidate for TNKase. Considerations include recrudescence of prior CVA symptoms versus recurrent CVA. Observation admission Serial neuroexams Fall precautions PT, OT, speech evaluations Continue aspirin and Plavix Increase statin therapy to 40 mg at bedtime Continue half usual metoprolol dose, hold lisinopril currently given bradycardia on EKG and to allow for permissive hypertension INR was checked Lipid panel was checked September 2024 and A1c this month, so not rechecking Telemetry monitoring May benefit from outpatient physical therapy or home health physical therapy if he will agree, discussed potential benefits with him and this was also discussed with him by his primary care provider recently (2) Left lower quadrant abdominal pain: Onset last evening per the patient. Last bowel movement was yesterday, normal for him. Has had problems with constipation at times associated with hemorrhoidal bleeding, but denies recent constipation. No report of recent blood in his stools. Had nausea this morning briefly but no vomiting. Reports that the pain is less prominent after some oral intake. Rating pain 2-3 out of 10, not bad . He has a history of colon cancer with previous left proximal resection and ileocolonic anastomosis. I note he is also on Flomax and I suspect that he has prostatic hypertrophy based on this and discussion though problem list indicates bladder incontinence history. He is passing gas and urinated this morning. Has normal white count, electrolytes and LFTs. Was able to find prior emergency room visits with similar presentations where he had imaging studies suggesting mild hydronephrosis and bladder wall thickening. Current renal function is normal and while urinalysis is abnormal, it notably has epithelial cells and he reports no new urinary symptoms. Will check bladder scan to ensure bladder not distended Will check KUB looking primarily for any bowel dilatation Monitor for worsening abdominal pain (3) Hypertension: Chronically on metoprolol and lisinopril Currently on half dose of home metoprolol due to bradycardia and holding low-dose lisinopril to allow for permissive hypertension in setting of possible stroke (4) Diabetes mellitus with hyperglycemia, with long-term current use of insulin: Elevated blood sugars on initial blood work but after taking a.m. insulin and not having much oral intake today has had some lower range blood sugars in the 60s to 70s though asymptomatic and has responded to oral intake Holding home Tresiba, Farxiga and glipizide A1c was checked first of the month - 8.9 Anticipate resumption of usual home meds though depending on blood sugars during stay may need to decrease dosing of glipizide Sliding scale insulin currently (5) Coronary artery disease: History of coronary artery disease with prior stents. No recent chest pain. Chronically on beta-blockade, aspirin, Plavix, statin all of which we will continue Plan Abnormal urinalysis without urinary symptoms - no indication for treatment currently with noted epithelial cells Continue mupirocin to upper extremity scabs Continue home tamsulosin Continue home duloxetine Continuing home PPI for history of acid reflux Home levocetirizine held as nonformulary Has abnormal red blood cell indices suggesting potential for iron deficiency Observation admission SCDs for DVT prophylaxis Peripheral IV Telemetry monitoring Anticipate discharge home with follow-up to primary care provider possibly with outpatient versus home health PT/OT depending on inpatient evaluations Full code presently Attempted to reach family available numbers but did not have answer. Family that was with him this morning was his grandson's . He lives with his grandson. PDMP PDMP Reviewed: Not Reviewed Attestations Medical Necessity Statement*: Currently anticipate a stay less than two midnights in this patient with a history of prior strokes presenting with worsening of neurological symptoms. Presentation may represent a recrudescence of prior symptoms versus new stroke though current evaluations by myself, neuro consultation and ED provider are all slightly different. In addition to neurological complaints patient is complaining of left lower quadrant abdominal pain and has a known history of colon cancer with prior resection and is on Flomax. Since arrival he has had borderline low blood sugars in the setting of taking his insulin this morning but not having much oral intake today. Current plan is for observation admission to monitor for progressive or new neurological symptoms given presentation, watch for progressively worsening abdominal pain that would necessitate further evaluation beyond that already ordered and ensuring blood sugars do not decline further. Plans are as noted above. 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 transplanted heart: qaw[place]angin heart Associated angina: with unspecified angina NIH stroke score NIHSS Level Of Consciousness - 1a: 0 Level Of Consciousness Questions - 1b: Both Correct Level Of Consciousness Commands - 1c: Both Correct Best Gaze - 2: Normal Visual Gutierrez - 3: No Visual Loss Facial Palsy - 4: Minor Paralysis Motor Arm Right - 5: No Drift Motor Arm Left - 5: No Drift Motor Leg Right - 6: No Drift Motor Leg Left - 6: No Drift Limb Ataxia - 7: Present In One Limb (RLE) Sensory - 8: Mild To Moderate Loss (left face) Best Language - 9: No Aphasia Dysarthia - 10: Normal Extinction And Inattention - 11: 0 Score Total Score: 3
[2024-12-21 14:41] VITALS: BP 129/71; PULSE 52; RESP 16; TEMP 36.4; O2SAT 96
[2024-12-21 15:36] VITALS: BMI 30.5
--- NOTE | 2024-12-21 16:23 | PC.NURSE ---
solution coordinator sounds @ [id number] gave patient stroke education book
[2024-12-21] MEDS: duloxetine 20 mg Capsule PO (17:43)
[2024-12-21] MEDS: gabapentin 300 mg Capsule PO (17:43)
[2024-12-21] MEDS: mupirocin oint 22 gm 1 APPLIC TOPICAL (17:43)
[2024-12-21] MEDS: tamsulosin 0.4 mg Capsule PO (17:43)
--- NOTE | 2024-12-21 18:25 | XRR_ITS ---
PROCEDURE INFORMATION: Exam: XR Abdomen Exam date and time: 12/21/2024 6:47 PM Age: 79 years old Clinical indication: Abdominal pain; Localized; Left lower quadrant (llq); Prior surgery; Surgery date: 6+ months; Surgery type: Colon resection choley; Upright abdomen xray; Additional info: Llq abdominal pain, history of colon resection, upright with assistance TECHNIQUE: Imaging protocol: Radiologic exam of the abdomen. Views: Frontal supine view of the abdomen. 1 View. COMPARISON: CT abdomen pelvis w con* [id number] 04/17/2024 2:42 AM FINDINGS: Gastrointestinal tract: Predominance of gas and stool within the colon with moderate stool volume more prominent within the left and distal colon. Nonspecific bowel gas pattern otherwise. No significant small bowel dilatation. Mild air in the stomach. Intraperitoneal space: No indication of free air. Surgical clips right upper quadrant suggest prior cholecystectomy. Bones/joints: Degenerative bony changes. XR/XR KUB portable [id number] IMPRESSION: Nonspecific nonobstructive bowel gas pattern. Moderate stool volume, more prominent within the left and distal colon. Previous cholecystectomy clips.
[2024-12-21 20:07] VITALS: BP 134/68; PULSE 62; RESP 18; TEMP 36.5; O2SAT 94
[2024-12-21] MEDS: atorvastatin 40 mg Tablet PO (20:17)
[2024-12-21] MEDS: insulin lispro 100 unit/1 mL SUBCUT (20:17)
[2024-12-21 22:41] LABS: Glucose Point of Care 151 mg/dL (70-110)
[2024-12-21 22:41] LABS: Glucose Point of Care 67 mg/dL (70-110)
[2024-12-21 22:41] LABS: Glucose Point of Care 111 mg/dL (70-110)
[2024-12-21 22:41] LABS: Glucose Point of Care 67 mg/dL (70-110)
[2024-12-21 23:56] VITALS: BP 132/70; PULSE 69; RESP 18; TEMP 36.6; O2SAT 94
[2024-12-22 00:30] VITALS: BP 132/70; PULSE 70; RESP 17; TEMP 36.6; O2SAT 94
[2024-12-22 03:50] VITALS: BP 119/65; PULSE 62; RESP 17; TEMP 36.8; O2SAT 94
[2024-12-22] MEDS: metoprolol succinate ER (24 HR) 50 mg Tablet 25 MG PO (05:20)
[2024-12-22] MEDS: aspirin 81 mg EC Tablet PO (05:20)
[2024-12-22] MEDS: pantoprazole DR 40 mg Tablet PO (05:20)
[2024-12-22] MEDS: clopidogrel 75 mg Tablet PO (05:20)
[2024-12-22 06:24] LABS: Glucose Point of Care 106 mg/dL (70-110)
[2024-12-22] MEDS: gabapentin 300 mg Capsule PO (07:44)
[2024-12-22] MEDS: duloxetine 20 mg Capsule PO (07:44)
[2024-12-22] MEDS: mupirocin oint 22 gm 1 APPLIC TOPICAL (07:44)
[2024-12-22 07:55] VITALS: BP 133/73; PULSE 52; RESP 16; TEMP 36.6; O2SAT 97
--- NOTE | 2024-12-22 09:22 | PC.CHAP ---
Pastoral Care Encounter/Spiritual Assessment Type of Contact [] Declined sharepoint application architect visit [] Patient/Family/Request visit [] Outpatient visit [] Follow-up visit [] Physician referral [] Code/Alert [x] Routine visit [] Staff referral [] Actively dying [] Patient sleeping [] Family support [] [] Out of room [] Palliative care [] [] Receiving care in room [] Pre-surgical visit [] Trauma [] Long length of stay [] ICU visit [] Other: Relational/Emotional Strength [x] Patient feels connected with others/family/visitors/staff [] Distress [] Loneliness/isolation [] Abandonment Spirituality of Patient [x] Person of Erin [] Attends Protestant of their Erin [x] Believes in Prayer [] Reads Bible or Nondenominational materials [] There are Spiritual issues to be addressed Junior Technical Writer Interventions [x] Prayer [x] Active listening [x] Non-anxious presence [x] Spiritual/emotional support [] Crisis/trauma care [] Spiritual counseling [] Bereavement support [] Provided bereavement packet [] Provided Bible/devotional materials [] Provided toy/stuffed animal, coloring book to patient or family member [] Provided Communion [] Anointing/[place] [] Salvation [x] Completed spiritual assessment [] Other: Impact on Illness or Injury [] Angry [] Fearful [] Anxious [] Often cries [] Exhaustion [] Unable to work [] Unable to attend pentecostal [] Unable to walk/stand [] Unable to read [] Unable to drive [] Unable to eat/drink [] Unable to sleep [] Unable to be with family [] Patient intubated [] Other: Summary Time spent with patient 5 min
[2024-12-22 11:43] VITALS: BP 120/68; PULSE 64; RESP 17; TEMP 36.5; O2SAT 96
[2024-12-22 11:44] LABS: Glucose Point of Care 154 mg/dL (70-110)
[2024-12-22] MEDS: insulin lispro 100 unit/1 mL SUBCUT (11:54)
--- NOTE | 2024-12-22 13:00 | P.DS_ITS ---
Discharge Providers Date of Admission: 12/21/24 13:37 Date of Discharge: December 22, 2024 Attending Provider at Admission: Neida Flower MD Attending Provider at Discharge: Selene Tolbert MD Primary Care Provider: AFSANEH Bonds Diagnoses at Discharge Discharge Diagnosis (1) Stroke-like symptoms: Status: Resolved (2) Left lower quadrant abdominal pain: Status: Resolved (3) Hypertension: Status: Chronic Qualifiers: Hypertension type: primary hypertension Qualified Code(s): I10 - Essential (primary) hypertension (4) Diabetes mellitus with hyperglycemia, with long-term current use of insulin: Status: Chronic Qualifiers: Diabetes mellitus type: type 2 Qualified Code(s): E11.65 - Type 2 diabetes mellitus with hyperglycemia; Z79.4 - residential (current) use of insulin (5) Coronary artery disease: Status: Chronic Qualifiers: Associated angina: with unspecified angina Coronary Disease-Associated Artery/Lesion type: [place] artery [place] vs. transplanted heart: [place] tribe heart Qualified Code(s): I25.119 - Atherosclerotic heart disease of [place] tribe coronary artery with unspecified angina pectoris Reason for Visit Reason for Visit: STROKE ALERT Hospital Course Hospital Course Patient presented to the hospital for strokelike symptoms. He had left-sided facial numbness left upper extremity weakness worse than baseline. Patient is on chronic dual antiplatelet therapy with aspirin Plavix and on statin therapy. He has known hypertension and diabetes mellitus for which he is chronically on management. Mr. Joe was evaluated in the emergency department from an [place] neurology on-call and deemed not to be a candidate for TNKase. Also had left lower quadrant abdominal pain which was resolved upon discharge. By the time patient was seen by myself he had no other symptoms present at this time. He was back to his baseline. His insulin long-acting was also adjusted to a reduced dose. Symptoms may have been due to recrudescence of previous strokes. Physical Exam Narrative: General: Alert oriented x3, HEENT: Normocephalic, atraumatic, EOMI, breathing room air. Cardio: Regular rate rhythm, normal S1-S2, Respiratory: Clear to auscultation bilaterally, normal respiratory effort. GI: Abdomen soft, nontender, bowel sounds + Extremities:Both lower extremities with proximal weakness with right lower extremity more prominent than the left. No drift noted in extremities ataxic with RLE heel-de [place] vega. Skin scabs to upper extremities noted in different stages of healing. Speech is clear Discharge Data Studies Completed and Pending Completed Studies During Hospitalization Category Date Time Status CT head thrombolytic [id number] Stat Cat Scan 12/21/24 09:24 Completed XR KUB portable [id number] Routine Exams 12/21/24 18:25 Completed Radiology Impressions Head CT 12/21/24 09:24 IMPRESSION: 1. No evidence of intracranial hemorrhage or mass effect. 2. Moderate small vessel changes with moderate parenchymal volume loss. Small vessel changes progressed since 2021. 3. Chronic lacunar infarcts in the LEFT greater than RIGHT basal ganglia. 4. Vascular calcification. 5. No acute intracranial findings. Notified Fabian Dao DO at 12/21/2024 9:31 AM. KUB X-Ray 12/21/24 18:25 IMPRESSION: Nonspecific nonobstructive bowel gas pattern. Moderate stool volume, more prominent within the left and distal colon. Previous cholecystectomy clips. Laboratory Results WBC 9.94 10^3/uL (3.29-11.43) 12/21/24 09:34 RBC 5.09 10^6/uL (3.85-5.65) 12/21/24 09:34 Hgb 11.60 g/dL (11.27-16.99) 12/21/24 09:34 Hct 39.8 % (37-53) 12/21/24 09:34 MCV 78.2 fl (82-101) L 12/21/24 09:34 MCH 22.8 pg (27-33) L 12/21/24 09:34 MCHC 29.1 g/dL (30-55) L 12/21/24 09:34 RDW 17.4 % (12.1-15.1) H 12/21/24 09:34 Plt Count 334 10^3/cmm (157-399) 12/21/24 09:34 MPV 9.6 fL (7.4-10.4) 12/21/24 09:34 Neut % (Auto) 50.4 % 12/21/24 09:34 Lymph % (Auto) 32.7 % 12/21/24 09:34 Turner % (Auto) 9.1 % 12/21/24 09:34 Eos % (Auto) 6.8 % 12/21/24 09:34 Baso % (Auto) 0.5 % 12/21/24 09:34 Neut # (Auto) 5.01 10^3/uL (1.8-7.7) 12/21/24 09:34 Lymph # (Auto) 3.3 10^3/uL (0.8-4.8) 12/21/24 09:34 Turner # (Auto) 0.9 10^3/uL (0.2-0.9) 12/21/24 09:34 Eos # (Auto) 0.7 10^3/uL (0.0-0.8) 12/21/24 09:34 Baso # (Auto) 0.1 10^3/uL (0.0-0.1) 12/21/24 09:34 Nucleated RBC % (auto) 0 % 12/21/24 09:34 Nucleated RBCs # 0.0 /100WBC 12/21/24 09:34 PT 12.70 SECONDS (12.1-14.9) 12/21/24 09:34 INR 0.89 (0.8-1.2) 12/21/24 09:34 APTT 29.2 SECONDS (23.9-36.7) 12/21/24 09:34 Sodium 139 mmol/L (136-145) 12/21/24 09:34 Potassium 4.7 mmol/L (3.5-5.1) 12/21/24 09:34 Chloride 103 mmol/L (98-107) 12/21/24 09:34 Carbon Dioxide 24 mmol/L (22-29) 12/21/24 09:34 Anion Gap 16.7 (5-19) 12/21/24 09:34 BUN 18 mg/dL (8-23) 12/21/24 09:34 Creatinine 1.1 mg/dL (0.7-1.2) 12/21/24 09:34 GFR Calculation Not Reportable 12/21/24 09:34 Glucose 120 mg/dL (65-115) H 12/21/24 09:34 POC Glucose 154 mg/dL (70-110) H 12/22/24 11:40 Calculated Osmolality 291 mOsm/kg (285-295) 12/21/24 09:34 Calcium 8.8 mg/dL (8.5-10.5) 12/21/24 09:34 Total Bilirubin 0.3 mg/dL (0.15-1.2) 12/21/24 09:34 AST 15 U/L (0-40) 12/21/24 09:34 ALT 12 U/L (0-41) 12/21/24 09:34 Alkaline Phosphatase 104 U/L (40-130) 12/21/24 09:34 Total Protein 7.3 g/dL (6.6-8.7) 12/21/24 09:34 Albumin 3.8 g/dL (3.5-5.2) 12/21/24 09:34 Globulin 3.5 g/dL (1.3-4.6) 12/21/24 09:34 Urine Color Yellow (Yellow) 12/21/24 11:13 Urine Appearance Clear (CLEAR) 12/21/24 11:13 Urine pH 6.5 (5-7) 12/21/24 11:13 Ur Specific [place] 1.028 (1.005-1.030) 12/21/24 11:13 Urine Protein Negative (Negative) 12/21/24 11:13 Urine Glucose (UA) 2+ (Normal) H 12/21/24 11:13 Urine Ketones Negative (Negative) 12/21/24 11:13 Urine Blood Negative (Negative) 12/21/24 11:13 Urine Nitrate Negative (Negative) 12/21/24 11:13 Urine Bilirubin Negative (Negative) 12/21/24 11:13 Urine Urobilinogen 1.0 mg/dL (Negative) 12/21/24 11:13 Ur Leukocyte Esterase Trace (Negative) A 12/21/24 11:13 Urine RBC 0-2 /hpf (0-2) 12/21/24 11:13 Urine WBC 11-20 /hpf (0-5) H 12/21/24 11:13 Ur Squamous Epith Cells 6-10 /hpf (0-5) 12/21/24 11:13 Amorphous Sediment Not Reportable 12/21/24 11:13 Urine Bacteria None seen /hpf (NONE) 12/21/24 11:13 Hyaline Casts 0.81 /lpf 12/21/24 11:13 Urine Opiates Screen Negative ng/mL (Negative) 12/21/24 11:13 Ur Barbiturates Screen Negative ng/mL (Negative) 12/21/24 11:13 Ur Phencyclidine Scrn Negative ng/mL (Negative) 12/21/24 11:13 Ur Amphetamines Screen Negative ng/mL (Negative) 12/21/24 11:13 U Benzodiazepines Scrn Negative ng/mL (Negative) 12/21/24 11:13 Urine Cocaine Screen Negative ng/mL (Negative) 12/21/24 11:13 U Marijuana (THC) Screen Negative ng/mL (Negative) 12/21/24 11:13 Vitals Last Vital Signs Temp 97.7 F 12/22/24 11:43 Pulse 64 12/22/24 11:43 Resp 17 12/22/24 11:43 BP 120/68 12/22/24 11:43 Pulse Ox 96 12/22/24 11:43 O2 Del Method Room Air 12/22/24 11:43 Discharge Plan Discharge Patient Disposition: Home Health Service Condition: Stable Prescriptions: Continued mupirocin 2 % ointment 1 applic topical BID Qty: 22 0RF aspirin 81 mg tablet,delayed release (DR/EC) 81 mg PO QAM Qty: 60 2RF atorvastatin 20 mg tablet 20 mg PO BEDTIME Qty: 30 2RF Plavix 75 mg tablet 75 mg PO QAM Qty: 60 2RF Farxiga 10 mg tablet 10 mg PO QAM Qty: 30 2RF duloxetine [Cymbalta] 20 mg capsule,delayed release(DR/EC) 20 mg PO BID Qty: 60 2RF gabapentin 300 mg capsule 300 mg PO BID Qty: 60 2RF Flomax 0.4 mg capsule 0.4 mg PO QPM Qty: 30 2RF levocetirizine 5 mg tablet 5 mg PO QAM Qty: 30 2RF Changed metoprolol succinate 50 mg tablet extended release 24 hr 25 mg PO QAM Qty: 60 2RF insulin degludec [Tresiba FlexTouch U-200] 200 unit/mL (3 mL) insulin pen 50 unit SUBCUT DAILY Qty: 3 0RF Discontinued lisinopril 2.5 mg tablet 2.5 mg PO QAM Qty: 30 2RF glipizide 10 mg tablet extended release 24hr 10 mg PO QAM No Action trazodone 50 mg tablet 50 mg PO BEDTIME Discharge Orders: Discharge Order (Routine); Ordered 12/22/24 Ordered By: Selene Didi Referrals: [facility] Care ([facility]) [Outside] Aline Pacheco, AFSANEH [Primary Care Provider, Family Practice] - 12/31/24 1:00 pm Discharge Diet: Cardiac and Diabetic Discharge Activity: As per PT/OT instructions Patient Instructions: Diabetes and Diet, Coronary Artery Disease (DC), Stroke (DC), Opioid Safety, Stroke Stoplight Discharge Attestations Time Spent in Discharge Care*: less than 30 min Quality Metrics Clinical Quality Measures [ No reported AMI, CVA or VTE this stay] Coding Level of Care Code Acute Code for Chg Fwd Diagnoses Stroke-like symptoms R29.90 Left lower quadrant abdominal pain R10.32 Primary hypertension I10 Hypertension type: primary hypertension Type 2 diabetes mellitus with hyperglycemia, with long-term current use of insulin E11.65; Z79.4 Diabetes mellitus type: type 2 Coronary artery disease involving [place] tribe coronary artery of [place] tribe heart with angina pectoris I25.119 Associated angina: with unspecified angina Coronary Disease-Associated Artery/Lesion type: [place] artery [place] vs. transplanted heart: [place] tribe heart
--- NOTE | 2024-12-22 13:27 | PC.NURSE ---
D/C pending transportation home. Pt granddaughter is supposed to pick pt up, however, she is not answering my calls and mailbox is full so I am unable to leave a message.
== END 2024-12-22 15:01 | disposition home health service (06) ==
LOC: ER 09:57 → MEDSURG 13:37
PROVIDERS: Admitting Provider Hospitalist; Emergency Provider Family Medicine; PCP Nurse Practitioner; Visit Provider Internal Medicine
DX: R29.90 Unspecified symptoms and signs involving the nervous system (principal); R29.705 NIHSS score 5; I10 Essential (primary) hypertension; E11.65 Type 2 diabetes mellitus with hyperglycemia; Z79.4 Long term (current) use of insulin; I25.119 Atherosclerotic heart disease of native coronary artery with unspecified angina pectoris; Z79.82 Long term (current) use of aspirin; R10.32 Left lower quadrant pain; K21.9 Gastro-esophageal reflux disease without esophagitis; Z85.038 Personal history of other malignant neoplasm of large intestine; Z86.73 Personal history of transient ischemic attack (TIA), and cerebral infarction without residual deficits; E78.5 Hyperlipidemia, unspecified; I25.10 Atherosclerotic heart disease of native coronary artery without angina pectoris; Z95.5 Presence of coronary angioplasty implant and graft; Z87.891 Personal history of nicotine dependence
CPT/HCPCS: 36416; 51798; 70450; 74018; 80053; 80306; 81001; 82962; 85025; 85610; 85730; 92523; 92610; 93005; 96372; 96374; 97116; 97162; 97165; 99285; G0378; J1815; J9999

== ENCOUNTER 2025-01-02 09:34 | Emergency (ER) | payer MEDICARE, MEDICAID, SELFPAY ==
[2025-01-02 09:37] VITALS: BP 134/87; PULSE 78; RESP 18; O2SAT 96; BMI 28.8
--- OUTSIDE RECORDS SUMMARY | 2025-01-02 09:55 | XMS_ITS | Clinical Summary ---
Author Organization [facility] Address [address] [place] [address] Phone Care Team Providers Care Academic Manager Name Role Phone Aline Pacheco NP Primary Care Provider Allergies Active Allergy Reactions Criticality Noted Date Comments Sulfa (Sulfonamide Antibiotics) Dizziness Low 07/09 Medications METOPROLOL TARTRATE 100 mg Oral Tab Take 100 mg by mouth daily. Active ASPIRIN 81 mg Oral Tab Take 81 mg by mouth daily. Active LISINOPRIL 5 mg Oral Tab Take 5 mg by mouth daily. Active GEMFIBROZIL 600 mg Oral Tab Take 600 mg by mouth 2 times daily. Active METFORMIN 500 mg Oral Tab Take 500 mg by mouth see administration instructions. Pt takes 1/2-2 pill QD Active tramadol-acetamino phen (ULTRACET) 37.5-325 mg Oral TabIndications:Deg eneration, intervertebral disc, lumbar,Degeneratio n of cervical intervertebral disc Take 1 Tab by mouth see administration instructions. Pt takes PRN but if medication is needed he will take 1 in am & 1 in pm 60 Tab 2 10/22/19 09 Active multivitamin (DAILY MULTI-VITAMIN) Oral tablet Take 1 Tab by mouth daily. Active amitriptyline (ELAVIL) 10 mg Oral tablet Take 10 mg by mouth daily at bedtime. Active loratadine (CLARITIN) 10 mg Oral tablet Take 10 mg by mouth daily. Active HYDROcodone-acetam inophen (NORCO) 5-325 mg Oral tablet Take 1 Tab by mouth every 4 hours as needed (For Pain Scale 4-6). 40 Tab 0 07/17/19 11 Active lovastatin (MEVACOR) 20 mg tablet Take 20 mg by mouth daily with supper. Active levocetirizine (XYZAL) 5 mg tablet Take 5 mg by mouth late in the day. Active linagliptin (TRADJENTA) 5 mg Tablet Take by mouth daily. Active donepezil (ARICEPT) 5 mg tablet Take 10 mg by mouth daily at bedtime. Active pantoprazole (PROTONIX) 40 mg Tablet, Delayed Release (E.C.) Take 40 mg by mouth daily. Active folic acid (FOLVITE) 1 mg tablet Take 1 mg by mouth daily. Active Saccharomyces boulardii (FLORASTOR) 250 mg Capsule Take 1 mg by mouth daily. Active famotidine (PEPCID) 40 mg tablet Take 40 mg by mouth 2 times daily. Active glipiZIDE (GLUCOTROL XL) 5 mg Extended Release 24 hour tablet Take 5 mg by mouth daily with breakfast. Active oxygen home delivery Home Oxygen yes at L/M Sleep, Delivery Device: Nasal Cannula Portability: no, May evaluate for device best for patient needs(E system,home fill, conserving device) Maintain Sats: > OR = 90%, Length of Need: 99 months. 1 Each 01/15/20 17 Active gabapentin (NEURONTIN) 100 mg capsule Take 1 Capsule (100 mg) by mouth daily at bedtime. 30 Capsule 3 01/22/20 17 Active Active Problems Problem Noted Date Diagnosed Date Chronic daily headache 12/31/2016 History of fusion of cervical spine 06/23/2010 Carpal tunnel syndrome 12/09/2008 Overview (12/09/2008): Right >left confirmed by NCV 's 10/14 HTN (hypertension) 07/29/2008 Overview (08/01/2010): Updating IMO/ICD9 Code and Description DM (diabetes mellitus) 07/29/2008 OA (osteoarthritis) 07/29/2008 GERD (gastroesophageal reflux disease) 9 Degeneration, intervertebral disc, lumbar 2008 Overview (07/29/2008): MRI 12/13 with small L1-2 left paracentral disc protrusion,L3-S1 DJD,L5-S1 disc bulge Degeneration of cervical intervertebral disc Overview (07/29/2008): S/p 2 cervical spine surgeries 1996,2000 for spinal stenosis Resolved Problems Problem Noted Date Diagnosed Date Resolved Date Bilateral hand numbness 10/21/2008 06/0 10/2008 Overview (10/21/2008): Past history of CTS Family History Medical History Relation Name Comments Cancer Father Other Mother Leukemia Relation Name Status Comments Father Mother Social History Tobacco Use Types Packs/Day Years Used Date Smoking Tobacco: Former Cigarettes 1 20 0 07/08/1959 - 07/08/1979 Smokeless Tobacco: Never Alcohol Use Standard Drinks/Week Comments Yes 0 (1 standard drink = 0.6 oz pur e alcohol) 1-2 Monthly Sex and Gender Information Value Date Recorded Sex Assigned at Not on file 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 Gender Identity Not on file Sexual Orientation Not on file Last Filed Vital Signs Vital Sign Reading Time Taken Comments Blood Pressure 160/93 12/31/2016 11:42 AM CDT Pulse 95 12/31/2016 11:42 AM CDT Temperature 36.6 C (97.8 F) 07/17/2010 12:15 PM CD REACTOR OPERATOR HEAD Respiratory Rate 16 12/31/2016 11:42 AM CDT Oxygen Saturation 97% 12/31/2016 11:42 AM CDT Inhaled Oxygen Concentration - - Weight 91.2 kg (201 lb) 12/31/2016 11:42 AM CDT Height 172.7 cm (5' 8 ) 12/31/2016 11:42 AM CDT Body Mass Index 30.56 12/31/2016 11:42 AM CDT Plan of Treatment Health Maintenance Due Date Last Done Comments DIABETES ANNUAL FOOT EXAM 1962 DIABETES ANNUAL RETINAL EXAM 1962 DIABETES MICROALBUMIN ANNUAL SCREEN 1962 LDL CHOLESTEROL ANNUAL 1962 DTAP/TDAP/TD VACCINES (1 - Tdap) 09/07/1963 PNEUMOCOCCAL VACCINE 50+ YEARS (1 of 2 - PCV) 09/06/18 64 ZOSTER VACCINE (1 of 2) 1994 DIABETES HBA1C Q 6 MONTHS 01/08/2011 07/11/2010 RSV VACCINE (60+ or ) (1 - 1-dose 75+ series) 09/07/2019 INFLUENZA VACCINE (#1) 2024 Procedures Procedure Name Priority Date/Time Associated Diagnosis Comments HEMOGLOBIN A1C Stat 07/11/2010 4:37 PM CD REACTOR OPERATOR HEAD from Last 3 Months or Most Recently Relevant to Health Maintenance Results * (ABNORMAL) HEMOGLOBIN A1C (07/11/2010 4:37 PM CD REACTOR OPERATOR HEAD) HEMOGLOBIN A1C 7.0(H) 4.0 - 6.0 %A1C [facility] Blood specimen (specimen) 07/11/2010 4:37 PM CD REACTOR OPERATOR HEAD 07/11/2010 4:48 PM CD REACTOR OPERATOR HEAD Narrative INTERFACE SYSTEM - 07/12/2010 10:25 AM CD REACTOR OPERATOR HEAD rm [id number] Magno Ramirez MD CHEMISTRY ORDERABLES Final Resul t Performing Organization Address City/State/[facility] Co de Phone Number INTERFACE SYSTEM Refer to clinic/hospital department [facility] CLIA# [id number] [address] [place] [id number] from Last 3 Months or Most Recently Relevant to Health Maintenance Insurance MEDICAID [place] MEDICARE PART A AND B Advance Directives For more information, please contact: [phone] * Full Code (Latest Code Status on File) Date Activated Date Inactivated Comments 07/17/2010 11:32 AM 07/17/2010 3:46 PM * Full Code Date Activated Date Inactivated Comments 07/17/2010 10:38 AM 07/17/2010 11:32 AM * Full Code Date Activated Date Inactivated Comments 07/17/2010 8:50 AM 07/17/2010 10:38 AM Care Teams Academic Manager Relationship Specialty Start Date End Date Aline Pacheco NP PCP - General 07/29/08
--- OUTSIDE RECORDS SUMMARY | 2025-01-02 09:55 | XMS_ITS | Encounter Summary ---
Author Organization [facility] Address [address] [facility] 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
--- OUTSIDE RECORDS SUMMARY | 2025-01-02 09:55 | XMS_ITS | Encounter Summary ---
Author Organization [facility] Address [address] [place] [address] Care Team Providers Care Healthcare Translator Name Role Phone Aline Pacheco SUPERVISOR OF OPERATIONS Primary Care Provider [phone] Encounter Details Date Type Department Care Team (Latest Contact Info) Description 03/09/2008 Outpatient Historical [facility] [address] [facility] [address] [place] [phone] Ilir Stanley MD [address] [facility] [address] [place] [phone] Cervicalgia; Lumbago; Degeneration of Lumbar or Lumbosacral Intervertebral Disc; Lumbosacral Spondylosis without Myelopathy; DM w/o Complication Type II (CMS/HCC); Unspecified Essential Hypertension; Unspecified Arthropathy, Site Unspecified; Other Postprocedural Status Social History Tobacco Use Types Packs/Day Years Used Date Smoking Tobacco: Never Assessed Sex and Gender Information Value Date Recorded Sex Assigned at Not on file Legal 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 Gender Identity Not on file Sexual Orientation Not on file documented as of this encounter Plan of Treatment Not on file documented as of this encounter Visit Diagnoses Diagnosis Cervicalgia Lumbago Degeneration of lumbar or lumbosacral intervertebral disc Lumbosacral spondylosis without myelopathy Type II or unspecified type diabetes mellitus without mention of complication, not stated as uncontrolled Unspecified essential hypertension Arthropathy, unspecified, site unspecified Other postprocedural status(V45.89) Other postprocedural status documented in this encounter Care Teams Healthcare Translator Relationship Specialty Start Date End Date Aline Pacheco NP PCP - General 07/29/08 documented as of this encounter
--- OUTSIDE RECORDS SUMMARY | 2025-01-02 09:55 | XMS_ITS | Encounter Summary ---
Author Organization [facility] Address [address] [facility] [place] [address] Care Team Providers Care Aerospace Control And Warning Systems Name Role Phone Aline Pacheco NP Primary Care Provider Encounter Details Date Type Department Care Team (Late st Contact Info) Description 03/17/2008 Outpatient Historical [facility] DEFAULT DEPARTMENT Ilir Stanley MD [address] [address] Social History Tobacco Use Types Packs/Day Years Used Date Smoking Tobacco: Never Assessed Sex and Gender Information Value Date Recorded Sex Assigned at Not on file 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
--- OUTSIDE RECORDS SUMMARY | 2025-01-02 09:55 | XMS_ITS | Encounter Summary ---
Author Organization [facility] Address [address] [facility] 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
--- OUTSIDE RECORDS SUMMARY | 2025-01-02 09:55 | XMS_ITS | Encounter Summary ---
Author Organization [facility] Address [address] [place] [address] Care Team Providers Care Chief Clinical Dietitian Name Role Phone Aline Pacheco NP Primary Care Provider Encounter Details Date Type Department Care Team (Latest Contact Info) Description 04/22/2008 Outpatient Historical [facility] [address] [facility] [address] [place] [address] Ilir Stanley MD [address] [facility] [address] [place] [phone] Degeneration of Lumbar or Lumbosacral Intervertebral Disc; DM w/o Complication Type II (CMS/HCC); Unspecified Essential Hypertension; Generalized Osteoarthrosis, Unspecified Site; Unspecified Arthropathy, Site Unspecified; Esophageal Reflux Social History Tobacco Use Types Packs/Day Years Used Date Smoking Tobacco: Never Assessed Sex and Gender Information Value Date Recorded Sex Assigned at Not on file Legal Sex Male 6:54 AM FUNDRAISING OFFICER Gender Identity Not on file Sexual Orientation Not on file documented as of this encounter Plan of Treatment Not on file documented as of this encounter Visit Diagnoses Diagnosis Degeneration of lumbar or lumbosacral intervertebral disc Type II or unspecified type diabetes mellitus without mention of complication, not stated as uncontrolled Unspecified essential hypertension Generalized osteoarthrosis, unspecified site Arthropathy, unspecified, site unspecified Esophageal reflux documented in this encounter Care Teams Chief Clinical Dietitian Relationship Specialty Start Date End Date Aline Pacheco NP PCP - General 07/29/08 documented as of this encounter
--- OUTSIDE RECORDS SUMMARY | 2025-01-02 09:55 | XMS_ITS | Clinical Summary ---
Author Organization [employer] Address [address] Mcmahon: Epic Prelude ADT EBONY PHILLIPS [id number] Care Team Providers Care Induction Brazer Name Role Phone Aline Pacheco NP Primary Care Provider Allergies Active Allergy Reactions Criticality Noted Date Comments Sulfa (Sulfonamide Antibiotics) Dizziness Low 07/09 Medications oxygen home delivery Home Oxygen yes at L/M Sleep, Delivery Device: Nasal CannulaPortabil ity: no, May evaluate for device best for patient needs(E system,home fill, conserving device)Maintain Sats: > OR = 90%,Length of Need: 99 months. 1 Each 0 7 Active gabapentin (NEURONTIN) 100 mg capsule Take 1 Capsule (100 mg) by mouth daily at bedtime. 30 Capsule 3 7 Active famotidine (PEPCID) 40 mg tablet Take 40 mg by mouth 2 times daily. 7 Active pantoprazole (PROTONIX) 40 mg Tablet, Delayed Release (E.C.) Take 40 mg by mouth daily. 7 Active donepeziL (ARICEPT) 5 mg tablet Take 10 mg by mouth daily at bedtime. 7 Active folic acid (FOLVITE) 1 mg tablet Take 1 mg by mouth daily. 7 Active Saccharomyces boulardii (FLORASTOR) 250 mg Capsule Take 1 mg by mouth daily. 7 Active lovastatin (MEVACOR) 20 mg tablet Take 20 mg by mouth daily with supper. 7 Active glipiZIDE (GLUCOTROL XL) 5 mg Extended Release 24 hour tablet Take 5 mg by mouth daily with breakfast. 7 Active linaGLIPtin (TRADJENTA) 5 mg Tablet Take by mouth daily. 7 Active levocetirizine (XYZAL) 5 mg tablet Take 5 mg by mouth late in the day. 7 Active Active Problems Problem Noted Date Diagnosed Date Chronic daily headache 12/31/2016 History of fusion of cervical spine 06/23/2010 Carpal tunnel syndrome 12/09/2008 Overview (11/03/2020): Right >left confirmed by NCV 's 10/14 GERD (gastroesophageal reflux disease) 9 DM (diabetes mellitus) 07/29/2008 HTN (hypertension) 07/29/2008 Overview (11/03/2020): Updating IMO/ICD9 Code and Description Degeneration of cervical intervertebral disc Overview (11/03/2020): S/p 2 cervical spine surgeries 1996,2000 for spinal stenosis OA (osteoarthritis) 07/29/2008 Degeneration, intervertebral disc, lumbar 2008 Overview (11/03/2020): MRI 12/13 with small L1-2 left paracentral disc protrusion,L3-S1 DJD,L5-S1 disc bulge Resolved Problems Problem Noted Date Diagnosed Date Resolved Date Bilateral hand numbness 10/21/2008 06/0 10/2008 Overview (11/02/2020): Past history of CTS Family History Medical History Relation Name Comments Cancer Father Other Mother Leukemia Relation Name Status Comments Father Mother Social History Tobacco Use Types Packs/Day Years Used Date Smoking Tobacco: Former Cigarettes Q uit: 07/08/1979 Smokeless Tobacco: Never Alcohol Use Standard Drinks/Week Comments Yes 0 (1 standard drink = 0.6 oz pur e alcohol) Sex and Gender Information Value Date Recorded Sex Assigned at Not on file Legal Sex 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
--- NOTE | 2025-01-02 10:20 | W.ED.EXTPRO ---
HPI - Extremity Problem General: Chief complaint: Extremity Problem,Nontraumatic Stated complaint: left arm pain Time Seen by Provider: 01/02/25 09:59 Related Data Home Medications ?Medication ?Instructions ?Recorded ?Confirmed pantoprazole 40 mg tablet,delayed 40 mg PO QAM 12/21/24 12/21/24 release Previous Rx's ?Medication ?Instructions ?Recorded tamsulosin 0.4 mg capsule (Flomax) 0.4 mg PO QPM #30 caps 06/29/24 levocetirizine 5 mg tablet 5 mg PO QAM #30 tabs 11/02/24 aspirin 81 mg tablet,delayed 81 mg PO QAM #60 tabs 12/07/24 release atorvastatin 20 mg tablet 20 mg PO BEDTIME #30 tabs 12/07/24 clopidogrel 75 mg tablet (Plavix) 75 mg PO QAM #60 tabs 12/07/24 dapagliflozin propanediol 10 mg 10 mg PO QAM #30 tabs 12/07/24 tablet (Farxiga) duloxetine 20 mg capsule,delayed 20 mg PO BID #60 caps 12/07/24 release (Cymbalta) gabapentin 300 mg capsule 300 mg PO BID #60 caps 12/07/24 mupirocin 2 % topical ointment 1 applic topical BID #22 grams 12/07/24 insulin degludec 200 unit/mL (3 50 unit (0.25 mL) SUBCUT DAILY #3 12/22/24 mL) subcutaneous pen (Tresiba mL FlexTouch U-200 insulin) metoprolol succinate 50 mg 25 mg (1/2 x 50 mg) PO QAM #60 tabs 12/22/24 tablet,extended release 24 hr Allergies Allergy/AdvReac Type Severity Reaction Status Date / Time erythromycin base Allergy Severe ALGY-Rash Verified 12/07/24 14:58 Sulfa (Sulfonamide Allergy Severe ALGY-Rash Verified 12/11/24 15:38 Antibiotics) [facility] ED PFSH: Medical History (Updated 12/23/24 @ 00:01 by TIMOTHY Bright) Colon cancer Bladder outlet obstruction Hematochezia Lower gastrointestinal hemorrhage Diabetes mellitus with hyperglycemia, with long-term current use of insulin Allergic rhinitis due to pollen Hyperlipidemia Coronary artery disease Cervical radicular pain CVA (cerebral vascular accident) Past history of CVA/TIA Tricuspid regurgitation Aortic regurgitation Acid reflux Enrolled in chronic care management Declined 04/14/24 Vitamin D deficiency Chronic migraine DDD (degenerative disc disease) Hypertension Dependent on walker for ambulation Surgical History (Updated 12/21/24 @ 17:42 by Neida Flower MD) History of cardiac catheterization 02/2020 mid LAD and circ stents History of cervical spinal surgery 3 times History of colon cancer 2014, proximal colon resection with ileocolic anastomosis History of cholecystectomy History of knee surgery Right History of cataract surgery Family History Father Cancer Denies family history of Bleeding disorder Social History Smoking and tobacco/nicotine status: former use of tobacco/nicotine Second hand smoke exposure: No Alcohol intake: never Substance/Drug Use: never Adopted: No Caregiver/support person: No Lives independently: Yes Household members: spouse Housing: House Marital status: Current occupational status: retired Do you think of yourself as: Straight/Heterosexual Current gender identity: Male Course Vital Signs: Vital signs: Vital Signs Pulse Rate 78 01/02/25 09:37 Respiratory Rate 18 01/02/25 09:37 Blood Pressure 134/87 01/02/25 09:37 Pulse Oximetry 96 01/02/25 09:37 Oxygen Delivery Me thod Room Air 01/02/25 09:37 Discharge Plan Discharge Condition: Stable Prescriptions: No Action mupirocin 2 % ointment 1 applic topical BID Qty: 22 0RF aspirin 81 mg tablet,delayed release (DR/EC) 81 mg PO QAM Qty: 60 2RF atorvastatin 20 mg tablet 20 mg PO BEDTIME Qty: 30 2RF Plavix 75 mg tablet 75 mg PO QAM Qty: 60 2RF Farxiga 10 mg tablet 10 mg PO QAM Qty: 30 2RF duloxetine [Cymbalta] 20 mg capsule,delayed release(DR/EC) 20 mg PO BID Qty: 60 2RF gabapentin 300 mg capsule 300 mg PO BID Qty: 60 2RF Flomax 0.4 mg capsule 0.4 mg PO QPM Qty: 30 2RF levocetirizine 5 mg tablet 5 mg PO QAM Qty: 30 2RF pantoprazole 40 mg tablet,delayed release (DR/EC) 40 mg PO QAM metoprolol succinate 50 mg tablet extended release 24 hr 25 mg PO QAM Qty: 60 2RF insulin degludec [Tresiba FlexTouch U-200] 200 unit/mL (3 mL) insulin pen 50 unit SUBCUT DAILY Qty: 3 0RF Referrals: Aline Pacheco, WEIGH MACHINE OPERATOR-C [Primary Care Provider, Family Practice] Print Language: Arabic Coding Level of Care Code ED Roving Or Yarn Color Checker for Jbg Paige
--- NOTE | 2025-01-02 10:21 | W.ED.GENADLT ---
HPI - General Adult General: Chief complaint: Extremity Problem,Nontraumatic Stated complaint: left arm pain Time Seen by Provider: 01/02/25 09:59 Source: patient Mode of arrival: EMS History of Present Illness: This patient was transported from his home by EMS this morning. It is unclear why but the patient states that his family thought he was having a stroke. Family members are not currently available and we are making attempts to reach them by telephone. The patient was recently hospitalized at this facility on 21 December for what sounds like similar symptoms and was discharged within 24 hours. Patient states he had a fall yesterday when his lift chair was not operating because of the loss of electricity and he fell from the chair landing on his back. He states he did not hit his head or suffer loss of consciousness. He states he does have pain at the base of his head however. He states he was able to get up from the floor on his own yesterday. He states that his left arm was weaker this morning but he states it is now operating normally. He states he has not eaten or drank anything yet today. He denies current pain or discomfort other than was described above. RN was able to reach his who states that when they both awoke from sleep this morning he was slow to respond normally to her and she was concerned about him and so called EMS. She states by time EMS arrived he was responding normally. Associated symptoms: Deny chest pain, dyspnea, nausea, rash, palpitations, syncope or vomiting Related Data Home Medications ?Medication ?Instructions ?Recorded ?Confirmed trazodone 50 mg tablet 50 mg PO BEDTIME 01/02/25 01/02/25 Previous Rx's ?Medication ?Instructions ?Recorded tamsulosin 0.4 mg capsule (Flomax) 0.4 mg PO QPM #30 caps 06/29/24 levocetirizine 5 mg tablet 5 mg PO QAM #30 tabs 11/02/24 aspirin 81 mg tablet,delayed 81 mg PO QAM #60 tabs 12/07/24 release atorvastatin 20 mg tablet 20 mg PO BEDTIME #30 tabs 12/07/24 clopidogrel 75 mg tablet (Plavix) 75 mg PO QAM #60 tabs 12/07/24 dapagliflozin propanediol 10 mg 10 mg PO QAM #30 tabs 12/07/24 tablet (Farxiga) duloxetine 20 mg capsule,delayed 20 mg PO BID #60 caps 12/07/24 release (Cymbalta) gabapentin 300 mg capsule 300 mg PO BID #60 caps 12/07/24 mupirocin 2 % topical ointment 1 applic topical BID #22 grams 12/07/24 insulin degludec 200 unit/mL (3 50 unit (0.25 mL) SUBCUT DAILY #3 12/22/24 mL) subcutaneous pen (Tresiba mL FlexTouch U-200 insulin) metoprolol succinate 50 mg 25 mg (1/2 x 50 mg) PO QAM #60 tabs 12/22/24 tablet,extended release 24 hr Allergies Allergy/AdvReac Type Severity Reaction Status Date / Time erythromycin base Allergy Severe ALGY-Rash Verified 12/07/24 14:58 Sulfa (Sulfonamide Allergy Severe ALGY-Rash Verified 12/11/24 15:38 Antibiotics) Review of Systems Const: Denies: fever(s) or chills Eyes: Denies: change in vision ENMT: Denies: odynophagia, nasal discharge or nasal congestion Card: Denies: chest pain, palpitations, syncope or pre-syncope Resp: Denies: dyspnea, productive cough or non-productive cough GI: Denies: abdominal pain, nausea or vomiting : Denies: flank pain, difficulty urinating or dysuria Musc: Reports: neck pain and extremity pain; Denies: back pain or extremity swelling Skin/Breast: Denies: rash or pruritus Neuro: Reports: difficulty walking; Denies: Slurred speech present or seizure-like activity Aubrey/Lymph: Reports: easy bruising PFSH ED PFSH: Medical History Colon cancer Bladder outlet obstruction Hematochezia Lower gastrointestinal hemorrhage Diabetes mellitus with hyperglycemia, with long-term current use of insulin Allergic rhinitis due to pollen Hyperlipidemia Coronary artery disease Cervical radicular pain CVA (cerebral vascular accident) Past history of CVA/TIA Tricuspid regurgitation Aortic regurgitation Acid reflux Enrolled in chronic care management Declined 04/14/24 Vitamin D deficiency Chronic migraine DDD (degenerative disc disease) Hypertension Dependent on walker for ambulation Surgical History History of cardiac catheterization 02/2020 mid LAD and circ stents History of cervical spinal surgery 3 times History of colon cancer 2015, proximal colon resection with ileocolic anastomosis History of cholecystectomy History of knee surgery Right History of cataract surgery Family History Father Cancer Denies family history of Bleeding disorder Social History Smoking and tobacco/nicotine status: former use of tobacco/nicotine Second hand smoke exposure: No Alcohol intake: never Substance/Drug Use: never Adopted: No Caregiver/support person: No Lives independently: Yes Household members: spouse Housing: House Marital status: Current occupational status: retired Do you think of yourself as: Straight/Heterosexual Current gender identity: Male Physical Exam Narrative: EXAM NARRATIVE: The patient is alert and oriented to person and place. He answers questions appropriately is in good spirits and somewhat jovial. Const: COMMON NORMALS: no acute distress, average body habitus and patient oriented x3 GENERAL APPEARANCE: cooperative and comfortable ORIENTATION/CONSCIOUSNESS: Yes awake HENMT: COMMON NORMALS: atraumatic, Normal nasal mucous membranes and turbinates present, moist oral mucous membranes and oropharynx normal HEAD & SCALP: atraumatic; no hematoma, no laceration and no palpable skull fracture FACE & SINUS: face symmetric NOSE: Normal nasal mucous membranes and turbinates present Eye: COMMON NORMALS: Equal, round and reactive pupils present, EOMs intact bilaterally and conjunctivae normal CONJUNCTIVA: Yes conjunctivae normal PUPIL: Yes Equal, round and reactive pupils present Neck/C-Spine: COMMON NORMALS: no lymphadenopathy and No carotid bruits CERVICAL SPINE: No step off deformity OTHER: He has tenderness at the occipital cervical junction but no step-off noted. He has decreased range of motion that he attributes as being normal for him since his cervical fusion. There are no other step-offs noted. There is no ecchymosis laceration or signs of trauma Chest: COMMONS NORMALS: normal inspection of the chest Resp: COMMON NORMALS: normal respiratory effort, No use of accessory muscles and clear to auscultation bilaterally AUSCULTATION: clear to auscultation bilaterally Cardio: COMMON NORMALS: regular rate, regular rhythm, No murmurs present (Cardio) and Peripheral pulses 2+ throughout RATE: regular rate RHYTHM: regular rhythm PERIPHERAL PULSES: Peripheral pulses 2+ throughout GI: COMMON NORMALS: Normal to inspection, nondistended, normoactive bowel sounds present, Soft to palpation and non-tender PALPATION: Yes Soft to palpation : COMMON NORMALS: Yes no CVA tenderness BLADDER/KIDNEY EXAM: Yes no CVA tenderness Back/Pelvis: COMMON NORMALS: no CVA tenderness, thoracic and lumbar spine normal to inspection, no thoracic nor lumbar tenderness, thoraco-lumbar ROM normal and straight leg raise negative bilaterally Extremity: COMMON NORMALS: normal to inspection, full ROM, capillary refill normal, no calf tenderness and no pedal edema NARRATIVE EXTREMITY EXAM: No deformity. He does have normal range of motion in all extremities. Neuro: COMMON NORMALS: patient oriented x3, moves all extremities, no focal motor deficits and no sensory deficits noted CRANIAL NERVES: Yes CN normal except as noted COORDINATION/BALANCE: [id number] test normal SPEECH: speech normal COORDINATION: [id number] test normal Psych: COMMON NORMALS: mental status grossly normal Skin: COMMON NORMALS: no rashes or lesions noted, no wounds and turgor normal GENERAL SKIN EXAM: no rashes or lesions noted and turgor normal Course Reevaluation(s): Reevaluation #1: The patient remains very stable and alert. No focal findings on repeat evaluation. He ambulated with walker which is his normal mode of mobility at home without any difficulty or assistance. No evidence of intracranial hemorrhage, skull fracture, cervical spine fracture etc. Laboratories are all reassuring as well. Time: 13:16 Vital Signs: Vital signs: Vital Signs Pulse Rate 78 01/02/25 09:37 Respiratory Rate 18 01/02/25 09:37 Blood Pressure 134/87 01/02/25 09:37 Pulse Oximetry 96 01/02/25 09:37 Oxygen Delivery Me thod Room Air 01/02/25 09:37 [facility] - General Adult Medical Decision Making Patient presented as noted in the HPI. Limited insight but the patient appears to be stable at this time. There is a history of a fall and he does have subjective discomfort in the base of his skull in the upper cervical spine. Will proceed with imaging as well as laboratory screening to evaluate for any potential potential etiology of weakness or falls and also of any acute injury. Does not appear to be a NETWORK DEVELOPMENT COORDINATOR related event at this time. He is at his baseline. Imaging studies were reassuring that there was no evidence of new intracranial findings to include bleeding midline shift skull fracture etc. His cervical spine did not reveal any evidence of acute fracture either. Chest x-ray was also reassuring. Laboratories work quite reassuring and unremarkable for any evidence of electrolyte disturbance anemia or other potential pathology. He was observed in the emergency department noted to have normal sinus rhythm the entire time with reassuring vital signs. He remained at his baseline without any new or focal findings on repeat evaluations. He ambulated about the emergency department using his walker without difficulty. Is not clear whether this patient may have had a transient ischemic event this morning but his history and findings at this point are reassuring and do not exhibit any findings that suggest an emergency medical condition. He certainly stable to be discharged home and that is his preference at this time. We discussed return precautions which he acknowledged. Medical Records I reviewed the patient's medical records. Prior recent hospitalization for what sounds like similar presentation. Lab Data I reviewed the patient's lab results. 01/02/25 10:39 01/02/25 10:39 Radiology Impressions Cervical Spine CT 01/02/25 10:30 IMPRESSION: No acute cervical spine fracture. Chest X-Ray 01/02/25 10:30 IMPRESSION: No acute findings. Head CT 01/02/25 10:30 IMPRESSION: No acute findings. Stable CT. Laboratory Results WBC 8.68 10^3/uL (3.29-11.43) 01/02/25 10:39 RBC 5.66 10^6/uL (3.85-5.65) H 01/02/25 10:39 Hgb 12.80 g/dL (11.27-16.99) 01/02/25 10:39 Hct 43.1 % (37-53) 01/02/25 10:39 MCV 76.1 fl (82-101) L 01/02/25 10:39 MCH 22.6 pg (27-33) L 01/02/25 10:39 MCHC 29.7 g/dL (30-55) L 01/02/25 10:39 RDW 18.1 % (12.1-15.1) H 01/02/25 10:39 Plt Count 339 10^3/cmm (157-399) 01/02/25 10:39 MPV 9.0 fL (7.4-10.4) 01/02/25 10:39 Neut % (Auto) 63.6 % 01/02/25 10:39 Lymph % (Auto) 23.5 % 01/02/25 10:39 [place] % (Auto) 8.1 % 01/02/25 10:39 Eos % (Auto) 3.8 % 01/02/25 10:39 Baso % (Auto) 0.5 % 01/02/25 10:39 Neut # (Auto) 5.53 10^3/uL (1.8-7.7) 01/02/25 10:39 Lymph # (Auto) 2.0 10^3/uL (0.8-4.8) 01/02/25 10:39 [place] # (Auto) 0.7 10^3/uL (0.2-0.9) 01/02/25 10:39 Eos # (Auto) 0.3 10^3/uL (0.0-0.8) 01/02/25 10:39 Baso # (Auto) 0.0 10^3/uL (0.0-0.1) 01/02/25 10:39 Nucleated RBC % (auto) 0 % 01/02/25 10:39 Nucleated RBCs # 0.0 /100WBC 01/02/25 10:39 Sodium 136 mmol/L (136-145) 01/02/25 10:39 Potassium 4.0 mmol/L (3.5-5.1) 01/02/25 10:39 Chloride 98 mmol/L (98-107) 01/02/25 10:39 Carbon Dioxide 22 mmol/L (22-29) 01/02/25 10:39 Anion Gap 20.0 (5-19) H 01/02/25 10:39 BUN 13 mg/dL (8-23) 01/02/25 10:39 Creatinine 1.0 mg/dL (0.7-1.2) 01/02/25 10:39 GFR Calculation Not Reportable 01/02/25 10:39 Glucose 226 mg/dL (65-115) H 01/02/25 10:39 Calculated Osmolality 289 mOsm/kg (285-295) 01/02/25 10:39 Calcium 9.7 mg/dL (8.5-10.5) 01/02/25 10:39 Magnesium 2.1 mg/dL (1.7-2.3) 01/02/25 10:39 Total Bilirubin 0.6 mg/dL (0.15-1.2) 01/02/25 10:39 AST 13 U/L (0-40) 01/02/25 10:39 ALT 10 U/L (0-41) 01/02/25 10:39 Alkaline Phosphatase 110 U/L (40-130) 01/02/25 10:39 Total Protein 8.3 g/dL (6.6-8.7) 01/02/25 10:39 Albumin 3.8 g/dL (3.5-5.2) 01/02/25 10:39 Globulin 4.5 g/dL (1.3-4.6) 01/02/25 10:39 All radiology interpretation(s) finalized by discharge EKG Data EKG 1: I personally reviewed and interpreted this EKG as follows: Interpretation: Contemporaneous review of resting EKG reveals ventricular rate of [address] interval QRS duration, corrected QT interval. Normal axis. No acute ST-T wave changes noted. Computer generated interpretation: Cervical Spine CT 01/02/25 10:30 IMPRESSION: No acute cervical spine fracture. Chest X-Ray 01/02/25 10:30 IMPRESSION: No acute findings. Head CT 01/02/25 10:30 IMPRESSION: No acute findings. Stable CT. Discharge Plan Discharge Patient Disposition: Home Clinical Impression: Fall from ground level, Left arm numbness Condition: Stable Prescriptions: No Action mupirocin 2 % ointment 1 applic topical BID Qty: 22 0RF aspirin 81 mg tablet,delayed release (DR/EC) 81 mg PO QAM Qty: 60 2RF atorvastatin 20 mg tablet 20 mg PO BEDTIME Qty: 30 2RF Plavix 75 mg tablet 75 mg PO QAM Qty: 60 2RF Farxiga 10 mg tablet 10 mg PO QAM Qty: 30 2RF duloxetine [Cymbalta] 20 mg capsule,delayed release(DR/EC) 20 mg PO BID Qty: 60 2RF gabapentin 300 mg capsule 300 mg PO BID Qty: 60 2RF Flomax 0.4 mg capsule 0.4 mg PO QPM Qty: 30 2RF levocetirizine 5 mg tablet 5 mg PO QAM Qty: 30 2RF metoprolol succinate 50 mg tablet extended release 24 hr 25 mg PO QAM Qty: 60 2RF insulin degludec [Tresiba FlexTouch U-200] 200 unit/mL (3 mL) insulin pen 50 unit SUBCUT DAILY Qty: 3 0RF trazodone 50 mg tablet 50 mg PO BEDTIME Discharge Orders: Discharge ED (Routine); Ordered 01/02/25 Ordered By: Kong Stuart Referrals: Aline Pacheco, OMIC [Primary Care Provider, [facility]] Discharge Diet: Usual diet Discharge Activity: Increase activity as tolerated and Use walker/crutches as instructed Patient Instructions: Opioid Safety, Pain Management, Patient Portal & Katja Instructions Activity Restrictions/Additional Instructions: As we discussed while you are in the emergency department your testing today did not reveal any evidence that you have had a stroke, fractured skull, fractured neck or any other injury as result of your fall yesterday. You should continue all your normally prescribed medications and use your walker to assist in your movement around your home. If you develop any recurrence of symptoms such as weakness difficulty with speech numbness or other concerns you should call 911 or return to the emergency department immediately. Print Language: Turkmen Coding Level of Care Code ED Mortgage Processing Clerk for Jose Luis Gibson
--- NOTE | 2025-01-02 10:27 | PC.NURSE ---
Spoke w/pt's and granddaughter over the phone. Pt's called EMS because pt woke up @ 8am and was not responding to his , he could not speak and acted like he did not understand what she was saying. Pt did eventually by the time EMS was leaving was speaking and he was complaining of numbness in his L arm and he did say he fell yesterday and hit the back of his head.
--- NOTE | 2025-01-02 10:30 | CTR_ITS ---
PROCEDURE INFORMATION: Exam: CT Head Without Contrast Exam date and time: 01/02/2025 10:42 AM Age: 79 years old Clinical indication: Injury or trauma; Fall; Blunt trauma (contusions or hematomas) TECHNIQUE: Imaging protocol: Computed tomography of the head without contrast. Radiation optimization: All CT scans at this facility use at least one of these dose optimization techniques: automated exposure control; mA and/or kV adjustment per patient size (includes targeted exams where dose is matched to clinical indication); or iterative reconstruction. COMPARISON: CT head thrombolytic [id number] 12/21/2024 9:14 AM RADIATION DOSE METRICS: Total DLP (mGy-cm): 1085.9 FINDINGS: Brain: Bifrontal lacunar infarcts adjacent to the basal ganglia without change. [id number] periventricular and subcortical white matter low-density bilaterally again noted, which is nonspecific. No acute intracranial hemorrhage. Cerebral ventricles: No ventriculomegaly. Paranasal sinuses: Visualized sinuses are unremarkable. No fluid levels. Mastoid air cells: Visualized mastoid air cells are well aerated. Bones: Unremarkable. No acute fracture. Soft tissues: Unremarkable. CT/CT head wo con* [id number] IMPRESSION: No acute findings. Stable CT.
--- NOTE | 2025-01-02 10:30 | XRR_ITS ---
PROCEDURE INFORMATION: Exam: XR Chest Exam date and time: 01/02/2025 10:44 AM Age: 79 years old Clinical indication: Injury or trauma; Fall; Blunt trauma (contusions or hematomas); Additional info: Weakness TECHNIQUE: Imaging protocol: Radiologic exam of the chest. Views: 1 view. COMPARISON: CR XR chest 1V portable [id number] 11/01/2024 6:07 PM FINDINGS: Lungs: Minimal interstitial prominence or thickening in the left mid to lower lung without change. No pulmonary consolidation. Pleural spaces: Unremarkable. No pleural effusion. No pneumothorax. Heart/Mediastinum: Unremarkable. No cardiomegaly. Bones/joints: Unremarkable. XR/XR chest 1V portable [id number] IMPRESSION: No acute findings.
--- NOTE | 2025-01-02 10:30 | CTR_ITS ---
PROCEDURE INFORMATION: Exam: CT Cervical Spine Without Contrast Exam date and time: 01/02/2025 10:42 AM Age: 79 years old Clinical indication: Injury or trauma; Fall; Blunt trauma TECHNIQUE: Imaging protocol: Computed tomography of the cervical spine without contrast. Radiation optimization: All CT scans at this facility use at least one of these dose optimization techniques: automated exposure control; mA and/or kV adjustment per patient size (includes targeted exams where dose is matched to clinical indication); or iterative reconstruction. COMPARISON: CT cervical spin wo con* [id number] 11/29/2019 3:17 PM RADIATION DOSE METRICS: Total DLP (mGy-cm): 243.1 FINDINGS: Bones: No acute fracture. Normal alignment. Fusion of the C4 through C6 vertebral bodies may be developmental. Thickening and calcification of the transverse ligament posterior to C1-C2. No significant disc bulge or herniation. No severe spinal canal stenosis. Severe left neural foraminal stenosis at C2-C3 secondary to facet hypertrophy. Moderate right neural foraminal stenosis at C2-C3 and C3-C4 from facet hypertrophy. Lungs: Lung apices are normal. Soft tissues: Unremarkable. CT/CT cervical spin wo con* [id number] IMPRESSION: No acute cervical spine fracture.
[2025-01-02 10:44] LABS: Basophils % 0.5 %; Eosinophils # 0.3 10^3/uL (0.0-0.8); Eosinophils % 3.8 %; Hematocrit 43.1 % (37-53); Lymphocytes % 23.5 %; Mean Corpuscular HGB Conc 29.7 g/dL (30-55); Mean Corpuscular Hemoglobin 22.6 pg (27-33); Mean Corpuscular Volume 76.1 fl (82-101); Monocytes # 0.7 10^3/uL (0.2-0.9); Monocytes % 8.1 %; Neutrophils # 5.53 10^3/uL (1.8-7.7); Neutrophils % 63.6 %; Nucleated Red Blood Cells % 0 %; Platelet Count 339 10^3/cmm (157-399); Red Blood Count 5.66 10^6/uL (3.85-5.65); Red Cell Distribution Width 18.1 % (12.1-15.1); White Blood Count 8.68 10^3/uL (3.29-11.43)
--- NOTE | 2025-01-02 10:58 | ECG_ITS ---
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 Measurements Intervals [place] Rate: 83 P: 72 MO: 173 QRS: -21 QRSD: 85 T: 31 QT: 372 QTc: 439 Interpretive Statements SINUS RHYTHM BORDERLINE LEFT AXIS DEVIATION [QRS AXIS < -20] Compared to ECG 12/21/2024 09:33:02 Sinus bradycardia no longer present Electronically Signed On 01-07-2025 09:16:07 CDT by Jerzy Castro M.D. [email or web address]
[2025-01-02 11:05] LABS: Alanine Aminotransferase 10 U/L (0-41); Albumin Level 3.8 g/dL (3.5-5.2); Alkaline Phosphatase 110 U/L (40-130); Aspartate Amino Transferase 13 U/L (0-40); Blood Urea Nitrogen 13 mg/dL (8-23); Calcium 9.7 mg/dL (8.5-10.5); Carbon Dioxide 22 mmol/L (22-29); Chloride 98 mmol/L (98-107); Globulin 4.5 g/dL (1.3-4.6); Glucose 226 mg/dL (65-115); Magnesium 2.1 mg/dL (1.7-2.3); Osmolality Calculated 289 mOsm/kg (285-295); Sodium 136 mmol/L (136-145); Total Bilirubin 0.6 mg/dL (0.15-1.2); Total Protein 8.3 g/dL (6.6-8.7)
[2025-01-02 13:51] VITALS: BP 131/79; PULSE 95; O2SAT 97
== END 2025-01-02 13:53 | disposition home or self-care (01) ==
PROVIDERS: Emergency Provider Emergency Medicine; PCP Nurse Practitioner
DX: R20.0 Anesthesia of skin (principal); M79.602 Pain in left arm; W19.XXXA Unspecified fall, initial encounter; Z79.82 Long term (current) use of aspirin; Z79.4 Long term (current) use of insulin; Z87.891 Personal history of nicotine dependence; E78.5 Hyperlipidemia, unspecified; I25.10 Atherosclerotic heart disease of native coronary artery without angina pectoris; Z86.73 Personal history of transient ischemic attack (TIA), and cerebral infarction without residual deficits; Z85.038 Personal history of other malignant neoplasm of large intestine; E11.9 Type 2 diabetes mellitus without complications; I10 Essential (primary) hypertension
CPT/HCPCS: 70450; 71045; 72125; 80053; 83735; 85025; 93005; 99285

== ENCOUNTER → 2025-02-08 14:48 | Outpatient (BNVA) | payer MEDICARE, MEDICAID, SELFPAY | PROVIDERS: PCP Nurse Practitioner; Visit Provider Clinical Nurse Specialist Adult Health | DX: N39.0 Urinary tract infection, site not specified (principal); N39.41 Urge incontinence | CPT/HCPCS: 81000; 87077; 87086 ==

== ENCOUNTER → 2025-03-01 16:25 | Outpatient (BNVA) | payer MEDICARE, MEDICAID, SELFPAY | PROVIDERS: PCP Nurse Practitioner; Visit Provider Nurse Practitioner | DX: E11.65 Type 2 diabetes mellitus with hyperglycemia (principal); Z79.4 Long term (current) use of insulin | CPT/HCPCS: 80053; 80061; 83036 ==

== ENCOUNTER → 2025-04-05 15:48 | Outpatient (BNVA) | payer MEDICARE, MEDICAID, SELFPAY | PROVIDERS: PCP Nurse Practitioner; Visit Provider Nurse Practitioner | DX: K52.9 Noninfective gastroenteritis and colitis, unspecified (principal) | CPT/HCPCS: 80053; 81000; 85025 ==

== ENCOUNTER 2025-04-17 18:37 | Emergency (ER) | payer MEDICARE, MEDICAID, SELFPAY ==
[2025-04-17] VITALS (10 sets, daily range): BP systolic 114–137; BP diastolic 70–90; PULSE 75–105; RESP 16; TEMP 37.1; O2SAT 91–100; BMI 25.0
--- OUTSIDE RECORDS SUMMARY | 2025-04-17 18:44 | XMS_ITS | Clinical Summary ---
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 Gender Identity Not on file Sexual Orientation Not on file Last Filed Vital Signs Vital Sign Reading Time Taken Comments Blood Pressure 160/93 12/31/2016 11:42 AM CDT Pulse 95 12/31/2016 11:42 AM CDT Temperature 36.6 C (97.8 F) 07/17/2010 12:15 PM CHIEF PSYCHOLOGY Respiratory Rate 16 12/31/2016 11:42 AM CDT [...] 1-dose 75+ series) 09/07/2019 INFLUENZA VACCINE (#1) 2025 Procedures Procedure Name Priority Date/Time Associated Diagnosis Comments HEMOGLOBIN A1C Stat 07/11/2010 4:37 PM CHIEF PSYCHOLOGY from Last 3 Months or Most Recently Relevant to Health Maintenance Results * (ABNORMAL) HEMOGLOBIN A1C (07/11/2010 4:37 PM CHIEF PSYCHOLOGY) HEMOGLOBIN A1C 7.0(H) 4.0 - 6.0 %A1C [facility] Blood specimen (specimen) 07/11/2010 4:37 PM CHIEF PSYCHOLOGY 07/11/2010 4:48 PM CHIEF PSYCHOLOGY Narrative INTERFACE SYSTEM - 07/12/2010 10:25 AM CHIEF PSYCHOLOGY rm [id number] Magno Ramirez MD CHEMISTRY ORDERABLES Final Resul t Performing Organization Address City/State/[facility] Co de Phone Number INTERFACE SYSTEM Refer to clinic/hospital department [facility] CLIA# [id number] [address] [place] [id number] from Last 3 Months or Most Recently Relevant to Health Maintenance Insurance MEDICAID [place] MEDICARE PART A [place] B Advance Directives For more information, please contact: [phone] * Full Code (Latest Code Status on File) Date Activated Date Inactivated Comments 07/17/2010 11:32 AM 07/17/2010 3:46 PM * Full Code Date Activated Date Inactivated Comments 07/17/2010 10:38 AM 07/17/2010 11:32 AM * Full Code Date Activated Date Inactivated Comments 07/17/2010 8:50 AM 07/17/2010 10:38 AM Care Teams Manager Fund Relationship Specialty Start Date End Date Aline Pacheco NP PCP - General 07/29/08
--- OUTSIDE RECORDS SUMMARY | 2025-04-17 18:44 | XMS_ITS | Encounter Summary ---
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
--- OUTSIDE RECORDS SUMMARY | 2025-04-17 18:44 | XMS_ITS | Encounter Summary ---
Author Organization [facility] Address [address] [place] [address] Care Team Providers Care Medicare Coordinator Name Role Phone Aline Pacheco RADIATION TECHNICIAN Primary Care Provider [phone] Encounter Details Date Type Department Care Team (Latest Contact Info) Description 03/09/2008 Outpatient Historical [facility] [address] [place] [address] [facility] [address] [place] [phone] Ilir Stanley MD [address] [facility] [address] [place] [phone] Cervicalgia; Lumbago; Degeneration of Lumbar or Lumbosacral Intervertebral Disc; Lumbosacral Spondylosis without Myelopathy; DM w/o Complication Type II (CMS/HCC); Unspecified Essential Hypertension; Unspecified Arthropathy, Site Unspecified; Other Postprocedural Status Social History Tobacco Use Types Packs/Day Years Used Date Smoking Tobacco: Never Assessed Sex and Gender Information Value Date Recorded Sex Assigned at Not on file 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
--- OUTSIDE RECORDS SUMMARY | 2025-04-17 18:44 | XMS_ITS | Clinical Summary ---
Author Organization [employer] Address [address] 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
--- OUTSIDE RECORDS SUMMARY | 2025-04-17 18:44 | XMS_ITS | Encounter Summary ---
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
--- OUTSIDE RECORDS SUMMARY | 2025-04-17 18:44 | XMS_ITS | Encounter Summary ---
Author Organization [facility] Address [address] [place] [address] Care Team Providers Care Systems Administrator Name Role Phone Aline Pacheco NP Primary Care Provider Encounter Details Date Type Department Care Team (Latest Contact Info) Description 04/22/2008 Outpatient Historical [facility] [address] [place] [address] [address] [facility] [address] [place] [address] Ilir Stanley MD [address] [facility] [address] [place] [phone] Degeneration of Lumbar or Lumbosacral Intervertebral Disc; DM w/o Complication Type II (CMS/HCC); Unspecified Essential Hypertension; Generalized Osteoarthrosis, Unspecified Site; Unspecified Arthropathy, Site Unspecified; Esophageal Reflux Social History Tobacco Use Types Packs/Day Years Used Date Smoking Tobacco: Never Assessed Sex and Gender Information Value Date Recorded Sex Assigned at Not on file 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
--- OUTSIDE RECORDS SUMMARY | 2025-04-17 18:44 | XMS_ITS | Encounter Summary ---
Author Organization [facility] Address [address] [facility] [place] [address] Care Team Providers Care Managed Services Consultant Name Role Phone Aline Pacheco NP Primary Care Provider Encounter Details Date Type Department Care Team (Late st Contact Info) Description 04/30/2008 Outpatient Historical [facility] DEFAULT DEPARTMENT Ilir Stanley MD [address] [address] Social History Tobacco Use Types Packs/Day Years Used Date Smoking Tobacco: Never Assessed Sex and Gender Information Value Date Recorded Sex Assigned at Not on file 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
--- NOTE | 2025-04-17 19:24 | CTR_ITS ---
PROCEDURE INFORMATION: Exam: CT Abdomen And Pelvis With Contrast Exam date and time: 04/17/2025 8:07 PM Age: 79 years old Clinical indication: Abdominal pain; Generalized; Prior surgery; Surgery date: 6+ months; Surgery type: Colon; Additional info: Llq pain TECHNIQUE: Imaging protocol: Computed tomography of the abdomen and pelvis with contrast. Radiation optimization: All CT scans at this facility use at least one of these dose optimization techniques: automated exposure control; mA and/or kV adjustment per patient size (includes targeted exams where dose is matched to clinical indication); or iterative reconstruction. Contrast material: OMNIPAQUE 350; Contrast volume: 100 ml; Contrast route: INTRAVENOUS (IV); COMPARISON: CR (CHEST, ) 09/15/2022 3:02 AM RADIATION DOSE METRICS: Total DLP (mGy-cm): 676.36 FINDINGS: Liver: Normal. No mass. Gallbladder and biliary ducts: Cholecystectomy. Pancreas: Normal. No ductal dilation. Spleen: Normal. No splenomegaly. Adrenal glands: Normal. No mass. Kidneys and ureters: Gsgz-dmmdrgg-mobx-right renal atrophy. Mild hydroureteronephrosis, presumably chronic; nevertheless recommend clinical correlation for ascending urinary tract infection. Stomach and bowel: Postsurgical changes of right upper quadrant colon, presumably ascending hemicolectomy. Scattered colonic diverticula probably most conspicuous in descending colon without definite significant acute inflammatory changes. Appendix: No evidence of appendicitis. 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 Vasculature: Aortic and coronary atherosclerosis fibrotic strands of the lung base. Lymph nodes: Unremarkable. No enlarged lymph nodes. Urinary bladder: Unremarkable as visualized. Reproductive: Unremarkable as visualized. Bones/joints: Pzas-dr-lihiwdad degenerative changes of the lower lumbar spine. Soft tissues: Small fat containing left inguinal hernia. CT/CT abdomen pelvis w con* [id number] IMPRESSION: 1. Mild hydroureteronephrosis, presumably chronic, stable compared to prior; nevertheless recommend clinical correlation for ascending urinary tract infection. 2. Scattered colonic diverticula probably most conspicuous in descending colon without definite significant acute inflammatory changes.
[2025-04-17 19:33] LABS: Hematocrit 41.8 % (37-53); Hemoglobin 13.00 g/dL (11.27-16.99); Mean Corpuscular HGB Conc 31.1 g/dL (30-55); Mean Corpuscular Hemoglobin 23.0 pg (27-33); Mean Corpuscular Volume 73.9 fl (82-101); Nucleated Red Blood Cells % 0 %; Platelet Count 282 10^3/cmm (157-399); Red Blood Count 5.66 10^6/uL (3.85-5.65); White Blood Count 12.25 10^3/uL (3.29-11.43)
[2025-04-17] MEDS: ondansetron 2 mg/ML SDV 2 mL 4 MG IVP (19:33)
[2025-04-17] MEDS: morphine 4 mg/mL SDV 1 mL IVP (19:33)
--- NOTE | 2025-04-17 20:04 | W.ED.NAVMDI ---
HPI - Nausea/Vomiting/Diarrhea General: Chief complaint: Nausea/Vomiting/Diarrhea Stated complaint: N/V Time Seen by Provider: 04/17/25 18:47 History of Present Illness: Patient is an 79-year-old male presenting with a three-day history of vomiting and abdominal pain. He reports being unable to keep anything down during this period. The pain is localized primarily to the left lower quadrant with a severity of 4-5/10. The patient denies fever, diarrhea, hematemesis, or hematochezia. He does report some coughing. The abdominal pain is exacerbated by palpation, with tenderness being more pronounced on the left side. Patient arrived via ambulance, though he is uncertain if he received any pain medication during transport. Related Data Previous Rx's ?Medication ?Instructions ?Recorded mupirocin 2 % topical ointment 1 applic topical BID #22 grams 12/07/24 aspirin 81 mg tablet,delayed 81 mg PO QAM #60 tabs 03/05/25 release atorvastatin 20 mg tablet 20 mg PO BEDTIME #30 tabs 03/05/25 clopidogrel 75 mg tablet (Plavix) 75 mg PO QAM #60 tabs 03/05/25 dapagliflozin propanediol 10 mg 10 mg PO QAM #30 tabs 03/05/25 tablet (Farxiga) duloxetine 20 mg capsule,delayed 20 mg PO BID #60 caps 03/05/25 release gabapentin 300 mg capsule 300 mg PO BID #60 caps 03/05/25 insulin degludec 200 unit/mL (3 50 unit (0.25 mL) SUBCUT DAILY #3 03/05/25 mL) subcutaneous pen (Tresiba mL FlexTouch U-200 insulin) levocetirizine 5 mg tablet 5 mg PO QAM #30 tabs 03/05/25 metoprolol succinate 25 mg 25 mg PO QAM #30 tabs 03/05/25 tablet,extended release 24 hr tamsulosin 0.4 mg capsule (Flomax) 0.4 mg PO QPM #30 caps 03/05/25 trazodone 50 mg tablet 50 mg PO BEDTIME #30 tabs 03/05/25 esomeprazole magnesium 20 mg 20 mg PO DAILY #30 caps 04/05/25 capsule,delayed release (Nexium) Oxygen concentrator 2l NC #1 ea 04/06/25 cefdinir 300 mg capsule 300 mg PO BID #14 caps 04/17/25 ondansetron 4 mg disintegrating 4 mg PO Q6H PRN nausea and 04/17/25 tablet vomiting #14 tabs Allergies Allergy/AdvReac Type Severity Reaction Status Date / Time erythromycin base Allergy Severe ALGY-Rash Verified 04/05/25 14:35 Sulfa (Sulfonamide Allergy Severe ALGY-Rash Verified 04/05/25 14:35 Antibiotics) PFSH ED PFSH: Medical History Nocturnal hypoxia Colon cancer Bladder outlet obstruction Hematochezia Lower gastrointestinal hemorrhage Type 2 diabetes mellitus with hyperglycemia, with long-term current use of insulin Allergic rhinitis due to pollen Hyperlipidemia Coronary artery disease Cervical radicular pain CVA (cerebral vascular accident) Past history of CVA/TIA Tricuspid regurgitation Aortic regurgitation Acid reflux Enrolled in chronic care management Vitamin D deficiency Chronic migraine DDD (degenerative disc disease) Hypertension Dependent on walker for ambulation Surgical History History of cardiac catheterization 02/2020 mid LAD and circ stents History of cervical spinal surgery 3 times History of colon cancer 2014, proximal colon resection with ileocolic anastomosis History of cholecystectomy History of knee surgery Right History of cataract surgery Family History Father Cancer Denies family history of Bleeding disorder Social History Smoking and tobacco/nicotine status: former use of tobacco/nicotine Second hand smoke exposure: No Alcohol intake: never Substance/Drug Use: never Adopted: No Caregiver/support person: No Lives independently: Yes Household members: spouse Housing: House Marital status: Current occupational status: retired Do you think of yourself as: Straight/Heterosexual Current gender identity: Male Physical Exam Const: COMMON NORMALS: no acute distress GENERAL APPEARANCE: cooperative and frail appearing (Mildly) HENMT: COMMON NORMALS: normocephalic, atraumatic and Normal external nose present HEAD & SCALP: normocephalic and atraumatic FACE & SINUS: normal facial exam and face symmetric NOSE: Normal external nose present Eye: COMMON NORMALS: Equal, round and reactive pupils present and EOMs intact bilaterally PUPIL: Yes Equal, round and reactive pupils present Neck/C-Spine: GENERAL: Yes trachea midline Chest: CHEST: Yes Symmetrical chest wall rise Resp: COMMON NORMALS: normal respiratory effort, No retractions, No use of accessory muscles and clear to auscultation bilaterally AUSCULTATION: clear to auscultation bilaterally Cardio: COMMON NORMALS: regular rate and regular rhythm RATE: regular rate RHYTHM: regular rhythm GI: INSPECTION: Yes abdominal distension AUSCULTATION: Yes normoactive bowel sounds PALPATION: Yes Tenderness to palpation present (GI) Details: LLQ and Yes Guarding due to palpation present (GI) Extremity: COMMON NORMALS: no pedal edema Neuro: KATINA COMA SCALE: document GCS findings [place] coma scale eye opening: Spontaneous Katina coma scale verbal response: Orientated Katina coma scale motor response: Obey commands [place] coma scale total score: 15 SENSORY EXAM: Yes extremities (intact) Psych: COMMON NORMALS: speech normal SPEECH: Yes normal speech Skin: COMMON NORMALS: no rashes or lesions noted GENERAL SKIN EXAM: no rashes or lesions noted Course Vital Signs: Vital signs: Vital Signs Temperature 98.8 F 04/17/25 18:41 Pulse Rate 84 04/17/25 23:06 Respiratory Rate 16 04/17/25 23:06 Blood Pressure 120/75 04/17/25 23:06 Pulse Oximetry 99 04/17/25 23:06 MDM - Nausea/Vomiting/Diarrhea Medical Decision Making Vitals are stable. He is afebrile here. White blood cell count is 12 CT is pending. No vomiting since administration of Zofran. His creatinine is 1.6 which is a slight elevation from prior. His bicarb level is 18 sodium 130. Urinalysis shows hematuria. CT of the abdomen pelvis shows mild hydronephrosis which appears chronic. Lactic acid is 1.7. CRP is 22. Patient wants to go home. He is administered Zofran for vomiting. Antibiotics for urinary tract infection. He is told to hydrate. Stable for discharge. Return for new or worsening symptoms. Lab Data 04/17/25 18:59 04/17/25 19:52 Radiology Impressions Abdomen/Pelvis CT 04/17/25 19:24 IMPRESSION: 1. Mild hydroureteronephrosis, presumably chronic, stable compared to prior; nevertheless recommend clinical correlation for ascending urinary tract infection. 2. Scattered colonic diverticula probably most conspicuous in descending colon without definite significant acute inflammatory changes. Laboratory Results WBC 12.25 10^3/uL (3.29-11.43) H 04/17/25 18:59 RBC 5.66 10^6/uL (3.85-5.65) H 04/17/25 18:59 Hgb 13.00 g/dL (11.27-16.99) 04/17/25 18:59 Hct 41.8 % (37-53) 04/17/25 18:59 MCV 73.9 fl (82-101) L 04/17/25 18:59 MCH 23.0 pg (27-33) L 04/17/25 18:59 MCHC 31.1 g/dL (30-55) 04/17/25 18: RDW 18.0 % (12.1-15.1) H 04/17/25 18:59 Plt Count 282 10^3/cmm (157-399) 04/17/25 18:59 MPV 10.3 fL (7.4-10.4) 04/17/25 18:59 Neut % (Auto) 73.9 % 04/17/25 18:59 Lymph % (Auto) 17.6 % 04/17/25 18:59 [place] % (Auto) 6.9 % 04/17/25 18:59 Eos % (Auto) 0.7 % 04/17/25 18:59 Baso % (Auto) 0.4 % 04/17/25 18:59 Neut # (Auto) 9.05 10^3/uL (1.8-7.7) H 04/17/25 18:59 Lymph # (Auto) 2.2 10^3/uL (0.8-4.8) 04/17/25 18:59 [place] # (Auto) 0.9 10^3/uL (0.2-0.9) 04/17/25 18:59 Eos # (Auto) 0.1 10^3/uL (0.0-0.8) 04/17/25 18:59 Baso # (Auto) 0.1 10^3/uL (0.0-0.1) 04/17/25 18:59 Nucleated RBC % (auto) 0 % 04/17/25 18:59 Nucleated RBCs # 0.0 /100WBC 04/17/25 18:59 Sodium 130 mmol/L (136-145) L 04/17/25 19:52 Potassium 4.7 mmol/L (3.5-5.1) 04/17/25 19:52 Chloride 93 mmol/L (98-107) L 04/17/25 19:52 Carbon Dioxide 18 mmol/L (22-29) L 04/17/25 19:52 Anion Gap 23.7 (5-19) H 04/17/25 19:52 BUN 31 mg/dL (8-23) H 04/17/25 19:52 Creatinine 1.6 mg/dL (0.7-1.2) H 04/17/25 19:52 GFR Calculation Not Reportable 04/17/25 19:52 Glucose 244 mg/dL (65-115) H 04/17/25 19:52 Calculated Osmolality 285 mOsm/kg (285-295) 04/17/25 19:52 Lactic Acid 1.7 mmol/L (0.5-2.2) 04/17/25 19:34 Calcium 8.9 mg/dL (8.5-10.5) 04/17/25 19:52 Total Bilirubin 0.8 mg/dL (0.15-1.2) 04/17/25 19:52 AST 8 U/L (0-40) 04/17/25 19:52 ALT 7 U/L (0-41) 04/17/25 19:52 Alkaline Phosphatase 106 U/L (40-130) 04/17/25 19:52 C-Reactive Protein 21.6 mg/L (0.0-4.9) H 04/17/25 19:52 Total Protein 7.9 g/dL (6.6-8.7) 04/17/25 19:52 Albumin 3.4 g/dL (3.5-5.2) L 04/17/25 19:52 Globulin 4.5 g/dL (1.3-4.6) 04/17/25 19:52 Lipase 58 U/L (13-60) 04/17/25 19:52 Urine Color Yellow (Yellow) 04/17/25 21:04 Urine Appearance Cloudy (CLEAR) A 04/17/25 21:04 Urine pH 5 (5-7) 04/17/25 21:04 Ur Specific Gray 1.020 (1.005-1.030) 04/17/25 21:04 Urine Protein 2+ (Negative) H 04/17/25 21:04 Urine Glucose (UA) 4+ (Normal) H 04/17/25 21:04 Urine Ketones 1+ (Negative) H 04/17/25 21:04 Urine Blood 3+ (Negative) H 04/17/25 21:04 Urine Nitrate Negative (Negative) 04/17/25 21:04 Urine Bilirubin Neg (Negative) 04/17/25 21:04 Urine Urobilinogen Norm mg/dL (Negative) 04/17/25 21:04 Ur Leukocyte Esterase 2+ (Negative) H 04/17/25 21:04 Urine RBC 80-100 /hpf (0-2) H 04/17/25 21:04 Urine WBC Too numerous to cnt /hpf (0-5) H 04/17/25 21:04 Ur Squamous Epith Cells 5-10 /hpf (0-5) H 04/17/25 21:04 Amorphous Sediment Not Reportable 04/17/25 21:04 Urine Bacteria 4+ /hpf (NONE) H 04/17/25 21:04 All radiology interpretation(s) finalized by discharge Discharge Plan Discharge Patient Disposition: Home Clinical Impression: Acute UTI (urinary tract infection), Vomiting Condition: Stable Prescriptions: New cefdinir 300 mg capsule 300 mg PO BID Qty: 14 0RF ondansetron 4 mg tablet,disintegrating 4 mg PO Q6H PRN (Reason: nausea and vomiting) Qty: 14 0RF No Action mupirocin 2 % ointment 1 applic topical BID Qty: 22 0RF aspirin 81 mg tablet,delayed release (DR/EC) 81 mg PO QAM Qty: 60 2RF atorvastatin 20 mg tablet 20 mg PO BEDTIME Qty: 30 2RF Plavix 75 mg tablet 75 mg PO QAM Qty: 60 2RF Farxiga 10 mg tablet 10 mg PO QAM Qty: 30 2RF duloxetine 20 mg capsule,delayed release(DR/EC) 20 mg PO BID Qty: 60 2RF gabapentin 300 mg capsule 300 mg PO BID Qty: 60 2RF insulin degludec [Tresiba FlexTouch U-200] 200 unit/mL (3 mL) insulin pen 50 unit SUBCUT DAILY Qty: 3 2RF levocetirizine 5 mg tablet 5 mg PO QAM Qty: 30 2RF metoprolol succinate 25 mg tablet extended release 24 hr 25 mg PO QAM Qty: 30 2RF Rx Instructions: NOTE dose change 25mg use 1 full tablet Flomax 0.4 mg capsule 0.4 mg PO QPM Qty: 30 2RF trazodone 50 mg tablet 50 mg PO BEDTIME Qty: 30 2RF esomeprazole magnesium [Nexium] 20 mg capsule,delayed release(DR/EC) 20 mg PO DAILY Qty: 30 2RF (DME) Oxygen concentrator 2l NC See Rx Instructions .ROUTE .MEDSUPPLY Qty: 1 0RF Rx Instructions: Use 2L NC nocturnal for 99 months Discharge Orders: Discharge ED (Routine); Ordered 04/17/25 Ordered By: Armando Buckley Referrals: Aline Pacheco, OMIC [Primary Care Provider, [facility]] - 4-7 days Patient Instructions: Opioid Safety, Pain Management, Patient Portal & Katja Instructions Activity Restrictions/Additional Instructions: Take nausea medication scheduled every 4 hours while awake whether nauseated or not for the first 48 hours, then you may take it as needed following that. Antibiotics as directed. Return for vomiting liquids or medications despite treatment, fever greater than 100 ?F despite treatment, worsening mental status, and any other concerning symptoms. Follow-up with your doctor. Call Saturday for an appointment. Print Language: Tamazight Coding Level of Care Code ED Certification Technician for Jose Luis Gibson
[2025-04-17] MEDS: iohexol 350 mg/mL 500 mL Btl (per mL) IV (20:15)
[2025-04-17 20:16] LABS: Lactic Sepsis W/Reflex 1.7 mmol/L (0.5-2.2)
[2025-04-17 20:38] LABS: Alanine Aminotransferase 7 U/L (0-41); Albumin Level 3.4 g/dL (3.5-5.2); Alkaline Phosphatase 106 U/L (40-130); Anion Gap 23.7 (5-19); Aspartate Amino Transferase 8 U/L (0-40); Blood Urea Nitrogen 31 mg/dL (8-23); Calcium 8.9 mg/dL (8.5-10.5); Carbon Dioxide 18 mmol/L (22-29); Chloride 93 mmol/L (98-107); Globulin 4.5 g/dL (1.3-4.6); Glucose 244 mg/dL (65-115); Lipase 58 U/L (13-60); Osmolality Calculated 285 mOsm/kg (285-295); Potassium 4.7 mmol/L (3.5-5.1); Sodium 130 mmol/L (136-145); Total Protein 7.9 g/dL (6.6-8.7)
[2025-04-17 20:58] LABS: Creatinine Clr Calc Pharmacy 36.9106
--- NOTE | 2025-04-17 21:10 | PC.NURSE ---
gave pt a urinal to obtain urine sample, pt missed urinal and urinated on himself. Pt bedding was changed and pt was placed in clean gown
[2025-04-17 22:16] LABS: Glucose Urine UA 4+ (Normal); Specific Gravity, Urine 1.020 (1.005-1.030)
[2025-04-17 22:17] LABS: Nitrate Urine Negative (Negative)
[2025-04-17 22:38] LABS: UA Manual Slide Review YES
[2025-04-17 22:39] LABS: Add Urine Microscopic? YES
[2025-04-17] MEDS: cefTRIAXone 1,000 mg SDV 1000 MG IVP (23:04)
== END 2025-04-18 00:22 | disposition home or self-care (01) ==
PROVIDERS: Emergency Provider Emergency Medicine; PCP Nurse Practitioner
DX: N39.0 Urinary tract infection, site not specified (principal); R11.10 Vomiting, unspecified; N13.30 Unspecified hydronephrosis
CPT/HCPCS: 36415; 74177; 80053; 81001; 83605; 83690; 85025; 86140; 87086; 96361; 96374; 96375; 99285; J0696; J2270; J2405; J7030

== ENCOUNTER 2025-04-25 14:56 | Emergency (ER) | payer MEDICARE, MEDICAID, SELFPAY ==
[2025-04-25 14:57] VITALS: BP 130/86; PULSE 107; RESP 18; TEMP 36.8; O2SAT 99; BMI 25.8
--- OUTSIDE RECORDS SUMMARY | 2025-04-25 15:01 | XMS_ITS | Encounter Summary ---
Author Organization [facility] Address [address] [place] [place] [address] Care Team Providers Care Party Coordinator Name Role Phone Aline Pacheco NP Primary Care Provider Encounter Details Date Type Department Care Team (Late st Contact Info) Description 04/30/2008 Outpatient Historical [facility] DEFAULT DEPARTMENT Ilir Stanley MD [address] [address] Social History Tobacco Use Types Packs/Day Years Used Date Smoking Tobacco: Never Assessed Sex and Gender Information Value Date Recorded Sex Assigned at Not on file Legal Sex Male 6:54 AM ILLUSTRATOR SET Gender Identity Not on file Sexual Orientation Not on file documented as of this encounter Plan of Treatment Not on file documented as of this encounter Visit Diagnoses Not on filedocumented in this encounter Care Teams Party Coordinator Relationship Specialty Start Date End Date Aline Pacheco NP PCP - General 07/29/08 documented as of this encounter
--- OUTSIDE RECORDS SUMMARY | 2025-04-25 15:01 | XMS_ITS | Encounter Summary ---
Author Organization [facility] Address [address] [place] [address] Care Team Providers Care Retail Delivery Driver Name Role Phone Aline Pacheco TRANSIT VEHICLE INSPECTOR Primary Care Provider [phone] Encounter Details Date Type Department Care Team (Latest Contact Info) Description 03/09/2008 Outpatient Historical [facility] [address] [facility] [address] [place] [phone] Ilir Stanley MD [address] [facility] [address] [place] [phone] Cervicalgia; Lumbago; Degeneration of Lumbar or Lumbosacral Intervertebral Disc; Lumbosacral Spondylosis without Myelopathy; DM w/o Complication Type II (CMS/HCC); Unspecified Essential Hypertension; Unspecified Arthropathy, Site Unspecified; Other Postprocedural Status Social History Tobacco Use Types Packs/Day Years Used Date Smoking Tobacco: Never Assessed Sex and Gender Information Value Date Recorded Sex Assigned at Not on file Legal Sex 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
--- OUTSIDE RECORDS SUMMARY | 2025-04-25 15:01 | XMS_ITS | Encounter Summary ---
Author Organization [facility] Address [address] [place] [facility] [place] [place] [address] Care Team Providers Care Qa Tech Name Role Phone Aline Pacheco NP Primary Care Provider Encounter Details Date Type Department Care Team (Late st Contact Info) Description 03/31/2008 Outpatient Historical [facility] DEFAULT DEPARTMENT Ilir Stanley MD [address] [address] Social History Tobacco Use Types Packs/Day Years Used Date Smoking Tobacco: Never Assessed Sex and Gender Information Value Date Recorded Sex Assigned at Not on file Legal 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
--- OUTSIDE RECORDS SUMMARY | 2025-04-25 15:01 | XMS_ITS | Clinical Summary ---
Author Organization 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 Gender Identity Not on file Sexual Orientation Not on file Last Filed Vital Signs Vital Sign Reading Time Taken Comments Blood Pressure 160/93 12/31/2016 11:42 AM CDT Pulse 95 12/31/2016 11:42 AM CDT Temperature 36.6 C (97.8 F) 07/17/2010 12:15 PM DUPLICATING MACHINE SERVICER Respiratory Rate 16 12/31/2016 11:42 AM CDT [...] Comments HEMOGLOBIN A1C Stat 07/11/2010 4:37 PM DUPLICATING MACHINE SERVICER from Last 3 Months or Most Recently Relevant to Health Maintenance Results * (ABNORMAL) HEMOGLOBIN A1C (07/11/2010 4:37 PM DUPLICATING MACHINE SERVICER) HEMOGLOBIN A1C 7.0(H) 4.0 - 6.0 %A1C [facility] Blood specimen (specimen) 07/11/2010 4:37 PM DUPLICATING MACHINE SERVICER 07/11/2010 4:48 PM DUPLICATING MACHINE SERVICER Narrative INTERFACE SYSTEM - 07/12/2010 10:25 AM DUPLICATING MACHINE SERVICER rm [id number] Magno Ramirez MD CHEMISTRY ORDERABLES Final Resul t Performing Organization Address City/State/[facility] Co de Phone Number INTERFACE SYSTEM Refer to clinic/hospital department [facility] CLIA# [id number] [address] [place] [id number] from Last 3 Months or Most Recently Relevant to Health Maintenance Insurance MEDICAID [place] MEDICARE PART A AND B Advance Directives For more information, please contact: [phone] * Full Code (Latest Code Status on File) Date Activated Date Inactivated Comments 07/17/2010 11:32 AM 07/17/2010 3:46 PM * Full Code Date Activated Date Inactivated Comments 07/17/2010 10:38 AM 07/17/2010 11:32 AM * Full Code Date Activated Date Inactivated Comments 07/17/2010 8:50 AM 07/17/2010 10:38 AM Care Teams Grocery Clerk Checking Relationship Specialty Start Date End Date Aline Pacheco NP PCP - General 07/29/08
--- OUTSIDE RECORDS SUMMARY | 2025-04-25 15:01 | XMS_ITS | Clinical Summary ---
Author Organization [employer] Address [address] 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
--- OUTSIDE RECORDS SUMMARY | 2025-04-25 15:01 | XMS_ITS | Encounter Summary ---
Author Organization [facility] Address [address] [facility] [address] Care Team Providers Care Single Pass Soil Stabilizer Operator Name Role Phone Aline Pacheco NP Primary Care Provider Encounter Details Date Type Department Care Team (Late st Contact Info) Description 03/17/2008 Outpatient Historical [facility] DEFAULT DEPARTMENT Ilir Stanley MD [address] [phone] Social History Tobacco Use Types Packs/Day Years Used Date Smoking Tobacco: Never Assessed Sex and Gender Information Value Date Recorded Sex Assigned at Not on file 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
--- OUTSIDE RECORDS SUMMARY | 2025-04-25 15:01 | XMS_ITS | Encounter Summary ---
Author Organization [facility] Address [address] [place] [address] Care Team Providers Care Engineering Technician Parking Name Role Phone Aline Pacheco NP Primary Care Provider Encounter Details Date Type Department Care Team (Latest Contact Info) Description 04/22/2008 Outpatient Historical [facility] [address] [facility] [address] [place] [address] Ilir Stanley MD [address] [facility] [address] [place] [phone] Degeneration of Lumbar or Lumbosacral Intervertebral Disc; DM w/o Complication Type II (CMS/HCC); Unspecified Essential Hypertension; Generalized Osteoarthrosis, Unspecified Site; Unspecified Arthropathy, Site Unspecified; Esophageal Reflux Social History Tobacco Use Types Packs/Day Years Used Date Smoking Tobacco: Never Assessed Sex and Gender Information Value Date Recorded Sex Assigned at Not on file Legal 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
--- NOTE | 2025-04-25 15:05 | W.ED.NAVMDI ---
Documented by User: Smitha Cedeño MD 04/25/25 17:23 HPI - Nausea/Vomiting/Diarrhea General: Chief complaint: Nausea/Vomiting/Diarrhea Stated complaint: vomiting Time Seen by Provider: 04/25/25 14:57 History of Present Illness: 79-year-old man with a history of colon cancer, type 2 diabetes, hyperlipidemia, coronary artery disease, stroke, and hypertension who presents to the emergency room with nausea and vomiting. He is complaining of some epigastric pain. No fevers. Slightly tachycardic on presentation. He was treated for urinary tract infection recently. He has a history of BPH. Related Data Home Medications ?Medication ?Instructions ?Recorded ?Confirmed lisinopril 2.5 mg tablet 2.5 mg PO QAM 04/25/25 04/25/25 metoprolol succinate 50 mg 50 mg PO QAM 04/25/25 04/25/25 tablet,extended release 24 hr Previous Rx's ?Medication ?Instructions ?Recorded mupirocin 2 % topical ointment 1 applic topical BID #22 grams 12/07/24 aspirin 81 mg tablet,delayed 81 mg PO QAM #60 tabs 03/05/25 release atorvastatin 20 mg tablet 20 mg PO BEDTIME #30 tabs 03/05/25 clopidogrel 75 mg tablet (Plavix) 75 mg PO QAM #60 tabs 03/05/25 dapagliflozin propanediol 10 mg 10 mg PO QAM #30 tabs 03/05/25 tablet (Farxiga) duloxetine 20 mg capsule,delayed 20 mg PO BID #60 caps 03/05/25 release gabapentin 300 mg capsule 300 mg PO BID #60 caps 03/05/25 insulin degludec 200 unit/mL (3 50 unit (0.25 mL) SUBCUT DAILY #3 03/05/25 mL) subcutaneous pen (Tresiba mL FlexTouch U-200 insulin) levocetirizine 5 mg tablet 5 mg PO QAM #30 tabs 03/05/25 tamsulosin 0.4 mg capsule (Flomax) 0.4 mg PO QPM #30 caps 03/05/25 trazodone 50 mg tablet 50 mg PO BEDTIME #30 tabs 03/05/25 esomeprazole magnesium 20 mg 20 mg PO DAILY #30 caps 04/05/25 capsule,delayed release (Nexium) Oxygen concentrator 2l NC #1 ea 04/06/25 cefdinir 300 mg capsule 300 mg PO BID #14 caps 04/17/25 ondansetron 4 mg disintegrating 4 mg PO Q6H PRN nausea and 04/17/25 tablet vomiting #14 tabs cephalexin 500 mg capsule 500 mg PO TID 7 days #21 caps 04/25/25 ondansetron 4 mg disintegrating 4 mg PO Q6H PRN nausea and 04/25/25 tablet vomiting #14 tabs Allergies Allergy/AdvReac Type Severity Reaction Status Date / Time erythromycin base Allergy Severe ALGY-Rash Verified 04/05/25 14:35 Sulfa (Sulfonamide Allergy Severe ALGY-Rash Verified 04/05/25 14:35 Antibiotics) Review of Systems Narrative: Constitutional symptoms: Negative except as documented in HPI. Skin symptoms: Negative except as documented in HPI. Eye symptoms: Negative except as documented in HPI. ENMT symptoms: Negative except as documented in HPI. Respiratory symptoms: Negative except as documented in HPI. Cardiovascular symptoms: Negative except as documented in HPI. Gastrointestinal symptoms: Negative except as documented in HPI. Genitourinary symptoms: Negative except as documented in HPI. Musculoskeletal symptoms: Negative except as documented in HPI. Neurologic symptoms: Negative except as documented in HPI. Psychiatric symptoms: Negative except as documented in HPI. Endocrine symptoms: Negative except as documented in HPI. PFSH ED PFSH: Medical History (Updated 04/25/25 @ 18:12 by Shital Pelletier MD) Nocturnal hypoxia Colon cancer Bladder outlet obstruction Hematochezia Lower gastrointestinal hemorrhage Type 2 diabetes mellitus with hyperglycemia, with long-term current use of insulin Allergic rhinitis due to pollen Hyperlipidemia Coronary artery disease Cervical radicular pain CVA (cerebral vascular accident) Past history of CVA/TIA Tricuspid regurgitation Aortic regurgitation Acid reflux Enrolled in chronic care management Vitamin D deficiency Chronic migraine DDD (degenerative disc disease) Hypertension Dependent on walker for ambulation Surgical History History of cardiac catheterization 02/2020 mid LAD and circ stents History of cervical spinal surgery 3 times History of colon cancer 2014, proximal colon resection with ileocolic anastomosis History of cholecystectomy History of knee surgery Right History of cataract surgery Family History Father Cancer Denies family history of Bleeding disorder Social History Smoking and tobacco/nicotine status: former use of tobacco/nicotine Second hand smoke exposure: No Alcohol intake: never Substance/Drug Use: never Adopted: No Caregiver/support person: No Lives independently: Yes Household members: spouse Housing: House Marital status: Current occupational status: retired Do you think of yourself as: Straight/Heterosexual Current gender identity: Male Physical Exam Narrative: EXAM NARRATIVE: General: Alert, no acute distress. Skin: Warm, dry. Head: Normocephalic, atraumatic. Neck: Supple, trachea midline. Eye: Extraocular movements are intact. Ears, nose, mouth and throat: Tacky oral mucosa Cardiovascular: Regular, Normal peripheral perfusion. Respiratory: Lungs are clear to auscultation, respirations are non-labored, breath sounds are equal, Symmetrical chest wall expansion. Gastrointestinal: Soft, some epigastric tenderness, Non distended Musculoskeletal: Normal ROM, no deformity. Neurological: Alert and oriented, No focal neurological deficit observed. Psychiatric: Cooperative, appropriate mood & affect. Course Vital Signs: Vital signs: Vital Signs Temperature 98.2 F 04/25/25 14:57 Pulse Rate 108 H 04/25/25 17:04 Respiratory Rate 18 04/25/25 17:04 Blood Pressure 124/82 04/25/25 17:04 Pulse Oximetry 99 04/25/25 17:04 Oxygen Delivery Me thod Room Air 04/25/25 14:57 MDM - Nausea/Vomiting/Diarrhea Medical Decision Making Medical decision making: Differential diagnosis for this patient with nausea and vomiting including but not limited to and based on the above HPI, review of systems and physical exam: Urinary tract infection. Appendicitis. Cholecystitis. Colitis. small bowel obstruction. crohn's flare. pancreatitis. gastritis. peptic ulcer. cyclic vomiting. Viral illness. Influenza. COVID. Orders placed to evaluate differential diagnosis based on the above differential, HPI and physical exam Lab Review: Laboratory results were reviewed and interpreted by myself the emergency room physician. Mild leukocytosis. Mild elevation lactate of 2.6. Lipase is negative. No anemia. Renal function is stable at 19 and 1.3. Sugar is a bit high at 300. Fluids and Zofran to been given. CT is ordered and pending. Rocephin for urinary tract infection. Patient care transitioned to Dr. Pelletier at shift change Lab Data 04/25/25 15:09 04/25/25 15:09 Radiology Impressions Abdomen/Pelvis CT 04/25/25 15:57 IMPRESSION: 1. No new acute abdominal or pelvic pathologic process or adverse interval change identified. 2. Left chronic stable hydroureteronephrosis, query small UVJ ureterocele. Recommend follow-up contrast-enhanced study or consider direct visualization with cystoscopy if clinically warranted. 3. Stable chronic esophageal wall thickening without luminal narrowing suggestive of mild esophagitis and/or small hiatal hernia. Clinical correlation recommended. Esophageal mass lesions cannot be fully excluded on CT. 4. Bladder is overdistended possibly obscuring subtle adjacent findings. Stable lobulated bladder contour with small bladder diverticuli. Consider functional urinary retention or bladder outlet obstruction, clinical correlation and urinalysis recommended. 5. Long-stable indolent appearing right upper peritoneal mass abutting the anterior right liver lobe demonstrating no adverse interval change in size or morphology compared with prior CT abdomen and pelvis 07/19/2020 (and has been reported present on multiple antecedent studies), no further evaluation recommended. 6. Colonic few scattered diverticuli, diverticulosis without acute diverticulitis. 7. Coronary arterial stents in the left anterior descending and circumflex coronary arteries. (See comment below). 8. Stable advanced age-appropriate degenerative spinal changes, with other chronic/non-acute findings as described above. COMMENTS: 1. Urinary tract, vascular solid organ assessment limited; repeat with IV contrast if clinically warranted. 2. If the patient is experiencing symptoms referable to coronary artery disease recommend management as per chest pain guidelines. If the patient is asymptomatic consider reviewing modifiable cardiovascular risk factors and managing as per guidelines for primary prevention. 3. If the patient is experiencing symptoms referable to coronary artery disease recommend management as per chest pain guidelines. If the patient is asymptomatic consider reviewing modifiable cardiovascular risk factors and managing as per guidelines for primary prevention. Laboratory Results WBC 11.48 10^3/uL (3.29-11.43) H 04/25/25 15:09 RBC 6.21 10^6/uL (3.85-5.65) H 04/25/25 15:09 Hgb 14.30 g/dL (11.27-16.99) 04/25/25 15:09 Hct 47.0 % (37-53) 04/25/25 15:09 MCV 75.7 fl (82-101) L 04/25/25 15:09 MCH 23.0 pg (27-33) L 04/25/25 15:09 MCHC 30.4 g/dL (30-55) 04/25/25 15:09 RDW 19.2 % (12.1-15.1) H 04/25/25 15:09 Plt Count 345 10^3/cmm (157-399) 04/25/25 15:09 MPV 10.0 fL (7.4-10.4) 04/25/25 15:09 Neut % (Auto) 77.3 % 04/25/25 15:09 Lymph % (Auto) 13.6 % 04/25/25 15:09 [place] % (Auto) 7.9 % 04/25/25 15:09 Eos % (Auto) 0.1 % 04/25/25 15:09 Baso % (Auto) 0.5 % 04/25/25 15:09 Neut # (Auto) 8.87 10^3/uL (1.8-7.7) H 04/25/25 15:09 Lymph # (Auto) 1.6 10^3/uL (0.8-4.8) 04/25/25 15:09 [place] # (Auto) 0.9 10^3/uL (0.2-0.9) 04/25/25 15:09 Eos # (Auto) 0.0 10^3/uL (0.0-0.8) 04/25/25 15:09 Baso # (Auto) 0.1 10^3/uL (0.0-0.1) 04/25/25 15:09 Nucleated RBC % (auto) 0 % 04/25/25 15:09 Nucleated RBCs # 0.0 /100WBC 04/25/25 15:09 Sodium 134 mmol/L (136-145) L 04/25/25 15:09 Potassium 4.8 mmol/L (3.5-5.1) 04/25/25 15:09 Chloride 91 mmol/L (98-107) L 04/25/25 15:09 Carbon Dioxide 22 mmol/L (22-29) 04/25/25 15:09 Anion Gap 25.8 (5-19) H 04/25/25 15:09 BUN 19 mg/dL (8-23) 04/25/25 15:09 Creatinine 1.3 mg/dL (0.7-1.2) H 04/25/25 15:09 GFR Calculation Not Reportable 04/25/25 15:09 Glucose 300 mg/dL (65-115) H 04/25/25 15:09 Calculated Osmolality 291 mOsm/kg (285-295) 04/25/25 15:09 Lactic Acid 2.6 mmol/L (0.5-2.2) H 04/25/25 15:09 Calcium 9.7 mg/dL (8.5-10.5) 04/25/25 15:09 Total Bilirubin 0.5 mg/dL (0.15-1.2) 04/25/25 15:09 AST 12 U/L (0-40) 04/25/25 15:09 ALT 11 U/L (0-41) 04/25/25 15:09 Alkaline Phosphatase 116 U/L (40-130) 04/25/25 15:09 C-Reactive Protein 8.1 mg/L (0.0-4.9) H 04/25/25 15:09 Total Protein 8.0 g/dL (6.6-8.7) 04/25/25 15:09 Albumin 3.7 g/dL (3.5-5.2) 04/25/25 15:09 Globulin 4.3 g/dL (1.3-4.6) 04/25/25 15:09 Lipase 27 U/L (13-60) 04/25/25 15:09 Urine Color Yellow (Yellow) 04/25/25 16:30 Urine Appearance Clear (CLEAR) 04/25/25 16:30 Urine pH 5.0 (5-7) 04/25/25 16:30 Ur Specific [place] 1.034 (1.005-1.030) H 04/25/25 16:30 Urine Protein Negative (Negative) 04/25/25 16:30 Urine Glucose (UA) 3+ (Normal) H 04/25/25 16:30 Urine Ketones 2+ (Negative) H 04/25/25 16:30 Urine Blood Negative (Negative) 04/25/25 16:30 Urine Nitrate Negative (Negative) 04/25/25 16:30 Urine Bilirubin Negative (Negative) 04/25/25 16:30 Urine Urobilinogen 0.2 mg/dL (Negative) 04/25/25 16:30 Ur Leukocyte Esterase Negative (Negative) 04/25/25 16:30 Urine RBC 0-4 /hpf (0-2) H 04/25/25 16:30 Urine WBC 5-10 /hpf (0-5) H 04/25/25 16:30 Ur Squamous Epith Cells 0-4 /hpf (0-5) H 04/25/25 16:30 Amorphous Sediment Not Reportable 04/25/25 16:30 Urine Bacteria Trace /hpf (NONE) 04/25/25 16:30 Influenza A (PCR) Negative (Negative) 04/25/25 15:18 Influenza Type B (PCR) Negative (Negative) 04/25/25 15:18 RSV (PCR) Negative (Negative) 04/25/25 15:18 SARS-CoV-2 (PCR) Negative (Negative) 04/25/25 15:18 Discharge Plan Discharge Patient Disposition: Home Clinical Impression: Vomiting, Acute UTI Condition: Stable Prescriptions: New ondansetron 4 mg tablet,disintegrating 4 mg PO Q6H PRN (Reason: nausea and vomiting) Qty: 14 0RF cephalexin 500 mg capsule 500 mg PO TID 7 Days Qty: 21 0RF No Action mupirocin 2 % ointment 1 applic topical BID Qty: 22 0RF aspirin 81 mg tablet,delayed release (DR/EC) 81 mg PO QAM Qty: 60 2RF atorvastatin 20 mg tablet 20 mg PO BEDTIME Qty: 30 2RF Plavix 75 mg tablet 75 mg PO QAM Qty: 60 2RF Farxiga 10 mg tablet 10 mg PO QAM Qty: 30 2RF duloxetine 20 mg capsule,delayed release(DR/EC) 20 mg PO BID Qty: 60 2RF gabapentin 300 mg capsule 300 mg PO BID Qty: 60 2RF insulin degludec [Tresiba FlexTouch U-200] 200 unit/mL (3 mL) insulin pen 50 unit SUBCUT DAILY Qty: 3 2RF levocetirizine 5 mg tablet 5 mg PO QAM Qty: 30 2RF Flomax 0.4 mg capsule 0.4 mg PO QPM Qty: 30 2RF trazodone 50 mg tablet 50 mg PO BEDTIME Qty: 30 2RF esomeprazole magnesium [Nexium] 20 mg capsule,delayed release(DR/EC) 20 mg PO DAILY Qty: 30 2RF (DME) Oxygen concentrator 2l NC See Rx Instructions .ROUTE .MEDSUPPLY Qty: 1 0RF Rx Instructions: Use 2L NC nocturnal for 99 months metoprolol succinate 50 mg tablet extended release 24 hr 50 mg PO QAM lisinopril 2.5 mg tablet 2.5 mg PO QAM cefdinir 300 mg capsule 300 mg PO BID Qty: 14 0RF ondansetron 4 mg tablet,disintegrating 4 mg PO Q6H PRN (Reason: nausea and vomiting) Qty: 14 0RF Discharge Orders: Discharge ED (Routine); Ordered 04/25/25 Ordered By: Shital Pelletier Referrals: Aline Pacheco, OMIC [Primary Care Provider, [facility]] - 4-7 days Discharge Diet: Advance as tolerated Discharge Activity: Resume usual activity Patient Instructions: Acute Nausea and Vomiting (ED) Print Language: Dutch Coding Level of Care Code ED Sales Order Administrator for Chg Fwd Documented by User: Shital Pelletier MD 04/25/25 18:13 HPI - Nausea/Vomiting/Diarrhea General: Chief complaint: Nausea/Vomiting/Diarrhea Stated complaint: vomiting Time Seen by Provider: 04/25/25 14:57 Related Data Home Medications ?Medication ?Instructions ?Recorded ?Confirmed lisinopril 2.5 mg tablet 2.5 mg PO QAM 04/25/25 04/25/25 metoprolol succinate 50 mg 50 mg PO QAM 04/25/25 04/25/25 tablet,extended release 24 hr Previous Rx's ?Medication ?Instructions ?Recorded mupirocin 2 % topical ointment 1 applic topical BID #22 grams 12/07/24 aspirin 81 mg tablet,delayed 81 mg PO QAM #60 tabs 03/05/25 release atorvastatin 20 mg tablet 20 mg PO BEDTIME #30 tabs 03/05/25 clopidogrel 75 mg tablet (Plavix) 75 mg PO QAM #60 tabs 03/05/25 dapagliflozin propanediol 10 mg 10 mg PO QAM #30 tabs 03/05/25 tablet (Farxiga) duloxetine 20 mg capsule,delayed 20 mg PO BID #60 caps 03/05/25 release gabapentin 300 mg capsule 300 mg PO BID #60 caps 03/05/25 insulin degludec 200 unit/mL (3 50 unit (0.25 mL) SUBCUT DAILY #3 03/05/25 mL) subcutaneous pen (Tresiba mL FlexTouch U-200 insulin) levocetirizine 5 mg tablet 5 mg PO QAM #30 tabs 03/05/25 tamsulosin 0.4 mg capsule (Flomax) 0.4 mg PO QPM #30 caps 03/05/25 trazodone 50 mg tablet 50 mg PO BEDTIME #30 tabs 03/05/25 esomeprazole magnesium 20 mg 20 mg PO DAILY #30 caps 04/05/25 capsule,delayed release (Nexium) Oxygen concentrator 2l NC #1 ea 04/06/25 cefdinir 300 mg capsule 300 mg PO BID #14 caps 04/17/25 ondansetron 4 mg disintegrating 4 mg PO Q6H PRN nausea and 04/17/25 tablet vomiting #14 tabs cephalexin 500 mg capsule 500 mg PO TID 7 days #21 caps 04/25/25 ondansetron 4 mg disintegrating 4 mg PO Q6H PRN nausea and 04/25/25 tablet vomiting #14 tabs Allergies Allergy/AdvReac Type Severity Reaction Status Date / Time erythromycin base Allergy Severe ALGY-Rash Verified 04/05/25 14:35 Sulfa (Sulfonamide Allergy Severe ALGY-Rash Verified 04/05/25 14:35 Antibiotics) PFS ED PFSH: Medical History (Updated 04/25/25 @ 18:12 by Shital Pelletier MD) Nocturnal hypoxia Colon cancer Bladder outlet obstruction Hematochezia Lower gastrointestinal hemorrhage Type 2 diabetes mellitus with hyperglycemia, with long-term current use of insulin Allergic rhinitis due to pollen Hyperlipidemia Coronary artery disease Cervical radicular pain CVA (cerebral vascular accident) Past history of CVA/TIA Tricuspid regurgitation Aortic regurgitation Acid reflux Enrolled in chronic care management Vitamin D deficiency Chronic migraine DDD (degenerative disc disease) Hypertension Dependent on walker for ambulation Surgical History History of cardiac catheterization 02/2020 mid LAD and circ stents History of cervical spinal surgery 3 times History of colon cancer 2014, proximal colon resection with ileocolic anastomosis History of cholecystectomy History of knee surgery Right History of cataract surgery Family History Father Cancer Denies family history of Bleeding disorder Social History Smoking and tobacco/nicotine status: former use of tobacco/nicotine Second hand smoke exposure: No Alcohol intake: never Substance/Drug Use: never Adopted: No Caregiver/support person: No Lives independently: Yes Household members: spouse Housing: House Marital status: Current occupational status: retired Do you think of yourself as: Straight/Heterosexual Current gender identity: Male Course Vital Signs: Vital signs: Vital Signs Temperature 98.2 F 04/25/25 14:57 Pulse Rate 108 H 04/25/25 17:04 Respiratory Rate 18 04/25/25 17:04 Blood Pressure 124/82 04/25/25 17:04 Pulse Oximetry 99 04/25/25 17:04 Oxygen Delivery Me thod Room Air 04/25/25 14:57 MDM - Nausea/Vomiting/Diarrhea Medical Decision Making Medical decision making: Differential diagnosis for this patient with nausea and vomiting including but not limited to and based on the above HPI, review of systems and physical exam: Urinary tract infection. Appendicitis. Cholecystitis. Colitis. small bowel obstruction. crohn's flare. pancreatitis. gastritis. peptic ulcer. cyclic vomiting. Viral illness. Influenza. COVID. Orders placed to evaluate differential diagnosis based on the above differential, HPI and physical exam Lab Review: Laboratory results were reviewed and interpreted by myself the emergency room physician. Mild leukocytosis. Mild elevation lactate of 2.6. Lipase is negative. No anemia. Renal function is stable at 19 and 1.3. Sugar is a bit high at 300. Fluids and Zofran to been given. CT is ordered and pending. Rocephin for urinary tract infection. Patient care transitioned to Dr. Pelletier at shift change Took patient over from Dr. Dickey CT showed no acute findings did reevaluate patient he feels much improved his abdominal exam here is benign with no tenderness on my exam he was able to tolerate p.o. will prescribe Zofran for home he is follow-up with PCP and return if worsening he understands agrees to plan Medical Records I reviewed the patient's medical records. Lab Data I reviewed the patient's lab results. 04/25/25 15:09 04/25/25 15:09 Radiology Impressions Abdomen/Pelvis CT 04/25/25 15:57 IMPRESSION: 1. No new acute abdominal or pelvic pathologic process or adverse interval change identified. 2. Left chronic stable hydroureteronephrosis, query small UVJ ureterocele. Recommend follow-up contrast-enhanced study or consider direct visualization with cystoscopy if clinically warranted. 3. Stable chronic esophageal wall thickening without luminal narrowing suggestive of mild esophagitis and/or small hiatal hernia. Clinical correlation recommended. Esophageal mass lesions cannot be fully excluded on CT. 4. Bladder is overdistended possibly obscuring subtle adjacent findings. Stable lobulated bladder contour with small bladder diverticuli. Consider functional urinary retention or bladder outlet obstruction, clinical correlation and urinalysis recommended. 5. Long-stable indolent appearing right upper peritoneal mass abutting the anterior right liver lobe demonstrating no adverse interval change in size or morphology compared with prior CT abdomen and pelvis 07/19/2020 (and has been reported present on multiple antecedent studies), no further evaluation recommended. 6. Colonic few scattered diverticuli, diverticulosis without acute diverticulitis. 7. Coronary arterial stents in the left anterior descending and circumflex coronary arteries. (See comment below). 8. Stable advanced age-appropriate degenerative spinal changes, with other chronic/non-acute findings as described above. COMMENTS: 1. Urinary tract, vascular solid organ assessment limited; repeat with IV contrast if clinically warranted. 2. If the patient is experiencing symptoms referable to coronary artery disease recommend management as per chest pain guidelines. If the patient is asymptomatic consider reviewing modifiable cardiovascular risk factors and managing as per guidelines for primary prevention. 3. If the patient is experiencing symptoms referable to coronary artery disease recommend management as per chest pain guidelines. If the patient is asymptomatic consider reviewing modifiable cardiovascular risk factors and managing as per guidelines for primary prevention. Laboratory Results WBC 11.48 10^3/uL (3.29-11.43) H 04/25/25 15:09 RBC 6.21 10^6/uL (3.85-5.65) H 04/25/25 15:09 Hgb 14.30 g/dL (11.27-16.99) 04/25/25 15:09 Hct 47.0 % (37-53) 04/25/25 15:09 MCV 75.7 fl (82-101) L 04/25/25 15:09 MCH 23.0 pg (27-33) L 04/25/25 15:09 MCHC 30.4 g/dL (30-55) 04/25/25 15:09 RDW 19.2 % (12.1-15.1) H 04/25/25 15:09 Plt Count 345 10^3/cmm (157-399) 04/25/25 15:09 MPV 10.0 fL (7.4-10.4) 04/25/25 15:09 Neut % (Auto) 77.3 % 04/25/25 15:09 Lymph % (Auto) 13.6 % 04/25/25 15:09 [place] % (Auto) 7.9 % 04/25/25 15:09 Eos % (Auto) 0.1 % 04/25/25 15:09 Baso % (Auto) 0.5 % 04/25/25 15:09 Neut # (Auto) 8.87 10^3/uL (1.8-7.7) H 04/25/25 15:09 Lymph # (Auto) 1.6 10^3/uL (0.8-4.8) 04/25/25 15:09 [place] # (Auto) 0.9 10^3/uL (0.2-0.9) 04/25/25 15:09 Eos # (Auto) 0.0 10^3/uL (0.0-0.8) 04/25/25 15:09 Baso # (Auto) 0.1 10^3/uL (0.0-0.1) 04/25/25 15:09 Nucleated RBC % (auto) 0 % 04/25/25 15:09 Nucleated RBCs # 0.0 /100WBC 04/25/25 15:09 Sodium 134 mmol/L (136-145) L 04/25/25 15:09 Potassium 4.8 mmol/L (3.5-5.1) 04/25/25 15:09 Chloride 91 mmol/L (98-107) L 04/25/25 15:09 Carbon Dioxide 22 mmol/L (22-29) 04/25/25 15:09 Anion Gap 25.8 (5-19) H 04/25/25 15:09 BUN 19 mg/dL (8-23) 04/25/25 15:09 Creatinine 1.3 mg/dL (0.7-1.2) H 04/25/25 15:09 GFR Calculation Not Reportable 04/25/25 15:09 Glucose 300 mg/dL (65-115) H 04/25/25 15:09 Calculated Osmolality 291 mOsm/kg (285-295) 04/25/25 15:09 Lactic Acid 2.6 mmol/L (0.5-2.2) H 04/25/25 15:09 Calcium 9.7 mg/dL (8.5-10.5) 04/25/25 15:09 Total Bilirubin 0.5 mg/dL (0.15-1.2) 04/25/25 15:09 AST 12 U/L (0-40) 04/25/25 15:09 ALT 11 U/L (0-41) 04/25/25 15:09 Alkaline Phosphatase 116 U/L (40-130) 04/25/25 15:09 C-Reactive Protein 8.1 mg/L (0.0-4.9) H 04/25/25 15:09 Total Protein 8.0 g/dL (6.6-8.7) 04/25/25 15:09 Albumin 3.7 g/dL (3.5-5.2) 04/25/25 15:09 Globulin 4.3 g/dL (1.3-4.6) 04/25/25 15:09 Lipase 27 U/L (13-60) 04/25/25 15:09 Urine Color Yellow (Yellow) 04/25/25 16:30 Urine Appearance Clear (CLEAR) 04/25/25 16:30 Urine pH 5.0 (5-7) 04/25/25 16:30 Ur Specific [place] 1.034 (1.005-1.030) H 04/25/25 16:30 Urine Protein Negative (Negative) 04/25/25 16:30 Urine Glucose (UA) 3+ (Normal) H 04/25/25 16:30 Urine Ketones 2+ (Negative) H 04/25/25 16:30 Urine Blood Negative (Negative) 04/25/25 16:30 Urine Nitrate Negative (Negative) 04/25/25 16:30 Urine Bilirubin Negative (Negative) 04/25/25 16:30 Urine Urobilinogen 0.2 mg/dL (Negative) 04/25/25 16:30 Ur Leukocyte Esterase Negative (Negative) 04/25/25 16:30 Urine RBC 0-4 /hpf (0-2) H 04/25/25 16:30 Urine WBC 5-10 /hpf (0-5) H 04/25/25 16:30 Ur Squamous Epith Cells 0-4 /hpf (0-5) H 04/25/25 16:30 Amorphous Sediment Not Reportable 04/25/25 16:30 Urine Bacteria Trace /hpf (NONE) 04/25/25 16:30 Influenza A (PCR) Negative (Negative) 04/25/25 15:18 Influenza Type B (PCR) Negative (Negative) 04/25/25 15:18 RSV (PCR) Negative (Negative) 04/25/25 15:18 SARS-CoV-2 (PCR) Negative (Negative) 04/25/25 15:18 All radiology interpretation(s) finalized by discharge Discharge Plan Discharge Patient Disposition: Home Clinical Impression: Vomiting, Acute UTI Condition: Stable Prescriptions: New ondansetron 4 mg tablet,disintegrating 4 mg PO Q6H PRN (Reason: nausea and vomiting) Qty: 14 0RF cephalexin 500 mg capsule 500 mg PO TID 7 Days Qty: 21 0RF No Action mupirocin 2 % ointment 1 applic topical BID Qty: 22 0RF aspirin 81 mg tablet,delayed release (DR/EC) 81 mg PO QAM Qty: 60 2RF atorvastatin 20 mg tablet 20 mg PO BEDTIME Qty: 30 2RF Plavix 75 mg tablet 75 mg PO QAM Qty: 60 2RF Farxiga 10 mg tablet 10 mg PO QAM Qty: 30 2RF duloxetine 20 mg capsule,delayed release(DR/EC) 20 mg PO BID Qty: 60 2RF gabapentin 300 mg capsule 300 mg PO BID Qty: 60 2RF insulin degludec [Tresiba FlexTouch U-200] 200 unit/mL (3 mL) insulin pen 50 unit SUBCUT DAILY Qty: 3 2RF levocetirizine 5 mg tablet 5 mg PO QAM Qty: 30 2RF Flomax 0.4 mg capsule 0.4 mg PO QPM Qty: 30 2RF trazodone 50 mg tablet 50 mg PO BEDTIME Qty: 30 2RF esomeprazole magnesium [Nexium] 20 mg capsule,delayed release(DR/EC) 20 mg PO DAILY Qty: 30 2RF (DME) Oxygen concentrator 2l NC See Rx Instructions .ROUTE .MEDSUPPLY Qty: 1 0RF Rx Instructions: Use 2L NC nocturnal for 99 months metoprolol succinate 50 mg tablet extended release 24 hr 50 mg PO QAM lisinopril 2.5 mg tablet 2.5 mg PO QAM cefdinir 300 mg capsule 300 mg PO BID Qty: 14 0RF ondansetron 4 mg tablet,disintegrating 4 mg PO Q6H PRN (Reason: nausea and vomiting) Qty: 14 0RF Discharge Orders: Discharge ED (Routine); Ordered 04/25/25 Ordered By: Shital Pelletier Referrals: Aline Pacheco, INSURANCE CLERK-C [Primary Care Provider, Family Practice] - 4-7 days Discharge Diet: Advance as tolerated Discharge Activity: Resume usual activity Patient Instructions: Acute Nausea and Vomiting (ED) Print Language: Dutch Coding Level of Care Code ED Sales Order Administrator for Jose Luis Gibson
[2025-04-25 15:17] LABS: Hematocrit 47.0 % (37-53); Hemoglobin 14.30 g/dL (11.27-16.99); Mean Corpuscular HGB Conc 30.4 g/dL (30-55); Mean Corpuscular Hemoglobin 23.0 pg (27-33); Mean Corpuscular Volume 75.7 fl (82-101); Nucleated Red Blood Cells % 0 %; Platelet Count 345 10^3/cmm (157-399); Red Blood Count 6.21 10^6/uL (3.85-5.65); White Blood Count 11.48 10^3/uL (3.29-11.43)
[2025-04-25 15:32] LABS: Alanine Aminotransferase 11 U/L (0-41); Albumin Level 3.7 g/dL (3.5-5.2); Alkaline Phosphatase 116 U/L (40-130); Anion Gap 25.8 (5-19); Aspartate Amino Transferase 12 U/L (0-40); Blood Urea Nitrogen 19 mg/dL (8-23); Calcium 9.7 mg/dL (8.5-10.5); Carbon Dioxide 22 mmol/L (22-29); Chloride 91 mmol/L (98-107); Creatinine Clr Calc Pharmacy 46.0797; Globulin 4.3 g/dL (1.3-4.6); Glucose 300 mg/dL (65-115); Lactic Sepsis W/Reflex 2.6 mmol/L (0.5-2.2); Lipase 27 U/L (13-60); Osmolality Calculated 291 mOsm/kg (285-295); Potassium 4.8 mmol/L (3.5-5.1); Sodium 134 mmol/L (136-145); Total Protein 8.0 g/dL (6.6-8.7)
[2025-04-25 15:34] LABS: Reflex Lactate Order REFLEX LACTIC ORDERD
[2025-04-25 15:35] VITALS: BP 135/90; PULSE 88; O2SAT 97
--- NOTE | 2025-04-25 15:57 | CTR_ITS ---
PROCEDURE INFORMATION: Exam: CT Abdomen And Pelvis Without Contrast Exam date and time: 04/25/2025 4:11 PM Age: 79 years old Clinical indication: Nausea and vomiting; Abdominal pain; Generalized TECHNIQUE: Imaging protocol: Computed tomography of the abdomen and pelvis without contrast. Total images: 217 Radiation optimization: All CT scans at this facility use at least one of these dose optimization techniques: automated exposure control; mA and/or kV adjustment per patient size (includes targeted exams where dose is matched to clinical indication); or iterative reconstruction. COMPARISON: 1. CT abdomen pelvis w con* [id number] 04/17/2025 8:[address] abdomen pelvis w con* [id number] 04/17/2024 2:[address] abdomen pelvis w con* [id number] 07/19/2020 3:28 PM RADIATION DOSE METRICS: Total DLP (mGy-cm): 683.99 FINDINGS: Limitations: Vascular structure and solid organ evaluation limited by lack of intravenous contrast. Bowel evaluation limited by lack of oral contrast. Lungs: Bibasilar streaky linear opacities characteristic of atelectasis or postinflammatory parenchymal scarring. Visualized portions of the lung bases demonstrate no acute pathologic process allowing for paraseptal blebs characteristic of emphysema. Heart: Normal heart size. No pericardial fluid collection or pathologic thickening. Coronary arteries: Calcified coronary artery disease is evident. Coronary arterial stents in the left anterior descending and circumflex coronary arteries. Esophagus: Distal esophageal wall thickening without luminal narrowing suggestive of mild esophagitis and/or small hiatal hernia. Diaphragm: Moderate-sized hiatal hernia. Liver: Liver is normal in size with no focal hepatic lesions or intrahepatic biliary dilatation. Gallbladder and biliary ducts: Surgical clips in the gallbladder fossa; prior cholecystectomy. No biliary tree dilation or retained stones appreciated. No common bile duct dilatation or filling defects. Pancreas: Pancreatic generalized parenchymal thinning of chronic atrophy. Spleen: Spleen normal in size and contour. No focal splenic mass identified. Adrenal glands: Adrenal glands are normal. Kidneys and ureters: Right kidney demonstrates normal cortex contour and thickness. Right kidney prominent extrarenal pelvis without ureteral dilatation. Right kidney, and ureter reveal no radiodense obstructing calculi. Left kidney multifocal renal cortical thinning consistent with scarring. Mild bilateral perinephric fat stranding greater on the left side. Left kidney stable moderate hydroureteronephrosis, query small ureterocele, unchanged. No radiodense renal calculi. Stomach and bowel: Colonic few scattered diverticuli without imaging evidence of acute diverticulitis. Status post ileocolic anastomosis, appendix not identified, and no other manifestations of right lower quadrant inflammatory changes. Moderate burden of colonic stool without distension. Appendix: See Stomach and bowel finding. Intraperitoneal space: No significant peritoneal free fluid. No free peritoneal air. Vasculature: No major vessel critical narrowing, occlusion, or aneurysm. Scattered atherosclerotic vascular calcifications. Lymph nodes: No lymphadenopathy. Urinary bladder: Solitary bladder diverticulum is identified. This appears benign and incidental. Urinary bladder lobulated contour with relatively thin uniform bladder wall. Bladder overdistended, potentially obscuring subtle findings. Consider treatable causes of urinary retention and catheter placement if appropriate. Reproductive: Prostate gland contains benign-appearing nonspecific calcifications that are likely parenchymal. Bones/joints: Severe chronic generalized degenerative changes of the vertebral column, including multilevel osteophytes, degenerative disc height loss, vacuum disc phenomenon, and facet arthrosis, consistent with patient age. Bilateral hip moderate degenerative change. Sacroiliac joint degenerative manifestations. Pubic symphysis mild degenerative changes (osteitis pubis). No intrinsic osseous abnormality identified. Soft tissues: Inguinal canal preperitoneal fat greater on the left side without bowel or peritoneal sac herniation. Otherwise dermal and superficial subcutaneous soft tissues as visualized appear normal without mass or induration. 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 Stable ascending colonic anastomosis is evident with no abnormal soft tissues in the surgical bed. Other findings: Right hilum calcified granuloma nodule. CT/CT abdomen pelvis wo con [id number] IMPRESSION: 1. No new acute abdominal or pelvic pathologic process or adverse interval change identified. 2. Left chronic stable hydroureteronephrosis, query small UVJ ureterocele. Recommend follow-up contrast-enhanced study or consider direct visualization with cystoscopy if clinically warranted. 3. Stable chronic esophageal wall thickening without luminal narrowing suggestive of mild esophagitis and/or small hiatal hernia. Clinical correlation recommended. Esophageal mass lesions cannot be fully excluded on CT. 4. Bladder is overdistended possibly obscuring subtle adjacent findings. Stable lobulated bladder contour with small bladder diverticuli. Consider functional urinary retention or bladder outlet obstruction, clinical correlation and urinalysis recommended. 5. Long-stable indolent appearing right upper peritoneal mass abutting the anterior right liver lobe demonstrating no adverse interval change in size or morphology compared with prior CT abdomen and pelvis 07/19/2020 (and has been reported present on multiple antecedent studies), no further evaluation recommended. 6. Colonic few scattered diverticuli, diverticulosis without acute diverticulitis. 7. Coronary arterial stents in the left anterior descending and circumflex coronary arteries. (See comment below). 8. Stable advanced age-appropriate degenerative spinal changes, with other chronic/non-acute findings as described above. COMMENTS: 1. Urinary tract, vascular solid organ assessment limited; repeat with IV contrast if clinically warranted. 2. If the patient is experiencing symptoms referable to coronary artery disease recommend management as per chest pain guidelines. If the patient is asymptomatic consider reviewing modifiable cardiovascular risk factors and managing as per guidelines for primary prevention. 3. If the patient is experiencing symptoms referable to coronary artery disease recommend management as per chest pain guidelines. If the patient is asymptomatic consider reviewing modifiable cardiovascular risk factors and managing as per guidelines for primary prevention.
[2025-04-25] MEDS: ondansetron 2 mg/ML SDV 2 mL 8 MG IVP (16:00)
[2025-04-25 16:09] LABS: Respiratory Syncytial Virus Ce NEGATIVE (Negative); SARS-CoV-2 PCR NEGATIVE (Negative)
[2025-04-25 16:37] LABS: Glucose Urine UA 3+ (Normal); Nitrate Urine Negative (Negative)
[2025-04-25 16:48] LABS: Specific Gravity, Urine 1.034 (1.005-1.030)
[2025-04-25] MEDS: cefTRIAXone 1,000 mg SDV 1000 MG IVP (17:01)
[2025-04-25 17:04] VITALS: BP 124/82; PULSE 108; RESP 18; O2SAT 99
--- NOTE | 2025-04-25 17:05 | PC.PHAR ---
Addendum entered by Jaycee Mott 04/25/25 17:07: Pt has been unable to take medications since Saturday04/23/25 Original Note: Verified with Michael Andrews (Denisse) Protonix 40mg and Glipizide ER 10mg have been discontinued. New order for Nexium replaces Prontonix. 04/25/25
[2025-04-25 18:29] VITALS: BP 118/82; PULSE 104; O2SAT 94
== END 2025-04-25 18:32 | disposition home or self-care (01) ==
PROVIDERS: Emergency Medicine; Emergency Provider Emergency Medicine; PCP Nurse Practitioner
DX: R11.10 Vomiting, unspecified (principal); N39.0 Urinary tract infection, site not specified; Z11.52 Encounter for screening for COVID-19; Z79.82 Long term (current) use of aspirin; Z79.4 Long term (current) use of insulin; E78.5 Hyperlipidemia, unspecified; I25.10 Atherosclerotic heart disease of native coronary artery without angina pectoris; Z86.73 Personal history of transient ischemic attack (TIA), and cerebral infarction without residual deficits; E11.9 Type 2 diabetes mellitus without complications; Z85.038 Personal history of other malignant neoplasm of large intestine; Z87.891 Personal history of nicotine dependence
CPT/HCPCS: 36415; 51701; 74176; 80053; 81001; 83605; 83690; 85025; 86140; 87040; 87637; 96374; 96375; 99285; J0696; J2405

== ENCOUNTER 2025-05-03 21:16 | Emergency (ER) | payer MEDICARE, MEDICAID, SELFPAY ==
[2025-05-03 21:16] VITALS: BP 124/89; PULSE 106; RESP 18; TEMP 35.8; O2SAT 100; BMI 27.3
--- OUTSIDE RECORDS SUMMARY | 2025-05-03 21:26 | XMS_ITS | Clinical Summary ---
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 Gender Identity Not on file Sexual Orientation Not on file Last Filed Vital Signs Vital Sign Reading Time Taken Comments Blood Pressure 160/93 12/31/2016 11:42 AM CDT Pulse 95 12/31/2016 11:42 AM CDT Temperature 36.6 C (97.8 F) 07/17/2010 12:15 PM HYDRAULIC MINER Respiratory Rate 16 12/31/2016 11:42 AM CDT [...] Comments HEMOGLOBIN A1C Stat 07/11/2010 4:37 PM HYDRAULIC MINER from Last 3 Months or Most Recently Relevant to Health Maintenance Results * (ABNORMAL) HEMOGLOBIN A1C (07/11/2010 4:37 PM HYDRAULIC MINER) HEMOGLOBIN A1C 7.0(H) 4.0 - 6.0 %A1C [facility] Blood specimen (specimen) 07/11/2010 4:37 PM HYDRAULIC MINER 07/11/2010 4:48 PM HYDRAULIC MINER Narrative INTERFACE SYSTEM - 07/12/2010 10:25 AM HYDRAULIC MINER rm [id number] Magno Ramirez MD CHEMISTRY ORDERABLES Final Resul t Performing Organization Address City/State/[facility] Co de Phone Number INTERFACE SYSTEM Refer to clinic/hospital department [facility] CLIA# [id number] [address] [place] [id number] from Last 3 Months or Most Recently Relevant to Health Maintenance Insurance MEDICAID [place]ICARE PART A [place] B Advance Directives For more information, please contact: [phone] * Full Code (Latest Code Status on File) Date Activated Date Inactivated Comments 07/17/2010 11:32 AM 07/17/2010 3:46 PM * Full Code Date Activated Date Inactivated Comments 07/17/2010 10:38 AM 07/17/2010 11:32 AM * Full Code Date Activated Date Inactivated Comments 07/17/2010 8:50 AM 07/17/2010 10:38 AM Care Teams Cranberry Sorter Relationship Specialty Start Date End Date Aline Pacheco NP PCP - General 07/29/08
--- OUTSIDE RECORDS SUMMARY | 2025-05-03 21:26 | XMS_ITS | Encounter Summary ---
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
--- OUTSIDE RECORDS SUMMARY | 2025-05-03 21:26 | XMS_ITS | Encounter Summary ---
Author Organization [facility] Address [address] [place] [address] Care Team Providers Care Service Operations Manager Name Role Phone Aline Pacheco NP Primary Care Provider Encounter Details Date Type Department Care Team (Latest Contact Info) Description 04/22/2008 Outpatient Historical [facility] [address] [facility] [address] [place] [address] Ilir Stanley MD [address] [facility] [address] [place] [phone] Degeneration of Lumbar or Lumbosacral Intervertebral Disc; DM w/o Complication Type II (CMS/HCC); Unspecified Essential Hypertension; Generalized Osteoarthrosis, Unspecified Site; Unspecified Arthropathy, Site Unspecified; Esophageal Reflux Social History Tobacco Use Types Packs/Day Years Used Date Smoking Tobacco: Never Assessed Sex and Gender Information Value Date Recorded Sex Assigned at Not on file 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
--- OUTSIDE RECORDS SUMMARY | 2025-05-03 21:26 | XMS_ITS | Encounter Summary ---
Author Organization 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
--- OUTSIDE RECORDS SUMMARY | 2025-05-03 21:26 | XMS_ITS | Encounter Summary ---
Author Organization [facility] Address [address] [place] [address] Care Team Providers Care Director Medical Writing Name Role Phone Aline Pacheco INSURANCE CLAIMS SUPERVISOR Primary Care Provider [phone] Encounter Details Date Type Department Care Team (Latest Contact Info) Description 03/09/2008 Outpatient Historical [facility] [address] [facility] [address] [place] [phone] Ilir Stanley MD [address] [facility] [address] [place] [phone] Cervicalgia; Lumbago; Degeneration of Lumbar or Lumbosacral Intervertebral Disc; Lumbosacral Spondylosis without Myelopathy; DM w/o Complication Type II (CMS/HCC); Unspecified Essential Hypertension; Unspecified Arthropathy, Site Unspecified; Other Postprocedural Status Social History Tobacco Use Types Packs/Day Years Used Date Smoking Tobacco: Never Assessed Sex and Gender Information Value Date Recorded Sex Assigned at Not on file 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
--- OUTSIDE RECORDS SUMMARY | 2025-05-03 21:26 | XMS_ITS | Encounter Summary ---
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
--- OUTSIDE RECORDS SUMMARY | 2025-05-03 21:26 | XMS_ITS | Clinical Summary ---
Author Organization [facility] Address [address] [place]hon: Epic Prelude ADT [place] [address] Care Team Providers Care Manager Underwriting Name Role Phone Aline Pacheco NP Primary Care Provider [phone] Allergies Active Allergy Reactions Criticality Noted Date [...] on file Legal Sex Male 1:39 PM INSURANCE LEGAL ASSISTANT Gender Identity Not on file Sexual Orientation [...] 09/07/2019 INFLUENZA VACCINE (#1) 2025 Care Teams Manager Underwriting Relationship Specialty Start Date End Date Aline Pacheco NP [address] [place] [phone] PCP - General 07/29/08
--- NOTE | 2025-05-03 21:47 | CTR_ITS ---
PROCEDURE INFORMATION: Exam: CT Abdomen And Pelvis With Contrast Exam date and time: 05/03/2025 10:35 PM Age: 79 years old Clinical indication: Other: Recent ulcer, worsening epigastric pain TECHNIQUE: Imaging protocol: Computed tomography of the abdomen and pelvis with contrast. Radiation optimization: All CT scans at this facility use at least one of these dose optimization techniques: automated exposure control; mA and/or kV adjustment per patient size (includes targeted exams where dose is matched to clinical indication); or iterative reconstruction. Contrast material: [id number]; Contrast volume: 100 ml; Contrast route: INTRAVENOUS (IV); COMPARISON: CT abdomen pelvis wo con [id number] 04/25/2025 4:11 PM RADIATION DOSE METRICS: Total DLP (mGy-cm): 448.52 FINDINGS: Lungs: A few scattered nonspecific although chronic appearing pulmonary strands.. Esophagus: Chronic esophageal wall thickening. Liver: Normal. No mass. Gallbladder and biliary ducts: Normal. No calcified stones. No ductal dilation. Pancreas: Normal. No ductal dilation. Spleen: Normal. No splenomegaly. Adrenal glands: Normal. No mass. Kidneys and ureters: Relative atrophy of the left kidney with wedge-shaped areas of hypoattenuation within the cortex, possibly prior infarcts. Stomach and bowel: Right hemicolectomy. Moderate volume stool in colon. Appendix: No evidence of appendicitis. 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 Vasculature: Aortic atherosclerosis. Lymph nodes: Unremarkable. No enlarged lymph nodes. Urinary bladder: Unremarkable as visualized. Reproductive: Unremarkable as visualized. Bones/joints: Mild degenerative changes of the lumbar vertebral bodies. Soft tissues: Unremarkable. CT/CT abdomen pelvis w con* [id number] IMPRESSION: No definite acute abdominopelvic abnormality. No evidence of free air. Exact site of ulcer not clearly delineated. Chronic findings as above.
--- NOTE | 2025-05-03 21:47 | XRR_ITS ---
PROCEDURE INFORMATION: Exam: XR Chest Exam date and time: 05/03/2025 9:54 PM Age: 79 years old Clinical indication: Pain; Chest pressure; Prior surgery; Surgery date: 6+ months; Surgery type: Coronary stents; Additional info: Cp TECHNIQUE: Imaging protocol: Radiologic exam of the chest. Views: 1 view. COMPARISON: CR XR chest 1V portable [id number] 01/02/2025 10:44 AM FINDINGS: Lungs: A few scattered nonspecific although chronic appearing pulmonary strands. Pleural spaces: Unremarkable. No pleural effusion. No pneumothorax. Heart/Mediastinum: Unremarkable. No cardiomegaly. Bones/joints: Unremarkable. XR/XR chest 1V portable [id number] IMPRESSION: No definite acute infiltrate or effusion.
[2025-05-03 21:56] LABS: Hematocrit 50.0 % (37-53); Hemoglobin 15.20 g/dL (11.27-16.99); Mean Corpuscular HGB Conc 30.4 g/dL (30-55); Mean Corpuscular Hemoglobin 23.3 pg (27-33); Mean Corpuscular Volume 76.6 fl (82-101); Nucleated Red Blood Cells % 0 %; Platelet Count 386 10^3/cmm (157-399); Red Blood Count 6.53 10^6/uL (3.85-5.65); White Blood Count 12.43 10^3/uL (3.29-11.43)
--- NOTE | 2025-05-03 22:09 | ECG_ITS ---
[facility] Test Date: 2025-05-03 Pat Name: Barb Joe Department: Room: Gender: Male Business Project Manager: : 1945 Requested By: Hussein Dolan Order Number: [id number] Rivera MD: Mateo Broussard M.D. Measurements Intervals [place] Rate: 98 P: 71 WI: 163 QRS: -28 QRSD: 76 T: 10 QT: 352 QTc: 450 Interpretive Statements SINUS RHYTHM WITH OCCASIONAL VENTRICULAR PREMATURE COMPLEXES WITH OCCASIONAL SUPRAVENTRICULAR PREMATURE COMPLEXES BORDERLINE LEFT AXIS DEVIATION [QRS AXIS < -20] Compared to ECG 01/02/2025 10:58:46 ECTOPIC BEATS NOW PRESENT Electronically Signed On 05-06-2025 08:46:28 CDT by Mateo Broussard M.D. [email or web address]
[2025-05-03 22:15] LABS: Lactic Sepsis W/Reflex 1.6 mmol/L (0.5-2.2)
[2025-05-03 22:25] VITALS: BP 105/90; PULSE 95; O2SAT 92
[2025-05-03 22:28] LABS: Alanine Aminotransferase 12 U/L (0-41); Albumin Level 3.5 g/dL (3.5-5.2); Alkaline Phosphatase 118 U/L (40-130); Anion Gap 21.1 (5-19); Aspartate Amino Transferase 12 U/L (0-40); Blood Urea Nitrogen 24 mg/dL (8-23); Calcium 9.1 mg/dL (8.5-10.5); Carbon Dioxide 23 mmol/L (22-29); Chloride 92 mmol/L (98-107); Creatinine Clr Calc Pharmacy 61.4157; Globulin 3.9 g/dL (1.3-4.6); Glucose 223 mg/dL (65-115); Lipase 28 U/L (13-60); Magnesium 1.9 mg/dL (1.7-2.3); NT Pro B Type Natriuretic Pept 114 pg/mL (0-450); Osmolality Calculated 285 mOsm/kg (285-295); Potassium 4.1 mmol/L (3.5-5.1); Sodium 132 mmol/L (136-145); Total Protein 7.4 g/dL (6.6-8.7)
[2025-05-03] MEDS: iohexol 350 mg/mL 500 mL Btl (per mL) IV (22:39)
[2025-05-03 22:44] LABS: Troponin(5th) Baseline 25 ng/L (0-15)
[2025-05-03] MEDS: ondansetron 2 mg/ML SDV 2 mL 4 MG IVP (22:56)
[2025-05-03 23:13] LABS: Glucose Urine UA 3+ (Normal); Nitrate Urine Negative (Negative); Specific Gravity, Urine 1.029 (1.005-1.030)
[2025-05-03 23:18] LABS: Add Urine Microscopic? YES
--- NOTE | 2025-05-03 23:36 | W.ED.NAVMDI ---
HPI - Nausea/Vomiting/Diarrhea General: Chief complaint: Nausea/Vomiting/Diarrhea Stated complaint: n/v weakness Time Seen by Provider: 05/03/25 21:29 History of Present Illness: Patient is an 81-year-old male with a past medical history of hypertension, diabetes, CHF, BPH, CAD status post PCI on Plavix, HLD who presents to the ED with nausea vomiting and generalized weakness for the last week. Recently had an admission for similar in which she was thought to have beginnings of an ulcer, no EGD or colonoscopy done at that time, also had findings of BPH, retention and a UTI in which she was treated with antibiotics. He has since been at home, needs help with some of his ADLs, reports no recent falls. Related Data Home Medications ?Medication ?Instructions ?Recorded ?Confirmed lisinopril 2.5 mg tablet 2.5 mg PO QAM 04/25/25 04/27/25 metoprolol succinate 50 mg 50 mg PO QAM 04/25/25 04/27/25 tablet,extended release 24 hr Previous Rx's ?Medication ?Instructions ?Recorded mupirocin 2 % topical ointment 1 applic topical BID #22 grams 12/07/24 aspirin 81 mg tablet,delayed 81 mg PO QAM #60 tabs 03/05/25 release atorvastatin 20 mg tablet 20 mg PO BEDTIME #30 tabs 03/05/25 clopidogrel 75 mg tablet (Plavix) 75 mg PO QAM #60 tabs 03/05/25 dapagliflozin propanediol 10 mg 10 mg PO QAM #30 tabs 03/05/25 tablet (Farxiga) duloxetine 20 mg capsule,delayed 20 mg PO BID #60 caps 03/05/25 release gabapentin 300 mg capsule 300 mg PO BID #60 caps 03/05/25 insulin degludec 200 unit/mL (3 50 unit (0.25 mL) SUBCUT DAILY #3 03/05/25 mL) subcutaneous pen (Tresiba mL FlexTouch U-200 insulin) levocetirizine 5 mg tablet 5 mg PO QAM #30 tabs 03/05/25 tamsulosin 0.4 mg capsule (Flomax) 0.4 mg PO QPM #30 caps 03/05/25 trazodone 50 mg tablet 50 mg PO BEDTIME #30 tabs 03/05/25 esomeprazole magnesium 20 mg 20 mg PO DAILY #30 caps 04/05/25 capsule,delayed release (Nexium) Oxygen concentrator 2l NC #1 ea 04/06/25 ondansetron 4 mg disintegrating 4 mg PO Q6H PRN nausea and 04/25/25 tablet vomiting #14 tabs finasteride 5 mg tablet (Proscar) 5 mg PO .AM #30 tabs 04/27/25 sucralfate 1 gram tablet (Carafate) 1 g PO TID #90 tabs 04/27/25 Allergies Allergy/AdvReac Type Severity Reaction Status Date / Time erythromycin base Allergy Severe ALGY-Rash Verified 05/03/25 21:26 Sulfa (Sulfonamide Allergy Severe ALGY-Rash Verified 05/03/25 21:26 Antibiotics) Review of Systems General: Reports: 10 or more systems reviewed and unremarkable except in HPI and below Const: Reports: change in weight GI: Reports: abdominal pain and vomiting PFSH ED PFSH: Medical History (Updated 05/04/25 @ 03:20 by Hussein Dolan DO) Nocturnal hypoxia Colon cancer Bladder outlet obstruction Hematochezia Lower gastrointestinal hemorrhage Type 2 diabetes mellitus with hyperglycemia, with long-term current use of insulin Allergic rhinitis due to pollen Hyperlipidemia Coronary artery disease Cervical radicular pain CVA (cerebral vascular accident) Past history of CVA/TIA Tricuspid regurgitation Aortic regurgitation Acid reflux Enrolled in chronic care management Vitamin D deficiency Chronic migraine DDD (degenerative disc disease) Hypertension Dependent on walker for ambulation Surgical History History of cardiac catheterization 02/2020 mid LAD and circ stents History of cervical spinal surgery 3 times History of colon cancer 2014, proximal colon resection with ileocolic anastomosis History of cholecystectomy History of knee surgery Right History of cataract surgery Family History Father Cancer Denies family history of Bleeding disorder Social History Smoking and tobacco/nicotine status: former use of tobacco/nicotine Second hand smoke exposure: No Alcohol intake: never Substance/Drug Use: never Adopted: No Caregiver/support person: No Lives independently: Yes Household members: spouse Housing: House Marital status: Current occupational status: retired Do you think of yourself as: Straight/Heterosexual Current gender identity: Male Physical Exam Narrative: EXAM NARRATIVE: Overall thin and fatigued appearing but nontoxic, no acute distress, afebrile, vital stable on arrival. Patient with benign physical exam except for diffuse mild upper abdominal tenderness diffusely, no Leung sign, abdomen soft, nondistended, bowel sounds decreased but present, no CVA tenderness. No pitting edema. GCS 15, alert and oriented x 4, at times gets lost in conversation but reportedly baseline for him. Course Vital Signs: Vital signs: Vital Signs Temperature 96.5 F L 05/03/25 21:16 Pulse Rate 82 05/04/25 04:00 Respiratory Rate 18 05/03/25 21:16 Blood Pressure 128/90 05/04/25 04:00 Pulse Oximetry 100 05/04/25 04:00 Oxygen Delivery Me thod Room Air 05/03/25 21:16 MDM - Nausea/Vomiting/Diarrhea Medical Decision Making -ddx: PUD, gastritis, esophagitis, pancreatitis, cholecystitis, enteritis, intra-abdominal abscess, pyelonephritis, nephrolithiasis, failure to thrive, malnutrition, cystitis - Patient seen and fatigued appearing but in no distress, vital signs stable on arrival, seemingly had a similar presentation to this emergency, was found to have beginnings PUD, urinary retention and a cystitis which had been treated. States he has been able to keep much down, is nauseous a lot of the time and not able to tolerate more than a few bites. He denies any fevers, infectious symptoms, no chest pain or shortness of breath. Has diffuse upper abdominal tenderness on exam, will image with CT abdomen pelvis, provide GI cocktail and assess with abdominal and cardiac labs for disposition. - Patient with relatively reassuring ED evaluation, laboratory studies seemingly similar to his recent admission, mild inflammatory marker elevation, has had a resolving UTI, UA clean today, afebrile, mildly tachycardic but dry appearing, decreased p.o., will encourage p.o. fluids due to history of heart failure. - CT scan with no concerning findings serving as complications from any PUD at this time, no intra-abdominal free air, no abscess, no obstructions. Initial troponin very mildly elevated compared to baseline, had a negative delta, EKG with no concerning ischemic changes and no concerns of chest pain so ACS considered but unlikely at this time. - Patient felt improved with a GI cocktail, he states his caregiver mostly gives him his medications and thinks he has only been intermittently taking his PPI and Carafate for his probable early PUD. After able to tolerate p.o. and feeling better with a reassuring workup he was able to be discharged because has a strong support system at home, has a caregiver and encouraged him to drink 2-3 ensures a day to ensure adequate level of nutrition and to follow-up with GI if his abdominal pain and seeming ulcer related symptoms do not improve, patient agreeable and discharged in stable condition with strict return precautions given. Lab Data 05/03/25 21:05/03/25: Radiology Impressions Abdomen/Pelvis CT 05/03/25: IMPRESSION: No definite acute abdominopelvic abnormality. No evidence of free air. Exact site of ulcer not clearly delineated. Chronic findings as above. Chest X-Ray 05/03/25: IMPRESSION: No definite acute infiltrate or effusion. Laboratory Results WBC 12.43 10^3/uL (3.29-11.43) H 05/03/25 21: RBC 6.53 10^6/uL (3.85-5.65) H 05/03/25: Hgb 15.20 g/dL (11.27-16.99) 05/03/25: Hct 50.0 % (37-53) 05/03/25: MCV 76.6 fl (82-101) L 05/03/25: MCH 23.3 pg (27-33) L 05/03/25: MCHC 30.4 g/dL (30-55) 05/03/25: RDW 20.0 % (12.1-15.1) H 05/03/25: Plt Count 386 10^3/cmm (157-399) 05/03/25: MPV 9.7 fL (7.4-10.4) 05/03/25: Neut % (Auto) 72.1 % 05/03/25: Lymph % (Auto) 18.2 % 05/03/25: Piatt % (Auto) 7.9 % 05/03/25: Eos % (Auto) 0.9 % 05/03/25 21: Baso % (Auto) 0.4 % 05/03/25 21: Neut # (Auto) 8.97 10^3/uL (1.8-7.7) H 05/03/25 21:26 Lymph # (Auto) 2.3 10^3/uL (0.8-4.8) 05/03/25 21:26 Piatt # (Auto) 1.0 10^3/uL (0.2-0.9) H 05/03/25 21:26 Eos # (Auto) 0.1 10^3/uL (0.0-0.8) 05/03/25 21: Baso # (Auto) 0.1 10^3/uL (0.0-0.1) 05/03/25 21: Nucleated RBC % (auto) 0 % 05/03/25 21: Nucleated RBCs # 0.0 /100WBC 05/03/25 21:26 ESR 16 mm/hr (0-10) H 05/03/25 21:26 Sodium 132 mmol/L (136-145) L 05/03/25 21: Potassium 4.1 mmol/L (3.5-5.1) 05/03/25 21: Chloride 92 mmol/L (98-107) L 05/03/25 21: Carbon Dioxide 23 mmol/L (22-29) 05/03/25 21: Anion Gap 21.1 (5-19) H 05/03/25 21: BUN 24 mg/dL (8-23) H 05/03/25 21: Creatinine 1.0 mg/dL (0.7-1.2) 05/03/25 21: GFR Calculation Not Reportable 05/03/25 21: Glucose 223 mg/dL (65-115) H 05/03/25 21: Calculated Osmolality 285 mOsm/kg (285-295) 05/03/25: Lactic Acid 1.6 mmol/L (0.5-2.2) 05/03/25 21: Calcium 9.1 mg/dL (8.5-10.5) 05/03/25 21: Phosphorus 3.1 mg/dL (2.5-4.5) 05/03/25 21:26 Magnesium 1.9 mg/dL (1.7-2.3) 05/03/25 21: Total Bilirubin 0.6 mg/dL (0.15-1.2) 05/03/25 21: AST 12 U/L (0-40) 05/03/25 21: ALT 12 U/L (0-41) 05/03/25 21: Alkaline Phosphatase 118 U/L (40-130) 05/03/25 21: Troponin T Baseline 25 ng/L (0-15) H 05/03/25 21: Troponin T 120 Minute 25.48 ng/L (0-15) H 05/04/25 00:25 Delta Troponin T 0.48 ABS# (0-10) 05/04/25 00:25 C-Reactive Protein 8.7 mg/L (0.0-4.9) H 05/03/25 21: NT-Pro-B Natriuret Pep 114 pg/mL (0-450) 05/03/25 21: Total Protein 7.4 g/dL (6.6-8.7) 05/03/25 21: Albumin 3.5 g/dL (3.5-5.2) 05/03/25 21: Globulin 3.9 g/dL (1.3-4.6) 05/03/25 21:26 Lipase 28 U/L (13-60) 05/03/25 21: Urine Color Yellow (Yellow) 05/03/25 23:00 Urine Appearance Clear (CLEAR) 05/03/25 23:00 Urine pH 5.5 (5-7) 05/03/25 23:00 Ur Specific [place] 1.029 (1.005-1.030) 05/03/25 23:00 Urine Protein Trace (Negative) A 05/03/25 23:00 Urine Glucose (UA) 3+ (Normal) H 05/03/25 23:00 Urine Ketones 1+ (Negative) H 05/03/25 23:00 Urine Blood Negative (Negative) 05/03/25 23:00 Urine Nitrate Negative (Negative) 05/03/25 23:00 Urine Bilirubin Negative (Negative) 05/03/25 23:00 Urine Urobilinogen 1.0 mg/dL (Negative) 05/03/25 23:00 Ur Leukocyte Esterase Negative (Negative) 05/03/25 23:00 Urine RBC 0-2 /hpf (0-2) 05/03/25 23:00 Urine WBC 0-5 /hpf (0-5) 05/03/25 23:00 Ur Squamous Epith Cells 0-5 /hpf (0-5) 05/03/25 23:00 Amorphous Sediment Not Reportable 05/03/25 23:00 Urine Bacteria None seen /hpf (NONE) 05/03/25 23:00 Hyaline Casts 2.46 /lpf 05/03/25 23:00 All radiology interpretation(s) finalized by discharge EKG Data EKG 1: I personally reviewed and interpreted this EKG as follows: EKG interpretation date: 05/03/25 EKG interpretation time: 22:31 Interpretation: Normal sinus rhythm at 98 bpm, first-degree AV block, no QTc or QRS prolongation, no ST elevation or depression Discharge Plan Discharge Patient Disposition: Home Clinical Impression: Generalized weakness, PUD (peptic ulcer disease) Nausea & vomiting Qualifiers: Vomiting type: unspecified Qualified Code(s): R11.2 - Nausea with vomiting, unspecified Condition: Stable Prescriptions: No Action mupirocin 2 % ointment 1 applic topical BID Qty: 22 0RF sucralfate [Carafate] 1 gram tablet 1 g PO TID Qty: 90 2RF finasteride [Proscar] 5 mg tablet 5 mg PO .AM Qty: 30 2RF aspirin 81 mg tablet,delayed release (DR/EC) 81 mg PO QAM Qty: 60 2RF atorvastatin 20 mg tablet 20 mg PO BEDTIME Qty: 30 2RF Plavix 75 mg tablet 75 mg PO QAM Qty: 60 2RF Farxiga 10 mg tablet 10 mg PO QAM Qty: 30 2RF duloxetine 20 mg capsule,delayed release(DR/EC) 20 mg PO BID Qty: 60 2RF gabapentin 300 mg capsule 300 mg PO BID Qty: 60 2RF insulin degludec [Tresiba FlexTouch U-200] 200 unit/mL (3 mL) insulin pen 50 unit SUBCUT DAILY Qty: 3 2RF levocetirizine 5 mg tablet 5 mg PO QAM Qty: 30 2RF Flomax 0.4 mg capsule 0.4 mg PO QPM Qty: 30 2RF trazodone 50 mg tablet 50 mg PO BEDTIME Qty: 30 2RF esomeprazole magnesium [Nexium] 20 mg capsule,delayed release(DR/EC) 20 mg PO DAILY Qty: 30 2RF (DME) Oxygen concentrator 2l NC See Rx Instructions .ROUTE .MEDSUPPLY Qty: 1 0RF Rx Instructions: Use 2L NC nocturnal for 99 months metoprolol succinate 50 mg tablet extended release 24 hr 50 mg PO QAM lisinopril 2.5 mg tablet 2.5 mg PO QAM ondansetron 4 mg tablet,disintegrating 4 mg PO Q6H PRN (Reason: nausea and vomiting) Qty: 14 0RF Discharge Orders: Discharge ED (Routine); Ordered 05/04/25 Ordered By: Hussein Dolan Referrals: Aline Pacheco, [facility] [Primary Care Provider, Family Practice] Giovanny Mondragon MD [Referring, Internal Medicine] - 7-10 days Clinical Impression: Nausea & vomiting; PUD (peptic ulcer disease) Discharge Diet: Advance as tolerated Discharge Activity: Resume usual activity Patient Instructions: Opioid Safety, Pain Management, Patient Portal & Katja Instructions Activity Restrictions/Additional Instructions: You were seen for your generalized weakness, vomiting and decreased appetite, you were evaluated with an EKG, chest x-ray, CT scan of your abdomen and laboratory studies which were ultimately reassuring for no concerning conditions today. You most likely have persistent difficulty maintaining a normal diet due to a small ulcer in your stomach. To continue helping with this, take the esomeprazole as originally prescribed as well as the Carafate up to every 8 hours as needed, return to a soft and bland diet, including toast, bread and crackers and slowly progress from there as your stomach allows. Supplement your nutrition by drinking 2-3 ensures a day. If you are eating and symptoms do not improve over the next week, make an appointment with the GI clinic listed above for further evaluation and potential EGD/colonoscopy to further evaluate and possibly treat this condition. Return to the ED with severe worsening of the pain or vomiting, fevers, inability to urinate, any other emergent concerns. Print Language: [place] Coding Level of Care Code ED Research Nutritionist for Jose Luis Gibson
[2025-05-03 23:37] VITALS: BP 132/107; PULSE 88; O2SAT 97
[2025-05-04 00:56] LABS: Troponin 5 2HR 25.48 ng/L (0-15); Troponin 5 2HR Delta 0.48 ABS# (0-10)
[2025-05-04 01:29] VITALS: BP 117/80; PULSE 92; O2SAT 97
[2025-05-04 04:00] VITALS: BP 128/90; PULSE 82; O2SAT 100
[2025-05-04 06:22] VITALS: BP 117/78; PULSE 98; O2SAT 96
--- NOTE | 2025-05-04 06:23 | PC.NURSE ---
Pts grand-daughter contacted upon discharge. States she will arrange transportation or she will be here to pick patient up after dropping off child at school.
== END 2025-05-04 06:20 | disposition home or self-care (01) ==
PROVIDERS: Emergency Provider Student in an Organized Health Care Education/Training Program; PCP Nurse Practitioner
DX: R11.2 Nausea with vomiting, unspecified (principal); R53.1 Weakness; K27.9 Peptic ulcer, site unspecified, unspecified as acute or chronic, without hemorrhage or perforation; Z79.82 Long term (current) use of aspirin; Z79.4 Long term (current) use of insulin; Z87.891 Personal history of nicotine dependence; I25.10 Atherosclerotic heart disease of native coronary artery without angina pectoris; Z85.038 Personal history of other malignant neoplasm of large intestine; Z86.73 Personal history of transient ischemic attack (TIA), and cerebral infarction without residual deficits; E78.5 Hyperlipidemia, unspecified; E11.9 Type 2 diabetes mellitus without complications; I11.0 Hypertensive heart disease with heart failure; I50.9 Heart failure, unspecified
CPT/HCPCS: 71045; 74177; 80053; 81001; 83605; 83690; 83735; 83880; 84100; 84484; 85025; 85651; 86140; 93005; 96374; 96375; 99285; J2405; J3490